=== PATIENT | male | born 1930 | race Caucasian/White ===

== ENCOUNTER 2016-09-27 13:46 | Emergency (ER) | payer MEDICARE ==
[~2016-09-27] VITALS: Ht 177.8 cm; Wt 87.1 kg
[2016-09-27] MEDS ORDERED: TAMS0.4C97 PO (14:31)
[2016-09-27] MEDS ORDERED: NAPR220C4 PO (14:31)
[2016-09-27] MEDS ORDERED: LEVO25TA55 PO (14:31)
[2016-09-27] MEDS ORDERED: CHOL100013 PO (14:31)
[2016-09-27 14:40] VITALS: BP 156/76
--- NOTE | 2016-09-27 15:42 | RAD ---
CT of the head without contrast, 09/27/2016: History: Fall, head and neck pain Comparison is made to a study from 04/28/2006. There is moderate cerebral atrophy. There are moderate patchy lucencies in the deep white matter bilaterally compatible with chronic ischemic change. These findings have worsened since the previous study. The ventricles are enlarged on a compensatory basis. There is no shift of the midline structures. There is no evidence of acute intracranial hemorrhage or mass effect. There is fluid and debris in both maxillary sinuses, likely on an inflammatory basis. Hemorrhage into the sinuses is less likely. IMPRESSION: 1. Cerebral atrophy and moderate chronic ischemic change in the deep white matter bilaterally. 2. No acute intracranial abnormality is detected. 3. Fluid in both maxillary sinuses, likely on an inflammatory basis. CT of the cervical spine without contrast, 09/27/2016: Multilevel noncontrast scans were obtained with multiplanar reconstructions produced. There is disc space narrowing and extensive marginal spurring throughout the cervical spine. There are extensive hypertrophic degenerative changes involving multiple facet joints bilaterally. The combination of findings is causing mild central spinal stenosis and moderate foraminal narrowing at multiple levels. There is a fracture at the base of the odontoid process of C2. It is nondisplaced. There are moderate underlying cystic and sclerotic changes in the odontoid process on a degenerative basis. This is probably a recent fracture, however, that cannot be stated with certainty. There is moderate thickening of the transverse ligament along the posterior aspect of the odontoid. There is associated narrowing of the thecal sac at the C1 level measuring 7-8 mm in AP dimension. There is slight spondylolisthesis at the C2-3 level due to facet joint arthropathy. No other fracture or subluxation is seen. There is moderate calcific plaquing at both carotid bifurcations. IMPRESSION: 1. Extensive multilevel hypertrophic degenerative change with mild central spinal stenosis at multiple levels. 2. Nondisplaced fracture at the base of the odontoid process. 3. Thickening of the transverse ligament along the posterior aspect of the odontoid process with mild to moderate associated central spinal stenosis at C1. PQRS Compliance Statement: One or more of the following individualized dose reduction techniques were utilized for this examination: 1. Automated exposure control 2. Adjustment of the mA and/or kV according to patient size 3. Use of iterative reconstruction technique
--- NOTE | 2016-09-27 16:02 | PHYS DOC ---
General Chief Complaint: Neck Pain Stated Complaint: NECK PAIN Time Seen by MD: 14:52 Source: patient Exam Limitations: clinical condition (vague unreliable historian patient has dementia) Problems: History of Present Illness Initial Comments Patient is an 86-year-old male with history of dementia sent to the ED from his PCPs office with injuries from a fall. Patient states that he's had nagging neck pains for the past month. Yesterday he was walking in the yard and he suffered a trip and fall falling to his back. He did hit his head there was no loss of consciousness and he's had no focal neuro deficits. After the fall his neck pain changed and worsened, this morning it became so severe that they went to their primary care doctor's office Dr. Araujo. X-rays wet read in the office were negative but the patient was sent to the ED for CT evaluation. On arrival patient has mild to moderate neck pain at rest much worse with movement. Pain is located at the skull base. Other than the neck pain he's had no new or progressive symptoms. Occurred: yesterday Severity: severe (C2 fracture and surgery for) Injuries/Pain Location: head, neck Context: tripped Loss of Consciousness: no loss of consciousness Modifying Factors: worse with jarring, worse with movement, improves with rest Associated Symptoms: headache (elevate summary met), muscle spasms, neck pain Allergies: Coded Allergies: No Known Drug Allergies (Unverified , 09/27/16) Past Medical History Medical History: other (dementia, hypothyroidism) Surgical History: other (hernia) Social History Smoker: non-smoker Alcohol: none Drugs: none Review of Systems Constitutional: denies chills, denies diaphoresis, denies fever, denies malaise Eyes: denies blindness, denies blurred vision, denies inflammation, denies pain , denies photophobia Ears, Nose, Mouth, Throat: denies ear pain, denies ear discharge, denies nose pain, denies nose discharge, denies epistaxis, denies mouth pain, denies throat pain Respiratory: denies cough, denies shortness of breath, denies wheezing Cardiovascular: denies chest pain, denies palpitations, denies syncope Gastrointestinal: denies abdominal pain, denies nausea, denies vomiting Musculoskeletal: see HPI Psychiatric/Neurological: see HPI, denies numbness, denies paresthesia, denies seizure, denies weakness Physical Exam General Appearance: WD/WN, no apparent distress Head: no evidence of injury (normocephalic atraumatic negative Alvarado sign negative raccoon eyes no face or scalp swelling or tenderness) Eyes: bilateral eye normal inspection, bilateral eye PERRL, bilateral eye EOMI Ears, Nose, Mouth, Throat: hearing grossly normal, no evidence of ENT injury ( no ear or nose discharge no fluid behind TMs bilaterally), no dental injury Neck: tender midline, other (tenderness to palpation at the upper C-spine, both soft tissue and bony tenderness noted no palpable deformity some mild swelling noted) Cardiovascular/Respiratory: normal peripheral pulses, no respiratory distress Back: no CVA tenderness, no vertebral tenderness Extremities: normal range of motion, non-tender 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 PHYSICIAN: DENICE ABURTO DO REASON: fall, head/neck pain PROCEDURE: CT HEAD AND CERVICAL SPINE WO CT of the head without contrast, 09/27/2016: History: Fall, head and neck pain Comparison is made to a study from 04/28/2006. There is moderate cerebral atrophy. There are moderate patchy lucencies in the deep white matter bilaterally compatible with chronic ischemic change. These findings have worsened since the previous study. The ventricles are enlarged on a compensatory basis. There is no shift of the midline structures. There is no evidence of acute intracranial hemorrhage or mass effect. There is fluid and debris in both maxillary sinuses, likely on an inflammatory basis. Hemorrhage into the sinuses is less likely. IMPRESSION: 1. Cerebral atrophy and moderate chronic ischemic change in the deep white matter bilaterally. 2. No acute intracranial abnormality is detected. 3. Fluid in both maxillary sinuses, likely on an inflammatory basis. CT of the cervical spine without contrast, 09/27/2016: Multilevel noncontrast scans were obtained with multiplanar reconstructions produced. There is disc space narrowing and extensive marginal spurring throughout the cervical spine. There are extensive hypertrophic degenerative changes involving multiple facet joints bilaterally. The combination of findings is causing mild central spinal stenosis and moderate foraminal narrowing at multiple levels. There is a fracture at the base of the odontoid process of C2. It is nondisplaced. There are moderate underlying cystic and sclerotic changes in the odontoid process on a degenerative basis. This is probably a recent fracture, however, that cannot be stated with certainty. There is moderate thickening of the transverse ligament along the posterior aspect of the odontoid. There is associated narrowing of the thecal sac at the C1 level measuring 7-8 mm in AP dimension. There is slight spondylolisthesis at the C2-3 level due to facet joint arthropathy. No other fracture or subluxation is seen. There is moderate calcific plaquing at both carotid bifurcations. IMPRESSION: 1. Extensive multilevel hypertrophic degenerative change with mild central spinal stenosis at multiple levels. 2. Nondisplaced fracture at the base of the odontoid process. 3. Thickening of the transverse ligament along the posterior aspect of the odontoid process with mild to moderate associated central spinal stenosis at C1. PQRS Compliance Statement: One or more of the following individualized dose reduction techniques were utilized for this examination: 1. Automated exposure control 2. Adjustment of the mA and/or kV according to patient size 3. Use of iterative reconstruction technique DICTATED AND SIGNED BY: DOROTHY HELLER MD DATE: 09/27/16 2815 CC: ELSIE MANCINI MD; DENICE ABURTO DO ~ 1608: I discussed the patient with on-call neurosurgery Dr. Carrasco. After thorough discussion he requests that the patient be transferred to [facility]. transfer team is being paged. 1622: I discussed pt with Transfer Team RN, she accepts pt on behalf of Dr Grullon via EMS transport for further eval/tx. 1640: transfer nurse called back, Dr. Grullon has no questions patient is accepted to the [facility] floor transfer team will call back with a bed assignment. She relays that we can go ahead and call EMS and get the patient on the road headed that direction. Patient remains neurologically intact he is agreeable. IMPRESSIONS: Nondisplaced odontoid base fracture Mechanical fall Departure Time of Disposition: 16:03 Disposition: 02 XFER SHT-TRM HOSP Diagnosis: C2 Fracture, mechanical fall Condition: GUARDED Additional Instructions: EMS transfer to [facility] Dr. Grullon trauma surgeon is the accepting physician. DENICE ABURTO DO Sep 27, 2016 16:02
== END 2016-09-27 18:00 | disposition short-term general hospital (02) ==
LOC: ER 13:46
DX: S12.101A Unspecified nondisplaced fracture of second cervical vertebra, initial encounter for closed fracture (principal); E03.9 Hypothyroidism, unspecified; W01.198A Fall on same level from slipping, tripping and stumbling with subsequent striking against other object, initial encounter; Y93.01 Activity, walking, marching and hiking; Y92.096 Garden or yard of other non-institutional residence as the place of occurrence of the external cause; Y99.8 Other external cause status
CPT/HCPCS: 70450; 72125; 99285-25

== ENCOUNTER 2017-05-16 12:20 | Inpatient (IN) | payer MEDICARE ==
[~2017-05-16] VITALS: Ht 181.6 cm; Wt 82.6 kg
[~2017-05-16 12:20] MED LIST: CHOL100013 PO; LEVO25TA55 PO; NAPR220C4 PO; TAMS0.4C97 PO
--- NOTE | 2017-05-16 13:16 | RAD ---
CT head without intravenous contrast History: Confusion. Comparison: CT head September 27, 2016. Technique: Axial images are obtained of the head from the skull base through the vertex without IV contrast. Exposure: One or more of the following individualized dose reduction techniques were utilized for this examination: 1. Automated exposure control 2. Adjustment of the mA and/or kV according to patient size 3. Use of iterative reconstruction technique Findings: The ventricles are appropriate in size, shape, and location for the patient's age. No obvious intracranial mass, mass-effect, midline shift, hemorrhage or obvious acute infarction is identified. Basilar cisterns are patent. Moderate, nonspecific white matter low-attenuation is seen, probably from chronic microvascular ischemic disease. Bone windows demonstrate no acute calvarial abnormality. The visualized paranasal sinuses appear clear. Impression: 1. No acute intracranial process. Please note that CT can be relatively insensitive to acute ischemic infarction for up to 24 hours after symptom onset. 2. Moderate nonspecific white matter changes, probably from chronic microvascular ischemic disease. Electronically signed by: Bogdan Fraire MD (05/16/2017 1:13 PM) [facility]
--- NOTE | 2017-05-16 13:24 | RAD ---
INDICATION: Confusion. TECHNIQUE: AP portable chest radiograph was obtained upright. No comparison is available. FINDINGS: The lungs are clear. The heart is not enlarged and there is no heart failure. There are degenerative changes in the spine and in the shoulders. Leads overlie the patient. IMPRESSION: No active pulmonary disease. Electronically signed by: Rafa Garnica MD (05/16/2017 1:21 PM) [id number]
[2017-05-16 13:46] LABS: BASO # 0.1 x10^3/uL (0.0-0.2); BASO % 1 % (0-3); EOS # 0.2 x10^3/uL (0.0-0.7); EOS % 2 % (0-3); HEMATOCRIT 40.6 % (39.0-53.0); HEMOGLOBIN 14.1 g/dL (13.0-17.5); LYMPH # 0.8 x10^3/uL (1.0-4.8); LYMPH % 11 % (24-48); MEAN CORPUSCULAR HEMOGLOBIN 34 pg (25-35); MEAN CORPUSCULAR HGB CONC 35 g/dL (31-37); MEAN CORPUSCULAR VOLUME 98 fL (79-100); MONO # 0.6 x10^3/uL (0.0-1.1); MONO % 8 % (0-9); NEUT # 5.9 x10^3uL (1.8-7.7); NEUT % 78 % (31-73); PLATELET COUNT 167 x10^3/uL (140-400); RED BLOOD COUNT 4.16 x10^6/uL (4.30-5.70); RED CELL DISTRIBUTION WIDTH 12.8 % (11.5-14.5); WHITE BLOOD COUNT 7.5 x10^3/uL (4.0-11.0)
--- NOTE | 2017-05-16 13:50 | PHYS DOC ---
Past History Past Medical History: Diabetes, High Cholesterol, Other Past Surgical History: No Surgical History Alcohol Use: None Drug Use: None Adult General Chief Complaint Chief Complaint: WEAKNESS/GENERALIZED HPI HPI 87-year-old male patient with history of dementia had increasing dementia and confusion for the last 3 weeks and had blood tests by primary care physician and was told to return to office yesterday because of abnormal lab. Patient had blood sugar of 604 yesterday without history of diabetes and had a shot of insulin and started on new medication for diabetes. Patient was more lethargic and confused this morning and was not able to take a shower by himself like his usual. Patient was coughing and choking while eating breakfast and had 1 episode of vomiting and they called 911. EMS reported that patient had O2 sat of 80s without sign of shortness of breath or hypoxia. Patient states he feels fine now and denies focal neuro deficit, fever and chills, nausea and vomiting, chest pain and shortness of breath, recent fever and cough and congestion. Review of Systems Review of Systems Constitutional: Reports confusion and numbness, denies fever or chills [] Eyes: Denies change in visual acuity, redness, or eye pain [] HENT: Denies nasal congestion or sore throat [] Respiratory: Denies cough or shortness of breath [] Cardiovascular: No additional information not addressed in HPI [] GI: Denies abdominal pain, nausea, vomiting, bloody stools or diarrhea [] : Denies dysuria or hematuria [] Musculoskeletal: Denies back pain or joint pain [] Integument: Denies rash or skin lesions [] Neurologic: Denies headache, focal weakness or sensory changes [] Endocrine: Denies polyuria or polydipsia [] All other systems were reviewed and found to be within normal limits, except as documented in this note. Allergies Allergies Allergies Coded Allergies Type Severity Reaction Last Updated Verified No Known Drug Allergies 05/16/17 No Physical Exam Physical Exam Constitutional: Well nourished, no acute distress, non-toxic appearance. [] HENT: Normocephalic, atraumatic, bilateral external ears normal, oropharynx moist, no oral exudates, nose normal. [] Eyes: PERRLA, EOMI, conjunctiva normal, no discharge. [] Neck: Normal range of motion, no tenderness, supple, no stridor. [] Cardiovascular:Heart rate regular rhythm, no murmur [] Lungs & Thorax: Bilateral breath sounds clear to auscultation [] Abdomen: Bowel sounds normal, soft, no tenderness, no masses, no pulsatile masses. [] Skin: Warm, dry, no erythema, no rash. [] Back: No tenderness, no CVA tenderness. [] Extremities: No tenderness, no cyanosis, no clubbing, ROM intact, no edema. [] Neurologic: Alert and oriented X 2, normal motor function, normal sensory function, no focal deficits noted. [] Psychologic: Affect normal Current Patient Data Vital Signs Vital Signs Date Time Temp Pulse Resp B/P (MAP) Pulse Ox O2 Delivery O2 Flow Rate FiO2 05/16/17 12:33 97.4 63 18 97 Room Air EKG EKG EKG interpreted by me. EKG at 1232 showed normal sinus rhythm at rate of 64, left rush axis, low QRS voltage, poor R-wave progress in anteroseptal the, no acute ST and T wave abnormality Radiology/Procedures Radiology/Procedures [] [address] [address] IMAGING REPORT Signed PATIENT: GUCCI FONTANEZ ACCOUNT: [id number] : 1930 LOCATION: ER AGE: 87 SEX: M EXAM STATUS: REG ER ORD. PHYSICIAN: MARGARETTE THAPA MD REASON: confusion PROCEDURE: CT HEAD WO CONTRAST CT head without intravenous contrast History: Confusion. Comparison: CT head September 27, 2016. Technique: Axial images are obtained of the head from the skull base through the vertex without IV contrast. Exposure: One or more of the following individualized dose reduction techniques were utilized for this examination: 1. Automated exposure control 2. Adjustment of the mA and/or kV according to patient size 3. Use of iterative reconstruction technique Findings: The ventricles are appropriate in size, shape, and location for the patient's age. No obvious intracranial mass, mass-effect, midline shift, hemorrhage or obvious acute infarction is identified. Basilar cisterns are patent. Moderate, nonspecific white matter low-attenuation is seen, probably from chronic microvascular ischemic disease. Bone windows demonstrate no acute calvarial abnormality. The visualized paranasal sinuses appear clear. Impression: 1. No acute intracranial process. Please note that CT can be relatively insensitive to acute ischemic infarction for up to 24 hours after symptom onset. 2. Moderate nonspecific white matter changes, probably from chronic microvascular ischemic disease. Electronically signed by: Bogdan Darby MD (05/16/2017 1:13 PM) [facility] DICTATED AND SIGNED BY: BOGDAN DARBY MD DATE: 05/16/17 1311 CC: ELSIE MANCINI MD; MARGARETTE THAPA MD ~ [place] [address] IMAGING REPORT Signed PATIENT: GUCCI FONTANEZ ACCOUNT: [id number] : 1930 LOCATION: ER AGE: 87 SEX: M EXAM STATUS: REG ER ORD. PHYSICIAN: MARGARETTE THAPA MD REASON: confusion PROCEDURE: PORTABLE CHEST 1V INDICATION: Confusion. TECHNIQUE: AP portable chest radiograph was obtained upright. No comparison is available. FINDINGS: The lungs are clear. The heart is not enlarged and there is no heart failure. There are degenerative changes in the spine and in the shoulders. Leads overlie the patient. IMPRESSION: No active pulmonary disease. Electronically signed by: Rafa Garnica MD (05/16/2017 1:21 PM) [id number] DICTATED AND SIGNED BY: RAFA GARNICA MD DATE: 05/16/177 CC: ELSIE MANCINI MD; MARGARETTE THAPA MD ~ Course & Med Decision Making Course & Med Decision Making Pertinent Labs and Imaging studies reviewed. (See chart for details) Evaluation of patient in ER showed 87-year-old female patient brought in by EMS because of confusion and vomiting after cough. Patient had O2 sats of more than 95% at arrival to ER and did not have any abnormal vital sign. Neuro exam was unremarkable. Patient had elevation of lactic acid at 2.3 with UTI. White count was normal. IV fluid and antibiotic was started. Dr. Mancini informed at 1430 and agreed with admitting patient. Dragon Disclaimer Dragon Disclaimer This electronic medical record was generated, in whole or in part, using a voice recognition dictation system. Departure Departure: Impression: Primary Impression: Altered level of consciousness Additional Impressions: Sepsis secondary to UTI Renal insufficiency Uncontrolled diabetes mellitus Disposition: ADMITTED INPATIENT (at 1430) Admitting Physician: Elsie Mancini Condition: IMPROVED Referrals: ELSIE MANCINI MD (PCP) Critical Care Time Critical care time was [70] minutes exclusive of procedures. Problem Qualifiers MARGARETTE THAPA MD May 16, 2017 13:50
[2017-05-16 13:51] LABS: MAGNESIUM 2.2 mg/dL (1.8-2.4)
[2017-05-16 13:52] LABS: INFLUENZA A PATIENT NEGATIVE (NEGATIVE); INFLUENZA B PATIENT NEGATIVE (NEGATIVE)
[2017-05-16 14:10] LABS: ALBUMIN 3.6 g/dL (3.4-5.0); ALBUMIN/GLOBULIN RATIO 1.1 (1.0-1.7); CALCIUM 8.9 mg/dL (8.5-10.1); CREATININE 1.5 mg/dL (0.7-1.3); GFR 44.3; POTASSIUM 4.2 mmol/L (3.5-5.1); TOTAL BILIRUBIN 0.6 mg/dL (0.2-1.0); TOTAL PROTEIN 6.8 g/dL (6.4-8.2)
[2017-05-16] MEDS ORDERED: IV NORMAL SALINE 1,000ML 1,000 ML IV ONE (14:15)
[2017-05-16 14:25] LABS: BILIRUBIN,URINE NEG (NEG); CLARITY,URINE CLOUDY; COLOR,URINE YELLOW; GLUCOSE,URINE >=1000 mg/dL (NEG)
[2017-05-16 14:26] LABS: BACTERIA,URINE FEW /HPF (0-FEW); NITRITE,URINE NEG (NEG); SQUAMOUS EPITHELIAL CELL,UR OCC /LPF; UROBILINOGEN,URINE 0.2 mg/dL (0.2 mg/dL); YEAST,URINE PRESENT /HPF
[2017-05-16] MEDS ORDERED: cefTRIAXone IV Push 1 GM VIAL. IVP ONE (14:30)
--- NOTE | 2017-05-16 14:47 | EKG ---
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
[2017-05-16] MEDS: IV NORMAL SALINE 1,000ML 1,000 ML IV SCH (16:12)
[2017-05-16] MEDS ORDERED: ASPI81TA50 PO (17:08)
[2017-05-16] MEDS ORDERED: CHOL400T36 PO (17:08)
[2017-05-16] MEDS ORDERED: INSU100I30 SQ (17:08)
[2017-05-16] MEDS ORDERED: LEVO125T5 PO (17:08)
[2017-05-16] MEDS ORDERED: DEXTROSE 50% 25 GM / 50ML DISP.SYRIN. IV PRN (18:30)
[2017-05-16 18:52] VITALS: BP 106/70
[2017-05-16] MEDS ORDERED: LORA2ORA8 PO (19:10)
[2017-05-16 19:55] VITALS: BP 119/70
[2017-05-16] MEDS: NYSTATIN TOPICAL POWDER 15GM BOTTLE. TP SCH (21:00)
[2017-05-16] MEDS: INSULIN DETEMIR 300 UNITS/3 ML INSULN.PEN. SQ SCH (21:04)
[2017-05-16] MEDS: HEPARIN PF for SUB-Q USE 5,000 UNIT/0.5 ML VIAL. SQ SCH (21:04)
[2017-05-16 22:55] VITALS: BP 124/71
[2017-05-16] MEDS: LORazepam INTENSOL 2 MG/ML BOTTLE PO PRN (23:26)
[2017-05-17] MEDS: IV NORMAL SALINE 1,000ML 1,000 ML IV SCH (05:12)
[2017-05-17 05:22] VITALS: BP 95/51
[2017-05-17] MEDS: HEPARIN PF for SUB-Q USE 5,000 UNIT/0.5 ML VIAL. SQ SCH ×3 (05:30→22:54)
[2017-05-17 06:06] LABS: BASO # 0.1 x10^3/uL (0.0-0.2); BASO % 1 % (0-3); EOS # 0.3 x10^3/uL (0.0-0.7); EOS % 5 % (0-3); HEMOGLOBIN 12.4 g/dL (13.0-17.5); LYMPH # 1.6 x10^3/uL (1.0-4.8); LYMPH % 27 % (24-48); MEAN CORPUSCULAR HEMOGLOBIN 34 pg (25-35); MEAN CORPUSCULAR HGB CONC 35 g/dL (31-37); MEAN CORPUSCULAR VOLUME 98 fL (79-100); MONO # 0.6 x10^3/uL (0.0-1.1); MONO % 9 % (0-9); NEUT # 3.4 x10^3uL (1.8-7.7); NEUT % 58 % (31-73); PLATELET COUNT 150 x10^3/uL (140-400); RED BLOOD COUNT 3.68 x10^6/uL (4.30-5.70); RED CELL DISTRIBUTION WIDTH 12.7 % (11.5-14.5); WHITE BLOOD COUNT 5.9 x10^3/uL (4.0-11.0)
[2017-05-17 06:08] LABS: CREATININE 1.2 mg/dL (0.7-1.3); GFR 57.3; POTASSIUM 3.7 mmol/L (3.5-5.1)
[2017-05-17] MEDS: LEVOTHYROXINE 125 MCG TABLET PO SCH ×2 (06:26→10:22)
[2017-05-17] MEDS: ASPIRIN ENTERIC COATED 81 MG TABLET.DR. PO SCH (10:21)
[2017-05-17] MEDS: CHOLECALCIFEROL (VITAMIN D3) 1,000 UNIT TABLET PO SCH (10:22)
[2017-05-17] MEDS: TAMSULOSIN 0.4 MG CAP.ER.24H. PO SCH ×2 (10:23→21:29)
[2017-05-17] MEDS: INSULIN ASPART 300 UNITS/3 ML INSULN.PEN SQ SCH ×3 (10:28→16:30)
[2017-05-17] MEDS: NYSTATIN TOPICAL POWDER 15GM BOTTLE. TP SCH ×2 (10:29→21:30)
[2017-05-17 10:47] VITALS: BP 124/76
--- NOTE | 2017-05-17 12:20 | HP ---
ADMIT DATE: 05/16/2017 HISTORY OF PRESENT ILLNESS: This is an 87-year-old gentleman with increased dementia, confusion for the last 3 weeks. The patient had a previous history of diabetes, was discovered to have diabetes; however, this morning he was a little lethargic, markedly confused, disoriented, could not shower. Denied other symptoms, but was very lethargic according to the family. The patient was admitted because of the elevated sugar and change in mental status. Urine was negative for ketones. Did have an elevated lactic acid. Likely he was dehydrated as well, showing quite a bit of sugar in his urine. In any case, the patient was admitted for change in mental status and severe hyperglycemia and dehydration. PAST MEDICAL HISTORY: Dementia, hypertension, BPH, arthritis, fractures of the neck, newly discovered diabetes, hypothyroidism, cancer, history of melanoma of the skin, influenza, pneumococcal vaccinations up-to-date, breast cancer up-to-date. ALLERGIES: No known allergies noted. FAMILY HISTORY: Unremarkable. SOCIAL HISTORY: The patient has no history of smoking, alcohol, or drug use. REVIEW OF SYSTEMS: The patient presently unable to give any type of history as he is pretty much sedated. HOME MEDICATIONS: He has been on Tarceva, aspirin, vitamin D, levothyroxine 125 mcg, lorazepam, and Flomax. ALLERGIES: No known allergies. PHYSICAL EXAMINATION: GENERAL: He is a pleasant white male, very sedated, not able to really give much of a history if at all. VITAL SIGNS: Blood pressure 120/60, respiratory rate 16, pulse 60, afebrile. HEENT: The patient's head was atraumatic, normocephalic. Eyes: PERRLA without jaundice. Mouth and throat were normal. Dry mucous membranes. NECK: Fairly supple. LUNGS: Diminished, but clear. CARDIOVASCULAR: Stable. ABDOMEN: Soft, nontender. EXTREMITIES: No clubbing, cyanosis, or edema. NEUROLOGIC: The patient is very sedate. He does not open his eyes for me anyway and hard to test the rest of his neuro exam. Labs when he came in as noted was approximately 284 lactic acid that was up. As noted earlier was his creatinine of 1.5. So in any case, the patient is resting fairly comfortably, making fairly good progress this morning. He has been receiving IV fluids and insulin on a regular basis. Dr. Mistry, psychiatrist, from [facility] will see the gentleman and make timely suggestions as always. IMPRESSION: Change of mental status, new onset of type 2 diabetes, dehydration, acute renal insufficiency secondary to dehydration. ELSIE MANCINI MD DR: IVAN/treasure JOB#: [id number] / [id number]
[2017-05-17 15:21] VITALS: BP 161/82
[2017-05-17 16:11] LABS: HEMOGLOBIN A1C 12.8 % (4.8-5.6)
--- NOTE | 2017-05-17 19:09 | PDOC ---
Exam Note: Pardeep Note: Please also refer to the separate dictated note~for this date of service dictated separately.~Patient seen individually. Discussed the patient with Nursing staff reviewed the chart.~Reviewed interim history and current functioning. Reviewed vital signs,~Labs/ Radiology~and current medications noted below. Continue current treatment with the changes noted in the dictated addendum note. This is a late entry for date of service May 16, 2017 Assessment: Vital Signs: VS - Last 72 Hours, by Label Date Time Temp Pulse Resp B/P (MAP) Pulse Ox O2 Delivery O2 Flow Rate FiO2 05/17/17 15:21 98.0 73 20 161/82 (108) 94 Room Air 05/17/17 10:47 98.4 62 20 124/76 (92) 95 Room Air 05/17/17 08:00 Room Air 05/17/17 05:22 69 18 95/51 (66) 94 Room Air 05/16/17 22:55 66 16 124/71 (88) 96 Room Air 05/16/17 19:55 97.7 72 16 119/70 (86) 98 Room Air 05/16/17 19:50 Room Air 05/16/17 19:19 Room Air 05/16/17 18:52 97.2 71 24 106/70 (82) 99 05/16/17 15:38 64 18 116/68 (84) 95 Room Air 05/16/17 15:04 61 18 119/45 (69) 97 Room Air 05/16/17 14:27 60 16 112/67 (82) 95 Room Air 05/16/17 13:57 95 18 125/87 (100) 100 Room Air 05/16/17 12:57 63 16 115/53 (73) 100 05/16/17 12:33 97.4 63 18 97 Room Air Vital Signs Date Time Temp Pulse Resp B/P (MAP) Pulse Ox O2 Delivery O2 Flow Rate FiO2 05/17/17 15:21 98.0 73 20 161/82 (108) 94 Room Air I&O Intake and Output 05/17/17 07:00 Intake Total 899.12 ml Balance 899.12 ml Intake Oral 240 ml IV Total 659.12 ml # Voids 5 Labs: Laboratory Tests Test 05/16/17 20:02 05/16/17 22:51 05/17/17 05:53 05/17/17 07:39 Glucose (Fingerstick) 319 mg/dL (70-99) H 258 mg/dL (70-99) H 179 mg/dL (70-99) H White Blood Count 5.9 x10^3/uL (4.0-11.0) Red Blood Count 3.68 x10^6/uL (4.30-5.70) L Hemoglobin 12.4 g/dL (13.0-17.5) L Hematocrit 36.0 % (39.0-53.0) L Mean Corpuscular Volume 98 fL (79-100) Mean Corpuscular Hemoglobin 34 pg (25-35) Mean Corpuscular Hemoglobin Concent 35 g/dL (31-37) Red Cell Distribution Width 12.7 % (11.5-14.5) Platelet Count 150 x10^3/uL (140-400) Neutrophils (%) (Auto) 58 % (31-73) Lymphocytes (%) (Auto) 27 % (24-48) Monocytes (%) (Auto) 9 % (0-9) Eosinophils (%) (Auto) 5 % (0-3) H Basophils (%) (Auto) 1 % (0-3) Neutrophils # (Auto) 3.4 x10^3uL (1.8-7.7) Lymphocytes # (Auto) 1.6 x10^3/uL (1.0-4.8) Monocytes # (Auto) 0.6 x10^3/uL (0.0-1.1) Eosinophils # (Auto) 0.3 x10^3/uL (0.0-0.7) Basophils # (Auto) 0.1 x10^3/uL (0.0-0.2) Sodium Level 136 mmol/L (136-145) Potassium Level 3.7 mmol/L (3.5-5.1) Chloride Level 102 mmol/L (98-107) Carbon Dioxide Level 25 mmol/L (21-32) Anion Gap 9 (6-14) Blood Urea Nitrogen 24 mg/dL (8-26) Creatinine 1.2 mg/dL (0.7-1.3) Estimated GFR (Cockcroft-Gault) 57.3 Glucose Level 192 mg/dL (70-99) H Calcium Level 8.0 mg/dL (8.5-10.1) #L Test 05/17/17 12:15 05/17/17 16:24 Glucose (Fingerstick) 245 mg/dL (70-99) H 106 mg/dL (70-99) H Current Medications: Meds: Current Medications Sodium Chloride 1,000 ml @ 1,000 mls/hr 1X ONCE IV Last administered on at 14:15; Start 05/16/17 at 14:15; Stop 05/16/17 at 15:14; Status DC Ceftriaxone Sodium 1 gm/ Sodium Chloride 50 ml @ 100 mls/hr 1X ONCE IV ; Start 05/16/17 at 14:15; Stop 05/16/17 at 14:15; Status DC Ceftriaxone Sodium (Rocephin) 1 gm 1X ONCE IVP Last administered on 05/16/17at 14:21; Start 05/16/17 at 14:30; Stop 05/16/17 at 14:32; Status DC Sodium Chloride 1,000 ml @ 75 mls/hr [id number] IV Last administered on at 05:12; Start 05/16/17 at 14:40; Stop 05/17/17 at 14:39; Status DC Aspirin (Aspirin Enteric Coated) 81 mg DAILY PO Last administered on 05/17/17at 10:21; Start 05/17/17 at 09:00 Levothyroxine Sodium (Synthroid) 125 mcg DAILYAC PO Last administered on at 10:22; Start 05/17/17 at 07:30 Vitamin D (Vitamin D3) 500 unit DAILY PO Last administered on 05/17/17at 10:22; Start 05/17/17 at 09:00 Insulin Detemir (Levemir) 40 units QHS SQ Last administered on 05/16/17at 21:04 ; Start 05/16/17 at 21:00 Heparin Sodium (Porcine) (Heparin Sq) 5,000 unit Q8HRS SQ Last administered on 05/17/17at 12:42; Start 05/16/17 at 22:00 Insulin Aspart (NovoLOG) 0-9 UNITS TIDAC SQ Last administered on 05/17/17at 12: 42; Start 05/17/17 at 07:30 Dextrose 12.5 gm PRN Q15MIN PRN IV SEE COMMENTS; Start 05/16/17 at 18:30 Lorazepam (Ativan Intensol) 0.5 mg PRN Q8HRS PRN PO ANXIETY / AGITATION Last administered on 05/16/17at 23:26; Start 05/16/17 at 19:15 Nystatin (Nystop) 1 padmini BID TP Last administered on 05/17/17at 10:29; Start at 21:00 Tamsulosin HCl (Flomax) 0.4 mg BID PO Last administered on 05/17/17at 10:23; Start 05/17/17 at 09:00 Active Scripts Active Reported Lorazepam Intensol (Lorazepam) 2 Mg/1 Ml Oral.conc 0.5 Mg PO PRN Q8HRS PRN Tresiba Flextouch U-100 (Insulin Degludec) 100 Unit/1 Ml Insuln.pen 40 Unit SQ HS Aspir-Low (Aspirin) 81 Mg Tablet.dr 1 Tab PO DAILY Vitamin D (Cholecalciferol (Vitamin D3)) 400 Unit Tablet 400 Unit PO DAILY Levothyroxine Sodium 125 Mcg Tablet 1 Tab PO DAILY Flomax (Tamsulosin Hcl) 0.4 Mg Cap.er.24h 1 Cap PO BID I have reviewed the current psychotropics carefully including drug interactions. Risk benefit ratio favors no change other than as noted in my dictated progress note. 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
--- NOTE | 2017-05-17 19:10 | PDOC ---
Exam Note: Pradeep Note: Please also refer to the separate dictated note~for this date of service dictated separately.~Patient seen individually. Discussed the patient with Nursing staff reviewed the chart.~Reviewed interim history and current functioning. Reviewed vital signs,~Labs/ Radiology~and current medications noted below. Continue current treatment with the changes noted in the dictated addendum note Assessment: Vital Signs: Vital Signs Date Time Temp Pulse Resp B/P (MAP) Pulse Ox O2 Delivery O2 Flow Rate FiO2 05/17/17 15:21 98.0 73 20 161/82 (108) 94 Room Air I&O Intake and Output 05/17/17 07:00 Intake Total 899.12 ml Balance 899.12 ml Intake Oral 240 ml IV Total 659.12 ml # Voids 5 Labs: Laboratory Tests Test 05/16/17 20:02 05/16/17 22:51 05/17/17 05:53 05/17/17 07:39 Glucose (Fingerstick) 319 mg/dL (70-99) H 258 mg/dL (70-99) H 179 mg/dL (70-99) H White Blood Count 5.9 x10^3/uL (4.0-11.0) Red Blood Count 3.68 x10^6/uL (4.30-5.70) L Hemoglobin 12.4 g/dL (13.0-17.5) L Hematocrit 36.0 % (39.0-53.0) L Mean Corpuscular Volume 98 fL (79-100) Mean Corpuscular Hemoglobin 34 pg (25-35) Mean Corpuscular Hemoglobin Concent 35 g/dL (31-37) Red Cell Distribution Width 12.7 % (11.5-14.5) Platelet Count 150 x10^3/uL (140-400) Neutrophils (%) (Auto) 58 % (31-73) Lymphocytes (%) (Auto) 27 % (24-48) Monocytes (%) (Auto) 9 % (0-9) Eosinophils (%) (Auto) 5 % (0-3) H Basophils (%) (Auto) 1 % (0-3) Neutrophils # (Auto) 3.4 x10^3uL (1.8-7.7) Lymphocytes # (Auto) 1.6 x10^3/uL (1.0-4.8) Monocytes # (Auto) 0.6 x10^3/uL (0.0-1.1) Eosinophils # (Auto) 0.3 x10^3/uL (0.0-0.7) Basophils # (Auto) 0.1 x10^3/uL (0.0-0.2) Sodium Level 136 mmol/L (136-145) Potassium Level 3.7 mmol/L (3.5-5.1) Chloride Level 102 mmol/L (98-107) Carbon Dioxide Level 25 mmol/L (21-32) Anion Gap 9 (6-14) Blood Urea Nitrogen 24 mg/dL (8-26) Creatinine 1.2 mg/dL (0.7-1.3) Estimated GFR (Cockcroft-Gault) 57.3 Glucose Level 192 mg/dL (70-99) H Calcium Level 8.0 mg/dL (8.5-10.1) #L Test 05/17/17 12:15 05/17/17 16:24 Glucose (Fingerstick) 245 mg/dL (70-99) H 106 mg/dL (70-99) H Current Medications: Meds: Current Medications Sodium Chloride 1,000 ml @ 1,000 mls/hr 1X ONCE IV Last administered on at 14:15; Start 05/16/17 at 14:15; Stop 05/16/17 at 15:14; Status DC Ceftriaxone Sodium 1 gm/ Sodium Chloride 50 ml @ 100 mls/hr 1X ONCE IV ; Start 05/16/17 at 14:15; Stop 05/16/17 at 14:15; Status DC Ceftriaxone Sodium (Rocephin) 1 gm 1X ONCE IVP Last administered on 05/16/17at 14:21; Start 05/16/17 at 14:30; Stop 05/16/17 at 14:32; Status DC Sodium Chloride 1,000 ml @ 75 mls/hr [id number] IV Last administered on at 05:12; Start 05/16/17 at 14:40; Stop 05/17/17 at 14:39; Status DC Aspirin (Aspirin Enteric Coated) 81 mg DAILY PO Last administered on 05/17/17at 10:21; Start 05/17/17 at 09:00 Levothyroxine Sodium (Synthroid) 125 mcg DAILYAC PO Last administered on 10:22; Start 05/17/17 at 07:30 Vitamin D (Vitamin D3) 500 unit DAILY PO Last administered on 05/17/17 10:22; Start 05/17/17 at 09:00 Insulin Detemir (Levemir) 40 units QHS SQ Last administered on 05/16/17 21:04 ; Start 05/16/17 at 21:00 Heparin Sodium (Porcine) (Heparin Sq) 5,000 unit Q8HRS SQ Last administered on 05/17/17 12:42; Start 05/16/17 at 22:00 Insulin Aspart (NovoLOG) 0-9 UNITS TIDAC SQ Last administered on 05/17/17 12: 42; Start 05/17/17 at 07:30 Dextrose 12.5 gm PRN Q15MIN PRN IV SEE COMMENTS; Start 05/16/17 at 18:30 Lorazepam (Ativan Intensol) 0.5 mg PRN Q8HRS PRN PO ANXIETY / AGITATION Last administered on 05/16/17at 23:26; Start 05/16/17 at 19:15 Nystatin (Nystop) 1 padmini BID TP Last administered on 05/17/17 10:29; Start at 21:00 Tamsulosin HCl (Flomax) 0.4 mg BID PO Last administered on 05/17/17 10:23; Start 05/17/17 at 09:00 Active Scripts Active Reported Lorazepam Intensol (Lorazepam) 2 Mg/1 Ml Oral.conc 0.5 Mg PO PRN Q8HRS PRN Tresiba Flextouch U-100 (Insulin Degludec) 100 Unit/1 Ml Insuln.pen 40 Unit SQ HS Aspir-Low (Aspirin) 81 Mg Tablet.dr 1 Tab PO DAILY Vitamin D (Cholecalciferol (Vitamin D3)) 400 Unit Tablet 400 Unit PO DAILY Levothyroxine Sodium 125 Mcg Tablet 1 Tab PO DAILY Flomax (Tamsulosin Hcl) 0.4 Mg Cap.er.24h 1 Cap PO BID I have reviewed the current psychotropics carefully including drug interactions. Risk benefit ratio favors no change other than as noted in my dictated progress note. 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
--- NOTE | 2017-05-17 20:06 | PN ---
DATE: 05/17/2017 PSYCHIATRIC PROGRESS NOTE This note covers elements, not covered in my initial note 05/17/2017. SUBJECTIVE: The patient seen individually, discussed with nursing staff. Overall, the patient remains somewhat confused, anxious, but compliant with treatment. No CV, , pulmonary, eye system symptoms on review. MENTAL STATUS EXAM: Oriented to himself. Insight, judgment, recent and remote memory, attention, concentration, fund of knowledge poor consistent with his diagnosis. IMPRESSION: Major neurocognitive disorder, vascular with delusion, behavioral disturbance. Rest diagnoses unchanged from my initial note. PLAN: No change from a psychiatric standpoint. We will await resolution of his UTI and medical stabilization before making further recommendations from a psychiatric standpoint. MAN Kwabena PADILLA MD DR: AMY/treasure JOB#: [id number] / [id number]
[2017-05-17 20:30] VITALS: BP 146/73
[2017-05-17] MEDS: INSULIN DETEMIR 300 UNITS/3 ML INSULN.PEN. SQ SCH (21:00)
--- NOTE | 2017-05-17 21:31 | CONS ---
DATE OF CONSULTATION: 05/16/2017 PSYCHIATRIC CONSULTATION HISTORY OF PRESENT ILLNESS: This is a late entry for 05/16/2017, covers elements not covered in my initial note of 05/16/2017. I met with the patient the evening of 05/16/2017. Discussed with nursing staff, reviewed the chart. I also met with the patient's and other family members who are visiting him in his room the evening of 05/16/2017. IDENTIFYING DATA: The patient is an 87-year-old male, referred by Dr. Mauro Bender on account of increased confusion, delusions, memory deficits and the confusion had been worsening for the past 3 weeks. I have been asked to consult from a psychiatric standpoint to assess his level of confusion and make recommendations for management. CHIEF COMPLAINT: "I threatened the [employer]. They are not going to do anything." Family confirmed that he had made threats to authorities after his driving privileges were curtailed, but since then, the charges have been dropped." HISTORY OF PRESENT ILLNESS: The patient has a history of dementia, vascular with delusions; depression; behavioral disturbance. He still resides at home with his . He has a long history of progressive dementia - diabetes, was more confused on the morning of admission and could not shower and he was very lethargic. No clear history of bipolar disorder, suicidal or homicidal ideation other than above. PAST PSYCHIATRIC HISTORY: Positive for progressive dementia, vascular with delusion, depression. PAST MEDICAL HISTORY: UTI with sepsis, hypertension, BPH, arthritis, fracture of the neck, diabetes mellitus, hypothyroidism, cancer, history of melanoma of the ____. ALLERGIES: Negative. CURRENT PSYCHOTROPICS: EMRAD was reviewed. FAMILY HISTORY: Noncontributory. SOCIAL HISTORY: No alcohol or drug abuse history. He lives at home with his . MENTAL STATUS EXAMINATION: The patient was seen individually the evening of 05/16/2017. He is oriented to himself, unaware of where he was, felt he was in [place]. Speech coherent, abstraction fair, computation impaired, language function intact, unaware of the date. No active suicidal or homicidal ideation. Intellect average. Attention span short. Language function intact. LABORATORY DATA: Reviewed. IMPRESSION: Major neurocognitive disorder, vascular with depression, delusions; anxiety disorder, unspecified; urinary tract infection, urosepsis. Rest as above. PLAN: From a psychiatric standpoint, I feel we should wait for the resolution of UTI before initiating any overt psychotropics given the risk/benefit ratio in the context of his vascular dementia. If delusions, agitation persist despite resolution and stabilization of his medical condition, we will leave open the option of SSRIs versus atypical antipsychotics and mood stabilizers. Dr. Bender, thank you for the opportunity to participate in your patient's care. We will follow with you. LISBET PADILLA MD DR: AMY/nts JOB#: [id number] / [id number]
[2017-05-17] MEDS: LORazepam INTENSOL 2 MG/ML BOTTLE PO PRN (23:07)
[2017-05-17 23:52] VITALS: BP 103/69
[2017-05-18] MEDS: HEPARIN PF for SUB-Q USE 5,000 UNIT/0.5 ML VIAL. SQ SCH ×3 (06:00→22:07)
[2017-05-18] MEDS: NYSTATIN TOPICAL POWDER 15GM BOTTLE. TP SCH ×2 (09:00→19:46)
[2017-05-18] MEDS: INSULIN ASPART 300 UNITS/3 ML INSULN.PEN SQ SCH ×3 (09:19→17:26)
[2017-05-18] MEDS: CHOLECALCIFEROL (VITAMIN D3) 1,000 UNIT TABLET PO SCH (09:58)
[2017-05-18] MEDS: LEVOTHYROXINE 125 MCG TABLET PO SCH (09:58)
[2017-05-18] MEDS: ASPIRIN ENTERIC COATED 81 MG TABLET.DR. PO SCH (09:58)
[2017-05-18] MEDS: TAMSULOSIN 0.4 MG CAP.ER.24H. PO SCH ×2 (09:58→19:45)
[2017-05-18 11:05] VITALS: BP 91/59
[2017-05-18] MEDS: POLYETHYLENE GLYCOL 3350 17 GM PACKET. PO PRN (14:19)
[2017-05-18 16:30] VITALS: BP 98/68
[2017-05-18] MEDS: ACETAMINOPHEN 500 MG TABLET PO PRN (18:55)
[2017-05-18 19:00] VITALS: BP 152/73
[2017-05-18] MEDS: OLANZapine 5 MG TABLET PO SCH (19:45)
[2017-05-18] MEDS: LORazepam INTENSOL 2 MG/ML BOTTLE PO PRN (19:46)
[2017-05-18] MEDS: INSULIN DETEMIR 300 UNITS/3 ML INSULN.PEN. SQ SCH (19:46)
--- NOTE | 2017-05-18 20:40 | PDOC ---
Exam Note: Pradeep Note: Please also refer to the separate dictated note~for this date of service dictated separately.~Patient seen individually. Discussed the patient with Nursing staff reviewed the chart.~Reviewed interim history and current functioning. Reviewed vital signs,~Labs/ Radiology~and current medications noted below. Continue current treatment with the changes noted in the dictated addendum note Assessment: Vital Signs: Vital Signs Date Time Temp Pulse Resp B/P (MAP) Pulse Ox O2 Delivery O2 Flow Rate FiO2 05/18/17 19:00 98.1 62 20 152/73 (99) 95 Room Air I&O Intake and Output 05/18/17 07:00 Intake Total 1468 ml Output Total 2 ml Balance 1466 ml Intake Oral 480 ml IV Total 988 ml Output Urine Total 2 ml # Voids 2 Labs: Laboratory Tests Test 05/17/17 23:37 05/18/17 07:27 05/18/17 11:47 05/18/17 17:08 Glucose (Fingerstick) 195 mg/dL (70-99) H 214 mg/dL (70-99) H 306 mg/dL (70-99) H 232 mg/dL (70-99) H Test 05/18/17 19:39 Glucose (Fingerstick) 269 mg/dL (70-99) H Current Medications: Meds: Current Medications Sodium Chloride 1,000 ml @ 1,000 mls/hr 1X ONCE IV Last administered on at 14:15; Start 05/16/17 at 14:15; Stop 05/16/17 at 15:14; Status DC Ceftriaxone Sodium 1 gm/ Sodium Chloride 50 ml @ 100 mls/hr 1X ONCE IV ; Start 05/16/17 at 14:15; Stop 05/16/17 at 14:15; Status DC Ceftriaxone Sodium (Rocephin) 1 gm 1X ONCE IVP Last administered on 05/16/17at 14:21; Start 05/16/17 at 14:30; Stop 05/16/17 at 14:32; Status DC Sodium Chloride 1,000 ml @ 75 mls/hr [id number] IV Last administered on at 05:12; Start 05/16/17 at 14:40; Stop 05/17/17 at 14:39; Status DC Aspirin (Aspirin Enteric Coated) 81 mg DAILY PO Last administered on 05/18/17 09:58; Start 05/17/17 at 09:00 Levothyroxine Sodium (Synthroid) 125 mcg DAILYAC PO Last administered on 09:58; Start 05/17/17 at 07:30 Vitamin D (Vitamin D3) 500 unit DAILY PO Last administered on 05/18/17 09:58; Start 05/17/17 at 09:00 Insulin Detemir (Levemir) 40 units QHS SQ Last administered on 05/18/17 19:46 ; Start 05/16/17 at 21:00 Heparin Sodium (Porcine) (Heparin Sq) 5,000 unit Q8HRS SQ Last administered on 05/18/17 14:20; Start 05/16/17 at 22:00 Insulin Aspart (NovoLOG) 0-9 UNITS TIDAC SQ Last administered on 05/18/17 17: 26; Start 05/17/17 at 07:30 Dextrose 12.5 gm PRN Q15MIN PRN IV SEE COMMENTS; Start 05/16/17 at 18:30 Lorazepam (Ativan Intensol) 0.5 mg PRN Q8HRS PRN PO ANXIETY / AGITATION Last administered on 05/18/17 19:46; Start 05/16/17 at 19:15 Nystatin (Nystop) 1 padmini BID TP Last administered on 05/18/17 19:46; Start at 21:00 Tamsulosin HCl (Flomax) 0.4 mg BID PO Last administered on 05/18/17 19:45; Start 05/17/17 at 09:00 Olanzapine (ZyPREXA) 5 mg QHS PO Last administered on 05/18/17 19:45; Start at 21:00 Polyethylene Glycol (miraLAX) 17 gm PRN DAILY PRN PO CONSTIPATION Last administered on 05/18/17 14:19; Start 05/18/17 at 14:00 Acetaminophen (Tylenol) 500 mg PRN Q6HRS PRN PO PAIN / TEMP Last administered on 05/18/17 18:55; Start 05/18/17 at 18:45 Active Scripts Active Reported Lorazepam Intensol (Lorazepam) 2 Mg/1 Ml Oral.conc 0.5 Mg PO PRN Q8HRS PRN Tresiba Flextouch U-100 (Insulin Degludec) 100 Unit/1 Ml Insuln.pen 40 Unit SQ HS Aspir-Low (Aspirin) 81 Mg Tablet.dr 1 Tab PO DAILY Vitamin D (Cholecalciferol (Vitamin D3)) 400 Unit Tablet 400 Unit PO DAILY Levothyroxine Sodium 125 Mcg Tablet 1 Tab PO DAILY Flomax (Tamsulosin Hcl) 0.4 Mg Cap.er.24h 1 Cap PO BID I have reviewed the current psychotropics carefully including drug interactions. Risk benefit ratio favors no change other than as noted in my dictated progress note. 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
[2017-05-19] MEDS: LEVOTHYROXINE 125 MCG TABLET PO SCH (05:26)
[2017-05-19] MEDS: HEPARIN PF for SUB-Q USE 5,000 UNIT/0.5 ML VIAL. SQ SCH ×3 (05:26→20:32)
[2017-05-19 06:00] VITALS: BP 122/75
[2017-05-19] MEDS: INSULIN ASPART 300 UNITS/3 ML INSULN.PEN SQ SCH ×3 (07:49→17:24)
--- NOTE | 2017-05-19 09:48 | PN ---
DATE: 05/18/2017 SUBJECTIVE: An 87-year-old gentleman came in with severe metabolic diabetic encephalopathy. 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 The patient otherwise seems to be more alert at the present time, seeking advice from ____, who started him on Zyprexa to help him with his sundown. PHYSICAL EXAMINATION: VITAL SIGNS: His blood pressure 152/73, respiratory rate 20, pulse 62, afebrile. GENERAL: The patient is alert, confused, but more alert than he has been. LUNGS: Diminished throughout, poor movement of air. CARDIOVASCULAR: Regular sinus rhythm. ABDOMEN: Soft, nontender. NEUROLOGIC: The patient alert, but confused as noted. In any case, metabolic encephalopathy, diabetic encephalopathy, type 2 diabetes, fairly new-onset sundowner's phenomenon, dementia with early Alzheimer's as well. ELSIE MANCINI MD DR: IVAN/nts JOB#: [id number] / [id number]
[2017-05-19] MEDS: CHOLECALCIFEROL (VITAMIN D3) 1,000 UNIT TABLET PO SCH (10:05)
[2017-05-19] MEDS: TAMSULOSIN 0.4 MG CAP.ER.24H. PO SCH ×2 (10:05→19:50)
[2017-05-19] MEDS: ASPIRIN ENTERIC COATED 81 MG TABLET.DR. PO SCH (10:05)
[2017-05-19] MEDS: NYSTATIN TOPICAL POWDER 15GM BOTTLE. TP SCH ×2 (10:06→19:52)
[2017-05-19 13:35] VITALS: BP 102/64
[2017-05-19] MEDS: OLANZapine 5 MG TABLET PO SCH (19:49)
[2017-05-19] MEDS: ACETAMINOPHEN 500 MG TABLET PO PRN (19:50)
[2017-05-19 19:57] VITALS: BP 126/67
[2017-05-19] MEDS: INSULIN DETEMIR 300 UNITS/3 ML INSULN.PEN. SQ SCH (20:33)
[2017-05-20] MEDS: HEPARIN PF for SUB-Q USE 5,000 UNIT/0.5 ML VIAL. SQ SCH ×2 (04:46→14:58)
[2017-05-20 05:06] VITALS: BP 105/78
[2017-05-20 06:41] LABS: BASO % 1 % (0-3); EOS # 0.3 x10^3/uL (0.0-0.7); EOS % 5 % (0-3); HEMATOCRIT 37.9 % (39.0-53.0); HEMOGLOBIN 13.1 g/dL (13.0-17.5); LYMPH # 1.1 x10^3/uL (1.0-4.8); LYMPH % 20 % (24-48); MEAN CORPUSCULAR HEMOGLOBIN 34 pg (25-35); MEAN CORPUSCULAR HGB CONC 34 g/dL (31-37); MEAN CORPUSCULAR VOLUME 98 fL (79-100); MONO # 0.8 x10^3/uL (0.0-1.1); MONO % 14 % (0-9); NEUT # 3.2 x10^3uL (1.8-7.7); NEUT % 60 % (31-73); PLATELET COUNT 166 x10^3/uL (140-400); RED BLOOD COUNT 3.86 x10^6/uL (4.30-5.70); RED CELL DISTRIBUTION WIDTH 13.2 % (11.5-14.5); WHITE BLOOD COUNT 5.4 x10^3/uL (4.0-11.0)
[2017-05-20 06:48] LABS: ALBUMIN 2.8 g/dL (3.4-5.0); ALBUMIN/GLOBULIN RATIO 0.8 (1.0-1.7); CALCIUM 8.8 mg/dL (8.5-10.1); CREATININE 1.2 mg/dL (0.7-1.3); GFR 57.3; POTASSIUM 4.3 mmol/L (3.5-5.1); TOTAL BILIRUBIN 0.3 mg/dL (0.2-1.0); TOTAL PROTEIN 6.4 g/dL (6.4-8.2)
[2017-05-20] MEDS ORDERED: INSULIN DETEMIR 300 UNITS/3 ML INSULN.PEN. SQ SCH (07:00)
[2017-05-20] MEDS: INSULIN ASPART 300 UNITS/3 ML INSULN.PEN SQ SCH ×2 (07:30→12:21)
[2017-05-20] MEDS: TAMSULOSIN 0.4 MG CAP.ER.24H. PO SCH (08:09)
[2017-05-20] MEDS: LEVOTHYROXINE 125 MCG TABLET PO SCH (08:09)
[2017-05-20] MEDS: ASPIRIN ENTERIC COATED 81 MG TABLET.DR. PO SCH (08:09)
[2017-05-20] MEDS: POLYETHYLENE GLYCOL 3350 17 GM PACKET. PO PRN (08:09)
[2017-05-20] MEDS: CHOLECALCIFEROL (VITAMIN D3) 1,000 UNIT TABLET PO SCH (08:09)
[2017-05-20] MEDS: NYSTATIN TOPICAL POWDER 15GM BOTTLE. TP SCH (08:14)
--- NOTE | 2017-05-20 08:29 | PN ---
DATE: 05/18/2017 This is a late entry for 05/18/2017 and covers elements not covered in my initial note of 05/18/2017. I met with the patient the evening of 05/18/2017. Discussed with nursing staff and met with the patient's at length as she was visiting him in his room. Overall, the patient has been calmer. He remains confused, forgetful. The described in detail how he had lost his driving license, got agitated about it, finally able to accept it. She states she lives at home with him and her grandson is there at night since he works during the day. Apparently, the patient has never attempted to walk out of the home or undo the latches at night and she states she is always aware of this. We discussed her having a safety switch off for the electric cooker they have at home to prevent from fire hazard. Overall, has been calmer during the day on 05/18/2017, confused, forgetful. No CV, , pulmonary, eye system symptoms on review. MENTAL STATUS EXAM: Oriented to himself and situation. Speech has some latency, coherent. Abstraction fair, computation impaired, language function intact. Mood and affect appears improved. LABORATORY DATA: Reviewed. IMPRESSION: Major neurocognitive disorder, early Alzheimer, vascular with history of delusions. PLAN: No change from a psychiatric standpoint. Once the patient is medically stable, if there are any residual psychotic or mood symptoms, we will address these at that time. LISBET PADILLA MD DR: AMY/treasure JOB#: [id number] / [id number]
[2017-05-20 10:34] VITALS: BP 102/66
--- NOTE | 2017-05-20 13:02 | PN ---
DATE: 05/19/2017 SUBJECTIVE: The patient is resting comfortably, making fairly good progress, still having severe sundowner syndrome. Discussed with family about placing him in some type of rehab or skilled unit. He will make that decision. OBJECTIVE: VITAL SIGNS: Blood pressure 102/64, 20 respiratory, 80 pulse, afebrile. GENERAL: The patient is alert, still confused but not as much as he has been. Sugars seem to be under a little bit more consistent control in the 100s-250s. The patient will continue to be monitored carefully and make further evaluation. IMPRESSION: Metabolic encephalopathy, diabetic encephalopathy, type 2 diabetes, poorly controlled, severe dementia with early Alzheimer type. ELSIE MANCINI MD DR: IVAN/treasure JOB#: [id number] / [id number]
[2017-05-20 15:17] VITALS: BP 91/68
--- NOTE | 2017-05-21 23:43 | DS ---
DATE OF DISCHARGE: 05/20/2017 HOSPITAL COURSE: An 87-year-old gentleman came in with increased confusion for the last 3 weeks, some agitation during the night. He was discovered to have markedly elevated blood sugars. The patient was in the 400s-500s, so he had new onset of diabetes along with his marked confusion, disoriented and agitation. The patient's blood sugars were brought under control and IV fluids, insulin and alike. Dr. Mistry reviewed the patient, made various early recommendations on him. The patient also was having delusions. The patient made a good progress during the rest of his hospitalization. He was stabilized; however, because of his agitation and his Alzheimer's, the patient was placed on the [facility] for further evaluation and treatment. IMPRESSION: Metabolic encephalopathy, diabetic encephalopathy, type 2 diabetes, new onset sundowners phenomenon dementia with early Alzheimer's, neurocognitive disorder, vascular, Alzheimer's with history of delusions, [id number] protein malnutrition. ELSIE MANCINI MD DR: IVAN/nts JOB#: [id number] / [id number]
== END 2017-05-20 16:20 | DRG 871 ==
LOC: ER 12:20 → 1 SOUTH 15:19
PROVIDERS: ADMIT Family Medicine; ATTEND Family Medicine
DX: A41.9 Sepsis, unspecified organism (principal); G93.41 Metabolic encephalopathy; E11.65 Type 2 diabetes mellitus with hyperglycemia; E86.0 Dehydration; G30.9 Alzheimer's disease, unspecified; F01.51 Vascular dementia, unspecified severity, with behavioral disturbance; F02.81 Dementia in other diseases classified elsewhere, unspecified severity, with behavioral disturbance; N39.0 Urinary tract infection, site not specified; F22 Delusional disorders; E78.00 Pure hypercholesterolemia, unspecified; E03.9 Hypothyroidism, unspecified; F32.9 Major depressive disorder, single episode, unspecified; F41.9 Anxiety disorder, unspecified; I10 Essential (primary) hypertension; N40.0 Benign prostatic hyperplasia without lower urinary tract symptoms; N28.9 Disorder of kidney and ureter, unspecified; Z79.82 Long term (current) use of aspirin; Z85.820 Personal history of malignant melanoma of skin; Z85.3 Personal history of malignant neoplasm of breast; Z79.899 Other long term (current) drug therapy
CPT/HCPCS: 36415; 70450; 71045; 80048; 80053; 81001; 82553; 82607; 82947; 83036; 83605; 83690; 83735; 83880; 84484; 85025; 85610; 85730; 87040; 87086; 87804; 93005; 96374; J0696; J1815; 97110; 97116; 99291-25; J7030

== ENCOUNTER 2017-05-20 16:23 | Inpatient (IN) | payer MEDICARE ==
[~2017-05-20] VITALS: Ht 175.3 cm; Wt 81.2 kg
[~2017-05-20 16:23] MED LIST changes: +ASPI81TA50 PO; +CHOL400T36 PO; +INSU100I30 SQ; +LEVO125T5 PO; +LORA2ORA8 PO
[2017-05-20] MEDS ORDERED: MAG HYDROX/AL HYDROX/SIMETH 30 ML ORAL.SUSP PO PRN (17:00)
[2017-05-20] MEDS ORDERED: METHYL SALICYLATE/MENTHOL TOPICAL OINTMENT 29GM TUBE. TP PRN (17:00)
[2017-05-20] MEDS ORDERED: MAGNESIUM HYDROXIDE 2,400 MG/30 ML ORAL.SUSP. PO PRN (17:00)
[2017-05-20 17:12] VITALS: BP 110/66
--- NOTE | 2017-05-20 19:04 | PDOC ---
Exam Note: Pradeep Note: Please also refer to the separate dictated note~for this date of service dictated separately.~Patient seen individually. Discussed the patient with Nursing staff reviewed the chart.~Reviewed interim history and current functioning. Reviewed vital signs,~Labs/ Radiology~and current medications noted below. Continue current treatment with the changes noted in the dictated addendum note Assessment: Vital Signs: Vital Signs Date Time Temp Pulse Resp B/P (MAP) Pulse Ox O2 Delivery O2 Flow Rate FiO2 05/20/17 17:12 97.5 72 16 110/66 (81) 98 Labs: Laboratory Tests Test 05/20/17 17:11 Glucose (Fingerstick) 154 mg/dL (70-99) H Current Medications: Meds: Current Medications Acetaminophen (Tylenol) 650 mg PRN Q6HRS PRN PO PAIN / TEMP; Start 05/20/17 at 17:00 Multi-Ingredient Ointment (Analgesic Earle) 1 padmini PRN QID PRN TP MUSCLE PAIN; Start 05/20/17 at 17:00 Al Hydroxide/Mg Hydroxide (Mylanta Plus Xs) 15 ml PRN AFTMEALHC PRN PO DYSPEPSIA; Start 05/20/17 at 17:00 Magnesium Hydroxide (Milk Of Magnesia) 2,400 mg PRN QHS PRN PO CONSTIPATION; Start 05/20/17 at 17:00 Aspirin (Aspirin Enteric Coated) 81 mg DAILY PO ; Start 05/21/17 at 09:00 Levothyroxine Sodium (Synthroid) 125 mcg DAILYAC PO ; Start 05/21/17 at 07:30 Lorazepam (Ativan Intensol) 0.5 mg PRN Q8HRS PRN PO ANXIETY / AGITATION; Start 05/20/17 at 17:30 Tamsulosin HCl (Flomax) 0.4 mg BID PO ; Start 05/20/17 at 21:00 Insulin Detemir (Levemir) 40 units QHS SQ ; Start 05/20/17 at 21:00 Insulin Detemir (Levemir) 10 units DAILY07 SQ ; Start 05/21/17 at 07:00 Nystatin (Nystop) 1 padmini BID TP ; Start 05/20/17 at 21:00 Olanzapine (ZyPREXA ZYDIS) 5 mg QHS PO ; Start 05/20/17 at 21:00 Insulin Aspart (NovoLOG) 0-9 UNITS TIDAC SQ ; Start 05/21/17 at 07:30 Active Scripts Active Reported Lorazepam Intensol (Lorazepam) 2 Mg/1 Ml Oral.conc 0.5 Mg PO PRN Q8HRS PRN Tresiba Flextouch U-100 (Insulin Degludec) 100 Unit/1 Ml Insuln.pen 40 Unit SQ HS Aspir-Low (Aspirin) 81 Mg Tablet.dr 1 Tab PO DAILY Vitamin D (Cholecalciferol (Vitamin D3)) 400 Unit Tablet 400 Unit PO DAILY Levothyroxine Sodium 125 Mcg Tablet 1 Tab PO DAILY Flomax (Tamsulosin Hcl) 0.4 Mg Cap.er.24h 1 Cap PO BID I have reviewed the current psychotropics carefully including drug interactions. Risk benefit ratio favors no change other than as noted in my dictated progress note. Diagnosis: Problems: (1) Anxiety disorder (2) Dementia in Alzheimer's disease with delusions (3) Dementia, vascular, with depression LISBET PADILLA MD May 20, 2017 19:04
[2017-05-20] MEDS: TAMSULOSIN 0.4 MG CAP.ER.24H. PO SCH (19:41)
[2017-05-20] MEDS: NYSTATIN TOPICAL POWDER 15GM BOTTLE. TP SCH (19:41)
[2017-05-20] MEDS: INSULIN DETEMIR 300 UNITS/3 ML INSULN.PEN. SQ SCH (19:43)
[2017-05-20 20:43] LABS: CLARITY,URINE CLEAR; COLOR,URINE YELLOW
[2017-05-20 20:44] LABS: BACTERIA,URINE 0 /HPF (0-FEW); BILIRUBIN,URINE NEG (NEG); GLUCOSE,URINE 250 mg/dL (NEG); GRANULAR CASTS,URINE OCC /HPF; HYALINE CASTS, URINE OCC /HPF; NITRITE,URINE NEG (NEG); RBC,URINE 0 /HPF (0-2); SQUAMOUS EPITHELIAL CELL,UR OCC /LPF; UROBILINOGEN,URINE 0.2 mg/dL (0.2 mg/dL)
[2017-05-21 06:02] VITALS: BP 159/77
[2017-05-21] MEDS ORDERED: INSULIN DETEMIR 300 UNITS/3 ML INSULN.PEN. SQ SCH (07:00)
[2017-05-21] MEDS: INSULIN ASPART 300 UNITS/3 ML INSULN.PEN SQ SCH ×3 (07:30→17:30)
[2017-05-21 08:05] LABS: BASO % 1 % (0-3); EOS # 0.3 x10^3/uL (0.0-0.7); EOS % 4 % (0-3); HEMATOCRIT 38.5 % (39.0-53.0); HEMOGLOBIN 13.1 g/dL (13.0-17.5); LYMPH # 0.9 x10^3/uL (1.0-4.8); LYMPH % 14 % (24-48); MEAN CORPUSCULAR HEMOGLOBIN 34 pg (25-35); MEAN CORPUSCULAR HGB CONC 34 g/dL (31-37); MEAN CORPUSCULAR VOLUME 98 fL (79-100); MONO # 0.6 x10^3/uL (0.0-1.1); MONO % 9 % (0-9); NEUT # 4.8 x10^3uL (1.8-7.7); NEUT % 73 % (31-73); PLATELET COUNT 189 x10^3/uL (140-400); RED BLOOD COUNT 3.92 x10^6/uL (4.30-5.70); RED CELL DISTRIBUTION WIDTH 13.1 % (11.5-14.5); WHITE BLOOD COUNT 6.6 x10^3/uL (4.0-11.0)
[2017-05-21 08:25] LABS: ALBUMIN 2.7 g/dL (3.4-5.0); ALBUMIN/GLOBULIN RATIO 0.8 (1.0-1.7); CALCIUM 8.7 mg/dL (8.5-10.1); CREATININE 1.4 mg/dL (0.7-1.3); GFR 47.9; POTASSIUM 4.5 mmol/L (3.5-5.1); TOTAL BILIRUBIN 0.3 mg/dL (0.2-1.0); TOTAL PROTEIN 6.3 g/dL (6.4-8.2)
[2017-05-21] MEDS: ASPIRIN ENTERIC COATED 81 MG TABLET.DR. PO SCH (09:19)
[2017-05-21] MEDS: NYSTATIN TOPICAL POWDER 15GM BOTTLE. TP SCH ×2 (09:20→19:34)
[2017-05-21] MEDS: TAMSULOSIN 0.4 MG CAP.ER.24H. PO SCH ×2 (09:20→19:33)
[2017-05-21] MEDS: LEVOTHYROXINE 125 MCG TABLET PO SCH (09:20)
[2017-05-21] MEDS: LORazepam INTENSOL 2 MG/ML BOTTLE PO PRN ×2 (12:31→19:36)
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
--- NOTE | 2017-05-21 15:23 | PDOC1 ---
History and Physicial ADMIT DATE: 05/16/2017 HISTORY OF PRESENT ILLNESS: This is an 87-year-old gentleman with increased dementia, confusion for the last 3 weeks. transferred up from [facility] where he was treated for altered mental status and lactic acidosis. also agressive behavior. PAST MEDICAL HISTORY: Dementia, hypertension, BPH, arthritis, fractures of the neck, newly discovered diabetes, hypothyroidism, cancer, history of melanoma of the skin, influenza, pneumococcal vaccinations up-to-date, . ALLERGIES: No known allergies noted. FAMILY HISTORY: Unremarkable. SOCIAL HISTORY: The patient has no history of smoking, alcohol, or drug use. REVIEW OF SYSTEMS: The patient presently unable to give any type of history as he is pretty much sedated. HOME MEDICATIONS: He has been on Tarceva, aspirin, vitamin D, levothyroxine 125 mcg, lorazepam, and Flomax. ALLERGIES: No known allergies. PHYSICAL EXAMINATION: 159/77 p:73 GENERAL: He is a pleasant white male, sitting in wheel chair in the dayroom conversing with the staff VITAL SIGNS: . HEENT: The patient's head was atraumatic, normocephalic. Eyes: PERRLA without jaundice. Mouth and throat were normal. Dry mucous membranes. NECK: Fairly supple. LUNGS: Diminished, but clear. CARDIOVASCULAR: Stable. ABDOMEN: Soft, nontender. EXTREMITIES: No clubbing, cyanosis, or edema. NEUROLOGIC: in wheelchair. No gross tremors noted cranial nerves int A: 1 dementia with behavior disturbance 2. htn 3. arthritis 4. impaired mobility 5. diabetes type 2 6. hypothyroidism Plan: admit to [facility], treat medical conditions. Problems: KANNAN MORA DO May 21, 2017 15:23
[2017-05-21 15:45] VITALS: BP 112/73
[2017-05-21 17:32] LABS: THYROID STIM HORMONE (TSH) 0.973 uIU/mL (0.358-3.740)
[2017-05-21] MEDS: INSULIN DETEMIR 300 UNITS/3 ML INSULN.PEN. SQ SCH (19:35)
--- NOTE | 2017-05-21 19:41 | PDOC ---
Exam Note: Pradeep Note: Please also refer to the separate dictated note~for this date of service dictated separately.~Patient seen individually. Discussed the patient with Nursing staff reviewed the chart.~Reviewed interim history and current functioning. Reviewed vital signs,~Labs/ Radiology~and current medications noted below. Continue current treatment with the changes noted in the dictated addendum note Assessment: Vital Signs: Vital Signs Date Time Temp Pulse Resp B/P (MAP) Pulse Ox O2 Delivery O2 Flow Rate FiO2 05/21/17 15:45 98.1 82 20 112/73 (86) 92 I&O Intake and Output 05/21/17 07:00 Intake Total 720 ml Balance 720 ml Intake Oral 720 ml # Voids 2 Labs: Laboratory Tests Test 05/21/17 07:00 05/21/17 08:06 05/21/17 12:23 05/21/17 16:59 White Blood Count 6.6 x10^3/uL (4.0-11.0) Red Blood Count 3.92 x10^6/uL (4.30-5.70) L Hemoglobin 13.1 g/dL (13.0-17.5) Hematocrit 38.5 % (39.0-53.0) L Mean Corpuscular Volume 98 fL (79-100) Mean Corpuscular Hemoglobin 34 pg (25-35) Mean Corpuscular Hemoglobin Concent 34 g/dL (31-37) Red Cell Distribution Width 13.1 % (11.5-14.5) Platelet Count 189 x10^3/uL (140-400) Neutrophils (%) (Auto) 73 % (31-73) Lymphocytes (%) (Auto) 14 % (24-48) L Monocytes (%) (Auto) 9 % (0-9) Eosinophils (%) (Auto) 4 % (0-3) H Basophils (%) (Auto) 1 % (0-3) Neutrophils # (Auto) 4.8 x10^3uL (1.8-7.7) Lymphocytes # (Auto) 0.9 x10^3/uL (1.0-4.8) L Monocytes # (Auto) 0.6 x10^3/uL (0.0-1.1) Eosinophils # (Auto) 0.3 x10^3/uL (0.0-0.7) Basophils # (Auto) 0.0 x10^3/uL (0.0-0.2) Sodium Level 135 mmol/L (136-145) L Potassium Level 4.5 mmol/L (3.5-5.1) Chloride Level 102 mmol/L (98-107) Carbon Dioxide Level 25 mmol/L (21-32) Anion Gap 8 (6-14) Blood Urea Nitrogen 18 mg/dL (8-26) Creatinine 1.4 mg/dL (0.7-1.3) H Estimated GFR (Cockcroft-Gault) 47.9 BUN/Creatinine Ratio 13 (6-20) Glucose Level 162 mg/dL (70-99) H Calcium Level 8.7 mg/dL (8.5-10.1) Magnesium Level 2.0 mg/dL (1.8-2.4) Iron Level 46 ug/dL (65-175) L Total Iron Binding Capacity 194 ug/dL (250-450) L Iron Saturation 24 % (15-34) Total Bilirubin 0.3 mg/dL (0.2-1.0) Aspartate Amino Transferase (AST) 51 U/L (15-37) H Alanine Aminotransferase (ALT) 47 U/L (16-63) Alkaline Phosphatase 63 U/L (46-116) Total Protein 6.3 g/dL (6.4-8.2) L Albumin 2.7 g/dL (3.4-5.0) L Albumin/Globulin Ratio 0.8 (1.0-1.7) L Triglycerides Level 131 mg/dL (0-150) Cholesterol Level 172 mg/dL (0-200) LDL Cholesterol, Calculated 106 mg/dL (0-100) H VLDL Cholesterol, Calculated 26 mg/dL (0-40) Non-HDL Cholesterol Calculated 132 mg/dL (0-129) H HDL Cholesterol 40 mg/dL (40-60) Cholesterol/HDL Ratio 4.0 Thyroid Stimulating Hormone (TSH) 0.973 uIU/mL (0.358-3.740) Glucose (Fingerstick) 158 mg/dL (70-99) H 131 mg/dL (70-99) H 258 mg/dL (70-99) H Test 05/21/17 19:18 Glucose (Fingerstick) 265 mg/dL (70-99) H Current Medications: Meds: Current Medications Acetaminophen (Tylenol) 650 mg PRN Q6HRS PRN PO PAIN / TEMP; Start 05/20/17 at 17:00 Multi-Ingredient Ointment (Analgesic [place]) 1 padmini PRN QID PRN TP MUSCLE PAIN; Start 05/20/17 at 17:00 Al Hydroxide/Mg Hydroxide (Mylanta Plus Xs) 15 ml PRN AFTMEALHC PRN PO DYSPEPSIA; Start 05/20/17 at 17:00 Magnesium Hydroxide (Milk Of Magnesia) 2,400 mg PRN QHS PRN PO CONSTIPATION; Start 05/20/17 at 17:00 Aspirin (Aspirin Enteric Coated) 81 mg DAILY PO Last administered on 05/21/17 09:19; Start 05/21/17 at 09:00 Levothyroxine Sodium (Synthroid) 125 mcg DAILYAC PO Last administered on 09:20; Start 05/21/17 at 07:30 Lorazepam (Ativan Intensol) 0.5 mg PRN Q8HRS PRN PO ANXIETY / AGITATION Last administered on 05/21/17at 12:31; Start 05/20/17 at 17:30 Tamsulosin HCl (Flomax) 0.4 mg BID PO Last administered on 05/21/17 19:33; Start 05/20/17 at 21:00 Insulin Detemir (Levemir) 40 units QHS SQ Last administered on 05/21/17 19:35 ; Start 05/20/17 at 21:00 Insulin Detemir (Levemir) 10 units DAILY07 SQ Last administered on 05/21/17 09 :23; Start 05/21/17 at 07:00; Stop 05/21/17 at 11:49; Status DC Nystatin (Nystop) 1 padmini BID TP Last administered on 05/21/17 19:34; Start at 21:00 Olanzapine (ZyPREXA ZYDIS) 5 mg QHS PO Last administered on 05/20/17 19:41; Start 05/20/17 at 21:00; Stop 05/21/17 at 18:38; Status DC Insulin Aspart (NovoLOG) 0-9 UNITS TIDAC SQ Last administered on 05/21/17at 17: 30; Start 05/21/17 at 07:30 Insulin Detemir (Levemir) 10 units DAILY SQ ; Start 05/22/17 at 09:00 Olanzapine (ZyPREXA ZYDIS) 2.5 mg QHS PO Last administered on 05/21/17at 19:34; Start 05/21/17 at 21:00 Sertraline HCl (Zoloft) 25 mg DAILY PO ; Start 05/22/17 at 09:00 Buspirone HCl (Buspar) 5 mg BID@0900,1500 PO ; Start 05/22/17 at 09:00 Active Scripts Active Reported Lorazepam Intensol (Lorazepam) 2 Mg/1 Ml Oral.conc 0.5 Mg PO PRN Q8HRS PRN Tresiba Flextouch U-100 (Insulin Degludec) 100 Unit/1 Ml Insuln.pen 40 Unit SQ HS Aspir-Low (Aspirin) 81 Mg Tablet.dr 1 Tab PO DAILY Vitamin D (Cholecalciferol (Vitamin D3)) 400 Unit Tablet 400 Unit PO DAILY Levothyroxine Sodium 125 Mcg Tablet 1 Tab PO DAILY Flomax (Tamsulosin Hcl) 0.4 Mg Cap.er.24h 1 Cap PO BID I have reviewed the current psychotropics carefully including drug interactions. Risk benefit ratio favors no change other than as noted in my dictated progress note. Diagnosis: Problems: (1) Impulse control disorder (2) Anxiety disorder (3) Dementia in Alzheimer's disease with delusions (4) Dementia, vascular, with depression LISBET PADILLA MD May 21, 2017 19:41
[2017-05-21 20:17] LABS: T3 TOTAL 71 ng/dL (71-180); THYROXINE 7.8 ug/dL (4.5-12.0)
--- NOTE | 2017-05-21 20:40 | RAD ---
PQRS Compliance Statement: One or more of the following individualized dose reduction techniques were utilized for this examination: 1. Automated exposure control 2. Adjustment of the mA and/or kV according to patient size 3. Use of iterative reconstruction technique CT head without contrast 05/21/2017 8:13 PM INDICATION: Altered mental status COMPARISON: CT head May 16, 2017 TECHNIQUE: Multiple axial CT images of the head were obtained from skull base through the vertex without intravenous contrast. FINDINGS: Head: Ventricles, sulci and basal cisterns are prominent compatible with generalized cerebral volume loss. Low-attenuation in the periventricular white matter is suggestive of chronic small vessel ischemic changes. There is no hydrocephalus. Diallo-white matter differentiation is normal. There is no acute intracranial hemorrhage. There is no mass, mass effect or midline shift. Posterior fossa is normal in appearance. Visualized portions of the orbits are normal. Paranasal sinuses are well aerated. Mastoid air cells are well aerated. Scalp and calvaria are normal. IMPRESSION: No acute intracranial hemorrhage. Moderate parenchymal volume loss. Ventriculomegaly may be seen in the setting of normal pressure hydrocephalus. Low-attenuation in the periventricular white matter is suggestive of chronic small vessel ischemic changes. Electronically signed by: Tammy Bennett MD (05/21/2017 8:37 PM) [facility]
[2017-05-22 00:06] LABS: HEMOGLOBIN A1C 12.8 % (4.8-5.6)
[2017-05-22 05:29] VITALS: BP 120/64
[2017-05-22] MEDS: INSULIN ASPART 300 UNITS/3 ML INSULN.PEN SQ SCH ×3 (07:30→17:26)
[2017-05-22] MEDS: INSULIN DETEMIR 300 UNITS/3 ML INSULN.PEN. SQ SCH ×2 (10:53→19:55)
[2017-05-22] MEDS: TAMSULOSIN 0.4 MG CAP.ER.24H. PO SCH ×2 (11:26→19:53)
[2017-05-22] MEDS: busPIRone 5 MG TABLET. PO SCH ×3 (11:26→15:16)
[2017-05-22] MEDS: ASPIRIN ENTERIC COATED 81 MG TABLET.DR. PO SCH (11:26)
[2017-05-22] MEDS: SERTRALINE 25 MG TABLET. PO SCH (11:26)
[2017-05-22] MEDS: LEVOTHYROXINE 125 MCG TABLET PO SCH (11:26)
[2017-05-22] MEDS: NYSTATIN TOPICAL POWDER 15GM BOTTLE. TP SCH ×2 (11:27→22:09)
[2017-05-22] MEDS: ACETAMINOPHEN 325 MG TABLET PO PRN (13:10)
[2017-05-22 15:34] VITALS: BP 98/57
--- NOTE | 2017-05-22 19:58 | PDOC ---
Exam Note: Pradeep Note: Please also refer to the separate dictated note~for this date of service dictated separately.~Patient seen individually. Discussed the patient with Nursing staff reviewed the chart.~Reviewed interim history and current functioning. Reviewed vital signs,~Labs/ Radiology~and current medications noted below. Continue current treatment with the changes noted in the dictated addendum note Assessment: Vital Signs: Vital Signs Date Time Temp Pulse Resp B/P (MAP) Pulse Ox O2 Delivery O2 Flow Rate FiO2 05/22/17 15:34 98.3 72 16 98/57 (71) 95 Room Air I&O Intake and Output 05/22/17 07:00 Intake Total 480 ml Balance 480 ml Intake Oral 480 ml Labs: Laboratory Tests Test 05/22/17 07:07 05/22/17 11:38 05/22/17 16:15 05/22/17 19:15 Glucose (Fingerstick) 65 mg/dL (70-99) L 60 mg/dL (70-99) L 313 mg/dL (70-99) H 245 mg/dL (70-99) H Current Medications: Meds: Current Medications Acetaminophen (Tylenol) 650 mg PRN Q6HRS PRN PO PAIN / TEMP Last administered on 05/22/17at 13:10; Start 05/20/17 at 17:00 Multi-Ingredient Ointment (Analgesic [place]) 1 padmini PRN QID PRN TP MUSCLE PAIN; Start 05/20/17 at 17:00 Al Hydroxide/Mg Hydroxide (Mylanta Plus Xs) 15 ml PRN AFTMEALHC PRN PO DYSPEPSIA; Start 05/20/17 at 17:00 Magnesium Hydroxide (Milk Of Magnesia) 2,400 mg PRN QHS PRN PO CONSTIPATION; Start 05/20/17 at 17:00 Aspirin (Aspirin Enteric Coated) 81 mg DAILY PO Last administered on 05/22/17at 11:26; Start 05/21/17 at 09:00 Levothyroxine Sodium (Synthroid) 125 mcg DAILYAC PO Last administered on 11:26; Start 05/21/17 at 07:30 Lorazepam (Ativan Intensol) 0.5 mg PRN Q8HRS PRN PO ANXIETY / AGITATION Last administered on 05/21/17at 19:36; Start 05/20/17 at 17:30 Tamsulosin HCl (Flomax) 0.4 mg BID PO Last administered on 05/22/17 11:26; Start 05/20/17 at 21:00 Insulin Detemir (Levemir) 40 units QHS SQ Last administered on 05/21/17at 19:35 ; Start 05/20/17 at 21:00 Insulin Detemir (Levemir) 10 units DAILY07 SQ Last administered on 05/21/17 09 :23; Start 05/21/17 at 07:00; Stop 05/21/17 at 11:49; Status DC Nystatin (Nystop) 1 padmini BID TP Last administered on 05/22/17 11:27; Start 05/20 at 21:00 Olanzapine (ZyPREXA ZYDIS) 5 mg QHS PO Last administered on 05/20/17 19:41; Start 05/20/17 at 21:00; Stop 05/21/17 at 18:38; Status DC Insulin Aspart (NovoLOG) 0-9 UNITS TIDAC SQ Last administered on 05/22/17 17:26 ; Start 05/21/17 at 07:30 Insulin Detemir (Levemir) 10 units DAILY SQ Last administered on 05/22/17at 10:53 ; Start 05/22/17 at 09:00 Olanzapine (ZyPREXA ZYDIS) 2.5 mg QHS PO Last administered on 05/21/17at 19:34; Start 05/21/17 at 21:00 Sertraline HCl (Zoloft) 25 mg DAILY PO Last administered on 05/22/17 11:26; Start 05/22/17 at 09:00 Buspirone HCl (Buspar) 5 mg BID@0900,1500 PO Last administered on 05/22/17 11: 26; Start 05/22/17 at 09:00 Active Scripts Active Reported Lorazepam Intensol (Lorazepam) 2 Mg/1 Ml Oral.conc 0.5 Mg PO PRN Q8HRS PRN Tresiba Flextouch U-100 (Insulin Degludec) 100 Unit/1 Ml Insuln.pen 40 Unit SQ HS Aspir-Low (Aspirin) 81 Mg Tablet.dr 1 Tab PO DAILY Vitamin D (Cholecalciferol (Vitamin D3)) 400 Unit Tablet 400 Unit PO DAILY Levothyroxine Sodium 125 Mcg Tablet 1 Tab PO DAILY Flomax (Tamsulosin Hcl) 0.4 Mg Cap.er.24h 1 Cap PO BID I have reviewed the current psychotropics carefully including drug interactions. Risk benefit ratio favors no change other than as noted in my dictated progress note. Diagnosis: Problems: (1) Impulse control disorder (2) Anxiety disorder (3) Dementia in Alzheimer's disease with delusions (4) Dementia, vascular, with depression LISBET PADILLA MD May 22, 2017 19:58
[2017-05-23 06:39] VITALS: BP 121/66
[2017-05-23] MEDS: INSULIN ASPART 300 UNITS/3 ML INSULN.PEN SQ SCH ×3 (07:30→17:41)
[2017-05-23] MEDS: busPIRone 5 MG TABLET. PO SCH ×2 (08:57→15:13)
[2017-05-23] MEDS: LEVOTHYROXINE 125 MCG TABLET PO SCH (08:57)
[2017-05-23] MEDS: SERTRALINE 25 MG TABLET. PO SCH (08:57)
[2017-05-23] MEDS: TAMSULOSIN 0.4 MG CAP.ER.24H. PO SCH ×2 (08:57→20:08)
[2017-05-23] MEDS: ASPIRIN ENTERIC COATED 81 MG TABLET.DR. PO SCH (08:57)
[2017-05-23] MEDS: SENNOSIDES 8.6 MG TABLET PO SCH ×2 (08:58→20:08)
[2017-05-23] MEDS: NYSTATIN TOPICAL POWDER 15GM BOTTLE. TP SCH ×2 (11:22→20:09)
[2017-05-23] MEDS: INSULIN DETEMIR 300 UNITS/3 ML INSULN.PEN. SQ SCH ×2 (11:22→20:09)
[2017-05-23 16:00] VITALS: BP 112/65
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
--- NOTE | 2017-05-23 22:17 | PDOC ---
Exam Note: Pradeep Note: Please also refer to the separate dictated note~for this date of service dictated separately.~Patient seen individually. Discussed the patient with Nursing staff reviewed the chart.~Reviewed interim history and current functioning. Reviewed vital signs,~Labs/ Radiology~and current medications noted below. Continue current treatment with the changes noted in the dictated addendum note Assessment: Vital Signs: Vital Signs Date Time Temp Pulse Resp B/P (MAP) Pulse Ox O2 Delivery O2 Flow Rate FiO2 05/23/17 16:00 98.4 66 16 112/65 (81) Room Air 96.0 05/23/17 06:39 94 I&O Intake and Output 05/23/17 07:00 Intake Total 720 ml Balance 720 ml Intake Oral 720 ml Labs: Laboratory Tests Test 05/23/17 07:28 05/23/17 11:18 05/23/17 16:29 05/23/17 19:15 Glucose (Fingerstick) 52 mg/dL (70-99) L 75 mg/dL (70-99) 207 mg/dL (70-99) H 316 mg/dL (70-99) H Current Medications: Meds: Current Medications Acetaminophen (Tylenol) 650 mg PRN Q6HRS PRN PO PAIN / TEMP Last administered on 05/22/17 13:10; Start 05/20/17 at 17:00 Multi-Ingredient Ointment (Analgesic [place]) 1 padmini PRN QID PRN TP MUSCLE PAIN; Start 05/20/17 at 17:00 Al Hydroxide/Mg Hydroxide (Mylanta Plus Xs) 15 ml PRN AFTMEALHC PRN PO DYSPEPSIA; Start 05/20/17 at 17:00 Magnesium Hydroxide (Milk Of Magnesia) 2,400 mg PRN QHS PRN PO CONSTIPATION Last administered on 05/22/17 19:53; Start 05/20/17 at 17:00 Aspirin (Aspirin Enteric Coated) 81 mg DAILY PO Last administered on 05/23/17 08:57; Start 05/21/17 at 09:00 Levothyroxine Sodium (Synthroid) 125 mcg DAILYAC PO Last administered on 08:57; Start 05/21/17 at 07:30 Lorazepam (Ativan Intensol) 0.5 mg PRN Q8HRS PRN PO ANXIETY / AGITATION Last administered on 05/21/17 19:36; Start 05/20/17 at 17:30 Tamsulosin HCl (Flomax) 0.4 mg BID PO Last administered on 05/23/17 20:08; Start 05/20/17 at 21:00 Insulin Detemir (Levemir) 40 units QHS SQ Last administered on 05/23/17 20:09; Start 05/20/17 at 21:00 Insulin Detemir (Levemir) 10 units DAILY07 SQ Last administered on 05/21/17 09 :23; Start 05/21/17 at 07:00; Stop 05/21/17 at 11:49; Status DC Nystatin (Nystop) 1 padmini BID TP Last administered on 05/23/17 20:09; Start 05/20 at 21:00 Olanzapine (ZyPREXA ZYDIS) 5 mg QHS PO Last administered on 05/20/17 19:41; Start 05/20/17 at 21:00; Stop 05/21/17 at 18:38; Status DC Insulin Aspart (NovoLOG) 0-9 UNITS TIDAC SQ Last administered on 05/23/17 17:41 ; Start 05/21/17 at 07:30 Insulin Detemir (Levemir) 10 units DAILY SQ Last administered on 05/23/17 11:22 ; Start 05/22/17 at 09:00 Olanzapine (ZyPREXA ZYDIS) 2.5 mg QHS PO Last administered on 05/23/17 20:08; Start 05/21/17 at 21:00 Sertraline HCl (Zoloft) 25 mg DAILY PO Last administered on 05/23/17 08:57; Start 05/22/17 at 09:00; Stop 05/23/17 at 18:55; Status DC Buspirone HCl (Buspar) 5 mg BID@0900,1500 PO Last administered on 05/23/17 15: 13; Start 05/22/17 at 09:00 Sennosides (Senna) 8.6 mg BID PO Last administered on 05/23/17 20:08; Start 05/23/17 at 09:00 Sertraline HCl (Zoloft) 50 mg DAILY PO ; Start 05/24/17 at 09:00 Active Scripts Active Reported Lorazepam Intensol (Lorazepam) 2 Mg/1 Ml Oral.conc 0.5 Mg PO PRN Q8HRS PRN Tresiba Flextouch U-100 (Insulin Degludec) 100 Unit/1 Ml Insuln.pen 40 Unit SQ HS Aspir-Low (Aspirin) 81 Mg Tablet.dr 1 Tab PO DAILY Vitamin D (Cholecalciferol (Vitamin D3)) 400 Unit Tablet 400 Unit PO DAILY Levothyroxine Sodium 125 Mcg Tablet 1 Tab PO DAILY Flomax (Tamsulosin Hcl) 0.4 Mg Cap.er.24h 1 Cap PO BID I have reviewed the current psychotropics carefully including drug interactions. Risk benefit ratio favors no change other than as noted in my dictated progress note. Diagnosis: Problems: (1) Impulse control disorder (2) Anxiety disorder (3) Dementia in Alzheimer's disease with delusions (4) Dementia, vascular, with depression LISBET PADILLA MD May 23, 2017 22:17
--- NOTE | 2017-05-23 23:03 | PN ---
DATE: 05/22/2017 PSYCHIATRIC PROGRESS NOTE This is a late entry for 05/22/2017, covers elements not covered in my initial note of 05/22/2017. SUBJECTIVE: I met with the patient the evening of 05/22/2017. The patient slept 7-3/4 hours previous evening. Staffed at a treatment team meeting the morning of 05/22/2017 and the patient's , Rosaura attended the conference. Lengthy discussion about his history, diagnosis, progress and prognosis. The patient was quite agitated the day before. CT head unremarkable. Responds to Ativan. Went to groups. Received Ativan in the evening. Seems to have sundowning around dinner. In the morning, he is more oriented, refused BuSpar. REVIEW OF SYSTEMS: Ambulation impaired. No CV, , pulmonary, eye system symptoms on review. Reliability poor. MENTAL STATUS EXAM: Oriented to himself. Insight, judgment, recent and remote memory, attention, concentration, fund of knowledge poor, consistent with his diagnosis mentioned in my initial note. IMPRESSION: Major neurocognitive disorder, vascular with depression, delusion, behavioral disturbance. Rest unchanged. PLAN: Continue psychotropics mentioned in my initial note. MAN Kwabena PADILLA MD DR: AMY/treasure JOB#: [id number] / [id number]
[2017-05-24 06:27] VITALS: BP 132/55
[2017-05-24] MEDS: INSULIN ASPART 300 UNITS/3 ML INSULN.PEN SQ SCH ×3 (07:42→17:18)
[2017-05-24] MEDS: busPIRone 5 MG TABLET. PO SCH ×2 (08:53→15:30)
[2017-05-24] MEDS: TAMSULOSIN 0.4 MG CAP.ER.24H. PO SCH ×2 (08:53→19:37)
[2017-05-24] MEDS: ASPIRIN ENTERIC COATED 81 MG TABLET.DR. PO SCH (08:53)
[2017-05-24] MEDS: LEVOTHYROXINE 125 MCG TABLET PO SCH (08:53)
[2017-05-24] MEDS: SENNOSIDES 8.6 MG TABLET PO SCH ×2 (08:53→19:37)
[2017-05-24] MEDS: SERTRALINE 50 MG TABLET. PO SCH (09:03)
[2017-05-24] MEDS: INSULIN DETEMIR 300 UNITS/3 ML INSULN.PEN. SQ SCH ×2 (09:07→19:39)
[2017-05-24] MEDS: NYSTATIN TOPICAL POWDER 15GM BOTTLE. TP SCH ×2 (09:08→19:38)
[2017-05-24] MEDS: ACETAMINOPHEN 325 MG TABLET PO PRN (16:18)
[2017-05-24 16:34] VITALS: BP 134/73
--- NOTE | 2017-05-24 21:02 | PDOC ---
Exam Note: Pradeep Note: Please also refer to the separate dictated note~for this date of service dictated separately.~Patient seen individually. Discussed the patient with Nursing staff reviewed the chart.~Reviewed interim history and current functioning. Reviewed vital signs,~Labs/ Radiology~and current medications noted below. Continue current treatment with the changes noted in the dictated addendum note Assessment: Vital Signs: Vital Signs Date Time Temp Pulse Resp B/P (MAP) Pulse Ox O2 Delivery O2 Flow Rate FiO2 05/24/17 16:34 97.2 70 18 134/73 (93) 95 Room Air 05/23/17 16:00 96.0 I&O Intake and Output 05/24/17 07:00 Intake Total 600 ml Balance 600 ml Intake Oral 600 ml # Bowel Movements 1 Labs: Laboratory Tests Test 05/24/17 07:25 05/24/17 09:06 05/24/17 11:57 05/24/17 17:09 Glucose (Fingerstick) 67 mg/dL (70-99) L 85 mg/dL (70-99) 142 mg/dL (70-99) H 273 mg/dL (70-99) H Test 05/24/17 19:23 Glucose (Fingerstick) 266 mg/dL (70-99) H Current Medications: Meds: Current Medications Acetaminophen (Tylenol) 650 mg PRN Q6HRS PRN PO PAIN / TEMP Last administered on 05/24/17 16:18; Start 05/20/17 at 17:00 Multi-Ingredient Ointment (Analgesic [place]) 1 padmini PRN QID PRN TP MUSCLE PAIN; Start 05/20/17 at 17:00 Al Hydroxide/Mg Hydroxide (Mylanta Plus Xs) 15 ml PRN AFTMEALHC PRN PO DYSPEPSIA; Start 05/20/17 at 17:00 Magnesium Hydroxide (Milk Of Magnesia) 2,400 mg PRN QHS PRN PO CONSTIPATION Last administered on 05/22/17 19:53; Start 05/20/17 at 17:00 Aspirin (Aspirin Enteric Coated) 81 mg DAILY PO Last administered on 05/24/17 08:53; Start 05/21/17 at 09:00 Levothyroxine Sodium (Synthroid) 125 mcg DAILYAC PO Last administered on at 08:53; Start 05/21/17 at 07:30 Lorazepam (Ativan Intensol) 0.5 mg PRN Q8HRS PRN PO ANXIETY / AGITATION Last administered on 05/21/17 19:36; Start 05/20/17 at 17:30 Tamsulosin HCl (Flomax) 0.4 mg BID PO Last administered on 05/24/17 19:37; Start 05/20/17 at 21:00 Insulin Detemir (Levemir) 40 units QHS SQ Last administered on 05/24/17 19:39; Start 05/20/17 at 21:00 Insulin Detemir (Levemir) 10 units DAILY07 SQ Last administered on 05/21/17 09 :23; Start 05/21/17 at 07:00; Stop 05/21/17 at 11:49; Status DC Nystatin (Nystop) 1 padmini BID TP Last administered on 05/24/17 19:38; Start 05/20 at 21:00 Olanzapine (ZyPREXA ZYDIS) 5 mg QHS PO Last administered on 05/20/17 19:41; Start 05/20/17 at 21:00; Stop 05/21/17 at 18:38; Status DC Insulin Aspart (NovoLOG) 0-9 UNITS TIDAC SQ Last administered on 05/24/17 17:18 ; Start 05/21/17 at 07:30 Insulin Detemir (Levemir) 10 units DAILY SQ Last administered on 05/24/17 09:07 ; Start 05/22/17 at 09:00 Olanzapine (ZyPREXA ZYDIS) 2.5 mg QHS PO Last administered on 05/24/17 19:37; Start 05/21/17 at 21:00 Sertraline HCl (Zoloft) 25 mg DAILY PO Last administered on 05/23/17 08:57; Start 05/22/17 at 09:00; Stop 05/23/17 at 18:55; Status DC Buspirone HCl (Buspar) 5 mg BID@0900,1500 PO Last administered on 05/24/17 15: 30; Start 05/22/17 at 09:00 Sennosides (Senna) 8.6 mg BID PO Last administered on 05/24/17 19:37; Start 05/23/17 at 09:00 Sertraline HCl (Zoloft) 50 mg DAILY PO Last administered on 05/24/17at 09:03; Start 05/24/17 at 09:00 Vitamin D (Vitamin D3) 50,000 unit [place]es PO ; Start 05/25/17 at 09:00 Active Scripts Active Reported Lorazepam Intensol (Lorazepam) 2 Mg/1 Ml Oral.conc 0.5 Mg PO PRN Q8HRS PRN Tresiba Flextouch U-100 (Insulin Degludec) 100 Unit/1 Ml Insuln.pen 40 Unit SQ HS Aspir-Low (Aspirin) 81 Mg Tablet.dr 1 Tab PO DAILY Vitamin D (Cholecalciferol (Vitamin D3)) 400 Unit Tablet 400 Unit PO DAILY Levothyroxine Sodium 125 Mcg Tablet 1 Tab PO DAILY Flomax (Tamsulosin Hcl) 0.4 Mg Cap.er.24h 1 Cap PO BID I have reviewed the current psychotropics carefully including drug interactions. Risk benefit ratio favors no change other than as noted in my dictated progress note. 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
[2017-05-25 06:20] VITALS: BP 104/54
[2017-05-25] MEDS: INSULIN ASPART 300 UNITS/3 ML INSULN.PEN SQ SCH ×3 (07:30→17:41)
[2017-05-25] MEDS: SERTRALINE 50 MG TABLET. PO SCH (08:40)
[2017-05-25] MEDS: CHOLECALCIFEROL (VITAMIN D3) 50,000 UNIT CAPSULE PO SCH (08:40)
[2017-05-25] MEDS: TAMSULOSIN 0.4 MG CAP.ER.24H. PO SCH ×2 (08:40→19:46)
[2017-05-25] MEDS: busPIRone 5 MG TABLET. PO SCH ×2 (08:40→15:26)
[2017-05-25] MEDS: SENNOSIDES 8.6 MG TABLET PO SCH ×2 (08:40→19:47)
[2017-05-25] MEDS: LEVOTHYROXINE 125 MCG TABLET PO SCH (08:40)
[2017-05-25] MEDS: ASPIRIN ENTERIC COATED 81 MG TABLET.DR. PO SCH (08:40)
[2017-05-25] MEDS: NYSTATIN TOPICAL POWDER 15GM BOTTLE. TP SCH ×2 (08:43→19:50)
[2017-05-25] MEDS: ACETAMINOPHEN 325 MG TABLET PO PRN (08:49)
[2017-05-25] MEDS: INSULIN DETEMIR 300 UNITS/3 ML INSULN.PEN. SQ SCH ×2 (09:00→19:50)
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
--- NOTE | 2017-05-25 14:03 | PN ---
DATE: 05/24/2017 This late entry, 05/24/2017, covers elements not covered in my initial note of 05/24/2017. SUBJECTIVE: I met with the patient the evening of 05/24/2017. The patient remains confused, a little bit calmer, redirects, more psychotic in the evening, gets labile read, compliant with medications. REVIEW OF SYSTEMS: No CV, , pulmonary, eye, ENT system symptoms on review. Reliability poor. MENTAL STATUS EXAM: Oriented to himself. Insight, judgment, recent and remote memory, attention, concentration, fund of knowledge poor, consistent with his diagnosis mentioned in my initial note. PLAN: Continue psychotropics mentioned in my initial note. MAN Kwabena PADILLA MD DR: AMY/treasure JOB#: [id number] / [id number]
[2017-05-25 16:08] VITALS: BP 114/72
--- NOTE | 2017-05-25 20:04 | PDOC ---
Exam Note: Pradeep Note: Please also refer to the separate dictated note~for this date of service dictated separately.~Patient seen individually. Discussed the patient with Nursing staff reviewed the chart.~Reviewed interim history and current functioning. Reviewed vital signs,~Labs/ Radiology~and current medications noted below. Continue current treatment with the changes noted in the dictated addendum note Assessment: Vital Signs: Vital Signs Date Time Temp Pulse Resp B/P (MAP) Pulse Ox O2 Delivery O2 Flow Rate FiO2 05/25/17 16:08 97.3 73 20 114/72 (86) 95 05/24/17 16:34 Room Air 05/23/17 16:00 96.0 I&O Intake and Output 05/25/17 07:00 Intake Total 960 ml Balance 960 ml Intake Oral 960 ml Labs: Laboratory Tests Test 05/25/17 08:04 05/25/17 10:26 05/25/17 11:41 05/25/17 16:58 Glucose (Fingerstick) 58 mg/dL (70-99) L 265 mg/dL (70-99) H 278 mg/dL (70-99) H 151 mg/dL (70-99) H Test 05/25/17 19:28 Glucose (Fingerstick) 253 mg/dL (70-99) H Current Medications: Meds: Current Medications Acetaminophen (Tylenol) 650 mg PRN Q6HRS PRN PO PAIN / TEMP Last administered on 05/25/17 08:49; Start 05/20/17 at 17:00 Multi-Ingredient Ointment (Analgesic [place]) 1 padmini PRN QID PRN TP MUSCLE PAIN; Start 05/20/17 at 17:00 Al Hydroxide/Mg Hydroxide (Mylanta Plus Xs) 15 ml PRN AFTMEALHC PRN PO DYSPEPSIA; Start 05/20/17 at 17:00 Magnesium Hydroxide (Milk Of Magnesia) 2,400 mg PRN QHS PRN PO CONSTIPATION Last administered on 05/22/17 19:53; Start 05/20/17 at 17:00 Aspirin (Aspirin Enteric Coated) 81 mg DAILY PO Last administered on 05/25/17 08:40; Start 05/21/17 at 09:00 Levothyroxine Sodium (Synthroid) 125 mcg DAILYAC PO Last administered on 08:40; Start 05/21/17 at 07:30 Lorazepam (Ativan Intensol) 0.5 mg PRN Q8HRS PRN PO ANXIETY / AGITATION Last administered on 05/21/17 19:36; Start 05/20/17 at 17:30 Tamsulosin HCl (Flomax) 0.4 mg BID PO Last administered on 05/25/17 19:46; Start 05/20/17 at 21:00 Insulin Detemir (Levemir) 40 units QHS SQ Last administered on 05/24/17 19:39; Start 05/20/17 at 21:00; Stop 05/25/17 at 18:15; Status DC Insulin Detemir (Levemir) 10 units DAILY07 SQ Last administered on 05/21/17 09 :23; Start 05/21/17 at 07:00; Stop 05/21/17 at 11:49; Status DC Nystatin (Nystop) 1 padmini BID TP Last administered on 05/25/17 19:50; Start 05/20 at 21:00 Olanzapine (ZyPREXA ZYDIS) 5 mg QHS PO Last administered on 05/20/17 19:41; Start 05/20/17 at 21:00; Stop 05/21/17 at 18:38; Status DC Insulin Aspart (NovoLOG) 0-9 UNITS TIDAC SQ Last administered on 05/25/17 17:41 ; Start 05/21/17 at 07:30 Insulin Detemir (Levemir) 10 units DAILY SQ Last administered on 05/24/17 09:07 ; Start 05/22/17 at 09:00 Olanzapine (ZyPREXA ZYDIS) 2.5 mg QHS PO Last administered on 05/25/17 19:47; Start 05/21/17 at 21:00 Sertraline HCl (Zoloft) 25 mg DAILY PO Last administered on 05/23/17 08:57; Start 05/22/17 at 09:00; Stop 05/23/17 at 18:55; Status DC Buspirone HCl (Buspar) 5 mg BID@0900,1500 PO Last administered on 05/25/17 15: 26; Start 05/22/17 at 09:00 Sennosides (Senna) 8.6 mg BID PO Last administered on 05/25/17 19:47; Start 05/23/17 at 09:00 Sertraline HCl (Zoloft) 50 mg DAILY PO Last administered on 05/25/17 08:40; Start 05/24/17 at 09:00 Vitamin D (Vitamin D3) 50,000 unit Valles PO Last administered on 05/25/17 08:40; Start 05/25/17 at 09:00 Insulin Detemir (Levemir) 25 units QHS SQ Last administered on 05/25/17at 19:50; Start 05/25/17 at 21:00 Olanzapine (ZyPREXA ZYDIS) 2.5 mg PRN Q2HR PRN PO PSYCHOSIS; Start 05/25/17 at 19:00 Active Scripts Active Reported Lorazepam Intensol (Lorazepam) 2 Mg/1 Ml Oral.conc 0.5 Mg PO PRN Q8HRS PRN Tresiba Flextouch U-100 (Insulin Degludec) 100 Unit/1 Ml Insuln.pen 40 Unit SQ HS Aspir-Low (Aspirin) 81 Mg Tablet.dr 1 Tab PO DAILY Vitamin D (Cholecalciferol (Vitamin D3)) 400 Unit Tablet 400 Unit PO DAILY Levothyroxine Sodium 125 Mcg Tablet 1 Tab PO DAILY Flomax (Tamsulosin Hcl) 0.4 Mg Cap.er.24h 1 Cap PO BID I have reviewed the current psychotropics carefully including drug interactions. Risk benefit ratio favors no change other than as noted in my dictated progress note. Diagnosis: Problems: (1) Impulse control disorder (2) Anxiety disorder (3) Dementia in Alzheimer's disease with delusions (4) Dementia, vascular, with depression LISBET PADILLA MD May 25, 2017 20:04
[2017-05-26 06:19] VITALS: BP 115/58
[2017-05-26] MEDS: INSULIN ASPART 300 UNITS/3 ML INSULN.PEN SQ SCH ×3 (08:30→17:00)
[2017-05-26] MEDS: LEVOTHYROXINE 125 MCG TABLET PO SCH (08:31)
[2017-05-26] MEDS: TAMSULOSIN 0.4 MG CAP.ER.24H. PO SCH ×2 (08:32→19:25)
[2017-05-26] MEDS: SERTRALINE 50 MG TABLET. PO SCH (08:32)
[2017-05-26] MEDS: ASPIRIN ENTERIC COATED 81 MG TABLET.DR. PO SCH (08:32)
[2017-05-26] MEDS: busPIRone 5 MG TABLET. PO SCH ×3 (08:32→19:34)
[2017-05-26] MEDS: SENNOSIDES 8.6 MG TABLET PO SCH ×2 (08:32→19:25)
[2017-05-26] MEDS: INSULIN DETEMIR 300 UNITS/3 ML INSULN.PEN. SQ SCH ×2 (08:33→19:38)
[2017-05-26] MEDS: NYSTATIN TOPICAL POWDER 15GM BOTTLE. TP SCH ×2 (08:34→19:34)
[2017-05-26 09:46] LABS: BASO # 0.1 x10^3/uL (0.0-0.2); BASO % 1 % (0-3); EOS # 0.4 x10^3/uL (0.0-0.7); EOS % 6 % (0-3); HEMATOCRIT 34.3 % (39.0-53.0); HEMOGLOBIN 11.6 g/dL (13.0-17.5); LYMPH % 18 % (24-48); MEAN CORPUSCULAR HEMOGLOBIN 34 pg (25-35); MEAN CORPUSCULAR HGB CONC 34 g/dL (31-37); MEAN CORPUSCULAR VOLUME 100 fL (79-100); MONO # 0.7 x10^3/uL (0.0-1.1); MONO % 11 % (0-9); NEUT # 3.6 x10^3uL (1.8-7.7); NEUT % 64 % (31-73); PLATELET COUNT 160 x10^3/uL (140-400); RED BLOOD COUNT 3.43 x10^6/uL (4.30-5.70); RED CELL DISTRIBUTION WIDTH 13.4 % (11.5-14.5); WHITE BLOOD COUNT 5.7 x10^3/uL (4.0-11.0)
[2017-05-26 10:05] LABS: ALBUMIN 2.7 g/dL (3.4-5.0); ALBUMIN/GLOBULIN RATIO 0.7 (1.0-1.7); CALCIUM 8.4 mg/dL (8.5-10.1); CREATININE 1.1 mg/dL (0.7-1.3); GFR 63.3; POTASSIUM 3.9 mmol/L (3.5-5.1); TOTAL BILIRUBIN 0.4 mg/dL (0.2-1.0); TOTAL PROTEIN 6.6 g/dL (6.4-8.2)
[2017-05-26 16:17] VITALS: BP 173/82
--- NOTE | 2017-05-26 19:52 | PDOC ---
Exam Note: Pradeep Note: Please also refer to the separate dictated note~for this date of service dictated separately.~Patient seen individually. Discussed the patient with Nursing staff reviewed the chart.~Reviewed interim history and current functioning. Reviewed vital signs,~Labs/ Radiology~and current medications noted below. Continue current treatment with the changes noted in the dictated addendum note Assessment: Vital Signs: Vital Signs Date Time Temp Pulse Resp B/P (MAP) Pulse Ox O2 Delivery O2 Flow Rate FiO2 05/26/17 16:17 97.6 78 19 173/82 (112) 95 05/24/17 16:34 Room Air 05/23/17 16:00 96.0 I&O Intake and Output 05/26/17 07:00 Intake Total 1200 ml Balance 1200 ml Intake Oral 1200 ml # Voids 1 Labs: Laboratory Tests Test 05/26/17 08:04 05/26/17 09:14 05/26/17 11:26 05/26/17 16:48 Glucose (Fingerstick) 93 mg/dL (70-99) 142 mg/dL (70-99) H 157 mg/dL (70-99) H White Blood Count 5.7 x10^3/uL (4.0-11.0) Red Blood Count 3.43 x10^6/uL (4.30-5.70) L Hemoglobin 11.6 g/dL (13.0-17.5) L Hematocrit 34.3 % (39.0-53.0) L Mean Corpuscular Volume 100 fL (79-100) Mean Corpuscular Hemoglobin 34 pg (25-35) Mean Corpuscular Hemoglobin Concent 34 g/dL (31-37) Red Cell Distribution Width 13.4 % (11.5-14.5) Platelet Count 160 x10^3/uL (140-400) Neutrophils (%) (Auto) 64 % (31-73) Lymphocytes (%) (Auto) 18 % (24-48) L Monocytes (%) (Auto) 11 % (0-9) H Eosinophils (%) (Auto) 6 % (0-3) H Basophils (%) (Auto) 1 % (0-3) Neutrophils # (Auto) 3.6 x10^3uL (1.8-7.7) Lymphocytes # (Auto) 1.0 x10^3/uL (1.0-4.8) Monocytes # (Auto) 0.7 x10^3/uL (0.0-1.1) Eosinophils # (Auto) 0.4 x10^3/uL (0.0-0.7) Basophils # (Auto) 0.1 x10^3/uL (0.0-0.2) Sodium Level 140 mmol/L (136-145) Potassium Level 3.9 mmol/L (3.5-5.1) Chloride Level 105 mmol/L (98-107) Carbon Dioxide Level 26 mmol/L (21-32) Anion Gap 9 (6-14) Blood Urea Nitrogen 25 mg/dL (8-26) Creatinine 1.1 mg/dL (0.7-1.3) Estimated GFR (Cockcroft-Gault) 63.3 BUN/Creatinine Ratio 23 (6-20) H Glucose Level 161 mg/dL (70-99) H Calcium Level 8.4 mg/dL (8.5-10.1) L Total Bilirubin 0.4 mg/dL (0.2-1.0) Aspartate Amino Transferase (AST) 73 U/L (15-37) H Alanine Aminotransferase (ALT) 41 U/L (16-63) Alkaline Phosphatase 77 U/L (46-116) Total Protein 6.6 g/dL (6.4-8.2) Albumin 2.7 g/dL (3.4-5.0) L Albumin/Globulin Ratio 0.7 (1.0-1.7) L Test 05/26/17 19:08 Glucose (Fingerstick) 198 mg/dL (70-99) H Current Medications: Meds: Current Medications Acetaminophen (Tylenol) 650 mg PRN Q6HRS PRN PO PAIN / TEMP Last administered on 05/25/17at 08:49; Start 05/20/17 at 17:00 Multi-Ingredient Ointment (Analgesic [place]) 1 padmini PRN QID PRN TP MUSCLE PAIN; Start 05/20/17 at 17:00 Al Hydroxide/Mg Hydroxide (Mylanta Plus Xs) 15 ml PRN AFTMEALHC PRN PO DYSPEPSIA; Start 05/20/17 at 17:00 Magnesium Hydroxide (Milk Of Magnesia) 2,400 mg PRN QHS PRN PO CONSTIPATION Last administered on 05/22/17 19:53; Start 05/20/17 at 17:00 Aspirin (Aspirin Enteric Coated) 81 mg DAILY PO Last administered on 05/26/17 08:32; Start 05/21/17 at 09:00 Levothyroxine Sodium (Synthroid) 125 mcg DAILYAC PO Last administered on 08:31; Start 05/21/17 at 07:30 Lorazepam (Ativan Intensol) 0.5 mg PRN Q8HRS PRN PO ANXIETY / AGITATION Last administered on 05/21/17 19:36; Start 05/20/17 at 17:30 Tamsulosin HCl (Flomax) 0.4 mg BID PO Last administered on 05/26/17 19:25; Start 05/20/17 at 21:00 Insulin Detemir (Levemir) 40 units QHS SQ Last administered on 05/24/17 19:39; Start 05/20/17 at 21:00; Stop 05/25/17 at 18:15; Status DC Insulin Detemir (Levemir) 10 units DAILY07 SQ Last administered on 05/21/17 09 :23; Start 05/21/17 at 07:00; Stop 05/21/17 at 11:49; Status DC Nystatin (Nystop) 1 padmini BID TP Last administered on 05/26/17 19:34; Start 05/20 at 21:00 Olanzapine (ZyPREXA ZYDIS) 5 mg QHS PO Last administered on 05/20/17 19:41; Start 05/20/17 at 21:00; Stop 05/21/17 at 18:38; Status DC Insulin Aspart (NovoLOG) 0-9 UNITS TIDAC SQ Last administered on 05/26/17 17:00 ; Start 05/21/17 at 07:30 Insulin Detemir (Levemir) 10 units DAILY SQ Last administered on 05/26/17 08:33 ; Start 05/22/17 at 09:00 Olanzapine (ZyPREXA ZYDIS) 2.5 mg QHS PO Last administered on 05/26/17 19:26; Start 05/21/17 at 21:00 Sertraline HCl (Zoloft) 25 mg DAILY PO Last administered on 05/23/17 08:57; Start 05/22/17 at 09:00; Stop 05/23/17 at 18:55; Status DC Buspirone HCl (Buspar) 5 mg BID@0900,1500 PO Last administered on 05/26/17at 14: 51; Start 05/22/17 at 09:00; Stop 05/26/17 at 18:34; Status DC Sennosides (Senna) 8.6 mg BID PO Last administered on 05/26/17 19:25; Start 05/23/17 at 09:00 Sertraline HCl (Zoloft) 50 mg DAILY PO Last administered on 05/26/17 08:32; Start 05/24/17 at 09:00 Vitamin D (Vitamin D3) 50,000 unit Valles PO Last administered on 05/25/17 08:40; Start 05/25/17 at 09:00 Insulin Detemir (Levemir) 25 units QHS SQ Last administered on 05/26/17 19:38; Start 05/25/17 at 21:00 Olanzapine (ZyPREXA ZYDIS) 2.5 mg PRN Q2HR PRN PO PSYCHOSIS; Start 05/25/17 at 19:00 Buspirone HCl (Buspar) 5 mg QID PO Last administered on 05/26/17 19:34; Start 05/26/17 at 21:00 Active Scripts Active Reported Lorazepam Intensol (Lorazepam) 2 Mg/1 Ml Oral.conc 0.5 Mg PO PRN Q8HRS PRN Tresiba Flextouch U-100 (Insulin Degludec) 100 Unit/1 Ml Insuln.pen 40 Unit SQ HS Aspir-Low (Aspirin) 81 Mg Tablet.dr 1 Tab PO DAILY Vitamin D (Cholecalciferol (Vitamin D3)) 400 Unit Tablet 400 Unit PO DAILY Levothyroxine Sodium 125 Mcg Tablet 1 Tab PO DAILY Flomax (Tamsulosin Hcl) 0.4 Mg Cap.er.24h 1 Cap PO BID I have reviewed the current psychotropics carefully including drug interactions. Risk benefit ratio favors no change other than as noted in my dictated progress note. Diagnosis: Problems: (1) Impulse control disorder (2) Anxiety disorder (3) Dementia in Alzheimer's disease with delusions (4) Dementia, vascular, with depression LISBET PADILLA MD May 26, 2017 19:52
--- NOTE | 2017-05-27 00:11 | PN ---
DATE: 05/25/2017 This is a late entry for 05/25/2017, covers elements not covered in my initial note of 05/25/2017. SUBJECTIVE: I met with the patient the evening of 05/25/2017. The patient had a good night, but quite delusional, confused, believes he was living in his parents' home, confused where the bathroom was, using the railing as a toilet at times, wandering into other patient's rooms. REVIEW OF SYSTEMS: No CV, , pulmonary, eye, ENT system symptoms on review. Reliability poor. MENTAL STATUS EXAMINATION: Oriented to himself. Insight, judgment, recent and remote memory, attention, concentration, fund of knowledge poor, consistent with his diagnosis mentioned in my initial note. IMPRESSION: Unchanged from initial note. PLAN: Continue psychotropics mentioned in my initial note. Start Zyprexa p.r.n. 2.5 mg every 2 hours, max 7.5 in 24 hours for psychosis, agitation. LISBET PADILLA MD DR: AMY/treasure JOB#: [id number] / [id number]
[2017-05-27 05:58] VITALS: BP 109/56
[2017-05-27] MEDS: INSULIN ASPART 300 UNITS/3 ML INSULN.PEN SQ SCH ×3 (07:30→16:25)
[2017-05-27] MEDS: SENNOSIDES 8.6 MG TABLET PO SCH ×2 (07:53→19:34)
[2017-05-27] MEDS: ASPIRIN ENTERIC COATED 81 MG TABLET.DR. PO SCH (07:53)
[2017-05-27] MEDS: LEVOTHYROXINE 125 MCG TABLET PO SCH (07:53)
[2017-05-27] MEDS: TAMSULOSIN 0.4 MG CAP.ER.24H. PO SCH ×2 (07:53→19:34)
[2017-05-27] MEDS: SERTRALINE 50 MG TABLET. PO SCH (07:53)
[2017-05-27] MEDS: busPIRone 5 MG TABLET. PO SCH ×4 (07:53→19:33)
[2017-05-27] MEDS: NYSTATIN TOPICAL POWDER 15GM BOTTLE. TP SCH ×2 (07:54→19:34)
[2017-05-27] MEDS: INSULIN DETEMIR 300 UNITS/3 ML INSULN.PEN. SQ SCH ×2 (08:07→19:32)
[2017-05-27 15:52] VITALS: BP 132/75
--- NOTE | 2017-05-27 18:46 | PN ---
DATE: 05/26/2017 This is a late entry, 05/26 covers elements not covered in my initial note 05/26. SUBJECTIVE: I met with the patient evening of 05/26. The patient slept 6-1/4 hours previous evening with previous night he was wandering, got up at 5:00 a.m., was extremely aggressive with staff members when they were attempting to change his brief Then angry and aggressive at breakfast time. REVIEW OF SYSTEMS: No CV, , pulmonary, eye, ENT system symptoms on review. Reliability poor. MENTAL STATUS EXAM: Oriented to himself. Insight, judgment, recent and remote memory, attention, concentration, fund of knowledge poor, consistent with his diagnosis mentioned in my initial note. IMPRESSION: Major neurocognitive disorder, Alzheimer, vascular with delusion, depression, behavioral disturbance. PLAN: Increase BuSpar from 5 mg twice a day to 5 mg 4 times a day. Continue rest unchanged from initial note. MAN Kwabena PADILLA MD DR: AMY/treasure JOB#: [id number] / [id number]
--- NOTE | 2017-05-27 19:50 | PDOC ---
Exam Note: Pradepe Note: Please also refer to the separate dictated note~for this date of service dictated separately.~Patient seen individually. Discussed the patient with Nursing staff reviewed the chart.~Reviewed interim history and current functioning. Reviewed vital signs,~Labs/ Radiology~and current medications noted below. Continue current treatment with the changes noted in the dictated addendum note Assessment: Vital Signs: Vital Signs Date Time Temp Pulse Resp B/P (MAP) Pulse Ox O2 Delivery O2 Flow Rate FiO2 05/27/17 15:52 98.6 74 16 132/75 (94) 94 05/24/17 16:34 Room Air 05/23/17 16:00 96.0 I&O Intake and Output 05/27/17 07:00 Intake Total 1320 ml Balance 1320 ml Intake Oral 1320 ml # Voids 2 # Bowel Movements 1 Labs: Laboratory Tests Test 05/27/17 08:04 05/27/17 11:30 05/27/17 16:14 05/27/17 19:01 Glucose (Fingerstick) 71 mg/dL (70-99) 124 mg/dL (70-99) H 124 mg/dL (70-99) H 206 mg/dL (70-99) H Current Medications: Meds: Current Medications Acetaminophen (Tylenol) 650 mg PRN Q6HRS PRN PO PAIN / TEMP Last administered on 05/25/17 08:49; Start 05/20/17 at 17:00 Multi-Ingredient Ointment (Analgesic [place]) 1 padmini PRN QID PRN TP MUSCLE PAIN; Start 05/20/17 at 17:00 Al Hydroxide/Mg Hydroxide (Mylanta Plus Xs) 15 ml PRN AFTMEALHC PRN PO DYSPEPSIA; Start 05/20/17 at 17:00 Magnesium Hydroxide (Milk Of Magnesia) 2,400 mg PRN QHS PRN PO CONSTIPATION Last administered on 05/22/17 19:53; Start 05/20/17 at 17:00 Aspirin (Aspirin Enteric Coated) 81 mg DAILY PO Last administered on 05/27/17 07:53; Start 05/21/17 at 09:00 Levothyroxine Sodium (Synthroid) 125 mcg DAILYAC PO Last administered on 07:53; Start 05/21/17 at 07:30 Lorazepam (Ativan Intensol) 0.5 mg PRN Q8HRS PRN PO ANXIETY / AGITATION Last administered on 05/21/17 19:36; Start 05/20/17 at 17:30 Tamsulosin HCl (Flomax) 0.4 mg BID PO Last administered on 05/27/17 19:34; Start 05/20/17 at 21:00 Insulin Detemir (Levemir) 40 units QHS SQ Last administered on 05/24/17 19:39; Start 05/20/17 at 21:00; Stop 05/25/17 at 18:15; Status DC Insulin Detemir (Levemir) 10 units DAILY07 SQ Last administered on 05/21/17 09 :23; Start 05/21/17 at 07:00; Stop 05/21/17 at 11:49; Status DC Nystatin (Nystop) 1 padmini BID TP Last administered on 05/27/17 19:34; Start 05/20 at 21:00 Olanzapine (ZyPREXA ZYDIS) 5 mg QHS PO Last administered on 05/20/17 19:41; Start 05/20/17 at 21:00; Stop 05/21/17 at 18:38; Status DC Insulin Aspart (NovoLOG) 0-9 UNITS TIDAC SQ Last administered on 05/26/17 17:00 ; Start 05/21/17 at 07:30 Insulin Detemir (Levemir) 10 units DAILY SQ Last administered on 05/27/17 08:07 ; Start 05/22/17 at 09:00 Olanzapine (ZyPREXA ZYDIS) 2.5 mg QHS PO Last administered on 05/27/17 19:33; Start 05/21/17 at 21:00 Sertraline HCl (Zoloft) 25 mg DAILY PO Last administered on 05/23/17 08:57; Start 05/22/17 at 09:00; Stop 05/23/17 at 18:55; Status DC Buspirone HCl (Buspar) 5 mg BID@0900,1500 PO Last administered on 05/26/17 14: 51; Start 05/22/17 at 09:00; Stop 05/26/17 at 18:34; Status DC Sennosides (Senna) 8.6 mg BID PO Last administered on 05/27/17 19:34; Start 05/23/17 at 09:00 Sertraline HCl (Zoloft) 50 mg DAILY PO Last administered on 05/27/17 07:53; Start 05/24/17 at 09:00 Vitamin D (Vitamin D3) 50,000 unit Valles PO Last administered on 05/25/17 08:40; Start 05/25/17 at 09:00 Insulin Detemir (Levemir) 25 units QHS SQ Last administered on 05/27/17 19:32; Start 05/25/17 at 21:00 Olanzapine (ZyPREXA ZYDIS) 2.5 mg PRN Q2HR PRN PO PSYCHOSIS; Start 05/25/17 at 19:00 Buspirone HCl (Buspar) 5 mg QID PO Last administered on 05/27/17 19:33; Start 05/26/17 at 21:00 Active Scripts Active Reported Lorazepam Intensol (Lorazepam) 2 Mg/1 Ml Oral.conc 0.5 Mg PO PRN Q8HRS PRN Tresiba Flextouch U-100 (Insulin Degludec) 100 Unit/1 Ml Insuln.pen 40 Unit SQ HS Aspir-Low (Aspirin) 81 Mg Tablet.dr 1 Tab PO DAILY Vitamin D (Cholecalciferol (Vitamin D3)) 400 Unit Tablet 400 Unit PO DAILY Levothyroxine Sodium 125 Mcg Tablet 1 Tab PO DAILY Flomax (Tamsulosin Hcl) 0.4 Mg Cap.er.24h 1 Cap PO BID I have reviewed the current psychotropics carefully including drug interactions. Risk benefit ratio favors no change other than as noted in my dictated progress note. Diagnosis: Problems: (1) Impulse control disorder (2) Anxiety disorder (3) Dementia in Alzheimer's disease with delusions (4) Dementia, vascular, with depression LISBET PADILLA MD May 27, 2017 19:50
[2017-05-28] MEDS: INSULIN ASPART 300 UNITS/3 ML INSULN.PEN SQ SCH ×3 (07:59→17:11)
[2017-05-28 08:03] VITALS: BP 109/54
[2017-05-28] MEDS: LEVOTHYROXINE 125 MCG TABLET PO SCH (08:06)
[2017-05-28] MEDS: SERTRALINE 50 MG TABLET. PO SCH (08:06)
[2017-05-28] MEDS: busPIRone 5 MG TABLET. PO SCH ×4 (08:06→20:03)
[2017-05-28] MEDS: TAMSULOSIN 0.4 MG CAP.ER.24H. PO SCH ×2 (08:06→20:02)
[2017-05-28] MEDS: SENNOSIDES 8.6 MG TABLET PO SCH ×2 (08:06→20:03)
[2017-05-28] MEDS: ASPIRIN ENTERIC COATED 81 MG TABLET.DR. PO SCH (08:06)
[2017-05-28] MEDS: NYSTATIN TOPICAL POWDER 15GM BOTTLE. TP SCH ×2 (08:09→20:03)
[2017-05-28] MEDS: INSULIN DETEMIR 300 UNITS/3 ML INSULN.PEN. SQ SCH ×2 (08:12→20:05)
[2017-05-28 16:15] VITALS: BP 137/77
--- NOTE | 2017-05-28 17:42 | PN ---
DATE: 05/27/2017 This late entry 05/27/2017 covers elements not covered in my initial note 05/27/2017. Met with the patient evening of 05/27/2017. Normally, the patient sleeps in the morning, but on 05/27/2017, woke up at 8:30 a.m. Compliant with Accu-Cheks none. Compliant with a walker. Did redirect. Slept 7-1/4 hours. REVIEW OF SYSTEMS: No CV, , pulmonary, eye, ENT system symptoms on review. Reliability poor. MENTAL STATUS EXAM: Oriented to himself. Insight, judgment, recent and remote memory, attention, concentration, fund of knowledge poor, consistent with his diagnosis mentioned in my initial note. IMPRESSION: Major neurocognitive disorder, Alzheimer, vascular with depression, delusion, behavioral disturbance. Rest unchanged. PLAN: Continue psychotropics mentioned in my initial note. MAN Kwabena PADILLA MD DR: AMY/treasure JOB#: [id number] / [id number]
--- NOTE | 2017-05-28 19:51 | PDOC ---
Exam Note: Pradeep Note: Please also refer to the separate dictated note~for this date of service dictated separately.~Patient seen individually. Discussed the patient with Nursing staff reviewed the chart.~Reviewed interim history and current functioning. Reviewed vital signs,~Labs/ Radiology~and current medications noted below. Continue current treatment with the changes noted in the dictated addendum note Assessment: Vital Signs: Vital Signs Date Time Temp Pulse Resp B/P (MAP) Pulse Ox O2 Delivery O2 Flow Rate FiO2 05/28/17 16:15 98.7 73 16 137/77 (97) 95 05/24/17 16:34 Room Air 05/23/17 16:00 96.0 I&O Intake and Output 05/28/17 07:00 Intake Total 1440 ml Balance 1440 ml Intake Oral 1440 ml # Voids 2 # Bowel Movements 3 Labs: Laboratory Tests Test 05/28/17 07:32 05/28/17 07:47 05/28/17 11:42 05/28/17 16:49 Glucose (Fingerstick) 56 mg/dL (70-99) L 68 mg/dL (70-99) L 136 mg/dL (70-99) H 202 mg/dL (70-99) H Test 05/28/17 19:21 Glucose (Fingerstick) 172 mg/dL (70-99) H Current Medications: Meds: Current Medications Acetaminophen (Tylenol) 650 mg PRN Q6HRS PRN PO PAIN / TEMP Last administered on 05/25/17 08:49; Start 05/20/17 at 17:00 Multi-Ingredient Ointment (Analgesic [place]) 1 padmini PRN QID PRN TP MUSCLE PAIN; Start 05/20/17 at 17:00 Al Hydroxide/Mg Hydroxide (Mylanta Plus Xs) 15 ml PRN AFTMEALHC PRN PO DYSPEPSIA; Start 05/20/17 at 17:00 Magnesium Hydroxide (Milk Of Magnesia) 2,400 mg PRN QHS PRN PO CONSTIPATION Last administered on 05/22/17 19:53; Start 05/20/17 at 17:00 Aspirin (Aspirin Enteric Coated) 81 mg DAILY PO Last administered on 05/28/17at 08:06; Start 05/21/17 at 09:00 Levothyroxine Sodium (Synthroid) 125 mcg DAILYAC PO Last administered on 08:06; Start 05/21/17 at 07:30 Lorazepam (Ativan Intensol) 0.5 mg PRN Q8HRS PRN PO ANXIETY / AGITATION Last administered on 05/21/17 19:36; Start 05/20/17 at 17:30 Tamsulosin HCl (Flomax) 0.4 mg BID PO Last administered on 05/28/17 08:06; Start 05/20/17 at 21:00 Insulin Detemir (Levemir) 40 units QHS SQ Last administered on 05/24/17 19:39; Start 05/20/17 at 21:00; Stop 05/25/17 at 18:15; Status DC Insulin Detemir (Levemir) 10 units DAILY07 SQ Last administered on 05/21/17 09 :23; Start 05/21/17 at 07:00; Stop 05/21/17 at 11:49; Status DC Nystatin (Nystop) 1 padmini BID TP Last administered on 05/28/17 08:09; Start 05/20 at 21:00 Olanzapine (ZyPREXA ZYDIS) 5 mg QHS PO Last administered on 05/20/17 19:41; Start 05/20/17 at 21:00; Stop 05/21/17 at 18:38; Status DC Insulin Aspart (NovoLOG) 0-9 UNITS TIDAC SQ Last administered on 05/28/17 17:11 ; Start 05/21/17 at 07:30 Insulin Detemir (Levemir) 10 units DAILY SQ Last administered on 05/28/17 08:12 ; Start 05/22/17 at 09:00; Stop 05/28/17 at 10:43; Status DC Olanzapine (ZyPREXA ZYDIS) 2.5 mg QHS PO Last administered on 05/27/17 19:33; Start 05/21/17 at 21:00 Sertraline HCl (Zoloft) 25 mg DAILY PO Last administered on 05/23/17 08:57; Start 05/22/17 at 09:00; Stop 05/23/17 at 18:55; Status DC Buspirone HCl (Buspar) 5 mg BID@0900,1500 PO Last administered on 05/26/17 14: 51; Start 05/22/17 at 09:00; Stop 05/26/17 at 18:34; Status DC Sennosides (Senna) 8.6 mg BID PO Last administered on 05/28/17at 08:06; Start 05/23/17 at 09:00 Sertraline HCl (Zoloft) 50 mg DAILY PO Last administered on 05/28/17at 08:06; Start 05/24/17 at 09:00 Vitamin D (Vitamin D3) 50,000 unit Valles PO Last administered on 05/25/17at 08:40; Start 05/25/17 at 09:00 Insulin Detemir (Levemir) 25 units QHS SQ Last administered on 05/27/17at 19:32; Start 05/25/17 at 21:00; Stop 05/28/17 at 10:43; Status DC Olanzapine (ZyPREXA ZYDIS) 2.5 mg PRN Q2HR PRN PO PSYCHOSIS; Start 05/25/17 at 19:00 Buspirone HCl (Buspar) 5 mg QID PO Last administered on 05/28/17at 16:45; Start 05/26/17 at 21:00 Insulin Detemir (Levemir) 5 units DAILY SQ ; Start 05/29/17 at 09:00 Insulin Detemir (Levemir) 20 units QHS SQ ; Start 05/28/17 at 21:00 Active Scripts Active Reported Lorazepam Intensol (Lorazepam) 2 Mg/1 Ml Oral.conc 0.5 Mg PO PRN Q8HRS PRN Tresiba Flextouch U-100 (Insulin Degludec) 100 Unit/1 Ml Insuln.pen 40 Unit SQ HS Aspir-Low (Aspirin) 81 Mg Tablet.dr 1 Tab PO DAILY Vitamin D (Cholecalciferol (Vitamin D3)) 400 Unit Tablet 400 Unit PO DAILY Levothyroxine Sodium 125 Mcg Tablet 1 Tab PO DAILY Flomax (Tamsulosin Hcl) 0.4 Mg Cap.er.24h 1 Cap PO BID I have reviewed the current psychotropics carefully including drug interactions. Risk benefit ratio favors no change other than as noted in my dictated progress note. 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
[2017-05-29 06:06] VITALS: BP 152/76
[2017-05-29] MEDS: INSULIN ASPART 300 UNITS/3 ML INSULN.PEN SQ SCH ×3 (07:30→17:37)
[2017-05-29] MEDS: ASPIRIN ENTERIC COATED 81 MG TABLET.DR. PO SCH (08:59)
[2017-05-29] MEDS: LEVOTHYROXINE 125 MCG TABLET PO SCH (08:59)
[2017-05-29] MEDS: busPIRone 5 MG TABLET. PO SCH ×4 (08:59→20:08)
[2017-05-29] MEDS: NYSTATIN TOPICAL POWDER 15GM BOTTLE. TP SCH ×2 (08:59→20:09)
[2017-05-29] MEDS: TAMSULOSIN 0.4 MG CAP.ER.24H. PO SCH ×2 (08:59→20:08)
[2017-05-29] MEDS: SENNOSIDES 8.6 MG TABLET PO SCH ×2 (08:59→20:08)
[2017-05-29] MEDS: SERTRALINE 50 MG TABLET. PO SCH (08:59)
[2017-05-29] MEDS: INSULIN DETEMIR 300 UNITS/3 ML INSULN.PEN. SQ SCH ×2 (09:02→20:12)
[2017-05-29 16:12] VITALS: BP 105/56
--- NOTE | 2017-05-29 19:47 | PDOC ---
Exam Note: Pradeep Note: Please also refer to the separate dictated note~for this date of service dictated separately.~Patient seen individually. Discussed the patient with Nursing staff reviewed the chart.~Reviewed interim history and current functioning. Reviewed vital signs,~Labs/ Radiology~and current medications noted below. Continue current treatment with the changes noted in the dictated addendum note Assessment: Vital Signs: Vital Signs Date Time Temp Pulse Resp B/P (MAP) Pulse Ox O2 Delivery O2 Flow Rate FiO2 05/29/17 16:12 97.4 81 19 105/56 (72) 95 05/24/17 16:34 Room Air 05/23/17 16:00 96.0 I&O Intake and Output 05/29/17 07:00 Intake Total 1320 ml Balance 1320 ml Intake Oral 1320 ml # Voids 1 # Bowel Movements 1 Labs: Laboratory Tests Test 05/29/17 07:24 05/29/17 11:42 05/29/17 16:27 05/29/17 19:10 Glucose (Fingerstick) 83 mg/dL (70-99) 150 mg/dL (70-99) H 208 mg/dL (70-99) H 128 mg/dL (70-99) H Current Medications: Meds: Current Medications Acetaminophen (Tylenol) 650 mg PRN Q6HRS PRN PO PAIN / TEMP Last administered on 05/25/17 08:49; Start 05/20/17 at 17:00 Multi-Ingredient Ointment (Analgesic [place]) 1 padmini PRN QID PRN TP MUSCLE PAIN; Start 05/20/17 at 17:00 Al Hydroxide/Mg Hydroxide (Mylanta Plus Xs) 15 ml PRN AFTMEALHC PRN PO DYSPEPSIA; Start 05/20/17 at 17:00 Magnesium Hydroxide (Milk Of Magnesia) 2,400 mg PRN QHS PRN PO CONSTIPATION Last administered on 05/22/17 19:53; Start 05/20/17 at 17:00 Aspirin (Aspirin Enteric Coated) 81 mg DAILY PO Last administered on 05/29/17 08:59; Start 05/21/17 at 09:00 Levothyroxine Sodium (Synthroid) 125 mcg DAILYAC PO Last administered on 08:59; Start 05/21/17 at 07:30 Lorazepam (Ativan Intensol) 0.5 mg PRN Q8HRS PRN PO ANXIETY / AGITATION Last administered on 05/21/17 19:36; Start 05/20/17 at 17:30 Tamsulosin HCl (Flomax) 0.4 mg BID PO Last administered on 05/29/17 08:59; Start 05/20/17 at 21:00 Insulin Detemir (Levemir) 40 units QHS SQ Last administered on 05/24/17 19:39; Start 05/20/17 at 21:00; Stop 05/25/17 at 18:15; Status DC Insulin Detemir (Levemir) 10 units DAILY07 SQ Last administered on 05/21/17at 09 :23; Start 05/21/17 at 07:00; Stop 05/21/17 at 11:49; Status DC Nystatin (Nystop) 1 padmini BID TP Last administered on 05/29/17 08:59; Start 05/20 at 21:00 Olanzapine (ZyPREXA ZYDIS) 5 mg QHS PO Last administered on 05/20/17at 19:41; Start 05/20/17 at 21:00; Stop 05/21/17 at 18:38; Status DC Insulin Aspart (NovoLOG) 0-9 UNITS TIDAC SQ Last administered on 05/29/17 17:37 ; Start 05/21/17 at 07:30 Insulin Detemir (Levemir) 10 units DAILY SQ Last administered on 05/28/17at 08:12 ; Start 05/22/17 at 09:00; Stop 05/28/17 at 10:43; Status DC Olanzapine (ZyPREXA ZYDIS) 2.5 mg QHS PO Last administered on 05/28/17at 20:03; Start 05/21/17 at 21:00 Sertraline HCl (Zoloft) 25 mg DAILY PO Last administered on 05/23/17 08:57; Start 05/22/17 at 09:00; Stop 05/23/17 at 18:55; Status DC Buspirone HCl (Buspar) 5 mg BID@0900,1500 PO Last administered on 05/26/17at 14: 51; Start 05/22/17 at 09:00; Stop 05/26/17 at 18:34; Status DC Sennosides (Senna) 8.6 mg BID PO Last administered on 05/29/17 08:59; Start 05/23/17 at 09:00 Sertraline HCl (Zoloft) 50 mg DAILY PO Last administered on 05/29/17 08:59; Start 05/24/17 at 09:00 Vitamin D (Vitamin D3) 50,000 unit Valles PO Last administered on 05/25/17 08:40; Start 05/25/17 at 09:00 Insulin Detemir (Levemir) 25 units QHS SQ Last administered on 05/27/17 19:32; Start 05/25/17 at 21:00; Stop 05/28/17 at 10:43; Status DC Olanzapine (ZyPREXA ZYDIS) 2.5 mg PRN Q2HR PRN PO PSYCHOSIS; Start 05/25/17 at 19:00 Buspirone HCl (Buspar) 5 mg QID PO Last administered on 05/29/17 17:35; Start 05/26/17 at 21:00 Insulin Detemir (Levemir) 5 units DAILY SQ Last administered on 05/29/17 09:02 ; Start 05/29/17 at 09:00 Insulin Detemir (Levemir) 20 units QHS SQ Last administered on 05/28/17 20:05; Start 05/28/17 at 21:00 Active Scripts Active Reported Lorazepam Intensol (Lorazepam) 2 Mg/1 Ml Oral.conc 0.5 Mg PO PRN Q8HRS PRN Tresiba Flextouch U-100 (Insulin Degludec) 100 Unit/1 Ml Insuln.pen 40 Unit SQ HS Aspir-Low (Aspirin) 81 Mg Tablet.dr 1 Tab PO DAILY Vitamin D (Cholecalciferol (Vitamin D3)) 400 Unit Tablet 400 Unit PO DAILY Levothyroxine Sodium 125 Mcg Tablet 1 Tab PO DAILY Flomax (Tamsulosin Hcl) 0.4 Mg Cap.er.24h 1 Cap PO BID I have reviewed the current psychotropics carefully including drug interactions. Risk benefit ratio favors no change other than as noted in my dictated progress note. 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
[2017-05-30 06:04] VITALS: BP 124/79
[2017-05-30] MEDS: INSULIN ASPART 300 UNITS/3 ML INSULN.PEN SQ SCH ×3 (07:37→17:22)
[2017-05-30] MEDS: SENNOSIDES 8.6 MG TABLET PO SCH ×2 (09:28→19:56)
[2017-05-30] MEDS: SERTRALINE 50 MG TABLET. PO SCH (09:28)
[2017-05-30] MEDS: TAMSULOSIN 0.4 MG CAP.ER.24H. PO SCH ×2 (09:28→19:56)
[2017-05-30] MEDS: ASPIRIN ENTERIC COATED 81 MG TABLET.DR. PO SCH (09:28)
[2017-05-30] MEDS: busPIRone 5 MG TABLET. PO SCH ×4 (09:28→19:56)
[2017-05-30] MEDS: LEVOTHYROXINE 125 MCG TABLET PO SCH (09:28)
[2017-05-30] MEDS: NYSTATIN TOPICAL POWDER 15GM BOTTLE. TP SCH ×2 (09:29→19:57)
[2017-05-30] MEDS: INSULIN DETEMIR 300 UNITS/3 ML INSULN.PEN. SQ SCH ×2 (09:30→19:59)
[2017-05-30 16:23] VITALS: BP 153/75
--- NOTE | 2017-05-30 19:13 | PN ---
DATE: 05/28/2017 PSYCHIATRIC PROGRESS NOTE This is a late entry 05/28/2017 covers elements not covered in my initial note 05/28/2017. SUBJECTIVE: I met with the patient evening of 05/28/2017. The patient slept 9 hours previous evening up at 8 o'clock which is quite an improvement, in the morning cheerful, confused, using the walker. REVIEW OF SYSTEMS: No CV, , pulmonary, eye system symptoms on review. MENTAL STATUS EXAM: Oriented to himself. Insight, judgment, recent and remote memory, attention, concentration, fund of knowledge poor, consistent with his diagnosis mentioned in my initial note. IMPRESSION: Major neurocognitive disorder, Alzheimer, vascular with delusion, depression. Rest unchanged. PLAN: Continue psychotropics mentioned in my initial note. MAN Kwabena PADILLA MD DR: AMY/treasure JOB#: [id number] / [id number]
--- NOTE | 2017-05-30 19:51 | PDOC ---
Exam Note: Pradeep Note: Please also refer to the separate dictated note~for this date of service dictated separately.~Patient seen individually. Discussed the patient with Nursing staff reviewed the chart.~Reviewed interim history and current functioning. Reviewed vital signs,~Labs/ Radiology~and current medications noted below. Continue current treatment with the changes noted in the dictated addendum note Assessment: Vital Signs: Vital Signs Date Time Temp Pulse Resp B/P (MAP) Pulse Ox O2 Delivery O2 Flow Rate FiO2 05/30/17 16:23 97.8 76 19 153/75 (101) 98 05/24/17 16:34 Room Air I&O Intake and Output 05/30/17 07:00 Intake Total 1200 ml Balance 1200 ml Intake Oral 1200 ml # Voids 1 # Bowel Movements 4 Labs: Laboratory Tests Test 05/30/17 07:21 05/30/17 12:14 05/30/17 17:12 05/30/17 19:12 Glucose (Fingerstick) 82 mg/dL (70-99) 75 mg/dL (70-99) 205 mg/dL (70-99) H 210 mg/dL (70-99) H Current Medications: Meds: Current Medications Acetaminophen (Tylenol) 650 mg PRN Q6HRS PRN PO PAIN / TEMP Last administered on 05/25/17 08:49; Start 05/20/17 at 17:00 Multi-Ingredient Ointment (Analgesic [place]) 1 padmini PRN QID PRN TP MUSCLE PAIN; Start 05/20/17 at 17:00 Al Hydroxide/Mg Hydroxide (Mylanta Plus Xs) 15 ml PRN AFTMEALHC PRN PO DYSPEPSIA; Start 05/20/17 at 17:00 Magnesium Hydroxide (Milk Of Magnesia) 2,400 mg PRN QHS PRN PO CONSTIPATION Last administered on 05/22/17 19:53; Start 05/20/17 at 17:00 Aspirin (Aspirin Enteric Coated) 81 mg DAILY PO Last administered on 05/30/17 09:28; Start 05/21/17 at 09:00 Levothyroxine Sodium (Synthroid) 125 mcg DAILYAC PO Last administered on 09:28; Start 05/21/17 at 07:30 Lorazepam (Ativan Intensol) 0.5 mg PRN Q8HRS PRN PO ANXIETY / AGITATION Last administered on 05/21/17 19:36; Start 05/20/17 at 17:30 Tamsulosin HCl (Flomax) 0.4 mg BID PO Last administered on 05/30/17 09:28; Start 05/20/17 at 21:00 Insulin Detemir (Levemir) 40 units QHS SQ Last administered on 05/24/17 19:39; Start 05/20/17 at 21:00; Stop 05/25/17 at 18:15; Status DC Insulin Detemir (Levemir) 10 units DAILY07 SQ Last administered on 05/21/17 09 :23; Start 05/21/17 at 07:00; Stop 05/21/17 at 11:49; Status DC Nystatin (Nystop) 1 padmini BID TP Last administered on 05/30/17 09:29; Start 05/20 at 21:00 Olanzapine (ZyPREXA ZYDIS) 5 mg QHS PO Last administered on 05/20/17 19:41; Start 05/20/17 at 21:00; Stop 05/21/17 at 18:38; Status DC Insulin Aspart (NovoLOG) 0-9 UNITS TIDAC SQ Last administered on 05/30/17 17:22 ; Start 05/21/17 at 07:30 Insulin Detemir (Levemir) 10 units DAILY SQ Last administered on 05/28/17at 08:12 ; Start 05/22/17 at 09:00; Stop 05/28/17 at 10:43; Status DC Olanzapine (ZyPREXA ZYDIS) 2.5 mg QHS PO Last administered on 05/29/17at 20:08; Start 05/21/17 at 21:00 Sertraline HCl (Zoloft) 25 mg DAILY PO Last administered on 05/23/17 08:57; Start 05/22/17 at 09:00; Stop 05/23/17 at 18:55; Status DC Buspirone HCl (Buspar) 5 mg BID@0900,1500 PO Last administered on 05/26/17at 14: 51; Start 05/22/17 at 09:00; Stop 05/26/17 at 18:34; Status DC Sennosides (Senna) 8.6 mg BID PO Last administered on 05/30/17 09:28; Start 05/23/17 at 09:00 Sertraline HCl (Zoloft) 50 mg DAILY PO Last administered on 05/30/17 09:28; Start 05/24/17 at 09:00 Vitamin D (Vitamin D3) 50,000 unit Valles PO Last administered on 05/25/17 08:40; Start 05/25/17 at 09:00 Insulin Detemir (Levemir) 25 units QHS SQ Last administered on 05/27/17 19:32; Start 05/25/17 at 21:00; Stop 05/28/17 at 10:43; Status DC Olanzapine (ZyPREXA ZYDIS) 2.5 mg PRN Q2HR PRN PO PSYCHOSIS; Start 05/25/17 at 19:00 Buspirone HCl (Buspar) 5 mg QID PO Last administered on 05/30/17 17:20; Start 05/26/17 at 21:00 Insulin Detemir (Levemir) 5 units DAILY SQ Last administered on 05/30/17 09:30 ; Start 05/29/17 at 09:00 Insulin Detemir (Levemir) 20 units QHS SQ Last administered on 05/29/17 20:12; Start 05/28/17 at 21:00 Active Scripts Active Reported Lorazepam Intensol (Lorazepam) 2 Mg/1 Ml Oral.conc 0.5 Mg PO PRN Q8HRS PRN Tresiba Flextouch U-100 (Insulin Degludec) 100 Unit/1 Ml Insuln.pen 40 Unit SQ HS Aspir-Low (Aspirin) 81 Mg Tablet.dr 1 Tab PO DAILY Vitamin D (Cholecalciferol (Vitamin D3)) 400 Unit Tablet 400 Unit PO DAILY Levothyroxine Sodium 125 Mcg Tablet 1 Tab PO DAILY Flomax (Tamsulosin Hcl) 0.4 Mg Cap.er.24h 1 Cap PO BID I have reviewed the current psychotropics carefully including drug interactions. Risk benefit ratio favors no change other than as noted in my dictated progress note. 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
--- NOTE | 2017-05-30 23:14 | PN ---
DATE: 05/29/2017 This late entry for 05/29/2017 covers the elements not covered in my initial note 05/29/2017. HISTORY OF PRESENT ILLNESS: I met with the patient in the evening of 05/29/2017 and staffed a treatment team meeting with the entire team morning of 05/29/2017. The patient's , Rosaura, attended the conference. Sleeping about 6-7 hours average. Appetite 80%, confused, cooperative, calm, pleasant, compliant with medications, wakes up at 8:00 a.m., which is an improvement, had a shower on 05/29/2017. Minimal participation in activity groups. He still gets delusional. Believes he is at work, ready to build a shed. REVIEW OF SYSTEMS: No CV, , pulmonary, eye, ENT system symptoms on review. Reliability poor. MENTAL STATUS EXAM: Oriented to himself. Insight, judgment, recent and remote memory, attention, concentration, fund of knowledge poor, consistent with his diagnosis mentioned in my initial note. IMPRESSION: Major neurocognitive disorder, Alzheimer, vascular with delusion, depression, behavioral disturbance. PLAN: Continue psychotropics mentioned in my initial note. MAN Kwabena PADILLA MD DR: AMY/treasure JOB#: [id number] / [id number]
[2017-05-31] MEDS: LEVOTHYROXINE 125 MCG TABLET PO SCH (06:16)
[2017-05-31 06:55] VITALS: BP 112/55
[2017-05-31 08:29] LABS: BASO # 0.1 x10^3/uL (0.0-0.2); BASO % 1 % (0-3); EOS # 0.5 x10^3/uL (0.0-0.7); EOS % 8 % (0-3); HEMATOCRIT 34.4 % (39.0-53.0); HEMOGLOBIN 11.6 g/dL (13.0-17.5); LYMPH # 1.6 x10^3/uL (1.0-4.8); LYMPH % 24 % (24-48); MEAN CORPUSCULAR HEMOGLOBIN 33 pg (25-35); MEAN CORPUSCULAR HGB CONC 34 g/dL (31-37); MEAN CORPUSCULAR VOLUME 99 fL (79-100); MONO # 0.9 x10^3/uL (0.0-1.1); MONO % 13 % (0-9); NEUT # 3.7 x10^3uL (1.8-7.7); NEUT % 55 % (31-73); PLATELET COUNT 213 x10^3/uL (140-400); RED BLOOD COUNT 3.49 x10^6/uL (4.30-5.70); RED CELL DISTRIBUTION WIDTH 12.9 % (11.5-14.5); WHITE BLOOD COUNT 6.7 x10^3/uL (4.0-11.0)
[2017-05-31 08:37] LABS: ALBUMIN 2.7 g/dL (3.4-5.0); ALBUMIN/GLOBULIN RATIO 0.7 (1.0-1.7); CALCIUM 8.4 mg/dL (8.5-10.1); CREATININE 1.2 mg/dL (0.7-1.3); GFR 57.3; POTASSIUM 4.2 mmol/L (3.5-5.1); TOTAL BILIRUBIN 0.4 mg/dL (0.2-1.0); TOTAL PROTEIN 6.8 g/dL (6.4-8.2)
[2017-05-31] MEDS: INSULIN ASPART 300 UNITS/3 ML INSULN.PEN SQ SCH ×3 (09:08→17:24)
[2017-05-31] MEDS: busPIRone 5 MG TABLET. PO SCH ×4 (09:10→19:47)
[2017-05-31] MEDS: ASPIRIN ENTERIC COATED 81 MG TABLET.DR. PO SCH (09:10)
[2017-05-31] MEDS: TAMSULOSIN 0.4 MG CAP.ER.24H. PO SCH ×2 (09:10→19:47)
[2017-05-31] MEDS: SENNOSIDES 8.6 MG TABLET PO SCH ×2 (09:10→19:47)
[2017-05-31] MEDS: SERTRALINE 50 MG TABLET. PO SCH (09:10)
[2017-05-31] MEDS: NYSTATIN TOPICAL POWDER 15GM BOTTLE. TP SCH ×2 (09:11→19:48)
[2017-05-31] MEDS: INSULIN DETEMIR 300 UNITS/3 ML INSULN.PEN. SQ SCH ×2 (09:17→19:55)
[2017-05-31 16:15] VITALS: BP 124/68
--- NOTE | 2017-05-31 21:05 | PDOC ---
Exam Note: Pradeep Note: Please also refer to the separate dictated note~for this date of service dictated separately.~Patient seen individually. Discussed the patient with Nursing staff reviewed the chart.~Reviewed interim history and current functioning. Reviewed vital signs,~Labs/ Radiology~and current medications noted below. Continue current treatment with the changes noted in the dictated addendum note Assessment: Vital Signs: Vital Signs Date Time Temp Pulse Resp B/P (MAP) Pulse Ox O2 Delivery O2 Flow Rate FiO2 05/31/17 16:15 97.3 63 16 124/68 (86) 96 Room Air I&O Intake and Output 05/31/17 07:00 Intake Total 600 ml Balance 600 ml Intake Oral 600 ml # Bowel Movements 1 Labs: Laboratory Tests Test 05/31/17 07:44 05/31/17 08:02 05/31/17 09:22 05/31/17 12:18 Glucose (Fingerstick) 60 mg/dL (70-99) L 191 mg/dL (70-99) H 100 mg/dL (70-99) H White Blood Count 6.7 x10^3/uL (4.0-11.0) Red Blood Count 3.49 x10^6/uL (4.30-5.70) L Hemoglobin 11.6 g/dL (13.0-17.5) L Hematocrit 34.4 % (39.0-53.0) L Mean Corpuscular Volume 99 fL (79-100) Mean Corpuscular Hemoglobin 33 pg (25-35) Mean Corpuscular Hemoglobin Concent 34 g/dL (31-37) Red Cell Distribution Width 12.9 % (11.5-14.5) Platelet Count 213 x10^3/uL (140-400) Neutrophils (%) (Auto) 55 % (31-73) Lymphocytes (%) (Auto) 24 % (24-48) Monocytes (%) (Auto) 13 % (0-9) H Eosinophils (%) (Auto) 8 % (0-3) H Basophils (%) (Auto) 1 % (0-3) Neutrophils # (Auto) 3.7 x10^3uL (1.8-7.7) Lymphocytes # (Auto) 1.6 x10^3/uL (1.0-4.8) Monocytes # (Auto) 0.9 x10^3/uL (0.0-1.1) Eosinophils # (Auto) 0.5 x10^3/uL (0.0-0.7) Basophils # (Auto) 0.1 x10^3/uL (0.0-0.2) Sodium Level 139 mmol/L (136-145) Potassium Level 4.2 mmol/L (3.5-5.1) Chloride Level 102 mmol/L (98-107) Carbon Dioxide Level 26 mmol/L (21-32) Anion Gap 11 (6-14) Blood Urea Nitrogen 17 mg/dL (8-26) Creatinine 1.2 mg/dL (0.7-1.3) Estimated GFR (Cockcroft-Gault) 57.3 BUN/Creatinine Ratio 14 (6-20) Glucose Level 95 mg/dL (70-99) Calcium Level 8.4 mg/dL (8.5-10.1) L Total Bilirubin 0.4 mg/dL (0.2-1.0) Aspartate Amino Transferase (AST) 28 U/L (15-37) Alanine Aminotransferase (ALT) 29 U/L (16-63) Alkaline Phosphatase 85 U/L (46-116) Total Protein 6.8 g/dL (6.4-8.2) Albumin 2.7 g/dL (3.4-5.0) L Albumin/Globulin Ratio 0.7 (1.0-1.7) L Test 05/31/17 17:09 05/31/17 19:19 Glucose (Fingerstick) 130 mg/dL (70-99) H 219 mg/dL (70-99) H Current Medications: Meds: Current Medications Acetaminophen (Tylenol) 650 mg PRN Q6HRS PRN PO PAIN / TEMP Last administered on 05/25/17at 08:49; Start 05/20/17 at 17:00 Multi-Ingredient Ointment (Analgesic [place]) 1 padmini PRN QID PRN TP MUSCLE PAIN; Start 05/20/17 at 17:00 Al Hydroxide/Mg Hydroxide (Mylanta Plus Xs) 15 ml PRN AFTMEALHC PRN PO DYSPEPSIA; Start 05/20/17 at 17:00 Magnesium Hydroxide (Milk Of Magnesia) 2,400 mg PRN QHS PRN PO CONSTIPATION Last administered on 05/22/17at 19:53; Start 05/20/17 at 17:00 Aspirin (Aspirin Enteric Coated) 81 mg DAILY PO Last administered on 05/31/17 09:10; Start 05/21/17 at 09:00 Levothyroxine Sodium (Synthroid) 125 mcg DAILYAC PO Last administered on 06:16; Start 05/21/17 at 07:30 Lorazepam (Ativan Intensol) 0.5 mg PRN Q8HRS PRN PO ANXIETY / AGITATION Last administered on 05/21/17 19:36; Start 05/20/17 at 17:30 Tamsulosin HCl (Flomax) 0.4 mg BID PO Last administered on 05/31/17 19:47; Start 05/20/17 at 21:00 Insulin Detemir (Levemir) 40 units QHS SQ Last administered on 05/24/17 19:39; Start 05/20/17 at 21:00; Stop 05/25/17 at 18:15; Status DC Insulin Detemir (Levemir) 10 units DAILY07 SQ Last administered on 05/21/17 09 :23; Start 05/21/17 at 07:00; Stop 05/21/17 at 11:49; Status DC Nystatin (Nystop) 1 padmini BID TP Last administered on 05/31/17 19:48; Start at 21:00 Olanzapine (ZyPREXA ZYDIS) 5 mg QHS PO Last administered on 05/20/17 19:41; Start 05/20/17 at 21:00; Stop 05/21/17 at 18:38; Status DC Insulin Aspart (NovoLOG) 0-9 UNITS TIDAC SQ Last administered on 05/30/17 17:22 ; Start 05/21/17 at 07:30 Insulin Detemir (Levemir) 10 units DAILY SQ Last administered on 05/28/17 08:12 ; Start 05/22/17 at 09:00; Stop 05/28/17 at 10:43; Status DC Olanzapine (ZyPREXA ZYDIS) 2.5 mg QHS PO Last administered on 05/31/17 19:47; Start 05/21/17 at 21:00 Sertraline HCl (Zoloft) 25 mg DAILY PO Last administered on 05/23/17 08:57; Start 05/22/17 at 09:00; Stop 05/23/17 at 18:55; Status DC Buspirone HCl (Buspar) 5 mg BID@0900,1500 PO Last administered on 05/26/17 14: 51; Start 05/22/17 at 09:00; Stop 05/26/17 at 18:34; Status DC Sennosides (Senna) 8.6 mg BID PO Last administered on 05/31/17 19:47; Start at 09:00 Sertraline HCl (Zoloft) 50 mg DAILY PO Last administered on 05/31/17 09:10; Start 05/24/17 at 09:00 Vitamin D (Vitamin D3) 50,000 unit Valles PO Last administered on 05/25/17 08:40; Start 05/25/17 at 09:00 Insulin Detemir (Levemir) 25 units QHS SQ Last administered on 05/27/17 19:32; Start 05/25/17 at 21:00; Stop 05/28/17 at 10:43; Status DC Olanzapine (ZyPREXA ZYDIS) 2.5 mg PRN Q2HR PRN PO PSYCHOSIS; Start 05/25/17 at 19:00 Buspirone HCl (Buspar) 5 mg QID PO Last administered on 05/31/17 19:47; Start 05/26/17 at 21:00 Insulin Detemir (Levemir) 5 units DAILY SQ Last administered on 05/31/17 09:17 ; Start 05/29/17 at 09:00 Insulin Detemir (Levemir) 20 units QHS SQ Last administered on 05/31/17 19:55 ; Start 05/28/17 at 21:00 Active Scripts Active Reported Lorazepam Intensol (Lorazepam) 2 Mg/1 Ml Oral.conc 0.5 Mg PO PRN Q8HRS PRN Tresiba Flextouch U-100 (Insulin Degludec) 100 Unit/1 Ml Insuln.pen 40 Unit SQ HS Aspir-Low (Aspirin) 81 Mg Tablet.dr 1 Tab PO DAILY Vitamin D (Cholecalciferol (Vitamin D3)) 400 Unit Tablet 400 Unit PO DAILY Levothyroxine Sodium 125 Mcg Tablet 1 Tab PO DAILY Flomax (Tamsulosin Hcl) 0.4 Mg Cap.er.24h 1 Cap PO BID I have reviewed the current psychotropics carefully including drug interactions. Risk benefit ratio favors no change other than as noted in my dictated progress note. 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
[2017-06-01 06:02] VITALS: BP 124/79
[2017-06-01] MEDS: INSULIN ASPART 300 UNITS/3 ML INSULN.PEN SQ SCH ×3 (07:30→17:07)
[2017-06-01] MEDS: busPIRone 5 MG TABLET. PO SCH ×4 (07:51→20:10)
[2017-06-01] MEDS: LEVOTHYROXINE 125 MCG TABLET PO SCH (07:51)
[2017-06-01] MEDS: ASPIRIN ENTERIC COATED 81 MG TABLET.DR. PO SCH (07:51)
[2017-06-01] MEDS: TAMSULOSIN 0.4 MG CAP.ER.24H. PO SCH ×2 (07:52→20:10)
[2017-06-01] MEDS: SERTRALINE 50 MG TABLET. PO SCH (07:52)
[2017-06-01] MEDS: CHOLECALCIFEROL (VITAMIN D3) 50,000 UNIT CAPSULE PO SCH (07:52)
[2017-06-01] MEDS: NYSTATIN TOPICAL POWDER 15GM BOTTLE. TP SCH ×2 (07:53→20:10)
[2017-06-01] MEDS: SENNOSIDES 8.6 MG TABLET PO SCH ×2 (09:00→20:10)
[2017-06-01] MEDS: INSULIN DETEMIR 300 UNITS/3 ML INSULN.PEN. SQ SCH ×2 (09:50→20:11)
--- NOTE | 2017-06-01 10:06 | PN ---
DATE: 05/30/2017 This late entry, 05/30/2017, covers elements not covered in my initial note of 05/30/2017. SUBJECTIVE: I met with the patient the evening of 05/30/2017. The patient refused breakfast, slept till noon, then did have his dinner. He is little more redirectable, certainly very confused. REVIEW OF SYSTEMS: No CV, , pulmonary, eye, ENT system symptoms on review. Reliability poor. MENTAL STATUS EXAM: Oriented to himself. Insight, judgment, recent and remote memory, attention, concentration, fund of knowledge poor, consistent with his diagnosis mentioned in my initial note. PLAN: Continue psychotropics mentioned in my initial note. MAN Kwabena PADILLA MD DR: AMY/treasure JOB#: [id number] / [id number]
[2017-06-01 16:10] VITALS: BP 116/55
--- NOTE | 2017-06-01 19:02 | PN ---
DATE: 05/31/2017 This late entry for date of service 05/31/2017 covers the elements not covered in my initial note 05/31/2017. HISTORY OF PRESENT ILLNESS: I met with the patient afternoon of 05/31/2017. The patient remains confused, but more cooperative. He was tricked by staff to take a shower, but then was quite cooperative with this. No CV, , pulmonary, eye system symptoms on review. Gait is somewhat unsteady with walker. MENTAL STATUS EXAM: Oriented to himself. Insight, judgment, recent and remote memory, attention, concentration, fund of knowledge poor, consistent with his diagnosis mentioned in my initial note. IMPRESSION: Major neurocognitive disorder, Alzheimer, vascular with depression, delusion, behavioral disturbance. Rest unchanged. PLAN: Continue psychotropics mentioned in my initial note, adjust as indicated. MAN Kwabena PADILLA MD DR: AMY/[facility]asure JOB#: [id number] / [id number]
--- NOTE | 2017-06-01 21:01 | PDOC ---
Exam Note: Pradeep Note: Please also refer to the separate dictated note~for this date of service dictated separately.~Patient seen individually. Discussed the patient with Nursing staff reviewed the chart.~Reviewed interim history and current functioning. Reviewed vital signs,~Labs/ Radiology~and current medications noted below. Continue current treatment with the changes noted in the dictated addendum note Assessment: Vital Signs: Vital Signs Date Time Temp Pulse Resp B/P (MAP) Pulse Ox O2 Delivery O2 Flow Rate FiO2 06/01/17 16:10 98.1 77 19 116/55 (75) 98 05/31/17 16:15 Room Air I&O Intake and Output 06/01/17 07:00 Intake Total 1200 ml Balance 1200 ml Intake Oral 1200 ml Labs: Laboratory Tests Test 06/01/17 07:28 06/01/17 11:44 06/01/17 16:45 06/01/17 19:30 Glucose (Fingerstick) 75 mg/dL (70-99) 141 mg/dL (70-99) H 167 mg/dL (70-99) H 218 mg/dL (70-99) H Current Medications: Meds: Current Medications Acetaminophen (Tylenol) 650 mg PRN Q6HRS PRN PO PAIN / TEMP Last administered on 05/25/17 08:49; Start 05/20/17 at 17:00 Multi-Ingredient Ointment (Analgesic [place]) 1 padmini PRN QID PRN TP MUSCLE PAIN; Start 05/20/17 at 17:00 Al Hydroxide/Mg Hydroxide (Mylanta Plus Xs) 15 ml PRN AFTMEALHC PRN PO DYSPEPSIA; Start 05/20/17 at 17:00 Magnesium Hydroxide (Milk Of Magnesia) 2,400 mg PRN QHS PRN PO CONSTIPATION Last administered on 05/22/17 19:53; Start 05/20/17 at 17:00 Aspirin (Aspirin Enteric Coated) 81 mg DAILY PO Last administered on 06/01/17 07:51; Start 05/21/17 at 09:00 Levothyroxine Sodium (Synthroid) 125 mcg DAILYAC PO Last administered on 07:51; Start 05/21/17 at 07:30 Lorazepam (Ativan Intensol) 0.5 mg PRN Q8HRS PRN PO ANXIETY / AGITATION Last administered on 05/21/17 19:36; Start 05/20/17 at 17:30 Tamsulosin HCl (Flomax) 0.4 mg BID PO Last administered on 06/01/17 20:10; Start 05/20/17 at 21:00 Insulin Detemir (Levemir) 40 units QHS SQ Last administered on 05/24/17 19:39; Start 05/20/17 at 21:00; Stop 05/25/17 at 18:15; Status DC Insulin Detemir (Levemir) 10 units DAILY07 SQ Last administered on 05/21/17at 09 :23; Start 05/21/17 at 07:00; Stop 05/21/17 at 11:49; Status DC Nystatin (Nystop) 1 padmini BID TP Last administered on 06/01/17 20:10; Start at 21:00 Olanzapine (ZyPREXA ZYDIS) 5 mg QHS PO Last administered on 05/20/17 19:41; Start 05/20/17 at 21:00; Stop 05/21/17 at 18:38; Status DC Insulin Aspart (NovoLOG) 0-9 UNITS TIDAC SQ Last administered on 06/01/17 17: 07; Start 05/21/17 at 07:30 Insulin Detemir (Levemir) 10 units DAILY SQ Last administered on 05/28/17at 08:12 ; Start 05/22/17 at 09:00; Stop 05/28/17 at 10:43; Status DC Olanzapine (ZyPREXA ZYDIS) 2.5 mg QHS PO Last administered on 06/01/17at 20:10; Start 05/21/17 at 21:00 Sertraline HCl (Zoloft) 25 mg DAILY PO Last administered on 05/23/17 08:57; Start 05/22/17 at 09:00; Stop 05/23/17 at 18:55; Status DC Buspirone HCl (Buspar) 5 mg BID@0900,1500 PO Last administered on 05/26/17at 14: 51; Start 05/22/17 at 09:00; Stop 05/26/17 at 18:34; Status DC Sennosides (Senna) 8.6 mg BID PO Last administered on 06/01/17at 20:10; Start at 09:00 Sertraline HCl (Zoloft) 50 mg DAILY PO Last administered on 06/01/17 07:52; Start 05/24/17 at 09:00 Vitamin D (Vitamin D3) 50,000 unit [place] PO Last administered on 06/01/17 07:52; Start 05/25/17 at 09:00 Insulin Detemir (Levemir) 25 units QHS SQ Last administered on 05/27/17 19:32; Start 05/25/17 at 21:00; Stop 05/28/17 at 10:43; Status DC Olanzapine (ZyPREXA ZYDIS) 2.5 mg PRN Q2HR PRN PO PSYCHOSIS; Start 05/25/17 at 19:00 Buspirone HCl (Buspar) 5 mg QID PO Last administered on 06/01/17 20:10; Start 05/26/17 at 21:00 Insulin Detemir (Levemir) 5 units DAILY SQ Last administered on 06/01/17at 09:50 ; Start 05/29/17 at 09:00 Insulin Detemir (Levemir) 20 units QHS SQ Last administered on 06/01/17 20:11 ; Start 05/28/17 at 21:00 Active Scripts Active Reported Lorazepam Intensol (Lorazepam) 2 Mg/1 Ml Oral.conc 0.5 Mg PO PRN Q8HRS PRN Tresiba Flextouch U-100 (Insulin Degludec) 100 Unit/1 Ml Insuln.pen 40 Unit SQ HS Aspir-Low (Aspirin) 81 Mg Tablet.dr 1 Tab PO DAILY Vitamin D (Cholecalciferol (Vitamin D3)) 400 Unit Tablet 400 Unit PO DAILY Levothyroxine Sodium 125 Mcg Tablet 1 Tab PO DAILY Flomax (Tamsulosin Hcl) 0.4 Mg Cap.er.24h 1 Cap PO BID I have reviewed the current psychotropics carefully including drug interactions. Risk benefit ratio favors no change other than as noted in my dictated progress note. 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
[2017-06-02 05:41] VITALS: BP 90/60
[2017-06-02] MEDS: LEVOTHYROXINE 125 MCG TABLET PO SCH (08:30)
[2017-06-02] MEDS: TAMSULOSIN 0.4 MG CAP.ER.24H. PO SCH ×2 (08:30→20:23)
[2017-06-02] MEDS: busPIRone 5 MG TABLET. PO SCH ×4 (08:30→20:23)
[2017-06-02] MEDS: INSULIN ASPART 300 UNITS/3 ML INSULN.PEN SQ SCH ×3 (08:30→17:11)
[2017-06-02] MEDS: SERTRALINE 50 MG TABLET. PO SCH (08:30)
[2017-06-02] MEDS: ASPIRIN ENTERIC COATED 81 MG TABLET.DR. PO SCH (08:30)
[2017-06-02] MEDS: NYSTATIN TOPICAL POWDER 15GM BOTTLE. TP SCH ×2 (08:32→20:26)
[2017-06-02] MEDS: INSULIN DETEMIR 300 UNITS/3 ML INSULN.PEN. SQ SCH ×2 (08:32→20:25)
[2017-06-02] MEDS: SENNOSIDES 8.6 MG TABLET PO SCH ×2 (09:00→20:23)
[2017-06-02 16:04] VITALS: BP 118/70
--- NOTE | 2017-06-02 20:25 | PDOC ---
Exam Note: Pradeep Note: Please also refer to the separate dictated note~for this date of service dictated separately.~Patient seen individually. Discussed the patient with Nursing staff reviewed the chart.~Reviewed interim history and current functioning. Reviewed vital signs,~Labs/ Radiology~and current medications noted below. Continue current treatment with the changes noted in the dictated addendum note Assessment: Vital Signs: Vital Signs Date Time Temp Pulse Resp B/P (MAP) Pulse Ox O2 Delivery O2 Flow Rate FiO2 06/02/17 16:04 98.0 69 20 118/70 (86) 92 05/31/17 16:15 Room Air I&O Intake and Output 06/02/17 07:00 Intake Total 1080 ml Balance 1080 ml Intake Oral 1080 ml # Bowel Movements 1 Labs: Laboratory Tests Test 06/02/17 07:43 06/02/17 08:54 06/02/17 11:37 06/02/17 16:53 Glucose (Fingerstick) 66 mg/dL (70-99) L 175 mg/dL (70-99) H 90 mg/dL (70-99) 139 mg/dL (70-99) H Test 06/02/17 19:09 Glucose (Fingerstick) 189 mg/dL (70-99) H Current Medications: Meds: Current Medications Acetaminophen (Tylenol) 650 mg PRN Q6HRS PRN PO PAIN / TEMP Last administered on 05/25/17at 08:49; Start 05/20/17 at 17:00 Multi-Ingredient Ointment (Analgesic [place]) 1 padmini PRN QID PRN TP MUSCLE PAIN; Start 05/20/17 at 17:00 Al Hydroxide/Mg Hydroxide (Mylanta Plus Xs) 15 ml PRN AFTMEALHC PRN PO DYSPEPSIA; Start 05/20/17 at 17:00 Magnesium Hydroxide (Milk Of Magnesia) 2,400 mg PRN QHS PRN PO CONSTIPATION Last administered on 05/22/17at 19:53; Start 05/20/17 at 17:00 Aspirin (Aspirin Enteric Coated) 81 mg DAILY PO Last administered on 06/02/17at 08:30; Start 05/21/17 at 09:00 Levothyroxine Sodium (Synthroid) 125 mcg DAILYAC PO Last administered on at 08:30; Start 05/21/17 at 07:30 Lorazepam (Ativan Intensol) 0.5 mg PRN Q8HRS PRN PO ANXIETY / AGITATION Last administered on 05/21/17 19:36; Start 05/20/17 at 17:30 Tamsulosin HCl (Flomax) 0.4 mg BID PO Last administered on 06/02/17 08:30; Start 05/20/17 at 21:00 Insulin Detemir (Levemir) 40 units QHS SQ Last administered on 05/24/17 19:39; Start 05/20/17 at 21:00; Stop 05/25/17 at 18:15; Status DC Insulin Detemir (Levemir) 10 units DAILY07 SQ Last administered on 05/21/17 09 :23; Start 05/21/17 at 07:00; Stop 05/21/17 at 11:49; Status DC Nystatin (Nystop) 1 padmini BID TP Last administered on 06/02/17 08:32; Start at 21:00 Olanzapine (ZyPREXA ZYDIS) 5 mg QHS PO Last administered on 05/20/17at 19:41; Start 05/20/17 at 21:00; Stop 05/21/17 at 18:38; Status DC Insulin Aspart (NovoLOG) 0-9 UNITS TIDAC SQ Last administered on 06/01/17 17: 07; Start 05/21/17 at 07:30 Insulin Detemir (Levemir) 10 units DAILY SQ Last administered on 05/28/17at 08:12 ; Start 05/22/17 at 09:00; Stop 05/28/17 at 10:43; Status DC Olanzapine (ZyPREXA ZYDIS) 2.5 mg QHS PO Last administered on 06/01/17at 20:10; Start 05/21/17 at 21:00 Sertraline HCl (Zoloft) 25 mg DAILY PO Last administered on 05/23/17 08:57; Start 05/22/17 at 09:00; Stop 05/23/17 at 18:55; Status DC Buspirone HCl (Buspar) 5 mg BID@0900,1500 PO Last administered on 05/26/17 14: 51; Start 05/22/17 at 09:00; Stop 05/26/17 at 18:34; Status DC Sennosides (Senna) 8.6 mg BID PO Last administered on 06/01/17at 20:10; Start at 09:00 Sertraline HCl (Zoloft) 50 mg DAILY PO Last administered on 06/02/17at 08:30; Start 05/24/17 at 09:00 Vitamin D (Vitamin D3) 50,000 unit [place] PO Last administered on 06/01/17 07:52; Start 05/25/17 at 09:00 Insulin Detemir (Levemir) 25 units QHS SQ Last administered on 05/27/17 19:32; Start 05/25/17 at 21:00; Stop 05/28/17 at 10:43; Status DC Olanzapine (ZyPREXA ZYDIS) 2.5 mg PRN Q2HR PRN PO PSYCHOSIS; Start 05/25/17 at 19:00 Buspirone HCl (Buspar) 5 mg QID PO Last administered on 06/02/17at 17:12; Start 05/26/17 at 21:00 Insulin Detemir (Levemir) 5 units DAILY SQ Last administered on 06/02/17at 08:32 ; Start 05/29/17 at 09:00 Insulin Detemir (Levemir) 20 units QHS SQ Last administered on 06/01/17 20:11 ; Start 05/28/17 at 21:00; Stop 06/02/17 at 14:24; Status DC Insulin Detemir (Levemir) 10 units QHS SQ ; Start 06/02/17 at 21:00 Active Scripts Active Reported Lorazepam Intensol (Lorazepam) 2 Mg/1 Ml Oral.conc 0.5 Mg PO PRN Q8HRS PRN Tresiba Flextouch U-100 (Insulin Degludec) 100 Unit/1 Ml Insuln.pen 40 Unit SQ HS Aspir-Low (Aspirin) 81 Mg Tablet.dr 1 Tab PO DAILY Vitamin D (Cholecalciferol (Vitamin D3)) 400 Unit Tablet 400 Unit PO DAILY Levothyroxine Sodium 125 Mcg Tablet 1 Tab PO DAILY Flomax (Tamsulosin Hcl) 0.4 Mg Cap.er.24h 1 Cap PO BID I have reviewed the current psychotropics carefully including drug interactions. Risk benefit ratio favors no change other than as noted in my dictated progress note. 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
--- NOTE | 2017-06-02 21:41 | PN ---
DATE: 06/01/2017 PSYCHIATRIC PROGRESS NOTE This is a late entry for 06/01/2017, covers elements not covered in my initial note of 06/01/2017. SUBJECTIVE: I met with the patient the evening of 06/01/2017. The patient remains confused, slept reasonably well. He has been coming out to the day room. REVIEW OF SYSTEMS: No CV, , pulmonary, eye, ENT system symptoms on review. Reliability poor. MENTAL STATUS EXAM: Oriented to himself. Insight, judgment, recent and remote memory, attention, concentration, fund of knowledge poor, consistent with his diagnosis mentioned in my initial note. IMPRESSION: Major neurocognitive disorder, Alzheimer, vascular with delusion, depression, behavioral disturbance. PLAN: Continue psychotropics mentioned in my initial note. MAN Kwabena PADILLA MD DR: AMY/treasure JOB#: [id number] / [id number]
[2017-06-03 05:55] VITALS: BP 126/67
[2017-06-03] MEDS: INSULIN ASPART 300 UNITS/3 ML INSULN.PEN SQ SCH ×3 (07:30→17:28)
[2017-06-03] MEDS: LEVOTHYROXINE 125 MCG TABLET PO SCH (07:41)
[2017-06-03] MEDS: busPIRone 5 MG TABLET. PO SCH ×4 (07:41→20:10)
[2017-06-03] MEDS: ASPIRIN ENTERIC COATED 81 MG TABLET.DR. PO SCH (07:41)
[2017-06-03] MEDS: TAMSULOSIN 0.4 MG CAP.ER.24H. PO SCH ×2 (07:42→20:10)
[2017-06-03] MEDS: SERTRALINE 50 MG TABLET. PO SCH (07:42)
[2017-06-03] MEDS: SENNOSIDES 8.6 MG TABLET PO SCH ×2 (07:42→20:10)
[2017-06-03] MEDS: NYSTATIN TOPICAL POWDER 15GM BOTTLE. TP SCH ×2 (07:43→20:12)
[2017-06-03] MEDS: INSULIN DETEMIR 300 UNITS/3 ML INSULN.PEN. SQ SCH ×2 (08:24→20:12)
[2017-06-03 15:56] VITALS: BP 102/58
--- NOTE | 2017-06-03 22:03 | PN ---
DATE: 06/02/2017 PSYCHIATRIC PROGRESS NOTE This is a late entry for 06/02/2017, covers elements not covered in my initial note of 06/02/2017. SUBJECTIVE: I met with the patient the evening of 06/02/2017. The patient remains confused, otherwise calm, cooperative, compliant with medications. REVIEW OF SYSTEMS: No CV, , pulmonary, eye, ENT system symptoms on review. Reliability poor. Otherwise, pleasant, verbal, as I met with him. MENTAL STATUS EXAM: Oriented to himself. Insight, judgment, recent and remote memory, attention, concentration, fund of knowledge poor, consistent with his diagnosis mentioned in my initial note. PLAN: Continue current psychotropics. Adjust further as clinically indicated. MAN Kwabena PADILLA MD DR: AMY/treasure JOB#: [id number] / [id number]
--- NOTE | 2017-06-03 22:18 | PDOC ---
Exam Note: Pradeep Note: Please also refer to the separate dictated note~for this date of service dictated separately.~Patient seen individually. Discussed the patient with Nursing staff reviewed the chart.~Reviewed interim history and current functioning. Reviewed vital signs,~Labs/ Radiology~and current medications noted below. Continue current treatment with the changes noted in the dictated addendum note Assessment: Vital Signs: Vital Signs Date Time Temp Pulse Resp B/P (MAP) Pulse Ox O2 Delivery O2 Flow Rate FiO2 06/03/17 15:56 98.1 74 20 102/58 (73) 97 05/31/17 16:15 Room Air I&O Intake and Output 06/03/17 07:00 Intake Total 1440 ml Balance 1440 ml Intake Oral 1440 ml # Voids 2 # Bowel Movements 1 Labs: Laboratory Tests Test 06/03/17 12:16 06/03/17 19:05 Glucose (Fingerstick) 132 mg/dL (70-99) H 161 mg/dL (70-99) H Current Medications: Meds: Current Medications Acetaminophen (Tylenol) 650 mg PRN Q6HRS PRN PO PAIN / TEMP Last administered on 05/25/17 08:49; Start 05/20/17 at 17:00 Multi-Ingredient Ointment (Analgesic [place]) 1 padmini PRN QID PRN TP MUSCLE PAIN; Start 05/20/17 at 17:00 Al Hydroxide/Mg Hydroxide (Mylanta Plus Xs) 15 ml PRN AFTMEALHC PRN PO DYSPEPSIA; Start 05/20/17 at 17:00 Magnesium Hydroxide (Milk Of Magnesia) 2,400 mg PRN QHS PRN PO CONSTIPATION Last administered on 05/22/17 19:53; Start 05/20/17 at 17:00 Aspirin (Aspirin Enteric Coated) 81 mg DAILY PO Last administered on 06/03/17 07:41; Start 05/21/17 at 09:00 Levothyroxine Sodium (Synthroid) 125 mcg DAILYAC PO Last administered on 07:41; Start 05/21/17 at 07:30 Lorazepam (Ativan Intensol) 0.5 mg PRN Q8HRS PRN PO ANXIETY / AGITATION Last administered on 05/21/17at 19:36; Start 05/20/17 at 17:30 Tamsulosin HCl (Flomax) 0.4 mg BID PO Last administered on 06/03/17 20:10; Start 05/20/17 at 21:00 Insulin Detemir (Levemir) 40 units QHS SQ Last administered on 05/24/17 19:39; Start 05/20/17 at 21:00; Stop 05/25/17 at 18:15; Status DC Insulin Detemir (Levemir) 10 units DAILY07 SQ Last administered on 05/21/17at 09 :23; Start 05/21/17 at 07:00; Stop 05/21/17 at 11:49; Status DC Nystatin (Nystop) 1 padmini BID TP Last administered on 06/03/17 20:12; Start at 21:00 Olanzapine (ZyPREXA ZYDIS) 5 mg QHS PO Last administered on 05/20/17 19:41; Start 05/20/17 at 21:00; Stop 05/21/17 at 18:38; Status DC Insulin Aspart (NovoLOG) 0-9 UNITS TIDAC SQ Last administered on 06/03/17 17: 28; Start 05/21/17 at 07:30 Insulin Detemir (Levemir) 10 units DAILY SQ Last administered on 05/28/17at 08:12 ; Start 05/22/17 at 09:00; Stop 05/28/17 at 10:43; Status DC Olanzapine (ZyPREXA ZYDIS) 2.5 mg QHS PO Last administered on 06/03/17 20:10; Start 05/21/17 at 21:00 Sertraline HCl (Zoloft) 25 mg DAILY PO Last administered on 05/23/17 08:57; Start 05/22/17 at 09:00; Stop 05/23/17 at 18:55; Status DC Buspirone HCl (Buspar) 5 mg BID@0900,1500 PO Last administered on 05/26/17 14: 51; Start 05/22/17 at 09:00; Stop 05/26/17 at 18:34; Status DC Sennosides (Senna) 8.6 mg BID PO Last administered on 06/03/17at 20:10; Start at 09:00 Sertraline HCl (Zoloft) 50 mg DAILY PO Last administered on 06/03/17 07:42; Start 05/24/17 at 09:00 Vitamin D (Vitamin D3) 50,000 unit Valles PO Last administered on 06/01/17 07:52; Start 05/25/17 at 09:00 Insulin Detemir (Levemir) 25 units QHS SQ Last administered on 05/27/17 19:32; Start 05/25/17 at 21:00; Stop 05/28/17 at 10:43; Status DC Olanzapine (ZyPREXA ZYDIS) 2.5 mg PRN Q2HR PRN PO PSYCHOSIS; Start 05/25/17 at 19:00 Buspirone HCl (Buspar) 5 mg QID PO Last administered on 06/03/17 20:10; Start 05/26/17 at 21:00 Insulin Detemir (Levemir) 5 units DAILY SQ Last administered on 06/03/17 08:24 ; Start 05/29/17 at 09:00 Insulin Detemir (Levemir) 20 units QHS SQ Last administered on 06/01/17at 20:11 ; Start 05/28/17 at 21:00; Stop 06/02/17 at 14:24; Status DC Insulin Detemir (Levemir) 10 units QHS SQ Last administered on 06/03/17 20:12 ; Start 06/02/17 at 21:00 Active Scripts Active Reported Lorazepam Intensol (Lorazepam) 2 Mg/1 Ml Oral.conc 0.5 Mg PO PRN Q8HRS PRN Tresiba Flextouch U-100 (Insulin Degludec) 100 Unit/1 Ml Insuln.pen 40 Unit SQ HS Aspir-Low (Aspirin) 81 Mg Tablet.dr 1 Tab PO DAILY Vitamin D (Cholecalciferol (Vitamin D3)) 400 Unit Tablet 400 Unit PO DAILY Levothyroxine Sodium 125 Mcg Tablet 1 Tab PO DAILY Flomax (Tamsulosin Hcl) 0.4 Mg Cap.er.24h 1 Cap PO BID I have reviewed the current psychotropics carefully including drug interactions. Risk benefit ratio favors no change other than as noted in my dictated progress note. 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
[2017-06-04 05:54] VITALS: BP 158/74
[2017-06-04] MEDS: INSULIN ASPART 300 UNITS/3 ML INSULN.PEN SQ SCH ×3 (07:30→17:15)
[2017-06-04] MEDS: SERTRALINE 50 MG TABLET. PO SCH (07:57)
[2017-06-04] MEDS: SENNOSIDES 8.6 MG TABLET PO SCH ×2 (07:57→19:53)
[2017-06-04] MEDS: LEVOTHYROXINE 125 MCG TABLET PO SCH (07:57)
[2017-06-04] MEDS: busPIRone 5 MG TABLET. PO SCH ×4 (07:57→19:52)
[2017-06-04] MEDS: TAMSULOSIN 0.4 MG CAP.ER.24H. PO SCH ×2 (07:57→19:52)
[2017-06-04] MEDS: ASPIRIN ENTERIC COATED 81 MG TABLET.DR. PO SCH (07:57)
[2017-06-04] MEDS: NYSTATIN TOPICAL POWDER 15GM BOTTLE. TP SCH ×2 (07:59→19:55)
[2017-06-04] MEDS: INSULIN DETEMIR 300 UNITS/3 ML INSULN.PEN. SQ SCH ×2 (08:00→19:55)
[2017-06-04 16:25] VITALS: BP 150/71
[2017-06-04] MEDS ORDERED: ACET325T9 PO (16:34)
[2017-06-04] MEDS ORDERED: ACET325T21 PO (16:34)
[2017-06-04] MEDS ORDERED: CHOL500021 PO (16:35)
[2017-06-04] MEDS ORDERED: INSU100I27 SQ ×2 (16:36→16:37)
[2017-06-04] MEDS ORDERED: INSU100I17 SQ (16:38)
[2017-06-04] MEDS ORDERED: MAG355OR22 PO (16:41)
[2017-06-04] MEDS ORDERED: MAGN400O7 PO (16:43)
[2017-06-04] MEDS ORDERED: METH29OI TP (16:44)
[2017-06-04] MEDS ORDERED: NYST60PO TP (16:45)
[2017-06-04] MEDS ORDERED: OLAN5TAB7 PO ×2 (16:47→16:48)
[2017-06-04] MEDS ORDERED: SENN-79 PO ×2 (16:49→16:50)
[2017-06-04] MEDS ORDERED: SERT50TA PO (16:50)
[2017-06-04] MEDS ORDERED: BUSP5TAB PO (16:51)
--- NOTE | 2017-06-04 20:42 | PDOC ---
Exam Note: Pradeep Note: Please also refer to the separate dictated note~for this date of service dictated separately.~Patient seen individually. Discussed the patient with Nursing staff reviewed the chart.~Reviewed interim history and current functioning. Reviewed vital signs,~Labs/ Radiology~and current medications noted below. Continue current treatment with the changes noted in the dictated addendum note Assessment: Vital Signs: Vital Signs Date Time Temp Pulse Resp B/P (MAP) Pulse Ox O2 Delivery O2 Flow Rate FiO2 06/04/17 16:25 98.0 82 18 150/71 (97) 93 05/31/17 16:15 Room Air I&O Intake and Output 06/04/17 07:00 Intake Total 1680 ml Balance 1680 ml Intake Oral 1680 ml # Voids 2 # Bowel Movements 2 Labs: Laboratory Tests Test 06/04/17 07:20 06/04/17 11:52 06/04/17 16:42 06/04/17 19:10 Glucose (Fingerstick) 130 mg/dL (70-99) H 112 mg/dL (70-99) H 165 mg/dL (70-99) H 207 mg/dL (70-99) H Current Medications: Meds: Current Medications Acetaminophen (Tylenol) 650 mg PRN Q6HRS PRN PO PAIN / TEMP Last administered on 05/25/17 08:49; Start 05/20/17 at 17:00 Multi-Ingredient Ointment (Analgesic [place]) 1 padmini PRN QID PRN TP MUSCLE PAIN; Start 05/20/17 at 17:00 Al Hydroxide/Mg Hydroxide (Mylanta Plus Xs) 15 ml PRN AFTMEALHC PRN PO DYSPEPSIA; Start 05/20/17 at 17:00 Magnesium Hydroxide (Milk Of Magnesia) 2,400 mg PRN QHS PRN PO CONSTIPATION Last administered on 05/22/17 19:53; Start 05/20/17 at 17:00 Aspirin (Aspirin Enteric Coated) 81 mg DAILY PO Last administered on 06/04/17 07:57; Start 05/21/17 at 09:00 Levothyroxine Sodium (Synthroid) 125 mcg DAILYAC PO Last administered on at 07:57; Start 05/21/17 at 07:30 Lorazepam (Ativan Intensol) 0.5 mg PRN Q8HRS PRN PO ANXIETY / AGITATION Last administered on 05/21/17at 19:36; Start 05/20/17 at 17:30 Tamsulosin HCl (Flomax) 0.4 mg BID PO Last administered on 06/04/17 19:52; Start 05/20/17 at 21:00 Insulin Detemir (Levemir) 40 units QHS SQ Last administered on 05/24/17 19:39; Start 05/20/17 at 21:00; Stop 05/25/17 at 18:15; Status DC Insulin Detemir (Levemir) 10 units DAILY07 SQ Last administered on 05/21/17at 09 :23; Start 05/21/17 at 07:00; Stop 05/21/17 at 11:49; Status DC Nystatin (Nystop) 1 padmini BID TP Last administered on 06/04/17 19:55; Start at 21:00 Olanzapine (ZyPREXA ZYDIS) 5 mg QHS PO Last administered on 05/20/17at 19:41; Start 05/20/17 at 21:00; Stop 05/21/17 at 18:38; Status DC Insulin Aspart (NovoLOG) 0-9 UNITS TIDAC SQ Last administered on 06/04/17 17: 15; Start 05/21/17 at 07:30 Insulin Detemir (Levemir) 10 units DAILY SQ Last administered on 05/28/17at 08:12 ; Start 05/22/17 at 09:00; Stop 05/28/17 at 10:43; Status DC Olanzapine (ZyPREXA ZYDIS) 2.5 mg QHS PO Last administered on 06/04/17at 19:53; Start 05/21/17 at 21:00 Sertraline HCl (Zoloft) 25 mg DAILY PO Last administered on 05/23/17at 08:57; Start 05/22/17 at 09:00; Stop 05/23/17 at 18:55; Status DC Buspirone HCl (Buspar) 5 mg BID@0900,1500 PO Last administered on 05/26/17at 14: 51; Start 05/22/17 at 09:00; Stop 05/26/17 at 18:34; Status DC Sennosides (Senna) 8.6 mg BID PO Last administered on 06/04/17 19:53; Start at 09:00 Sertraline HCl (Zoloft) 50 mg DAILY PO Last administered on 06/04/17 07:57; Start 05/24/17 at 09:00 Vitamin D (Vitamin D3) 50,000 unit Valles PO Last administered on 06/01/17 07:52; Start 05/25/17 at 09:00 Insulin Detemir (Levemir) 25 units QHS SQ Last administered on 05/27/17 19:32; Start 05/25/17 at 21:00; Stop 05/28/17 at 10:43; Status DC Olanzapine (ZyPREXA ZYDIS) 2.5 mg PRN Q2HR PRN PO PSYCHOSIS; Start 05/25/17 at 19:00 Buspirone HCl (Buspar) 5 mg QID PO Last administered on 06/04/17 19:52; Start 05/26/17 at 21:00 Insulin Detemir (Levemir) 5 units DAILY SQ Last administered on 06/04/17at 08:00 ; Start 05/29/17 at 09:00 Insulin Detemir (Levemir) 20 units QHS SQ Last administered on 06/01/17 20:11 ; Start 05/28/17 at 21:00; Stop 06/02/17 at 14:24; Status DC Insulin Detemir (Levemir) 10 units QHS SQ Last administered on 06/04/17 19:55 ; Start 06/02/17 at 21:00 Active Scripts Active Reported Buspirone Hcl 5 Mg Tablet 1 Tab PO BID Zoloft (Sertraline Hcl) 50 Mg Tablet 1 Tab PO DAILY Senna (Sennosides) 8.6 Mg Tablet 8.6 Mg PO Senna (Sennosides) 8.6 Mg Tablet 8.6 Mg PO Olanzapine Odt (Olanzapine) 5 Mg Tab.rapdis 5 Mg PO Olanzapine Odt (Olanzapine) 5 Mg Tab.rapdis 5 Mg PO Nystop (Nystatin) 60 Gm Powder 60 Gm TP Analgesic [place] (Methyl Salicylate/Menthol) 28 Gm Oint...g. 1 Gm TP Milk Of Magnesia (Magnesium Hydroxide) 400 Mg/5 Ml Oral.susp 400 Mg PO Antacid Liquid (Mag Hydrox/Al Hydrox/Simeth) 355 Ml Oral.susp 355 Ml PO Novolog Flexpen (Insulin Aspart) 100 Unit/1 Ml Insuln.pen 1 Unit SQ Levemir Flextouch (Insulin Detemir) 100 Unit/1 Ml Insuln.pen 1 Unit SQ Levemir Flextouch (Insulin Detemir) 100 Unit/1 Ml Insuln.pen 1 Unit SQ D3-50 (Cholecalciferol (Vitamin D3)) 50,000 Unit Capsule 50,000 Unit PO Acetaminophen 325 Mg Tablet 325 Mg PO Tylenol (Acetaminophen) 325 Mg Tablet 1-2 Tab PO QID Lorazepam Intensol (Lorazepam) 2 Mg/1 Ml Oral.conc 0.5 Mg PO PRN Q8HRS PRN Tresiba Flextouch U-100 (Insulin Degludec) 100 Unit/1 Ml Insuln.pen 40 Unit SQ HS Aspir-Low (Aspirin) 81 Mg Tablet.dr 1 Tab PO DAILY Vitamin D (Cholecalciferol (Vitamin D3)) 400 Unit Tablet 400 Unit PO DAILY Levothyroxine Sodium 125 Mcg Tablet 1 Tab PO DAILY Flomax (Tamsulosin Hcl) 0.4 Mg Cap.er.24h 1 Cap PO BID I have reviewed the current psychotropics carefully including drug interactions. Risk benefit ratio favors no change other than as noted in my dictated progress note. Diagnosis: Problems: (1) Impulse control disorder (2) Anxiety disorder (3) Dementia in Alzheimer's disease with delusions (4) Dementia, vascular, with depression LISBET PADILLA MD Jun 04, 2017 20:42
--- NOTE | 2017-06-05 00:41 | PN ---
DATE: 06/03/2017 This late entry 06/03/2017 covers elements not covered in my initial note 06/03/2017. Met with the patient in the evening of 06/03/2017. The patient slept 7-3/4 hours previous evening, remains confused. Son visited. Oriented to himself and hospital. Less anxious, restless. REVIEW OF SYSTEMS: No CV, , pulmonary, eye, ENT system symptoms on review. Reliability poor. MENTAL STATUS EXAM: Oriented to himself. Insight, judgment, recent and remote memory, attention, concentration, fund of knowledge poor, consistent with his diagnosis mentioned in my initial note. PLAN: Continue current psychotropics. Adjust as clinically indicated. MAN Kwabena PADILLA MD DR: AMY/treasure JOB#: [id number] / [id number]
[2017-06-05 06:09] VITALS: BP 135/70
[2017-06-05] MEDS: INSULIN ASPART 300 UNITS/3 ML INSULN.PEN SQ SCH ×2 (07:30→12:31)
[2017-06-05] MEDS: SERTRALINE 50 MG TABLET. PO SCH (08:02)
[2017-06-05] MEDS: LEVOTHYROXINE 125 MCG TABLET PO SCH (08:02)
[2017-06-05] MEDS: ASPIRIN ENTERIC COATED 81 MG TABLET.DR. PO SCH (08:02)
[2017-06-05] MEDS: TAMSULOSIN 0.4 MG CAP.ER.24H. PO SCH (08:02)
[2017-06-05] MEDS: busPIRone 5 MG TABLET. PO SCH ×2 (08:02→12:30)
[2017-06-05] MEDS: NYSTATIN TOPICAL POWDER 15GM BOTTLE. TP SCH (08:02)
[2017-06-05] MEDS: SENNOSIDES 8.6 MG TABLET PO SCH (08:02)
[2017-06-05] MEDS: INSULIN DETEMIR 300 UNITS/3 ML INSULN.PEN. SQ SCH (08:03)
--- NOTE | 2017-06-05 18:49 | PDOC ---
Exam Note: Pradeep Note: Please also refer to the separate dictated note~for this date of service dictated separately.~Patient seen individually. Discussed the patient with Nursing staff reviewed the chart.~Reviewed interim history and current functioning. Reviewed vital signs,~Labs/ Radiology~and current medications noted below. Continue current treatment with the changes noted in the dictated addendum note Assessment: Vital Signs: Vital Signs Date Time Temp Pulse Resp B/P (MAP) Pulse Ox O2 Delivery O2 Flow Rate FiO2 06/05/17 06:09 98.2 65 20 135/70 (91) 94 05/31/17 16:15 Room Air I&O Intake and Output 06/05/17 07:00 Intake Total 960 ml Balance 960 ml Intake Oral 960 ml # Voids 1 Labs: Laboratory Tests Test 06/04/17 19:10 06/05/17 07:30 06/05/17 11:43 Glucose (Fingerstick) 207 mg/dL (70-99) H 135 mg/dL (70-99) H 176 mg/dL (70-99) H Current Medications: Meds: Current Medications Acetaminophen (Tylenol) 650 mg PRN Q6HRS PRN PO PAIN / TEMP Last administered on 05/25/17at 08:49; Start 05/20/17 at 17:00; Stop 06/05/17 at 16:05; Status DC Multi-Ingredient Ointment (Analgesic [place]) 1 valery PRN QID PRN TP MUSCLE PAIN; Start 05/20/17 at 17:00; Stop 06/05/17 at 16:05; Status DC Al Hydroxide/Mg Hydroxide (Mylanta Plus Xs) 15 ml PRN AFTMEALHC PRN PO DYSPEPSIA; Start 05/20/17 at 17:00; Stop 06/05/17 at 16:05; Status DC Magnesium Hydroxide (Milk Of Magnesia) 2,400 mg PRN QHS PRN PO CONSTIPATION Last administered on 05/22/17at 19:53; Start 05/20/17 at 17:00; Stop 06/05/17 at 16:05; Status DC Aspirin (Aspirin Enteric Coated) 81 mg DAILY PO Last administered on 06/05/17at 08:02; Start 05/21/17 at 09:00; Stop 06/05/17 at 16:05; Status DC Levothyroxine Sodium (Synthroid) 125 mcg DAILYAC PO Last administered on 08:02; Start 05/21/17 at 07:30; Stop 06/05/17 at 16:05; Status DC Lorazepam (Ativan Intensol) 0.5 mg PRN Q8HRS PRN PO ANXIETY / AGITATION Last administered on 05/21/17 19:36; Start 05/20/17 at 17:30; Stop 06/05/17 at 16:05 ; Status DC Tamsulosin HCl (Flomax) 0.4 mg BID PO Last administered on 06/05/17 08:02; Start 05/20/17 at 21:00; Stop 06/05/17 at 16:05; Status DC Insulin Detemir (Levemir) 40 units QHS SQ Last administered on 05/24/17 19:39; Start 05/20/17 at 21:00; Stop 05/25/17 at 18:15; Status DC Insulin Detemir (Levemir) 10 units DAILY07 SQ Last administered on 05/21/17 09 :23; Start 05/21/17 at 07:00; Stop 05/21/17 at 11:49; Status DC Nystatin (Nystop) 1 valery BID TP Last administered on 06/05/17 08:02; Start at 21:00; Stop 06/05/17 at 16:05; Status DC Olanzapine (ZyPREXA ZYDIS) 5 mg QHS PO Last administered on 05/20/17at 19:41; Start 05/20/17 at 21:00; Stop 05/21/17 at 18:38; Status DC Insulin Aspart (NovoLOG) 0-9 UNITS TIDAC SQ Last administered on 06/05/17 12: 31; Start 05/21/17 at 07:30; Stop 06/05/17 at 16:05; Status DC Insulin Detemir (Levemir) 10 units DAILY SQ Last administered on 05/28/17 08:12 ; Start 05/22/17 at 09:00; Stop 05/28/17 at 10:43; Status DC Olanzapine (ZyPREXA ZYDIS) 2.5 mg QHS PO Last administered on 06/04/17at 19:53; Start 05/21/17 at 21:00; Stop 06/05/17 at 16:05; Status DC Sertraline HCl (Zoloft) 25 mg DAILY PO Last administered on 05/23/17at 08:57; Start 05/22/17 at 09:00; Stop 05/23/17 at 18:55; Status DC Buspirone HCl (Buspar) 5 mg BID@0900,1500 PO Last administered on 05/26/17at 14: 51; Start 05/22/17 at 09:00; Stop 05/26/17 at 18:34; Status DC Sennosides (Senna) 8.6 mg BID PO Last administered on 06/05/17at 08:02; Start at 09:00; Stop 06/05/17 at 16:05; Status DC Sertraline HCl (Zoloft) 50 mg DAILY PO Last administered on 06/05/17at 08:02; Start 05/24/17 at 09:00; Stop 06/05/17 at 16:05; Status DC Vitamin D (Vitamin D3) 50,000 unit Valles PO Last administered on 06/01/17at 07:52; Start 05/25/17 at 09:00; Stop 06/05/17 at 16:05; Status DC Insulin Detemir (Levemir) 25 units QHS SQ Last administered on 05/27/17at 19:32; Start 05/25/17 at 21:00; Stop 05/28/17 at 10:43; Status DC Olanzapine (ZyPREXA ZYDIS) 2.5 mg PRN Q2HR PRN PO PSYCHOSIS; Start 05/25/17 at 19:00; Stop 06/05/17 at 16:05; Status DC Buspirone HCl (Buspar) 5 mg QID PO Last administered on 06/05/17at 12:30; Start 05/26/17 at 21:00; Stop 06/05/17 at 16:05; Status DC Insulin Detemir (Levemir) 5 units DAILY SQ Last administered on 06/05/17at 08:03 ; Start 05/29/17 at 09:00; Stop 06/05/17 at 16:05; Status DC Insulin Detemir (Levemir) 20 units QHS SQ Last administered on 06/01/17at 20:11 ; Start 05/28/17 at 21:00; Stop 06/02/17 at 14:24; Status DC Insulin Detemir (Levemir) 10 units QHS SQ Last administered on 06/04/17at 19:55 ; Start 06/02/17 at 21:00; Stop 06/05/17 at 16:05; Status DC Active Scripts Active Reported Buspirone Hcl 5 Mg Tablet 5 Mg PO QID Zoloft (Sertraline Hcl) 50 Mg Tablet 50 Mg PO DAILY Senna (Sennosides) 8.6 Mg Tablet 8.6 Mg PO BID Olanzapine Odt (Olanzapine) 5 Mg Tab.rapdis 2.5 Mg PO PRN Q2HR MDD 7.5mg Olanzapine Odt (Olanzapine) 5 Mg Tab.rapdis 2.5 Mg PO QHS Nystop (Nystatin) 60 Gm Powder 1 Valery TP BID Apply to groin Analgesic [place] (Methyl Salicylate/Menthol) 28 Gm Oint...g. 1 Gm TP PRN QID PRN Milk Of Magnesia (Magnesium Hydroxide) 400 Mg/5 Ml Oral.susp 2,400 Mg PO PRN QHS PRN Antacid Liquid (Mag Hydrox/Al Hydrox/Simeth) 355 Ml Oral.susp 15 Ml PO PRN AFTMEAL PRN Novolog Flexpen (Insulin Aspart) 100 Unit/1 Ml Insuln.pen 0-9 Unit SQ TIDAC Levemir Flextouch (Insulin Detemir) 100 Unit/1 Ml Insuln.pen 10 Unit SQ QHS Levemir Flextouch (Insulin Detemir) 100 Unit/1 Ml Insuln.pen 5 Unit SQ DAILY D3-50 (Cholecalciferol (Vitamin D3)) 50,000 Unit Capsule 50,000 Unit PO QSU Tylenol (Acetaminophen) 325 Mg Tablet 650 Mg PO PRN Q6HRS PRN Lorazepam Intensol (Lorazepam) 2 Mg/1 Ml Oral.conc 0.5 Mg PO PRN Q8HRS PRN Aspir-Low (Aspirin) 81 Mg Tablet.dr 1 Tab PO DAILY Levothyroxine Sodium 125 Mcg Tablet 1 Tab PO DAILY Flomax (Tamsulosin Hcl) 0.4 Mg Cap.er.24h 1 Cap PO BID I have reviewed the current psychotropics carefully including drug interactions. Risk benefit ratio favors no change other than as noted in my dictated progress note. 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
--- NOTE | 2017-06-06 00:27 | PN ---
DATE: 06/04/2017 PSYCHIATRIC PROGRESS NOTE This is a late entry for 06/04/2017, covers elements not covered in my initial note of 06/04/2017. SUBJECTIVE: I met with the patient the evening of 06/04/2017. He remains confused, but redirectable. REVIEW OF SYSTEMS: No CV, , pulmonary, eye system symptoms on review. Reliability poor. MENTAL STATUS EXAM: Oriented to himself. Insight, judgment, recent and remote memory, attention, concentration, fund of knowledge poor, consistent with his diagnosis mentioned in my initial note. PLAN: Continue current psychotropics. Adjust as indicated. MAN Kwabena PADILLA MD DR: AMY/treasure JOB#: [id number] / [id number]
--- NOTE | 2017-06-07 19:22 | DS ---
DATE OF DISCHARGE: 06/05/2017 DISCHARGE SUMMARY/PSYCHIATRIC PROGRESS NOTE This is a late entry for 06/05/2017 and covers elements not covered in my initial note of 06/05/2017. REASON FOR ADMISSION: Please refer to the admission history for details. Briefly, the patient is an 87-year-old male referred to us from [facility] Medical/Surgical floor after he was medically stabilized for new onset diabetes. He is extremely confused, paranoid, suspicious, delusional, intermittently agitated. He lives at home with his . Behaviors were deemed unmanageable, potentially dangerous, resulting in this referral for psychiatric stabilization. SIGNIFICANT FINDINGS AND CLINICAL COURSE: Following admission, the patient was seen daily individually by myself, followed medically per Dr. Leong/Dr. Dyer. He was on Zyprexa, which was reduced down to 2.5 mg p.o. at bedtime and adjustments made in the rest of his psychotropics. He seemed to respond to a combination of Zoloft 50 mg a day, Ativan p.r.n., BuSpar 5 mg 4 times a day and p.r.n. Zyprexa. The plan is once he is stable back at home post-discharge for about 30 days, the Zyprexa scheduled 2.5 mg at bedtime could be discontinued. REVIEW OF SYSTEMS: Prior to discharge on 06/05/2017, no CV, , pulmonary, eye, ENT system symptoms on review. Reliability poor. MENTAL STATUS EXAM: Oriented to himself. Insight, judgment, recent and remote memory, attention, concentration, fund of knowledge poor, consistent with his diagnosis. FINAL DIAGNOSES: Major neurocognitive disorder, Alzheimer, vascular with depression, delusion, behavioral disturbance; anxiety disorder, unspecified; impulse control disorder, unspecified. Rest unchanged from admission. DISCHARGE MEDICATIONS: Please refer to the [facility]AD. DISCHARGE INSTRUCTIONS: Outpatient psychiatric and medical followup with his primary care physician, Dr. Bender. MAN Kwabena PADILLA MD DR: AMY/treasure JOB#: [id number] / [id number]
== END 2017-06-05 13:30 | disposition home health service (06) | DRG 884 ==
LOC: GEROPSY 16:23 → UNDOADMIN 16:44
PROVIDERS: ADMIT Psychiatry & Neurology Psychiatry; ATTEND Psychiatry & Neurology Psychiatry
DX: F01.51 Vascular dementia, unspecified severity, with behavioral disturbance (principal); E44.0 Moderate protein-calorie malnutrition; E11.9 Type 2 diabetes mellitus without complications; F02.81 Dementia in other diseases classified elsewhere, unspecified severity, with behavioral disturbance; F05 Delirium due to known physiological condition; G30.9 Alzheimer's disease, unspecified; E03.9 Hypothyroidism, unspecified; F32.9 Major depressive disorder, single episode, unspecified; F41.9 Anxiety disorder, unspecified; F63.9 Impulse disorder, unspecified; I10 Essential (primary) hypertension; N40.0 Benign prostatic hyperplasia without lower urinary tract symptoms; Z79.899 Other long term (current) drug therapy; Z85.820 Personal history of malignant melanoma of skin; Z87.81 Personal history of (healed) traumatic fracture; Z68.26 Body mass index [BMI] 26.0-26.9, adult; Z91.83 Wandering in diseases classified elsewhere
CPT/HCPCS: 36415; 70450; 80053; 80061; 81001; 82306; 82607; 82947; 83036; 83540; 83550; 83735; 84436; 84443; 84480; 85025; 86593; J1815; 97110; 97116; 97530; 97535

== ENCOUNTER 2017-06-07 05:50 | Inpatient (IN) | payer MEDICARE ==
[~2017-06-07] VITALS: Ht 182.9 cm; Wt 84.6 kg
[~2017-06-07 05:50] MED LIST changes: +ACET325T21 PO; +ACET325T9 PO; +BUSP5TAB PO; +CHOL500021 PO; +INSU100I17 SQ; +INSU100I27 SQ; +MAG355OR22 PO; +MAGN400O7 PO; +METH29OI TP; +NYST60PO TP; +OLAN5TAB7 PO; +SENN-79 PO; +SERT50TA PO
--- NOTE | 2017-06-07 06:09 | PHYS DOC ---
Past History Past Medical History: Diabetes, High Cholesterol, Other Past Surgical History: No Surgical History Alcohol Use: None Drug Use: None Adult General Chief Complaint Chief Complaint: MECHANICAL FALL HPI HPI Patient is a 87 year old male who presents with fall out of bed. According to he just got out of [facility] 2 days ago. He spent close to 30 days in [facility]. Upon discharge home health came out to assess him and his O2 sats was 88% but they did not do anything about this. She states normally runs 96% on room air. He does not have oxygen at home. They heard him fall this morning. He initially complained of a headache to family. Here he denies headache, neck pain chest pain or hip pain or back pain. According to the he has a history of a neck fracture from September when he was evaluated at and he's been noncompliant with his neck brace. While the patient was laying in bed here awake his O2 sat was noted to be 87%. He was started on 2 L oxygen. Review of Systems Review of Systems Constitutional: Denies fever or chills [] Eyes: Denies change in visual acuity, redness, or eye pain [] HENT: Denies nasal congestion or sore throat [] Respiratory: Denies cough or shortness of breath [] Cardiovascular: No additional information not addressed in HPI [] GI: Denies abdominal pain, nausea, vomiting, bloody stools or diarrhea [] : Denies dysuria or hematuria [] Musculoskeletal: Denies back pain or joint pain [] Integument: Denies rash or skin lesions [] Neurologic: Denies headache, focal weakness or sensory changes [] Endocrine: Denies polyuria or polydipsia [] All other systems were reviewed and found to be within normal limits, except as documented in this note. Allergies Allergies Allergies Coded Allergies Type Severity Reaction Last Updated Verified No Known Drug Allergies 05/16/17 No Physical Exam Physical Exam Constitutional: Well developed, well nourished, no acute distress, non-toxic appearance. [] HENT: Normocephalic, atraumatic, bilateral external ears normal, oropharynx moist, no oral exudates, nose normal. [] Eyes: PERRLA, EOMI, conjunctiva normal, no discharge. [] Neck: Normal range of motion, no tenderness, supple, no stridor. [] Cardiovascular:Heart rate regular rhythm, no murmur [] Lungs & Thorax: Bilateral breath sounds clear to auscultation [] Abdomen: Bowel sounds normal, soft, no tenderness, no masses, no pulsatile masses. [] Skin: Warm, dry, no erythema, no rash. [] Back: No tenderness, no CVA tenderness. [] Extremities: No tenderness, no cyanosis, no clubbing, ROM intact, no edema. [] Neurologic: Alert and oriented X 2, to person and place, normal motor function, normal sensory function, no focal deficits noted. [] Psychologic: Affect normal, mood normal. [] Current Patient Data Vital Signs Vital Signs Date Time Temp Pulse Resp B/P (MAP) Pulse Ox O2 Delivery O2 Flow Rate FiO2 06/07/17 05:50 98.0 74 18 93 Room Air EKG EKG EKG shows sinus rhythm with rate of [address] elevation, T-wave inversions noted in lead 3, left axis deviation, QTC 470 ms, as interpreted by me. Radiology/Procedures Radiology/[place] [address] IMAGING REPORT Signed PATIENT: GUCCI FONTANEZ ACCOUNT: [id number] : 1930 LOCATION: ER AGE: 87 SEX: M EXAM STATUS: REG ER ORD. PHYSICIAN: REINALDO WISEMAN MD REASON: hypoxia PROCEDURE: CHEST PA & LATERAL Indication: Hypoxia Technique: PA and lateral views of the chest Comparison: Previous study from 05/16/2017. Findings: Heart is normal in size. Bandlike opacity seen in the left lower lobe. Otherwise, lungs are clear. No pneumothorax or pleural effusion. Visualized bony thorax is within normal limits. Impression: Band like opacity in the left lower lobe may be secondary to pneumonia or subsegmental atelectasis. DICTATED AND SIGNED BY: DANG PHELAN DO DATE: 06/07/17 0833 CC: ELSIE MANCINI MD; REINALDO WISEMAN MD ~ [address] [address] IMAGING REPORT Signed PATIENT: GUCCI FONTANEZ ACCOUNT: [id number] : 1930 LOCATION: ER AGE: 87 SEX: M EXAM STATUS: REG ER ORD. PHYSICIAN: REINALDO WISEMAN MD REASON: r/o PE PROCEDURE: CT ANGIOGRAPHY CHEST Indication: Shortness of breath for one day. Technique: CT angiogram of the chest with 75 mL of Omnipaque 300 with multi planar MIP reformats. Comparison: None Findings: Diagnostic quality PE study. There are no central, segmental or subsegmental filling defects in the pulmonary arteries. Heart is normal in size. No pericardial or pleural effusion. Coronary artery calcifications noted. Clear neck base. No axillary, mediastinal or hilar adenopathy. Patchy opacities are seen in the right lower lobe with peribronchial wall thickening. Mild subpleural patchy opacities are seen in the left lower lobe as well. Visualized sections through the liver, spleen, gallbladder, adrenals, pancreas are within normal limits. Multiple punctate calcifications are seen in the pancreas which may suggest stigmata of chronic pericarditis. No suspicious bony lesions. Impression: 1. No PE. 2. Consolidative opacities in the right lower lobe with peribronchial wall thickening likely suggests pneumonia.. PQRS Compliance Statement: One or more of the following individualized dose reduction techniques were utilized for this examination: 1. Automated exposure control 2. Adjustment of the mA and/or kV according to patient size 3. Use of iterative reconstruction technique DICTATED AND SIGNED BY: DANG PHELAN DO DATE: 06/07/17 1049 CC: ELSIE MANCINI MD; REINALDO WISEMAN MD ~ Impressions: Hypoxemia Pneumonia C2 fracture Dementia Course & Med Decision Making Course & Med Decision Making Pertinent Labs and Imaging studies reviewed. (See chart for details) EKG doesn't show acute abnormality. He was hypoxic while resting in bed at 87%. He was started on 2 L. D-dimer is elevated and a CT angios pending at this time. Chest x-ray shows questionable pneumonia. We will start Levaquin at this time and admit to Dr. Araujo. I did speak with Dr. Carrasco or guarding the CT neck report he states this time there is no need for surgery, he recommends keeping the patient c-collar. I placed him in a hard collar and instructed family to use the hard collar at home. He is in stable condition at this time with CT Angio chest is pending. Written interim hospital orders. CT angiogram confirms pneumonia, no PE noted. Dragon Disclaimer Dragon Disclaimer This electronic medical record was generated, in whole or in part, using a voice recognition dictation system. Departure Departure: Impression: Primary Impression: Hypoxemia Disposition: ADMITTED INPATIENT Admitting Physician: Elsie Mancini Condition: STABLE Referrals: ELSIE MANCINI MD (PCP) REINALDO WISEMAN MD Jun 07, 2017 06:09
--- NOTE | 2017-06-07 07:12 | EKG ---
[address] [address] Test Date: 2017-06-07 Test Time: 07:08:40 Pat Name: GUCCI FONTANEZ Department: Room: Gender: M [employer] Worker: GWENDOLYN : 1930 Requested By: REINALDO WISEMAN Order Number: [id number] Reading MD: Measurements Intervals [place] Rate: 68 P: 27 KS: 192 QRS: -8 QRSD: 90 T: 7 QT: 388 QTc: 417 Interpretive Statements SINUS RHYTHM LEFTWARD AXIS NO SPECIFIC ECG ABNORMALITIES RI6.01 Compared to ECG 05/16/2017 12:32:40 Left-axis deviation now present
[2017-06-07 07:16] LABS: BASO # 0.1 x10^3/uL (0.0-0.2); BASO % 1 % (0-3); EOS # 0.8 x10^3/uL (0.0-0.7); EOS % 12 % (0-3); HEMOGLOBIN 12.3 g/dL (13.0-17.5); LYMPH # 1.2 x10^3/uL (1.0-4.8); LYMPH % 19 % (24-48); MEAN CORPUSCULAR HEMOGLOBIN 33 pg (25-35); MEAN CORPUSCULAR HGB CONC 34 g/dL (31-37); MEAN CORPUSCULAR VOLUME 97 fL (79-100); MONO # 0.8 x10^3/uL (0.0-1.1); MONO % 13 % (0-9); NEUT # 3.5 x10^3uL (1.8-7.7); NEUT % 55 % (31-73); PLATELET COUNT 302 x10^3/uL (140-400); RED CELL DISTRIBUTION WIDTH 12.7 % (11.5-14.5); WHITE BLOOD COUNT 6.4 x10^3/uL (4.0-11.0)
--- NOTE | 2017-06-07 07:36 | RAD ---
CT head and cervical spine without contrast History: Fall today, headache and dizziness, neck pain Technique: Noncontrast CT imaging was performed of the head and cervical spine. Multiplanar reconstruction images are submitted. Exposure: One or more of the following individualized dose reduction techniques were utilized for this examination: 1. Automated exposure control 2. Adjustment of the mA and/or kV according to patient size 3. Use of iterative reconstruction technique. Head CT Comparison: 05/21/2017 Findings: No acute intracranial hemorrhage is identified. There is again moderate supratentorial atrophy. Ventricular size is stable, proportionate to the sulcal spaces. There is again scattered ill-defined low-density of the supratentorial parenchyma bilaterally. There is no new intra-axial mass effect, midline shift, extra axial fluid collection. There is patchy ethmoid air cell mucosal thickening. Mastoid air cells are aerated. No acute calvarial abnormality is identified. Impression: 1. No acute intracranial abnormality is identified. 2. There is again generalized supratentorial atrophy and scattered ill-defined low-density of the supratentorial parenchyma bilaterally probably due to chronic microvascular ischemic disease. Cervical spine CT Comparison: September 27, 2016 Findings: There is again old fracture at the base of C2, alignment similar. There is again mild grade 1 anterior spondylolisthesis at C2-C3. There is again reversal of the lordotic curvature. There is again multilevel fairly advanced degenerative disc disease greatest C4-5 to C6-7 and to lesser degree at C3-3-4. There is multilevel cervical spondylosis. There is suspected central canal stenosis at C5-C6 on the order of 8 mm. There is also central canal stenosis to about 8 mm at C1 at which there is buckling of the transverse ligament or pannus. There is somewhat greater degree of anterior subluxation of the left lateral mass of C1 relative to C2 with a rotary component. There is left lateral subluxation of the left lateral mass of C1 relative to C2 by 3-4 mm, very slightly greater. Occipital condylar-C1 articulation is preserved. Atlantoaxial distance is unchanged, within normal limits. There is multilevel cervical facet and uncovertebral degenerative change resulting in multilevel cervical neural foramina compromise. There is some variable fusion of the facet articulations. There is more significant narrowing on the right at C2-C3 and C3-4, bilaterally at C4-C5, C5-C6, C6-7, and on the right at C7-T1. There is atherosclerotic calcification carotid arteries in the neck bilaterally. Impression: 1. There is again old fracture at the base of C2, alignment is similar. There is mild left lateral subluxation of the left lateral mass of C1 relative to C2 slightly greater. There is also somewhat greater degree of anterior subluxation of the left lateral mass of C1 relative to C2 with a rotary component likely due to component of atlantoaxial rotatory subluxation although the atlantoaxial distance is within normal limits. There is again density along the posterior aspect of C2 which may be due to component of pannus and/or buckling of the transverse ligament of C1. 2. There is again multilevel cervical degenerative disc disease and spondylosis with multilevel mild spinal stenosis. There is multilevel cervical neural foramina compromise due to uncovertebral and facet degenerative change. Findings discussed with REINALDO WISEMAN at 06/07/2017 7:33 AM. Electronically signed by: Cooper Fuller MD (06/07/2017 7:33 AM) [id number]
[2017-06-07 07:44] LABS: ALBUMIN 2.9 g/dL (3.4-5.0); CALCIUM 8.7 mg/dL (8.5-10.1); CREATININE 1.1 mg/dL (0.7-1.3); DIRECT BILIRUBIN 0.1 mg/dL (0.0-0.2); GFR 63.3; MAGNESIUM 2.1 mg/dL (1.8-2.4); POTASSIUM 4.3 mmol/L (3.5-5.1); TOTAL PROTEIN 7.2 g/dL (6.4-8.2)
[2017-06-07 07:47] LABS: TOTAL BILIRUBIN 0.4 mg/dL (0.2-1.0)
[2017-06-07 08:34] LABS: BACTERIA,URINE 0 /HPF (0-FEW); BILIRUBIN,URINE NEG (NEG); CLARITY,URINE CLEAR; COLOR,URINE YELLOW; GLUCOSE,URINE NEG (NEG); NITRITE,URINE NEG (NEG); RBC,URINE OCC /HPF (0-2); SQUAMOUS EPITHELIAL CELL,UR OCC /LPF; UROBILINOGEN,URINE 0.2 mg/dL (0.2 mg/dL); WBC,URINE OCC /HPF (0-4)
--- NOTE | 2017-06-07 08:37 | RAD ---
Indication: Hypoxia Technique: PA and lateral views of the chest Comparison: Previous study from 05/16/2017. Findings: Heart is normal in size. Bandlike opacity seen in the left lower lobe. Otherwise, lungs are clear. No pneumothorax or pleural effusion. Visualized bony thorax is within normal limits. Impression: Band like opacity in the left lower lobe may be secondary to pneumonia or subsegmental atelectasis.
[2017-06-07] MEDS ORDERED: IOHEXOL 300 MG/ML 75 ML VIAL. IV ONE (10:15)
--- NOTE | 2017-06-07 10:58 | RAD ---
Indication: Shortness of breath for one day. Technique: CT angiogram of the chest with 75 mL of Omnipaque 300 with multi planar MIP reformats. Comparison: None Findings: Diagnostic quality PE study. There are no central, segmental or subsegmental filling defects in the pulmonary arteries. Heart is normal in size. No pericardial or pleural effusion. Coronary artery calcifications noted. Clear neck base. No axillary, mediastinal or hilar adenopathy. Patchy opacities are seen in the right lower lobe with peribronchial wall thickening. Mild subpleural patchy opacities are seen in the left lower lobe as well. Visualized sections through the liver, spleen, gallbladder, adrenals, pancreas are within normal limits. Multiple punctate calcifications are seen in the pancreas which may suggest stigmata of chronic pericarditis. No suspicious bony lesions. Impression: 1. No PE. 2. Consolidative opacities in the right lower lobe with peribronchial wall thickening likely suggests pneumonia.. PQRS Compliance Statement: One or more of the following individualized dose reduction techniques were utilized for this examination: 1. Automated exposure control 2. Adjustment of the mA and/or kV according to patient size 3. Use of iterative reconstruction technique
[2017-06-07 11:29] VITALS: BP 145/70
[2017-06-07] MEDS ORDERED: AZITHROMYCIN 250 MG TABLET. PO ONE (12:15)
[2017-06-07] MEDS ORDERED: LORazepam INTENSOL 2 MG/ML BOTTLE PO PRN (12:15)
[2017-06-07] MEDS ORDERED: MAGNESIUM HYDROXIDE 2,400 MG/30 ML ORAL.SUSP. PO PRN (12:15)
[2017-06-07] MEDS ORDERED: METHYL SALICYLATE/MENTHOL TOPICAL OINTMENT 29GM TUBE. TP PRN (12:15)
[2017-06-07] MEDS ORDERED: MAG HYDROX/AL HYDROX/SIMETH 30 ML ORAL.SUSP PO PRN (12:30)
[2017-06-07] MEDS: busPIRone 5 MG TABLET. PO SCH ×3 (12:55→21:33)
[2017-06-07] MEDS: ASPIRIN ENTERIC COATED 81 MG TABLET.DR. PO SCH (12:55)
[2017-06-07] MEDS: SERTRALINE 50 MG TABLET. PO SCH (12:55)
[2017-06-07] MEDS ORDERED: VANCOMYCIN 2 GM in IV NORMAL SALINE 500ML 500 ML IV ONE (13:00)
[2017-06-07] MEDS: VANCOMYCIN PER PHARMACY MC PRN (13:59)
[2017-06-07] MEDS: IPRATRPIUM/ALBUTEROL 0.5/2.5MG 3 ML NEBU. NEB SCH ×2 (14:00→20:48)
[2017-06-07 15:33] VITALS: BP 137/77
[2017-06-07] MEDS: INSULIN ASPART 300 UNITS/3 ML INSULN.PEN SQ SCH (16:30)
[2017-06-07] MEDS: PIPERACILLIN/TAZOBACTAM 4.5 GM in IV NORMAL SALINE 50ML 50 ML IV SCH (18:10)
[2017-06-07 19:12] VITALS: BP 144/60
[2017-06-07] MEDS: NYSTATIN TOPICAL POWDER 15GM BOTTLE. TP SCH (21:33)
[2017-06-07] MEDS: ACETAMINOPHEN 325 MG TABLET PO PRN (21:33)
[2017-06-07] MEDS: TAMSULOSIN 0.4 MG CAP.ER.24H. PO SCH (21:33)
[2017-06-07] MEDS: SENNOSIDES 8.6 MG TABLET PO SCH (21:34)
[2017-06-07] MEDS: INSULIN DETEMIR 300 UNITS/3 ML INSULN.PEN. SQ SCH (21:36)
[2017-06-07 23:00] VITALS: BP 108/61
[2017-06-08] MEDS: PIPERACILLIN/TAZOBACTAM 4.5 GM in IV NORMAL SALINE 50ML 50 ML IV SCH ×2 (00:28→05:59)
[2017-06-08] MEDS: ALBUTEROL SULFATE 2.5 MG/3 ML NEBU. NEB PRN ×2 (02:03→23:38)
[2017-06-08] MEDS: IPRATRPIUM/ALBUTEROL 0.5/2.5MG 3 ML NEBU. NEB SCH ×3 (05:28→20:39)
[2017-06-08 05:31] VITALS: BP 130/56
[2017-06-08] MEDS: LEVOTHYROXINE 125 MCG TABLET PO SCH (06:31)
[2017-06-08 07:28] LABS: BASO # 0.1 x10^3/uL (0.0-0.2); BASO % 1 % (0-3); EOS # 0.6 x10^3/uL (0.0-0.7); EOS % 9 % (0-3); HEMATOCRIT 30.7 % (39.0-53.0); HEMOGLOBIN 10.4 g/dL (13.0-17.5); LYMPH # 1.5 x10^3/uL (1.0-4.8); LYMPH % 24 % (24-48); MEAN CORPUSCULAR HEMOGLOBIN 33 pg (25-35); MEAN CORPUSCULAR HGB CONC 34 g/dL (31-37); MEAN CORPUSCULAR VOLUME 98 fL (79-100); MONO # 0.8 x10^3/uL (0.0-1.1); MONO % 13 % (0-9); NEUT # 3.4 x10^3uL (1.8-7.7); NEUT % 53 % (31-73); PLATELET COUNT 248 x10^3/uL (140-400); RED BLOOD COUNT 3.12 x10^6/uL (4.30-5.70); WHITE BLOOD COUNT 6.4 x10^3/uL (4.0-11.0)
[2017-06-08 07:45] LABS: CALCIUM 8.3 mg/dL (8.5-10.1); CREATININE 1.4 mg/dL (0.7-1.3); GFR 47.9; POTASSIUM 3.6 mmol/L (3.5-5.1)
[2017-06-08] MEDS: busPIRone 5 MG TABLET. PO SCH ×4 (08:23→20:58)
[2017-06-08] MEDS: ASPIRIN ENTERIC COATED 81 MG TABLET.DR. PO SCH (08:24)
[2017-06-08] MEDS: SENNOSIDES 8.6 MG TABLET PO SCH ×2 (08:24→20:56)
[2017-06-08] MEDS: SERTRALINE 50 MG TABLET. PO SCH (08:24)
[2017-06-08] MEDS: LACTOBACILLUS RHAMNOSUS GG 1 CAPSULE. PO SCH ×2 (08:24→20:56)
[2017-06-08] MEDS: INSULIN ASPART 300 UNITS/3 ML INSULN.PEN SQ SCH ×3 (08:27→17:09)
[2017-06-08] MEDS: TAMSULOSIN 0.4 MG CAP.ER.24H. PO SCH ×2 (08:27→20:57)
[2017-06-08] MEDS: INSULIN DETEMIR 300 UNITS/3 ML INSULN.PEN. SQ SCH ×2 (08:28→20:57)
[2017-06-08] MEDS: NYSTATIN TOPICAL POWDER 15GM BOTTLE. TP SCH ×2 (08:34→20:58)
[2017-06-08 11:01] VITALS: BP 134/71
[2017-06-08] MEDS: PIPERACILLIN/TAZOBACTAM 3.375 GM in IV NORMAL SALINE 50ML 50 ML IV SCH ×3 (12:02→23:37)
[2017-06-08] MEDS: VANCOMYCIN 1.25 GM in IV NORMAL SALINE 250ML 250 ML IV SCH (13:26)
--- NOTE | 2017-06-08 14:25 | HP ---
ADMIT DATE: 06/07/2017 HISTORY OF PRESENT ILLNESS: An 87-year-old male came in through the Emergency Room. The patient apparently was at home, fell out of bed, came in through the Emergency Room. Oxygen saturation was around 88%. The patient initially complained of a headache, but then he denied it later on, although he does have neck and back pain. The patient has severe dementia, previous history of neck fracture but refuses to wear the neck brace, noncompliant. He was started on 2 liters of oxygen in the Emergency Room and admitted with pneumonia and acute respiratory failure. REVIEW OF SYSTEMS: The patient is a poor historian. Denies chest pain. He denies shortness of breath. Denies abdominal pain. Denies any melena, hematochezia, or hematemesis. Neurologically baseline with severe dementia. ALLERGIES: He has no known allergies. PAST MEDICAL HISTORY: Severe dementia with Alzheimer's, hypercholesterolemia, benign prostatic hypertrophy, hypothyroidism, had skin melanoma. Influenza and pneumococcal vaccines are up-to-date. FAMILY HISTORY: History of breast cancer in the mother. HOME MEDICATIONS: Tylenol, 81 mg aspirin, BuSpar 5 mg 4 times a day, vitamin D3, NovoLog insulin, history of diabetes having Levemir, levothyroxine, lorazepam 2 mg p.r.n., magnesium oxide, nystatin to groin, Zyprexa 2.5 mg at bedtime and 5 mg every 2 hours p.r.n., Senokot, Zoloft 50 mg daily, and Flomax 0.4 daily. PHYSICAL EXAMINATION: GENERAL: Pleasant white male, very confused, disoriented, weak. VITAL SIGNS: Blood pressure 130/56, respiratory rate 18, pulse 78, afebrile. HEENT: The patient's head was atraumatic, normocephalic. Eyes: PERRLA without jaundice. The mouth and throat were normal. NECK: Supple, no JVD or thyromegaly. LUNGS: Diminished throughout, but basically clear. There were poor breath sounds. CARDIOVASCULAR: Regular sinus rhythm, S1-S2, without murmur, rub, thrill, or extra heart sound. ABDOMEN: Soft, nontender. No rebound or guarding. Scaphoid. EXTREMITIES: No clubbing, cyanosis, or edema. NEUROLOGIC: The patient alert, but confused, disoriented. LABORATORY DATA: Showed white count of 6, slightly anemic. BUN and creatinine normal. Albumin low at 2.9. In any case, x-ray showed possible infiltrative process in the right lower lobe. IMPRESSION: Pneumonia, unknown etiology. PLAN: The patient will be admitted and placed on IV antibiotics. Use vancomycin and Levaquin, make further evaluation on him as indicated, breathing treatments, PT/OT. ELSIE MANCINI MD DR: IVAN/treasure JOB#: [id number] / [id number]
[2017-06-08 15:46] VITALS: BP 115/51
[2017-06-08] MEDS ORDERED: CHOLECALCIFEROL (VITAMIN D3) 50,000 UNIT CAPSULE PO SCH (16:00)
[2017-06-08 20:09] VITALS: BP 124/64
[2017-06-08 22:39] VITALS: BP 129/69
[2017-06-08] MEDS: guaiFENesin 300 MG/15 ML LIQUID PO PRN (23:48)
[2017-06-09] MEDS: guaiFENesin 300 MG/15 ML LIQUID PO PRN (03:57)
[2017-06-09] MEDS: PIPERACILLIN/TAZOBACTAM 3.375 GM in IV NORMAL SALINE 50ML 50 ML IV SCH ×3 (05:05→18:11)
[2017-06-09] MEDS: LEVOTHYROXINE 125 MCG TABLET PO SCH (05:07)
[2017-06-09 05:32] VITALS: BP 139/69
[2017-06-09] MEDS: IPRATRPIUM/ALBUTEROL 0.5/2.5MG 3 ML NEBU. NEB SCH ×3 (05:32→21:04)
[2017-06-09] MEDS: INSULIN ASPART 300 UNITS/3 ML INSULN.PEN SQ SCH ×3 (08:20→16:42)
[2017-06-09] MEDS: INSULIN DETEMIR 300 UNITS/3 ML INSULN.PEN. SQ SCH ×2 (08:22→21:47)
[2017-06-09] MEDS: LACTOBACILLUS RHAMNOSUS GG 1 CAPSULE. PO SCH ×2 (08:22→21:37)
[2017-06-09] MEDS: ASPIRIN ENTERIC COATED 81 MG TABLET.DR. PO SCH (08:22)
[2017-06-09] MEDS: SENNOSIDES 8.6 MG TABLET PO SCH ×2 (08:23→21:36)
[2017-06-09] MEDS: SERTRALINE 50 MG TABLET. PO SCH (08:23)
[2017-06-09] MEDS: busPIRone 5 MG TABLET. PO SCH ×4 (08:23→21:37)
[2017-06-09] MEDS: TAMSULOSIN 0.4 MG CAP.ER.24H. PO SCH ×2 (08:30→21:37)
[2017-06-09] MEDS: NYSTATIN TOPICAL POWDER 15GM BOTTLE. TP SCH ×2 (10:55→21:41)
[2017-06-09 11:01] VITALS: BP 145/73
--- NOTE | 2017-06-09 12:48 | RAD ---
Chest, 2 views, 06/09/2017: History: Pneumonia Comparison is made to a study from 06/07/2017. The heart size and pulmonary vascularity are within normal limits. There are persistent mild streaky lower lobe opacities best seen on the lateral view. This probably involve both the right and left lower lobes. The CT from 06/07/2017 demonstrated dominant involvement of the right lower lobe. The upper lung conteh are clear. There is no evidence of pleural fluid. Mild spurring is present in the spine. IMPRESSION: Persistent streaky bilateral lower lobe opacities compatible with pneumonia.
[2017-06-09 13:28] LABS: VANC TR 10.6 mcg/mL (10.0-20.0)
[2017-06-09] MEDS ORDERED: VANCOMYCIN 1.25 GM in IV NORMAL SALINE 250ML 250 ML IV SCH (13:45)
[2017-06-09] MEDS: VANCOMYCIN PER PHARMACY MC PRN (13:49)
[2017-06-09] MEDS: VANCOMYCIN 1.25 GM in IV NORMAL SALINE 250ML 250 ML IV SCH (15:00)
[2017-06-09 16:53] VITALS: BP 162/80
--- NOTE | 2017-06-09 19:10 | PN ---
DATE: 06/09/2017 SUBJECTIVE: An 87-year-old male in with pneumonia, exacerbation of COPD, still receiving IV antibiotic therapy. He has consolidative opacities in the right lower lobe. Consequently, IV antibiotic therapies are being utilized on his blood counts were basically unremarkable. Blood cultures basically unremarkable. The patient himself is feeling a little bit better this morning, looks a little stronger, more alert than he was yesterday. OBJECTIVE: VITAL SIGNS: Blood pressure 140/70, respiratory rate 20, pulse 80, afebrile, 94% on half a liter. GENERAL: In any case, the patient is alert, still slightly confused, but more alert than he has been. LUNGS: Diminished throughout, poor movement of air. CARDIOVASCULAR: Regular sinus rhythm. ABDOMEN: Soft. NEUROLOGIC: Baseline for this individual with marked dementia, Alzheimer's type. IMPRESSION: Pneumonia, unknown etiology, anemia of chronic disease, dementia, Alzheimer's type, type II diabetes. PLAN: As above. ELSIE MANCINI MD DR: IVAN/treasure JOB#: [id number] / [id number]
[2017-06-09 19:46] VITALS: BP 136/67
[2017-06-09] MEDS: ACETAMINOPHEN 325 MG TABLET PO PRN (21:37)
[2017-06-09 23:30] VITALS: BP 130/70
[2017-06-10] MEDS: PIPERACILLIN/TAZOBACTAM 3.375 GM in IV NORMAL SALINE 50ML 50 ML IV SCH ×5 (00:10→23:53)
[2017-06-10] MEDS: ALBUTEROL SULFATE 2.5 MG/3 ML NEBU. NEB PRN ×2 (00:25→11:29)
[2017-06-10] MEDS: VANCOMYCIN 1.25 GM in IV NORMAL SALINE 250ML 250 ML IV SCH ×2 (01:26→13:30)
[2017-06-10 05:36] VITALS: BP 131/75
[2017-06-10] MEDS: IPRATRPIUM/ALBUTEROL 0.5/2.5MG 3 ML NEBU. NEB SCH ×3 (06:05→22:32)
[2017-06-10] MEDS: LEVOTHYROXINE 125 MCG TABLET PO SCH (06:37)
[2017-06-10] MEDS: NYSTATIN TOPICAL POWDER 15GM BOTTLE. TP SCH ×2 (08:07→21:29)
[2017-06-10] MEDS: SERTRALINE 50 MG TABLET. PO SCH (08:07)
[2017-06-10] MEDS: busPIRone 5 MG TABLET. PO SCH ×4 (08:07→21:29)
[2017-06-10] MEDS: LACTOBACILLUS RHAMNOSUS GG 1 CAPSULE. PO SCH ×2 (08:07→21:29)
[2017-06-10] MEDS: SENNOSIDES 8.6 MG TABLET PO SCH ×2 (08:07→21:29)
[2017-06-10] MEDS: TAMSULOSIN 0.4 MG CAP.ER.24H. PO SCH ×2 (08:07→21:29)
[2017-06-10] MEDS: ASPIRIN ENTERIC COATED 81 MG TABLET.DR. PO SCH (08:07)
[2017-06-10] MEDS: INSULIN ASPART 300 UNITS/3 ML INSULN.PEN SQ SCH ×3 (08:18→17:24)
[2017-06-10] MEDS: INSULIN DETEMIR 300 UNITS/3 ML INSULN.PEN. SQ SCH ×2 (10:06→21:35)
[2017-06-10 10:40] VITALS: BP 108/64
[2017-06-10 13:22] LABS: VANC TR 22.5 mcg/mL (10.0-20.0)
[2017-06-10] MEDS: VANCOMYCIN PER PHARMACY MC PRN (14:11)
[2017-06-10 15:06] VITALS: BP 130/68
--- NOTE | 2017-06-10 15:15 | PN ---
DATE: 06/10/2017 SUBJECTIVE: The patient admitted with pneumonia. 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 His x-ray from yesterday still shows compatible with pneumonia. OBJECTIVE: VITAL SIGNS: Blood pressure 108/64, respiratory rate 20, pulse 82, afebrile. HEENT: The patient's head atraumatic, normocephalic. Eyes: PERRLA without jaundice. Mouth and throat: Normal. NECK: Supple. LUNGS: Diminished in the bases, crackles noted. CARDIOVASCULAR: CVR Regular sinus rhythm, S1, S2. ABDOMEN: Soft, nontender. IMPRESSION: Pneumonia, exacerbation of chronic obstructive pulmonary disease, and dementia. PLAN: Continue to monitor the patient and make further evaluation on him as indicated. ELSIE MANCINI MD DR: IVAN/treasure JOB#: [id number] / [id number]
[2017-06-10] MEDS ORDERED: VANCOMYCIN 1 GM in IV NORMAL SALINE 250ML 250 ML IV SCH (17:00)
[2017-06-10 19:46] VITALS: BP 146/71
[2017-06-11] MEDS: VANCOMYCIN 1.25 GM in IV NORMAL SALINE 250ML 250 ML IV SCH (00:34)
[2017-06-11] MEDS: PIPERACILLIN/TAZOBACTAM 3.375 GM in IV NORMAL SALINE 50ML 50 ML IV SCH ×4 (05:37→23:55)
[2017-06-11] MEDS: LEVOTHYROXINE 125 MCG TABLET PO SCH (05:37)
[2017-06-11] MEDS: IPRATRPIUM/ALBUTEROL 0.5/2.5MG 3 ML NEBU. NEB SCH ×3 (06:02→21:26)
[2017-06-11 06:26] VITALS: BP 154/87
[2017-06-11] MEDS: TAMSULOSIN 0.4 MG CAP.ER.24H. PO SCH ×2 (08:42→21:33)
[2017-06-11] MEDS: SERTRALINE 50 MG TABLET. PO SCH (08:42)
[2017-06-11] MEDS: LACTOBACILLUS RHAMNOSUS GG 1 CAPSULE. PO SCH ×2 (08:42→21:33)
[2017-06-11] MEDS: busPIRone 5 MG TABLET. PO SCH ×4 (08:42→21:33)
[2017-06-11] MEDS: SENNOSIDES 8.6 MG TABLET PO SCH ×2 (08:42→21:33)
[2017-06-11] MEDS: ASPIRIN ENTERIC COATED 81 MG TABLET.DR. PO SCH (08:42)
[2017-06-11] MEDS: NYSTATIN TOPICAL POWDER 15GM BOTTLE. TP SCH ×2 (08:43→21:37)
[2017-06-11] MEDS: INSULIN ASPART 300 UNITS/3 ML INSULN.PEN SQ SCH ×3 (08:51→17:17)
[2017-06-11] MEDS: INSULIN DETEMIR 300 UNITS/3 ML INSULN.PEN. SQ SCH ×2 (08:52→21:00)
[2017-06-11 11:16] VITALS: BP 100/74
--- NOTE | 2017-06-11 16:54 | PN ---
DATE: 06/11/2017 SUBJECTIVE: The patient seems to be making fairly good progress overall. I think he does need some skilled facility, however. OBJECTIVE: VITAL SIGNS: Blood pressure 100/74, respiratory rate 18, pulse 80, afebrile. HEENT: The patient's head was atraumatic, normocephalic. Eyes: PERRLA without jaundice. The mouth and throat were normal. NECK: Supple, without JVD or thyromegaly. LUNGS: Diminished throughout, poor movement of the air, some improvement, still some wheezing noted. IMPRESSION: Pneumonia of unknown etiology, community acquired, exacerbation of chronic obstructive pulmonary disease, dementia of Alzheimer's type. PLAN: Continue with aggressive pulmonary toilet, antibiotics as indicated. Probably repeat a chest x-ray and make further evaluation on him per those results. Otherwise, the patient is still baseline as well as dementia and we will continue to monitor the patient accordingly. ELSIE MANCINI MD DR: IVAN/treasure JOB#: [id number] / [id number]
[2017-06-11 19:00] VITALS: BP 119/75
[2017-06-11] MEDS: ACETAMINOPHEN 325 MG TABLET PO PRN (21:32)
[2017-06-12 00:49] LABS: CREATININE 1.5 mg/dL (0.7-1.3); GFR 44.3
[2017-06-12 00:56] LABS: VANC TR 16.2 mcg/mL (10.0-20.0)
[2017-06-12] MEDS: VANCOMYCIN 1.25 GM in IV NORMAL SALINE 250ML 250 ML IV SCH (01:31)
[2017-06-12] MEDS: PIPERACILLIN/TAZOBACTAM 3.375 GM in IV NORMAL SALINE 50ML 50 ML IV SCH ×3 (05:27→17:18)
[2017-06-12 05:45] VITALS: BP 151/79
[2017-06-12] MEDS: IPRATRPIUM/ALBUTEROL 0.5/2.5MG 3 ML NEBU. NEB SCH ×3 (05:54→21:23)
[2017-06-12] MEDS: LEVOTHYROXINE 125 MCG TABLET PO SCH (06:17)
[2017-06-12 07:00] LABS: BASO # 0.1 x10^3/uL (0.0-0.2); BASO % 1 % (0-3); EOS # 0.8 x10^3/uL (0.0-0.7); EOS % 11 % (0-3); HEMATOCRIT 35.3 % (39.0-53.0); HEMOGLOBIN 11.9 g/dL (13.0-17.5); LYMPH % 27 % (24-48); MEAN CORPUSCULAR HEMOGLOBIN 33 pg (25-35); MEAN CORPUSCULAR HGB CONC 34 g/dL (31-37); MEAN CORPUSCULAR VOLUME 98 fL (79-100); MONO # 0.7 x10^3/uL (0.0-1.1); MONO % 9 % (0-9); NEUT # 3.8 x10^3uL (1.8-7.7); NEUT % 51 % (31-73); PLATELET COUNT 262 x10^3/uL (140-400); RED BLOOD COUNT 3.61 x10^6/uL (4.30-5.70); RED CELL DISTRIBUTION WIDTH 13.4 % (11.5-14.5); WHITE BLOOD COUNT 7.4 x10^3/uL (4.0-11.0)
[2017-06-12 07:15] LABS: ALBUMIN 2.5 g/dL (3.4-5.0); ALBUMIN/GLOBULIN RATIO 0.6 (1.0-1.7); CALCIUM 8.8 mg/dL (8.5-10.1); CREATININE 1.4 mg/dL (0.7-1.3); GFR 47.9; POTASSIUM 3.9 mmol/L (3.5-5.1); TOTAL BILIRUBIN 0.4 mg/dL (0.2-1.0); TOTAL PROTEIN 6.6 g/dL (6.4-8.2)
[2017-06-12] MEDS: SENNOSIDES 8.6 MG TABLET PO SCH ×2 (08:00→21:34)
[2017-06-12] MEDS: LACTOBACILLUS RHAMNOSUS GG 1 CAPSULE. PO SCH ×2 (08:00→21:34)
[2017-06-12] MEDS: TAMSULOSIN 0.4 MG CAP.ER.24H. PO SCH ×2 (08:00→21:35)
[2017-06-12] MEDS: ASPIRIN ENTERIC COATED 81 MG TABLET.DR. PO SCH (08:00)
[2017-06-12] MEDS: busPIRone 5 MG TABLET. PO SCH ×4 (08:00→21:35)
[2017-06-12] MEDS: SERTRALINE 50 MG TABLET. PO SCH (08:01)
[2017-06-12] MEDS: NYSTATIN TOPICAL POWDER 15GM BOTTLE. TP SCH ×2 (08:01→21:00)
[2017-06-12] MEDS: INSULIN DETEMIR 300 UNITS/3 ML INSULN.PEN. SQ SCH ×2 (08:08→21:58)
[2017-06-12] MEDS: INSULIN ASPART 300 UNITS/3 ML INSULN.PEN SQ SCH ×3 (08:08→17:17)
[2017-06-12] MEDS: VANCOMYCIN PER PHARMACY MC PRN (08:47)
[2017-06-12 10:53] VITALS: BP 98/64
--- NOTE | 2017-06-12 11:36 | RAD ---
Chest, 2 views, 06/12/2017: History: Pneumonia Comparison is made to a study from 06/09/2001. The heart size and pulmonary vascularity are normal. There is tortuosity of the thoracic aorta. The lateral view demonstrates mild residual streaky atelectasis/infiltrate in one of the lower lobes, not clearly seen in the PA projection. This probably lies on the left. No new parenchymal abnormality is seen. There is no evidence of pleural fluid. Moderate spurring is present in the spine. IMPRESSION: 1. Mild residual streaky basilar atelectasis/infiltrate. 2. No new chest abnormality is detected.
[2017-06-12 14:15] VITALS: BP 113/66
[2017-06-12 18:47] VITALS: BP 136/67
[2017-06-12] MEDS: ACETAMINOPHEN 325 MG TABLET PO PRN (21:35)
[2017-06-13] MEDS: PIPERACILLIN/TAZOBACTAM 3.375 GM in IV NORMAL SALINE 50ML 50 ML IV SCH ×2 (00:08→05:23)
[2017-06-13] MEDS: VANCOMYCIN 1.25 GM in IV NORMAL SALINE 250ML 250 ML IV SCH (00:44)
[2017-06-13] MEDS: LEVOTHYROXINE 125 MCG TABLET PO SCH (05:25)
[2017-06-13 05:56] VITALS: BP 141/71
[2017-06-13] MEDS: IPRATRPIUM/ALBUTEROL 0.5/2.5MG 3 ML NEBU. NEB SCH (06:03)
[2017-06-13] MEDS: TAMSULOSIN 0.4 MG CAP.ER.24H. PO SCH (08:48)
[2017-06-13] MEDS: LACTOBACILLUS RHAMNOSUS GG 1 CAPSULE. PO SCH (08:48)
[2017-06-13] MEDS: busPIRone 5 MG TABLET. PO SCH (08:48)
[2017-06-13] MEDS: SERTRALINE 50 MG TABLET. PO SCH (08:48)
[2017-06-13] MEDS: ASPIRIN ENTERIC COATED 81 MG TABLET.DR. PO SCH (08:48)
[2017-06-13] MEDS: SENNOSIDES 8.6 MG TABLET PO SCH (08:48)
[2017-06-13] MEDS: NYSTATIN TOPICAL POWDER 15GM BOTTLE. TP SCH (08:49)
[2017-06-13] MEDS: INSULIN DETEMIR 300 UNITS/3 ML INSULN.PEN. SQ SCH (08:54)
[2017-06-13] MEDS: INSULIN ASPART 300 UNITS/3 ML INSULN.PEN SQ SCH (08:54)
[2017-06-13] MEDS ORDERED: IPRA3AMP NEB (10:09)
[2017-06-13] MEDS ORDERED: PIPE3.3734 IV (10:09)
[2017-06-13] MEDS ORDERED: VANC1PLA10 IV (10:09)
[2017-06-13] MEDS ORDERED: VANC1VIA3 MC (10:09)
--- NOTE | 2017-06-13 10:42 | PN ---
DATE: 06/13/2017 SUBJECTIVE: The patient in with pneumonia. He is resting fairly comfortably, and seems to be a little bit more alert today. His vital signs remain basically stable. OBJECTIVE: VITAL SIGNS: Blood pressure 140/70, respiration 18, pulse 74, afebrile. GENERAL: The patient is alert, more so than usual. LUNGS: Diminished primarily in the bases, but improved. CARDIOVASCULAR: Regular sinus rhythm. ABDOMEN: Soft. EXTREMITIES: No clubbing, cyanosis or edema. IMPRESSION AND PLAN: Pneumonia of unspecified etiology, community-acquired; exacerbation of chronic obstructive of pulmonary disease; dementia, Alzheimer type. The patient will be transferred to the skilled unit today. ELSIE MANCINI MD DR: IVAN/treasure JOB#: [id number] / [id number]
== END 2017-06-13 10:53 | disposition swing bed (61) | DRG 193 ==
LOC: ER 05:50 → 1 SOUTH 11:07
PROVIDERS: ADMIT Family Medicine; ATTEND Family Medicine
DX: J18.9 Pneumonia, unspecified organism (principal); J96.01 Acute respiratory failure with hypoxia; J44.0 Chronic obstructive pulmonary disease with (acute) lower respiratory infection; R65.10 Systemic inflammatory response syndrome (SIRS) of non-infectious origin without acute organ dysfunction; E11.9 Type 2 diabetes mellitus without complications; D63.8 Anemia in other chronic diseases classified elsewhere; J44.1 Chronic obstructive pulmonary disease with (acute) exacerbation; E03.9 Hypothyroidism, unspecified; W06.XXXA Fall from bed, initial encounter; E78.00 Pure hypercholesterolemia, unspecified; G30.9 Alzheimer's disease, unspecified; F02.80 Dementia in other diseases classified elsewhere, unspecified severity, without behavioral disturbance, psychotic disturbance, mood disturbance, and anxiety; N40.0 Benign prostatic hyperplasia without lower urinary tract symptoms; Y93.89 Activity, other specified; Y92.098 Other place in other non-institutional residence as the place of occurrence of the external cause; Y99.8 Other external cause status; Z85.820 Personal history of malignant melanoma of skin; Z91.19 Patient's noncompliance with other medical treatment and regimen; Z80.3 Family history of malignant neoplasm of breast; Z79.899 Other long term (current) drug therapy
CPT/HCPCS: 36415; 70450; 71046; 71275; 72125; 80048; 80053; 80076; 80202; 81001; 82553; 82565; 82947; 83605; 83735; 83880; 84443; 84484; 85025; 85379; 87040; 93005; 94640; 96365; J0456; J1815; J1956; J2543; J3370; J7040; J7050; J7613; J7620; Q9967; 97110; 97116; 97530; 97535; 99285-25

== ENCOUNTER 2017-06-13 10:00 | Inpatient (IN) | payer MEDICARE ==
[~2017-06-13] VITALS: Ht 182.9 cm; Wt 85.8 kg
[2017-06-13] MEDS ORDERED: VANC1PLA10 IV (10:09)
[2017-06-13] MEDS ORDERED: VANC1VIA3 MC (10:09)
[2017-06-13] MEDS ORDERED: PIPE3.3734 IV (10:09)
[2017-06-13] MEDS ORDERED: IPRA3AMP NEB (10:09)
[2017-06-13] MEDS ORDERED: IPRATRPIUM/ALBUTEROL 0.5/2.5MG 3 ML NEBU. ONE (11:18)
[2017-06-13] MEDS ORDERED: VANCOMYCIN 1 GM VIAL. IV PRN (11:45)
[2017-06-13] MEDS ORDERED: MAGNESIUM HYDROXIDE 2,400 MG/30 ML ORAL.SUSP. PO PRN (11:45)
[2017-06-13] MEDS ORDERED: LORazepam INTENSOL 2 MG/ML BOTTLE PO PRN (11:45)
[2017-06-13] MEDS: IPRATRPIUM/ALBUTEROL 0.5/2.5MG 3 ML NEBU. NEB SCH ×2 (11:49→20:53)
[2017-06-13] MEDS ORDERED: MAG HYDROX/AL HYDROX/SIMETH 30 ML ORAL.SUSP PO PRN (12:00)
[2017-06-13] MEDS ORDERED: PIPERACILLIN/TAZOBACTAM 3.375 GM VIAL IV SCH (12:00)
[2017-06-13] MEDS ORDERED: VANCOMYCIN PER PHARMACY MC PRN (12:15)
[2017-06-13] MEDS: busPIRone 5 MG TABLET. PO SCH ×3 (12:17→20:50)
[2017-06-13] MEDS: PIPERACILLIN/TAZOBACTAM 3.375 GM in IV NORMAL SALINE 50ML 50 ML IV SCH ×2 (12:17→17:29)
[2017-06-13] MEDS: INSULIN ASPART 300 UNITS/3 ML INSULN.PEN SQ SCH ×2 (12:24→16:30)
[2017-06-13] MEDS ORDERED: ALBUTEROL SULFATE 2.5 MG/3 ML NEBU. NEB PRN (12:30)
[2017-06-13 14:34] VITALS: BP 134/73
[2017-06-13] MEDS: TAMSULOSIN 0.4 MG CAP.ER.24H. PO SCH (20:47)
[2017-06-13] MEDS: LACTOBACILLUS RHAMNOSUS GG 1 CAPSULE. PO SCH (20:47)
[2017-06-13] MEDS: SENNOSIDES 8.6 MG TABLET PO SCH (20:47)
[2017-06-13] MEDS: NYSTATIN TOPICAL POWDER 15GM BOTTLE. TP SCH (20:48)
[2017-06-13] MEDS: INSULIN DETEMIR 300 UNITS/3 ML INSULN.PEN. SQ SCH (20:55)
[2017-06-14] MEDS: PIPERACILLIN/TAZOBACTAM 3.375 GM in IV NORMAL SALINE 50ML 50 ML IV SCH ×5 (00:17→23:51)
[2017-06-14] MEDS: VANCOMYCIN 1.25 GM in IV NORMAL SALINE 250ML 250 ML IV SCH (01:12)
[2017-06-14] MEDS: IPRATRPIUM/ALBUTEROL 0.5/2.5MG 3 ML NEBU. NEB SCH ×3 (05:36→21:46)
[2017-06-14 05:53] VITALS: BP 129/71
[2017-06-14] MEDS: LEVOTHYROXINE 125 MCG TABLET PO SCH (06:05)
[2017-06-14] MEDS: NYSTATIN TOPICAL POWDER 15GM BOTTLE. TP SCH ×2 (08:04→20:02)
[2017-06-14] MEDS: TAMSULOSIN 0.4 MG CAP.ER.24H. PO SCH ×2 (08:04→20:01)
[2017-06-14] MEDS: ASPIRIN ENTERIC COATED 81 MG TABLET.DR. PO SCH (08:05)
[2017-06-14] MEDS: SERTRALINE 50 MG TABLET. PO SCH (08:05)
[2017-06-14] MEDS: busPIRone 5 MG TABLET. PO SCH ×4 (08:05→20:01)
[2017-06-14] MEDS: SENNOSIDES 8.6 MG TABLET PO SCH ×2 (08:05→20:01)
[2017-06-14] MEDS: LACTOBACILLUS RHAMNOSUS GG 1 CAPSULE. PO SCH ×2 (08:05→20:01)
[2017-06-14] MEDS: INSULIN ASPART 300 UNITS/3 ML INSULN.PEN SQ SCH ×3 (08:07→17:18)
[2017-06-14] MEDS: INSULIN DETEMIR 300 UNITS/3 ML INSULN.PEN. SQ SCH ×2 (08:08→20:10)
[2017-06-14] MEDS ORDERED: VANCOMYCIN IV SCH (09:00)
[2017-06-14] MEDS ORDERED: [UNRECOGNIZED DRUG - OTHER] IV SCH (09:00)
[2017-06-14] MEDS ORDERED: SOD CHLORIDE IV SCH (09:00)
[2017-06-14 18:30] VITALS: BP 131/75
[2017-06-14 23:14] VITALS: BP 132/81
[2017-06-15] MEDS: VANCOMYCIN 1.25 GM in IV NORMAL SALINE 250ML 250 ML IV SCH (00:57)
[2017-06-15] MEDS: PIPERACILLIN/TAZOBACTAM 3.375 GM in IV NORMAL SALINE 50ML 50 ML IV SCH ×4 (05:30→23:34)
[2017-06-15] MEDS: IPRATRPIUM/ALBUTEROL 0.5/2.5MG 3 ML NEBU. NEB SCH ×3 (05:51→20:56)
[2017-06-15] MEDS: LEVOTHYROXINE 125 MCG TABLET PO SCH (06:12)
[2017-06-15] MEDS: TAMSULOSIN 0.4 MG CAP.ER.24H. PO SCH ×2 (07:54→20:27)
[2017-06-15] MEDS: ASPIRIN ENTERIC COATED 81 MG TABLET.DR. PO SCH (07:54)
[2017-06-15] MEDS: SERTRALINE 50 MG TABLET. PO SCH (07:54)
[2017-06-15] MEDS: LACTOBACILLUS RHAMNOSUS GG 1 CAPSULE. PO SCH ×2 (07:54→20:26)
[2017-06-15] MEDS: SENNOSIDES 8.6 MG TABLET PO SCH ×2 (07:55→20:26)
[2017-06-15] MEDS: NYSTATIN TOPICAL POWDER 15GM BOTTLE. TP SCH ×2 (07:57→21:00)
[2017-06-15] MEDS: INSULIN DETEMIR 300 UNITS/3 ML INSULN.PEN. SQ SCH ×2 (07:59→20:43)
[2017-06-15] MEDS: INSULIN ASPART 300 UNITS/3 ML INSULN.PEN SQ SCH ×3 (08:00→17:19)
[2017-06-15] MEDS: busPIRone 5 MG TABLET. PO SCH ×4 (08:01→20:26)
[2017-06-15] MEDS: CHOLECALCIFEROL (VITAMIN D3) 50,000 UNIT CAPSULE PO SCH (17:14)
[2017-06-16] MEDS: VANCOMYCIN 1.25 GM in IV NORMAL SALINE 250ML 250 ML IV SCH (00:40)
[2017-06-16] MEDS: PIPERACILLIN/TAZOBACTAM 3.375 GM in IV NORMAL SALINE 50ML 50 ML IV SCH ×4 (05:48→22:42)
[2017-06-16] MEDS: IPRATRPIUM/ALBUTEROL 0.5/2.5MG 3 ML NEBU. NEB SCH ×3 (06:03→21:32)
[2017-06-16 06:25] VITALS: BP 135/73
[2017-06-16] MEDS: LACTOBACILLUS RHAMNOSUS GG 1 CAPSULE. PO SCH ×2 (08:35→19:48)
[2017-06-16] MEDS: ASPIRIN ENTERIC COATED 81 MG TABLET.DR. PO SCH (08:35)
[2017-06-16] MEDS: TAMSULOSIN 0.4 MG CAP.ER.24H. PO SCH ×2 (08:35→19:48)
[2017-06-16] MEDS: LEVOTHYROXINE 125 MCG TABLET PO SCH (08:35)
[2017-06-16] MEDS: busPIRone 5 MG TABLET. PO SCH ×4 (08:35→19:48)
[2017-06-16] MEDS: SERTRALINE 50 MG TABLET. PO SCH (08:35)
[2017-06-16] MEDS: SENNOSIDES 8.6 MG TABLET PO SCH ×2 (08:35→19:48)
[2017-06-16] MEDS: NYSTATIN TOPICAL POWDER 15GM BOTTLE. TP SCH ×2 (08:36→19:49)
[2017-06-16] MEDS: INSULIN ASPART 300 UNITS/3 ML INSULN.PEN SQ SCH ×4 (08:36→20:18)
[2017-06-16] MEDS: INSULIN DETEMIR 300 UNITS/3 ML INSULN.PEN. SQ SCH ×2 (08:39→20:14)
[2017-06-16] MEDS ORDERED: DEXTROSE 50% 25 GM / 50ML DISP.SYRIN. IV PRN (14:15)
[2017-06-16 14:25] LABS: BASO # 0.1 x10^3/uL (0.0-0.2); BASO % 1 % (0-3); EOS # 0.8 x10^3/uL (0.0-0.7); EOS % 11 % (0-3); HEMATOCRIT 33.3 % (39.0-53.0); HEMOGLOBIN 11.3 g/dL (13.0-17.5); LYMPH # 1.1 x10^3/uL (1.0-4.8); LYMPH % 15 % (24-48); MEAN CORPUSCULAR HEMOGLOBIN 33 pg (25-35); MEAN CORPUSCULAR HGB CONC 34 g/dL (31-37); MEAN CORPUSCULAR VOLUME 98 fL (79-100); MONO # 0.7 x10^3/uL (0.0-1.1); MONO % 9 % (0-9); NEUT # 4.9 x10^3uL (1.8-7.7); NEUT % 64 % (31-73); PLATELET COUNT 212 x10^3/uL (140-400); RED BLOOD COUNT 3.39 x10^6/uL (4.30-5.70); RED CELL DISTRIBUTION WIDTH 13.7 % (11.5-14.5); WHITE BLOOD COUNT 7.5 x10^3/uL (4.0-11.0)
[2017-06-16 14:38] LABS: ALBUMIN 2.7 g/dL (3.4-5.0); ALBUMIN/GLOBULIN RATIO 0.7 (1.0-1.7); CALCIUM 8.7 mg/dL (8.5-10.1); CREATININE 1.5 mg/dL (0.7-1.3); GFR 44.3; POTASSIUM 3.6 mmol/L (3.5-5.1); TOTAL BILIRUBIN 0.4 mg/dL (0.2-1.0); TOTAL PROTEIN 6.7 g/dL (6.4-8.2)
[2017-06-16 18:16] VITALS: BP 144/68
[2017-06-17] MEDS: PIPERACILLIN/TAZOBACTAM 3.375 GM in IV NORMAL SALINE 50ML 50 ML IV SCH ×4 (05:01→23:32)
[2017-06-17] MEDS: IPRATRPIUM/ALBUTEROL 0.5/2.5MG 3 ML NEBU. NEB SCH ×3 (05:14→22:03)
[2017-06-17 06:12] LABS: CREATININE 1.3 mg/dL (0.7-1.3); GFR 52.2
[2017-06-17] MEDS: LEVOTHYROXINE 125 MCG TABLET PO SCH (06:13)
[2017-06-17 06:18] VITALS: BP 142/87
[2017-06-17] MEDS: INSULIN ASPART 300 UNITS/3 ML INSULN.PEN SQ SCH ×4 (07:30→19:10)
[2017-06-17] MEDS: ASPIRIN ENTERIC COATED 81 MG TABLET.DR. PO SCH (07:52)
[2017-06-17] MEDS: LACTOBACILLUS RHAMNOSUS GG 1 CAPSULE. PO SCH ×2 (07:52→20:14)
[2017-06-17] MEDS: SERTRALINE 50 MG TABLET. PO SCH (07:52)
[2017-06-17] MEDS: TAMSULOSIN 0.4 MG CAP.ER.24H. PO SCH ×2 (07:52→20:15)
[2017-06-17] MEDS: busPIRone 5 MG TABLET. PO SCH ×4 (07:52→20:15)
[2017-06-17] MEDS: SENNOSIDES 8.6 MG TABLET PO SCH ×2 (07:52→20:14)
[2017-06-17] MEDS ORDERED: VANCOMYCIN 1.25 GM in IV NORMAL SALINE 250ML 250 ML IV SCH (09:00)
[2017-06-17] MEDS: INSULIN DETEMIR 300 UNITS/3 ML INSULN.PEN. SQ SCH ×2 (11:14→20:21)
[2017-06-17] MEDS: NYSTATIN TOPICAL POWDER 15GM BOTTLE. TP SCH ×2 (11:14→20:14)
[2017-06-17 18:28] VITALS: BP 125/71
[2017-06-18 05:34] VITALS: BP 155/72
[2017-06-18] MEDS: IPRATRPIUM/ALBUTEROL 0.5/2.5MG 3 ML NEBU. NEB SCH ×3 (05:54→22:33)
[2017-06-18] MEDS: LEVOTHYROXINE 125 MCG TABLET PO SCH (06:09)
[2017-06-18] MEDS: PIPERACILLIN/TAZOBACTAM 3.375 GM in IV NORMAL SALINE 50ML 50 ML IV SCH (06:09)
[2017-06-18] MEDS: INSULIN ASPART 300 UNITS/3 ML INSULN.PEN SQ SCH ×4 (07:30→19:45)
[2017-06-18] MEDS: TAMSULOSIN 0.4 MG CAP.ER.24H. PO SCH ×2 (08:48→20:01)
[2017-06-18] MEDS: ASPIRIN ENTERIC COATED 81 MG TABLET.DR. PO SCH (08:48)
[2017-06-18] MEDS: LACTOBACILLUS RHAMNOSUS GG 1 CAPSULE. PO SCH ×2 (08:48→20:01)
[2017-06-18] MEDS: busPIRone 5 MG TABLET. PO SCH ×4 (08:48→20:02)
[2017-06-18] MEDS: SENNOSIDES 8.6 MG TABLET PO SCH ×2 (08:49→20:01)
[2017-06-18] MEDS: SERTRALINE 50 MG TABLET. PO SCH (08:49)
[2017-06-18] MEDS: INSULIN DETEMIR 300 UNITS/3 ML INSULN.PEN. SQ SCH ×2 (08:55→20:03)
[2017-06-18] MEDS: NYSTATIN TOPICAL POWDER 15GM BOTTLE. TP SCH ×2 (08:55→20:03)
[2017-06-18 18:38] VITALS: BP 151/86
[2017-06-19 05:22] VITALS: BP 129/63
[2017-06-19] MEDS: LEVOTHYROXINE 125 MCG TABLET PO SCH (05:44)
[2017-06-19] MEDS: IPRATRPIUM/ALBUTEROL 0.5/2.5MG 3 ML NEBU. NEB SCH ×3 (05:49→21:17)
[2017-06-19] MEDS: INSULIN ASPART 300 UNITS/3 ML INSULN.PEN SQ SCH ×4 (07:30→19:46)
[2017-06-19] MEDS: ASPIRIN ENTERIC COATED 81 MG TABLET.DR. PO SCH (08:07)
[2017-06-19] MEDS: busPIRone 5 MG TABLET. PO SCH ×4 (08:07→20:05)
[2017-06-19] MEDS: TAMSULOSIN 0.4 MG CAP.ER.24H. PO SCH ×2 (08:07→20:03)
[2017-06-19] MEDS: LACTOBACILLUS RHAMNOSUS GG 1 CAPSULE. PO SCH ×2 (08:07→20:03)
[2017-06-19] MEDS: SERTRALINE 50 MG TABLET. PO SCH (08:08)
[2017-06-19] MEDS: SENNOSIDES 8.6 MG TABLET PO SCH ×2 (08:08→20:03)
[2017-06-19] MEDS: INSULIN DETEMIR 300 UNITS/3 ML INSULN.PEN. SQ SCH ×2 (08:10→19:46)
[2017-06-19] MEDS: NYSTATIN TOPICAL POWDER 15GM BOTTLE. TP SCH ×2 (08:11→20:03)
[2017-06-19 09:26] VITALS: BP 93/68
[2017-06-19 09:54] VITALS: BP 128/68
[2017-06-19 11:30] VITALS: BP 129/70
--- NOTE | 2017-06-19 11:58 | RAD ---
Chest, 2 views, 06/19/2017: History: Hypoxia, crackles in the lung bases Comparison is made to a study from 06/12/2017. There is slight chronic elevation of the right hemidiaphragm. The heart size and pulmonary vascularity are normal. Mild streaky basilar opacities are again noted on the lateral view, not clearly seen in the frontal view. These are unchanged. There could be a component of scarring. The upper lung conteh are clear. There is no evidence of pleural fluid. Mild spurring is present in the spine. IMPRESSION: Mild ongoing streaky basilar atelectasis and/or pneumonitis.
[2017-06-19 18:16] VITALS: BP 147/67
[2017-06-19] MEDS: guaiFENesin 300 MG/15 ML LIQUID PO PRN (21:02)
[2017-06-20] MEDS: guaiFENesin 300 MG/15 ML LIQUID PO PRN (04:28)
[2017-06-20] MEDS: LEVOTHYROXINE 125 MCG TABLET PO SCH (05:20)
[2017-06-20] MEDS: IPRATRPIUM/ALBUTEROL 0.5/2.5MG 3 ML NEBU. NEB SCH ×3 (05:52→20:08)
[2017-06-20 06:04] VITALS: BP 132/75
[2017-06-20] MEDS: INSULIN ASPART 300 UNITS/3 ML INSULN.PEN SQ SCH ×4 (07:30→19:45)
[2017-06-20] MEDS: LACTOBACILLUS RHAMNOSUS GG 1 CAPSULE. PO SCH ×2 (08:41→19:45)
[2017-06-20] MEDS: SENNOSIDES 8.6 MG TABLET PO SCH ×2 (08:41→19:44)
[2017-06-20] MEDS: ASPIRIN ENTERIC COATED 81 MG TABLET.DR. PO SCH (08:42)
[2017-06-20] MEDS: busPIRone 5 MG TABLET. PO SCH ×4 (08:42→19:44)
[2017-06-20] MEDS: SERTRALINE 50 MG TABLET. PO SCH (08:42)
[2017-06-20] MEDS: TAMSULOSIN 0.4 MG CAP.ER.24H. PO SCH ×2 (08:42→19:44)
[2017-06-20] MEDS: NYSTATIN TOPICAL POWDER 15GM BOTTLE. TP SCH ×2 (08:42→20:01)
[2017-06-20] MEDS: INSULIN DETEMIR 300 UNITS/3 ML INSULN.PEN. SQ SCH ×2 (08:53→19:46)
[2017-06-20 18:12] VITALS: BP 111/70
[2017-06-20 18:16] VITALS: BP 112/71
[2017-06-21] MEDS: LEVOTHYROXINE 125 MCG TABLET PO SCH (05:40)
[2017-06-21] MEDS: IPRATRPIUM/ALBUTEROL 0.5/2.5MG 3 ML NEBU. NEB SCH ×3 (05:50→20:38)
[2017-06-21 05:59] VITALS: BP 158/81
[2017-06-21] MEDS: INSULIN ASPART 300 UNITS/3 ML INSULN.PEN SQ SCH ×4 (07:30→20:16)
[2017-06-21] MEDS: LACTOBACILLUS RHAMNOSUS GG 1 CAPSULE. PO SCH ×2 (10:01→20:13)
[2017-06-21] MEDS: TAMSULOSIN 0.4 MG CAP.ER.24H. PO SCH ×2 (10:01→20:15)
[2017-06-21] MEDS: ASPIRIN ENTERIC COATED 81 MG TABLET.DR. PO SCH (10:01)
[2017-06-21] MEDS: SERTRALINE 50 MG TABLET. PO SCH (10:01)
[2017-06-21] MEDS: busPIRone 5 MG TABLET. PO SCH ×4 (10:01→20:14)
[2017-06-21] MEDS: SENNOSIDES 8.6 MG TABLET PO SCH ×2 (10:01→20:14)
[2017-06-21] MEDS: NYSTATIN TOPICAL POWDER 15GM BOTTLE. TP SCH ×2 (10:39→20:15)
[2017-06-21] MEDS: INSULIN DETEMIR 300 UNITS/3 ML INSULN.PEN. SQ SCH ×2 (10:42→20:21)
[2017-06-21] MEDS: AMOXICILLIN 250 MG CAPSULE PO SCH ×2 (14:58→20:14)
[2017-06-21 18:31] VITALS: BP 135/62
[2017-06-21] MEDS: ACETAMINOPHEN 325 MG TABLET PO PRN (20:14)
[2017-06-22] MEDS: IPRATRPIUM/ALBUTEROL 0.5/2.5MG 3 ML NEBU. NEB SCH ×3 (05:24→20:29)
[2017-06-22 06:08] VITALS: BP 143/83
[2017-06-22] MEDS: LEVOTHYROXINE 125 MCG TABLET PO SCH (06:12)
[2017-06-22] MEDS: INSULIN ASPART 300 UNITS/3 ML INSULN.PEN SQ SCH ×4 (07:30→20:46)
[2017-06-22] MEDS: NYSTATIN TOPICAL POWDER 15GM BOTTLE. TP SCH ×2 (10:30→20:39)
[2017-06-22] MEDS: AMOXICILLIN 250 MG CAPSULE PO SCH ×3 (10:33→20:39)
[2017-06-22] MEDS: busPIRone 5 MG TABLET. PO SCH ×4 (10:34→20:38)
[2017-06-22] MEDS: TAMSULOSIN 0.4 MG CAP.ER.24H. PO SCH ×2 (10:34→20:39)
[2017-06-22] MEDS: SERTRALINE 50 MG TABLET. PO SCH (10:34)
[2017-06-22] MEDS: LACTOBACILLUS RHAMNOSUS GG 1 CAPSULE. PO SCH ×2 (10:34→20:38)
[2017-06-22] MEDS: ASPIRIN ENTERIC COATED 81 MG TABLET.DR. PO SCH (10:34)
[2017-06-22] MEDS: SENNOSIDES 8.6 MG TABLET PO SCH ×2 (10:34→20:38)
[2017-06-22] MEDS: INSULIN DETEMIR 300 UNITS/3 ML INSULN.PEN. SQ SCH ×2 (10:38→20:45)
[2017-06-22] MEDS: CHOLECALCIFEROL (VITAMIN D3) 50,000 UNIT CAPSULE PO SCH (17:08)
[2017-06-22] MEDS: METHYL SALICYLATE/MENTHOL TOPICAL OINTMENT 29GM TUBE. TP PRN (17:08)
[2017-06-22 19:37] VITALS: BP 125/65
[2017-06-23] MEDS: IPRATRPIUM/ALBUTEROL 0.5/2.5MG 3 ML NEBU. NEB SCH ×3 (05:31→20:25)
[2017-06-23 05:32] VITALS: BP 149/76
[2017-06-23] MEDS: LEVOTHYROXINE 125 MCG TABLET PO SCH (06:19)
[2017-06-23] MEDS: INSULIN ASPART 300 UNITS/3 ML INSULN.PEN SQ SCH ×4 (08:16→20:46)
[2017-06-23] MEDS: INSULIN DETEMIR 300 UNITS/3 ML INSULN.PEN. SQ SCH ×2 (08:17→20:46)
[2017-06-23] MEDS: AMOXICILLIN 250 MG CAPSULE PO SCH ×3 (08:18→20:39)
[2017-06-23] MEDS: TAMSULOSIN 0.4 MG CAP.ER.24H. PO SCH ×2 (08:18→20:40)
[2017-06-23] MEDS: SERTRALINE 50 MG TABLET. PO SCH (08:18)
[2017-06-23] MEDS: ASPIRIN ENTERIC COATED 81 MG TABLET.DR. PO SCH (08:18)
[2017-06-23] MEDS: busPIRone 5 MG TABLET. PO SCH ×4 (08:18→20:40)
[2017-06-23] MEDS: LACTOBACILLUS RHAMNOSUS GG 1 CAPSULE. PO SCH ×2 (08:18→20:39)
[2017-06-23] MEDS: NYSTATIN TOPICAL POWDER 15GM BOTTLE. TP SCH ×2 (08:19→20:46)
[2017-06-23] MEDS: SENNOSIDES 8.6 MG TABLET PO SCH ×2 (09:00→20:40)
[2017-06-23] MEDS: ACETAMINOPHEN 325 MG TABLET PO PRN ×2 (10:03→20:39)
[2017-06-23 18:32] VITALS: BP 118/63
[2017-06-24 05:55] VITALS: BP 119/73
[2017-06-24] MEDS: LEVOTHYROXINE 125 MCG TABLET PO SCH (06:05)
[2017-06-24] MEDS: INSULIN ASPART 300 UNITS/3 ML INSULN.PEN SQ SCH ×4 (07:30→21:00)
[2017-06-24] MEDS: ASPIRIN ENTERIC COATED 81 MG TABLET.DR. PO SCH (08:41)
[2017-06-24] MEDS: LACTOBACILLUS RHAMNOSUS GG 1 CAPSULE. PO SCH ×2 (08:41→20:52)
[2017-06-24] MEDS: TAMSULOSIN 0.4 MG CAP.ER.24H. PO SCH ×2 (08:41→20:52)
[2017-06-24] MEDS: AMOXICILLIN 250 MG CAPSULE PO SCH ×3 (08:41→20:52)
[2017-06-24] MEDS: busPIRone 5 MG TABLET. PO SCH ×4 (08:41→20:52)
[2017-06-24] MEDS: SERTRALINE 50 MG TABLET. PO SCH (08:41)
[2017-06-24] MEDS: SENNOSIDES 8.6 MG TABLET PO SCH ×2 (08:42→20:52)
[2017-06-24] MEDS: INSULIN DETEMIR 300 UNITS/3 ML INSULN.PEN. SQ SCH ×2 (08:53→21:02)
[2017-06-24] MEDS: IPRATRPIUM/ALBUTEROL 0.5/2.5MG 3 ML NEBU. NEB SCH ×3 (10:22→21:00)
[2017-06-24] MEDS: NYSTATIN TOPICAL POWDER 15GM BOTTLE. TP SCH ×2 (11:08→21:09)
[2017-06-24 18:17] VITALS: BP 144/72
[2017-06-25] MEDS: IPRATRPIUM/ALBUTEROL 0.5/2.5MG 3 ML NEBU. NEB SCH ×3 (05:14→20:53)
[2017-06-25 06:16] VITALS: BP 126/69
[2017-06-25] MEDS: LEVOTHYROXINE 125 MCG TABLET PO SCH (07:43)
[2017-06-25] MEDS: AMOXICILLIN 250 MG CAPSULE PO SCH ×3 (08:52→20:38)
[2017-06-25] MEDS: ASPIRIN ENTERIC COATED 81 MG TABLET.DR. PO SCH (08:52)
[2017-06-25] MEDS: NYSTATIN TOPICAL POWDER 15GM BOTTLE. TP SCH ×2 (08:52→20:40)
[2017-06-25] MEDS: SENNOSIDES 8.6 MG TABLET PO SCH ×2 (08:52→20:38)
[2017-06-25] MEDS: TAMSULOSIN 0.4 MG CAP.ER.24H. PO SCH ×2 (08:52→20:38)
[2017-06-25] MEDS: LACTOBACILLUS RHAMNOSUS GG 1 CAPSULE. PO SCH ×2 (08:52→20:38)
[2017-06-25] MEDS: SERTRALINE 50 MG TABLET. PO SCH (08:53)
[2017-06-25] MEDS: busPIRone 5 MG TABLET. PO SCH ×4 (08:53→20:38)
[2017-06-25] MEDS: INSULIN ASPART 300 UNITS/3 ML INSULN.PEN SQ SCH ×4 (09:00→20:39)
[2017-06-25] MEDS: INSULIN DETEMIR 300 UNITS/3 ML INSULN.PEN. SQ SCH ×2 (09:01→21:04)
[2017-06-25 18:18] VITALS: BP 130/67
[2017-06-26] MEDS: IPRATRPIUM/ALBUTEROL 0.5/2.5MG 3 ML NEBU. NEB SCH ×3 (05:28→21:02)
[2017-06-26] MEDS: LEVOTHYROXINE 125 MCG TABLET PO SCH (06:21)
[2017-06-26 06:28] VITALS: BP 126/59
[2017-06-26] MEDS: INSULIN ASPART 300 UNITS/3 ML INSULN.PEN SQ SCH ×4 (08:17→20:54)
[2017-06-26] MEDS: LACTOBACILLUS RHAMNOSUS GG 1 CAPSULE. PO SCH ×2 (08:18→20:47)
[2017-06-26] MEDS: ASPIRIN ENTERIC COATED 81 MG TABLET.DR. PO SCH (08:18)
[2017-06-26] MEDS: AMOXICILLIN 250 MG CAPSULE PO SCH (08:18)
[2017-06-26] MEDS: SENNOSIDES 8.6 MG TABLET PO SCH ×2 (08:18→20:47)
[2017-06-26] MEDS: busPIRone 5 MG TABLET. PO SCH ×4 (08:18→20:47)
[2017-06-26] MEDS: TAMSULOSIN 0.4 MG CAP.ER.24H. PO SCH ×2 (08:19→20:47)
[2017-06-26] MEDS: SERTRALINE 50 MG TABLET. PO SCH (08:19)
[2017-06-26] MEDS: INSULIN DETEMIR 300 UNITS/3 ML INSULN.PEN. SQ SCH ×2 (08:22→20:53)
[2017-06-26] MEDS: NYSTATIN TOPICAL POWDER 15GM BOTTLE. TP SCH ×2 (08:23→20:48)
[2017-06-26 18:11] VITALS: BP 110/67
[2017-06-26] MEDS: ACETAMINOPHEN 325 MG TABLET PO PRN (20:47)
[2017-06-27 05:51] VITALS: BP 139/80
[2017-06-27] MEDS: LEVOTHYROXINE 125 MCG TABLET PO SCH (05:58)
[2017-06-27] MEDS: IPRATRPIUM/ALBUTEROL 0.5/2.5MG 3 ML NEBU. NEB SCH ×3 (06:02→21:16)
[2017-06-27] MEDS: INSULIN ASPART 300 UNITS/3 ML INSULN.PEN SQ SCH ×4 (08:18→19:53)
[2017-06-27] MEDS: SERTRALINE 50 MG TABLET. PO SCH (08:18)
[2017-06-27] MEDS: LACTOBACILLUS RHAMNOSUS GG 1 CAPSULE. PO SCH ×2 (08:18→19:40)
[2017-06-27] MEDS: TAMSULOSIN 0.4 MG CAP.ER.24H. PO SCH ×2 (08:18→19:40)
[2017-06-27] MEDS: busPIRone 5 MG TABLET. PO SCH ×4 (08:18→19:40)
[2017-06-27] MEDS: SENNOSIDES 8.6 MG TABLET PO SCH ×2 (08:18→19:40)
[2017-06-27] MEDS: INSULIN DETEMIR 300 UNITS/3 ML INSULN.PEN. SQ SCH ×2 (08:19→19:52)
[2017-06-27] MEDS: ASPIRIN ENTERIC COATED 81 MG TABLET.DR. PO SCH (08:19)
[2017-06-27] MEDS: NYSTATIN TOPICAL POWDER 15GM BOTTLE. TP SCH ×2 (11:32→19:54)
[2017-06-28] MEDS: LEVOTHYROXINE 125 MCG TABLET PO SCH (05:36)
[2017-06-28] MEDS: IPRATRPIUM/ALBUTEROL 0.5/2.5MG 3 ML NEBU. NEB SCH ×3 (05:42→21:02)
[2017-06-28 06:08] VITALS: BP 165/89
[2017-06-28] MEDS: INSULIN ASPART 300 UNITS/3 ML INSULN.PEN SQ SCH ×4 (07:30→21:00)
[2017-06-28] MEDS: busPIRone 5 MG TABLET. PO SCH ×5 (08:26→22:03)
[2017-06-28] MEDS: LACTOBACILLUS RHAMNOSUS GG 1 CAPSULE. PO SCH ×3 (08:26→22:03)
[2017-06-28] MEDS: ASPIRIN ENTERIC COATED 81 MG TABLET.DR. PO SCH (08:26)
[2017-06-28] MEDS: SENNOSIDES 8.6 MG TABLET PO SCH ×3 (08:27→22:03)
[2017-06-28] MEDS: SERTRALINE 50 MG TABLET. PO SCH (08:27)
[2017-06-28] MEDS: TAMSULOSIN 0.4 MG CAP.ER.24H. PO SCH ×3 (08:27→22:03)
[2017-06-28] MEDS: NYSTATIN TOPICAL POWDER 15GM BOTTLE. TP SCH (08:29)
[2017-06-28] MEDS: INSULIN DETEMIR 300 UNITS/3 ML INSULN.PEN. SQ SCH ×2 (08:39→22:08)
[2017-06-28 18:34] VITALS: BP 136/71
[2017-06-29] MEDS: NYSTATIN TOPICAL POWDER 15GM BOTTLE. TP SCH ×3 (03:23→21:00)
[2017-06-29] MEDS: guaiFENesin 300 MG/15 ML LIQUID PO PRN (03:50)
[2017-06-29] MEDS: IPRATRPIUM/ALBUTEROL 0.5/2.5MG 3 ML NEBU. NEB SCH ×3 (05:33→20:37)
[2017-06-29 06:08] VITALS: BP 148/77
[2017-06-29] MEDS: LEVOTHYROXINE 125 MCG TABLET PO SCH (06:43)
[2017-06-29] MEDS: INSULIN ASPART 300 UNITS/3 ML INSULN.PEN SQ SCH ×4 (07:30→20:29)
[2017-06-29] MEDS: ASPIRIN ENTERIC COATED 81 MG TABLET.DR. PO SCH (08:42)
[2017-06-29] MEDS: SERTRALINE 50 MG TABLET. PO SCH (08:50)
[2017-06-29] MEDS: INSULIN DETEMIR 300 UNITS/3 ML INSULN.PEN. SQ SCH ×2 (08:51→20:41)
[2017-06-29] MEDS: busPIRone 5 MG TABLET. PO SCH ×3 (13:10→20:31)
[2017-06-29] MEDS: CHOLECALCIFEROL (VITAMIN D3) 50,000 UNIT CAPSULE PO SCH (15:40)
[2017-06-29 18:19] VITALS: BP 144/75
[2017-06-29] MEDS: LACTOBACILLUS RHAMNOSUS GG 1 CAPSULE. PO SCH (20:30)
[2017-06-29] MEDS: SENNOSIDES 8.6 MG TABLET PO SCH (20:30)
[2017-06-29] MEDS: TAMSULOSIN 0.4 MG CAP.ER.24H. PO SCH (20:31)
[2017-06-30] MEDS: IPRATRPIUM/ALBUTEROL 0.5/2.5MG 3 ML NEBU. NEB SCH ×3 (05:27→21:00)
[2017-06-30] MEDS: LEVOTHYROXINE 125 MCG TABLET PO SCH (05:32)
[2017-06-30 06:12] VITALS: BP 139/73
[2017-06-30] MEDS: ASPIRIN ENTERIC COATED 81 MG TABLET.DR. PO SCH (08:22)
[2017-06-30] MEDS: LACTOBACILLUS RHAMNOSUS GG 1 CAPSULE. PO SCH ×2 (08:23→21:56)
[2017-06-30] MEDS: busPIRone 5 MG TABLET. PO SCH ×4 (08:23→21:57)
[2017-06-30] MEDS: SENNOSIDES 8.6 MG TABLET PO SCH ×2 (08:24→21:56)
[2017-06-30] MEDS: TAMSULOSIN 0.4 MG CAP.ER.24H. PO SCH ×2 (08:24→21:56)
[2017-06-30] MEDS: SERTRALINE 50 MG TABLET. PO SCH (08:24)
[2017-06-30] MEDS: INSULIN ASPART 300 UNITS/3 ML INSULN.PEN SQ SCH ×4 (08:41→22:07)
[2017-06-30] MEDS: INSULIN DETEMIR 300 UNITS/3 ML INSULN.PEN. SQ SCH ×2 (08:43→22:05)
[2017-06-30] MEDS: NYSTATIN TOPICAL POWDER 15GM BOTTLE. TP SCH ×2 (08:44→21:00)
[2017-06-30 19:06] VITALS: BP 131/80
[2017-07-01] MEDS: IPRATRPIUM/ALBUTEROL 0.5/2.5MG 3 ML NEBU. NEB SCH ×3 (05:44→21:20)
[2017-07-01] MEDS: LEVOTHYROXINE 125 MCG TABLET PO SCH (05:58)
[2017-07-01 06:11] VITALS: BP 137/75
[2017-07-01] MEDS: INSULIN ASPART 300 UNITS/3 ML INSULN.PEN SQ SCH ×4 (07:30→21:26)
[2017-07-01] MEDS: INSULIN DETEMIR 300 UNITS/3 ML INSULN.PEN. SQ SCH ×3 (08:22→21:25)
[2017-07-01] MEDS: SENNOSIDES 8.6 MG TABLET PO SCH ×2 (08:37→21:15)
[2017-07-01] MEDS: SERTRALINE 50 MG TABLET. PO SCH (08:37)
[2017-07-01] MEDS: ASPIRIN ENTERIC COATED 81 MG TABLET.DR. PO SCH (08:37)
[2017-07-01] MEDS: LACTOBACILLUS RHAMNOSUS GG 1 CAPSULE. PO SCH ×2 (08:37→21:12)
[2017-07-01] MEDS: TAMSULOSIN 0.4 MG CAP.ER.24H. PO SCH ×2 (08:37→21:12)
[2017-07-01] MEDS: busPIRone 5 MG TABLET. PO SCH ×4 (10:22→21:21)
[2017-07-01] MEDS: METHYL SALICYLATE/MENTHOL TOPICAL OINTMENT 29GM TUBE. TP PRN (11:08)
[2017-07-01] MEDS: ACETAMINOPHEN 325 MG TABLET PO PRN (11:08)
[2017-07-01] MEDS: NYSTATIN TOPICAL POWDER 15GM BOTTLE. TP SCH ×2 (14:05→21:15)
[2017-07-01 18:27] VITALS: BP 114/71
[2017-07-02] MEDS: guaiFENesin 300 MG/15 ML LIQUID PO PRN (00:39)
[2017-07-02 05:26] VITALS: BP 134/69
[2017-07-02] MEDS: IPRATRPIUM/ALBUTEROL 0.5/2.5MG 3 ML NEBU. NEB SCH ×2 (05:47→11:18)
[2017-07-02] MEDS: LEVOTHYROXINE 125 MCG TABLET PO SCH (06:02)
[2017-07-02] MEDS: LACTOBACILLUS RHAMNOSUS GG 1 CAPSULE. PO SCH (08:36)
[2017-07-02] MEDS: ASPIRIN ENTERIC COATED 81 MG TABLET.DR. PO SCH (08:36)
[2017-07-02] MEDS: SERTRALINE 50 MG TABLET. PO SCH (08:36)
[2017-07-02] MEDS: TAMSULOSIN 0.4 MG CAP.ER.24H. PO SCH (08:36)
[2017-07-02] MEDS: busPIRone 5 MG TABLET. PO SCH (08:36)
[2017-07-02] MEDS: SENNOSIDES 8.6 MG TABLET PO SCH (08:36)
[2017-07-02] MEDS: NYSTATIN TOPICAL POWDER 15GM BOTTLE. TP SCH (08:36)
[2017-07-02] MEDS: INSULIN ASPART 300 UNITS/3 ML INSULN.PEN SQ SCH ×2 (08:42→11:30)
[2017-07-02] MEDS: INSULIN DETEMIR 300 UNITS/3 ML INSULN.PEN. SQ SCH (08:43)
[2017-07-02] MEDS ORDERED: GUAI600T47 PO (10:15)
== END 2017-07-02 12:00 | disposition home health service (06) | DRG 193 ==
LOC: LND 10:55 → 1 SOUTH 06-14 07:37 → LND 06-15 17:31
PROVIDERS: ADMIT Family Medicine; ATTEND Family Medicine
DX: J18.9 Pneumonia, unspecified organism (principal); J96.00 Acute respiratory failure, unspecified whether with hypoxia or hypercapnia; G30.9 Alzheimer's disease, unspecified; F02.80 Dementia in other diseases classified elsewhere, unspecified severity, without behavioral disturbance, psychotic disturbance, mood disturbance, and anxiety; E78.00 Pure hypercholesterolemia, unspecified; N40.0 Benign prostatic hyperplasia without lower urinary tract symptoms; E03.9 Hypothyroidism, unspecified; Z85.820 Personal history of malignant melanoma of skin; Z80.3 Family history of malignant neoplasm of breast; Z79.82 Long term (current) use of aspirin; Z79.899 Other long term (current) drug therapy; Z79.4 Long term (current) use of insulin; Z91.19 Patient's noncompliance with other medical treatment and regimen
CPT/HCPCS: 36415; 71046; 80053; 82565; 82947; 85025; 87070; 87205; 94640; J1815; J2543; J3370; J7050; J7620; 97110; 97112; 97116; 97530; 97535

== ENCOUNTER 2017-07-14 09:04 | Emergency (ER) | payer MEDICARE ==
[~2017-07-14 09:04] MED LIST changes: +GUAI600T47 PO; +IPRA3AMP NEB; +PIPE3.3734 IV; +VANC1PLA10 IV; +VANC1VIA3 MC
--- NOTE | 2017-07-14 09:26 | EKG ---
[address] [address] Test Date: 2017-07-14 Test Time: 09:19:25 Pat Name: GUCCI FONTANEZ Department: Room: Gender: M [employer]: : 1930 Requested By: MARGARETTE THAPA Order Number: [id number] Reading MD: Measurements Intervals Jessie Rate: 60 P: 0 RI: 192 QRS: 10 QRSD: 126 T: 5 QT: 420 QTc: 424 Interpretive Statements SINUS RHYTHM RIGHT BUNDLE BRANCH BLOCK QRS(T) CONTOUR ABNORMALITY CONSIDER ANTEROSEPTAL MYOCARDIAL DAMAGE ABNORMAL ECG RI6.01 No previous ECG available for comparison
[2017-07-14 09:43] LABS: BASO # 0.1 x10^3/uL (0.0-0.2); BASO % 1 % (0-3); EOS # 0.7 x10^3/uL (0.0-0.7); EOS % 10 % (0-3); HEMATOCRIT 40.3 % (39.0-53.0); HEMOGLOBIN 13.7 g/dL (13.0-17.5); LYMPH # 1.6 x10^3/uL (1.0-4.8); LYMPH % 25 % (24-48); MEAN CORPUSCULAR HEMOGLOBIN 33 pg (25-35); MEAN CORPUSCULAR HGB CONC 34 g/dL (31-37); MEAN CORPUSCULAR VOLUME 96 fL (79-100); MONO # 0.7 x10^3/uL (0.0-1.1); MONO % 10 % (0-9); NEUT # 3.4 x10^3uL (1.8-7.7); NEUT % 53 % (31-73); PLATELET COUNT 191 x10^3/uL (140-400); RED BLOOD COUNT 4.22 x10^6/uL (4.30-5.70); RED CELL DISTRIBUTION WIDTH 13.6 % (11.5-14.5); WHITE BLOOD COUNT 6.4 x10^3/uL (4.0-11.0)
--- NOTE | 2017-07-14 10:01 | PHYS DOC ---
Past History Past Medical History: Anxiety, Depression, Diabetes, High Cholesterol, Other Past Surgical History: No Surgical History Alcohol Use: Occasionally Drug Use: None Adult General Chief Complaint Chief Complaint: MECHANICAL FALL HPI HPI 87-year-old male patient with history of C2 fracture in September 2016 complaining of neck pain today and his called 911 because of confusion and combative behavior but patient denies neck pain at arrival of EMS and EMS reported that patient was alert and oriented and was not combative. Patient denies any pain or confusion. Review of Systems Review of Systems Constitutional: Denies fever or chills [] Eyes: Denies change in visual acuity, redness, or eye pain [] HENT: Denies nasal congestion or sore throat [] Respiratory: Denies cough or shortness of breath [] Cardiovascular: No additional information not addressed in HPI [] GI: Denies abdominal pain, nausea, vomiting, bloody stools or diarrhea [] : Denies dysuria or hematuria [] Musculoskeletal: Denies back pain or joint pain [] Integument: Denies rash or skin lesions [] Neurologic: Denies headache, focal weakness or sensory changes [] Endocrine: Denies polyuria or polydipsia [] All other systems were reviewed and found to be within normal limits, except as documented in this note. Allergies Allergies Allergies Coded Allergies Type Severity Reaction Last Updated Verified No Known Drug Allergies 05/16/17 No Physical Exam Physical Exam Constitutional: Well nourished, no acute distress, non-toxic appearance. [] HENT: Normocephalic, atraumatic, bilateral external ears normal, oropharynx moist, no oral exudates, nose normal. [] Eyes: PERRLA, EOMI, conjunctiva normal, no discharge. [] Neck: Normal range of motion, no tenderness, supple, no stridor, no neck tenderness or rigidity [] Cardiovascular:Heart rate regular rhythm, no murmur [] Lungs & Thorax: Bilateral breath sounds clear to auscultation [] Abdomen: Bowel sounds normal, soft, no tenderness, no masses, no pulsatile masses. [] Skin: Warm, dry, no erythema, no rash. [] Back: No tenderness, no CVA tenderness. [] Extremities: No tenderness, no cyanosis, no clubbing, ROM intact, no edema. [] Neurologic: Alert and oriented X 2, patient takes some time to answer the questions regarding orientation, normal motor function, normal sensory function , no focal deficits noted. [] Psychologic: Affect normal, mood normal. [] Current Patient Data Vital Signs Vital Signs Date Time Temp Pulse Resp B/P (MAP) Pulse Ox O2 Delivery O2 Flow Rate FiO2 07/14/17 09:20 97.8 72 22 96 Room Air Lab Results Laboratory Tests Test 07/14/17 09:31 White Blood Count 6.4 x10^3/uL (4.0-11.0) Red Blood Count 4.22 x10^6/uL (4.30-5.70) L Hemoglobin 13.7 g/dL (13.0-17.5) Hematocrit 40.3 % (39.0-53.0) Mean Corpuscular Volume 96 fL (79-100) Mean Corpuscular Hemoglobin 33 pg (25-35) Mean Corpuscular Hemoglobin Concent 34 g/dL (31-37) Red Cell Distribution Width 13.6 % (11.5-14.5) Platelet Count 191 x10^3/uL (140-400) Neutrophils (%) (Auto) 53 % (31-73) Lymphocytes (%) (Auto) 25 % (24-48) Monocytes (%) (Auto) 10 % (0-9) H Eosinophils (%) (Auto) 10 % (0-3) H Basophils (%) (Auto) 1 % (0-3) Neutrophils # (Auto) 3.4 x10^3uL (1.8-7.7) Lymphocytes # (Auto) 1.6 x10^3/uL (1.0-4.8) Monocytes # (Auto) 0.7 x10^3/uL (0.0-1.1) Eosinophils # (Auto) 0.7 x10^3/uL (0.0-0.7) Basophils # (Auto) 0.1 x10^3/uL (0.0-0.2) Prothrombin Time 10.9 SEC (9.4-11.4) Prothrombin Time INR 1.1 (0.9-1.1) EKG EKG EKG interpreted by me. EKG at 0 919 showed normal sinus rhythm at rate of 60, right bundle branch block, multiple artifacts, no acute ST and T-wave abnormalities[] Radiology/Procedures Radiology/Procedures [] [address] [address] IMAGING REPORT Signed PATIENT: GUCCI FONTANEZ ACCOUNT: [id number] : 1930 LOCATION: ER AGE: 87 SEX: M EXAM STATUS: REG ER ORD. PHYSICIAN: MARGARETTE THAPA MD REASON: ALOC, neck pain PROCEDURE: CT HEAD AND CERVICAL SPINE WO CT HEAD AND CERVICAL SPINE WO dated 07/14/2017 9:17 AM Indication: Head pain, neck painweakness. Pt fell feeling similar symptoms in May. Prior imaging sent with report. Comparison: 06/07/2017 Technique: Axial imaging the head was performed from skull base to vertex. In addition, axial imaging of the cervical spine acquired with thin cut coronal and sagittal reconstruction. One or more of the following individualized dose reduction techniques were utilized for this examination: 1. Automated exposure control 2. Adjustment of the mA and/or kV according to patient size 3. Use of iterative reconstruction technique Findings: Ventricles and sulci are mildly prominent for age with asymmetric dilation of the lateral ventricles, unchanged. No midline shift or mass effect. Mild to moderate patchy low density in the deep/subcortical periventricular white matter, stable. No hemorrhage or extra-axial collection. Posterior fossa and brainstem unremarkable. Mild mucosal thickening bilateral ethmoid air cells. The visualized paranasal sinuses and mastoid air cells are otherwise clear. No apparent calvarial abnormality. Images of the cervical spine acquired from skull base to T2. Again noted is a complete fracture at the base of the odontoid, similar to prior study. There is resorptive change and pseudoarthrosis at the fracture side with prominent posterior soft tissue thickening that results and crowding of the cervicomedullary junction and narrowing of the cervical canal that measures about 7 mm AP dimension. There is no significant change in alignment. Mild degenerative change at the atlantoaxial joint. The anterior and posterior ring of C1 are intact. Grade 1 anterolisthesis of C2 on C3. Straightening of the normal cervical lordosis. Vertebral body heights are maintained. No prevertebral soft tissue swelling. Posterior elements are intact. No acute appearing fracture. Moderate hypertrophic change of the superior and inferior endplates throughout with prominent anterior osteophytes. There is fusion of the posterior elements of C3-C4 on the right and C5-C6 on the left. Multilevel disc space narrowing and uncovertebral spurring. Multilevel facet arthropathy. There is resultant moderate to severe bilateral foraminal stenosis at C4-C5, right greater than left. Mild to moderate foraminal narrowing at the remaining levels. Severe right foraminal stenosis at C7-T1. Visualized soft tissue structures unremarkable. Limited images of lung apices are clear. IMPRESSION HEAD: 1. No evidence of acute intracranial hemorrhage or mass. 2. Mild to moderate chronic small vessel ischemic changes and atrophy, similar to prior study. IMPRESSION CERVICAL SPINE: 1. Chronic ununited type II odontoid fracture, similar to prior study. No significant change in alignment. Soft tissue thickening posterior to the fracture site results in moderate central stenosis, unchanged. 2. Moderate multilevel spondylosis with varying degrees of mild to severe foraminal narrowing throughout. 3. No new or acute findings. Electronically signed by: Bogdan Walden MD (07/14/2017 10:17 AM) [id number] DICTATED AND SIGNED BY: BOGDAN WALDEN MD DATE: 07/14/17 1006 CC: ELSIE MANCINI MD; MARGRAETTE THAPA MD ~ [place] [address] IMAGING REPORT Signed PATIENT: GUCCI FONTANEZ ACCOUNT: [id number] : 1930 LOCATION: ER AGE: 87 SEX: M EXAM STATUS: REG ER ORD. PHYSICIAN: MARGARETTE THAPA MD REASON: ALOC PROCEDURE: PORTABLE CHEST 1V PORTABLE CHEST 1V dated 07/14/2017 9:36 AM. Comparison: 06/19/2017 Clinical Indication: weakness. Findings: Single upright portable exam performed. Heart and mediastinal contours are stable. Elevation of right hemidiaphragm, unchanged. Lungs are clear without focal consolidation. Vascular interstitium within normal limits. No pleural effusion or pneumothorax. Impression: No acute radiographic abnormality. Stable findings compared to 06/19/2017. Electronically signed by: Bogdan Walden MD (07/14/2017 10:01 AM) [email or web address] DICTATED AND SIGNED BY: BOGDAN WALDEN MD DATE: 07/14/17 1001 CC: ELSIE MANCINI MD; MARGARETTE THAPA MD ~ Course & Med Decision Making Course & Med Decision Making Pertinent Labs and Imaging studies reviewed. (See chart for details) Dilution of patient in ER showed the patient because of complaining of neck pain and confusion. Patient stated he felt wick after taking a shower complaining of neck pain without injury and was not able to walk. Patient denies any pain in ER and had NIHSS of 1(disoriented because of dementia) CT head and C-spine was unremarkable except for unhealed odontoid fracture as a chronic change. Labs was unremarkable except for mild chronic renal insufficiency. Patient ambulated without problem. Patient's feeling comfortable to take him home. Dragon Disclaimer Dragon Disclaimer This electronic medical record was generated, in whole or in part, using a voice recognition dictation system. Departure Departure: Impression: Primary Impression: Dementia in Alzheimer's disease with delusions Additional Impressions: Neck pain Renal insufficiency Disposition: 01 HOME, SELF-CARE (At 1047) Condition: STABLE Referrals: ELSIE MANCINI MD (PCP) Patient Instructions: Chronic Pain Management Additional Instructions: Follow-up with your primary care physician in 3-5 days Return to ER if not getting better Problem Qualifiers MARGARETTE THAPA MD Jul 14, 2017 10:01
--- NOTE | 2017-07-14 10:05 | RAD ---
PORTABLE CHEST 1V dated 07/14/2017 9:36 AM. Comparison: 06/19/2017 Clinical Indication: weakness. Findings: Single upright portable exam performed. Heart and mediastinal contours are stable. Elevation of right hemidiaphragm, unchanged. Lungs are clear without focal consolidation. Vascular interstitium within normal limits. No pleural effusion or pneumothorax. Impression: No acute radiographic abnormality. Stable findings compared to 06/19/2017. Electronically signed by: Bogdan Walden MD (07/14/2017 10:01 AM) [id number]
[2017-07-14 10:06] LABS: ALBUMIN 3.1 g/dL (3.4-5.0); ALBUMIN/GLOBULIN RATIO 0.8 (1.0-1.7); CALCIUM 8.9 mg/dL (8.5-10.1); CREATININE 1.4 mg/dL (0.7-1.3); GFR 47.9; POTASSIUM 4.7 mmol/L (3.5-5.1); TOTAL BILIRUBIN 0.4 mg/dL (0.2-1.0); TOTAL PROTEIN 7.2 g/dL (6.4-8.2)
--- NOTE | 2017-07-14 10:20 | RAD ---
CT HEAD AND CERVICAL SPINE WO dated 07/14/2017 9:17 AM Indication: Head pain, neck painweakness. Pt fell feeling similar symptoms in May. Prior imaging sent with report. Comparison: 06/07/2017 Technique: Axial imaging the head was performed from skull base to vertex. In addition, axial imaging of the cervical spine acquired with thin cut coronal and sagittal reconstruction. One or more of the following individualized dose reduction techniques were utilized for this examination: 1. Automated exposure control 2. Adjustment of the mA and/or kV according to patient size 3. Use of iterative reconstruction technique Findings: Ventricles and sulci are mildly prominent for age with asymmetric dilation of the lateral ventricles, unchanged. No midline shift or mass effect. Mild to moderate patchy low density in the deep/subcortical periventricular white matter, stable. No hemorrhage or extra-axial collection. Posterior fossa and brainstem unremarkable. Mild mucosal thickening bilateral ethmoid air cells. The visualized paranasal sinuses and mastoid air cells are otherwise clear. No apparent calvarial abnormality. Images of the cervical spine acquired from skull base to T2. Again noted is a complete fracture at the base of the odontoid, similar to prior study. There is resorptive change and pseudoarthrosis at the fracture side with prominent posterior soft tissue thickening that results and crowding of the cervicomedullary junction and narrowing of the cervical canal that measures about 7 mm AP dimension. There is no significant change in alignment. Mild degenerative change at the atlantoaxial joint. The anterior and posterior ring of C1 are intact. Grade 1 anterolisthesis of C2 on C3. Straightening of the normal cervical lordosis. Vertebral body heights are maintained. No prevertebral soft tissue swelling. Posterior elements are intact. No acute appearing fracture. Moderate hypertrophic change of the superior and inferior endplates throughout with prominent anterior osteophytes. There is fusion of the posterior elements of C3-C4 on the right and C5-C6 on the left. Multilevel disc space narrowing and uncovertebral spurring. Multilevel facet arthropathy. There is resultant moderate to severe bilateral foraminal stenosis at C4-C5, right greater than left. Mild to moderate foraminal narrowing at the remaining levels. Severe right foraminal stenosis at C7-T1. Visualized soft tissue structures unremarkable. Limited images of lung apices are clear. IMPRESSION HEAD: 1. No evidence of acute intracranial hemorrhage or mass. 2. Mild to moderate chronic small vessel ischemic changes and atrophy, similar to prior study. IMPRESSION CERVICAL SPINE: 1. Chronic ununited type II odontoid fracture, similar to prior study. No significant change in alignment. Soft tissue thickening posterior to the fracture site results in moderate central stenosis, unchanged. 2. Moderate multilevel spondylosis with varying degrees of mild to severe foraminal narrowing throughout. 3. No new or acute findings. Electronically signed by: Bogdan Walden MD (07/14/2017 10:17 AM) [facility]
[2017-07-14 10:37] LABS: BACTERIA,URINE FEW /HPF (0-FEW); BILIRUBIN,URINE NEG (NEG); CLARITY,URINE HAZY; COLOR,URINE YELLOW; GLUCOSE,URINE NEG (NEG); HYALINE CASTS, URINE FEW /HPF; NITRITE,URINE NEG (NEG); RBC,URINE OCC /HPF (0-2); SQUAMOUS EPITHELIAL CELL,UR FEW /LPF; UROBILINOGEN,URINE 0.2 mg/dL (0.2 mg/dL)
[2017-07-14 11:00] VITALS: BP 138/74
== END 2017-07-14 11:12 | disposition home or self-care (01) ==
LOC: ER 09:04
DX: G30.9 Alzheimer's disease, unspecified (principal); F02.80 Dementia in other diseases classified elsewhere, unspecified severity, without behavioral disturbance, psychotic disturbance, mood disturbance, and anxiety; F22 Delusional disorders; M54.2 Cervicalgia; N28.9 Disorder of kidney and ureter, unspecified; F41.9 Anxiety disorder, unspecified; F32.9 Major depressive disorder, single episode, unspecified; E11.9 Type 2 diabetes mellitus without complications; E78.00 Pure hypercholesterolemia, unspecified
CPT/HCPCS: 36415; 70450; 71045; 72125; 80053; 81001; 82553; 83605; 83735; 83880; 84484; 85025; 85610; 93005; 99285; P9612

== ENCOUNTER 2017-08-11 23:38 | Inpatient (IN) | payer MEDICARE ==
[~2017-08-11] VITALS: Ht 182.9 cm; Wt 87.7 kg
[2017-08-12 00:16] LABS: BASO # 0.1 x10^3/uL (0.0-0.2); BASO % 1 % (0-3); EOS # 0.6 x10^3/uL (0.0-0.7); EOS % 9 % (0-3); HEMATOCRIT 38.2 % (39.0-53.0); HEMOGLOBIN 13.2 g/dL (13.0-17.5); LYMPH # 2.3 x10^3/uL (1.0-4.8); LYMPH % 34 % (24-48); MEAN CORPUSCULAR HEMOGLOBIN 33 pg (25-35); MEAN CORPUSCULAR HGB CONC 34 g/dL (31-37); MEAN CORPUSCULAR VOLUME 94 fL (79-100); MONO # 0.8 x10^3/uL (0.0-1.1); MONO % 11 % (0-9); NEUT # 3.1 x10^3uL (1.8-7.7); NEUT % 45 % (31-73); PLATELET COUNT 169 x10^3/uL (140-400); RED BLOOD COUNT 4.05 x10^6/uL (4.30-5.70); RED CELL DISTRIBUTION WIDTH 14.2 % (11.5-14.5); WHITE BLOOD COUNT 6.9 x10^3/uL (4.0-11.0)
[2017-08-12 00:22] LABS: BACTERIA,URINE 0 /HPF (0-FEW); BILIRUBIN,URINE NEG (NEG); CLARITY,URINE CLEAR; COLOR,URINE YELLOW; GLUCOSE,URINE NEG (NEG); NITRITE,URINE NEG (NEG); RBC,URINE 0 /HPF (0-2); SQUAMOUS EPITHELIAL CELL,UR OCC /LPF; UROBILINOGEN,URINE 0.2 mg/dL (0.2 mg/dL); WBC,URINE RARE /HPF (0-4)
[2017-08-12 00:24] LABS: ALBUMIN 3.4 g/dL (3.4-5.0); ALBUMIN/GLOBULIN RATIO 0.9 (1.0-1.7); CALCIUM 8.4 mg/dL (8.5-10.1); CREATININE 1.3 mg/dL (0.7-1.3); GFR 52.2; POTASSIUM 4.4 mmol/L (3.5-5.1); TOTAL BILIRUBIN 0.2 mg/dL (0.2-1.0); TOTAL PROTEIN 7.3 g/dL (6.4-8.2)
--- NOTE | 2017-08-12 00:46 | EKG ---
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
--- NOTE | 2017-08-12 01:01 | PHYS DOC ---
Past History Past Medical History: Anxiety, Depression, Diabetes, High Cholesterol, Other Past Surgical History: No Surgical History Alcohol Use: Occasionally Drug Use: None Adult General Chief Complaint Chief Complaint: PSYCH EVALUATION HPI HPI Patient is a 87 year old male who presents to the emergency department for evaluation of agitation. The patient has history of dementia and is a poor historian. The patient denies knowing the reason why he is in the emergency department. The patient denies any significant complaints. The patient states that he "got into an argument with my ." Patient does not know the reason for the argument. Patient's arrives to the emergency department and states that the patient became very agitated tonight and stated that he "had to go to work." The patient does not go to work and is taken care of at home by his . When she tried to redirect the patient, he became very agitated and grabbed his 's arm in a forceful manner. She states that he said "I'm going to break your arm!" The police department was called and came to the home with the patient was able to be talked down. The patient had also received his evening Zyprexa and had been given lorazepam by his initially when his agitation had worsened. The authorities tried to convince the patient to go to bed, however when they tried to get the patient into the bedroom, he became very agitated and stated again that he had to "go to work." The patient thus was brought to the emergency department by EMS for concern of acute mental status changes. The patient has been admitted to the senior behavioral health unit here at [facility] in April 2017 and has followed with Dr. Mistry of psychiatry. Review of Systems Review of Systems Caveat: Patient is demented and actively confused Constitutional: Denies fever or chills [] Eyes: Denies change in visual acuity, redness, or eye pain [] HENT: Denies nasal congestion or sore throat [] Respiratory: Denies cough or shortness of breath [] Cardiovascular: Denies chest pain or edema[] GI: Denies abdominal pain, nausea, vomiting, bloody stools or diarrhea [] : Denies dysuria or hematuria [] Musculoskeletal: Denies back pain or joint pain [] Integument: Denies rash or skin lesions [] Neurologic: Denies headache, focal weakness or sensory changes [] All other systems were reviewed and found to be within normal limits, except as documented in this note. Allergies Allergies Allergies Coded Allergies Type Severity Reaction Last Updated Verified No Known Drug Allergies 05/16/17 No Physical Exam Physical Exam Constitutional: Alert, afebrile, no acute distress, cooperative. [] HENT: Normocephalic, atraumatic, bilateral external ears normal, oropharynx moist, no oral exudates, nose normal. [] Eyes: PERRLA, EOMI, conjunctiva normal, no discharge. [] Neck: Normal range of motion, no tenderness, supple, no stridor. [] Cardiovascular:Heart rate regular rhythm, no murmur [] Lungs & Thorax: Bilateral breath sounds clear to auscultation [] Abdomen: Bowel sounds normal, soft, no tenderness, no masses, no pulsatile masses. [] Skin: Warm, dry, no erythema, no rash. [] Back: No tenderness, no CVA tenderness. [] Extremities: No tenderness, no cyanosis, no clubbing, ROM intact, no edema. [] Neurologic: Alert, oriented to person only, normal motor function, normal sensory function, no focal deficits noted. [] Psychologic: Affect normal, judgement normal, mood normal. [] Current Patient Data Vital Signs Vital Signs Date Time Temp Pulse Resp B/P (MAP) Pulse Ox O2 Delivery O2 Flow Rate FiO2 08/11/17 23:38 97.9 67 18 97 Lab Results Laboratory Tests Test 08/11/17 23:50 08/11/17 23:58 Urine Collection Type Unknown Urine Color Yellow Urine Clarity Clear Urine pH 5.0 Urine Specific Buras 1.015 Urine Protein Neg (NEG-TRACE) Urine Glucose (UA) Neg mg/dL (NEG) Urine Ketones (Stick) Neg mg/dL (NEG) Urine Blood Neg (NEG) Urine Nitrite Neg (NEG) Urine Bilirubin Neg (NEG) Urine Urobilinogen Dipstick 0.2 mg/dL (0.2 mg/dL) Urine Leukocyte Esterase Neg (NEG) Urine RBC 0 /HPF (0-2) Urine WBC Rare /HPF (0-4) Urine Squamous Epithelial Cells Occ /LPF Urine Bacteria 0 /HPF (0-FEW) White Blood Count 6.9 x10^3/uL (4.0-11.0) Red Blood Count 4.05 x10^6/uL (4.30-5.70) L Hemoglobin 13.2 g/dL (13.0-17.5) Hematocrit 38.2 % (39.0-53.0) L Mean Corpuscular Volume 94 fL (79-100) Mean Corpuscular Hemoglobin 33 pg (25-35) Mean Corpuscular Hemoglobin Concent 34 g/dL (31-37) Red Cell Distribution Width 14.2 % (11.5-14.5) Platelet Count 169 x10^3/uL (140-400) Neutrophils (%) (Auto) 45 % (31-73) Lymphocytes (%) (Auto) 34 % (24-48) Monocytes (%) (Auto) 11 % (0-9) H Eosinophils (%) (Auto) 9 % (0-3) H Basophils (%) (Auto) 1 % (0-3) Neutrophils # (Auto) 3.1 x10^3uL (1.8-7.7) Lymphocytes # (Auto) 2.3 x10^3/uL (1.0-4.8) Monocytes # (Auto) 0.8 x10^3/uL (0.0-1.1) Eosinophils # (Auto) 0.6 x10^3/uL (0.0-0.7) Basophils # (Auto) 0.1 x10^3/uL (0.0-0.2) Sodium Level 139 mmol/L (136-145) Potassium Level 4.4 mmol/L (3.5-5.1) Chloride Level 103 mmol/L (98-107) Carbon Dioxide Level 29 mmol/L (21-32) Anion Gap 7 (6-14) Blood Urea Nitrogen 28 mg/dL (8-26) H Creatinine 1.3 mg/dL (0.7-1.3) Estimated GFR (Cockcroft-Gault) 52.2 BUN/Creatinine Ratio 22 (6-20) H Glucose Level 125 mg/dL (70-99) H Calcium Level 8.4 mg/dL (8.5-10.1) L Magnesium Level 2.0 mg/dL (1.8-2.4) Total Bilirubin 0.2 mg/dL (0.2-1.0) Aspartate Amino Transferase (AST) 22 U/L (15-37) Alanine Aminotransferase (ALT) 20 U/L (16-63) Alkaline Phosphatase 69 U/L (46-116) Total Protein 7.3 g/dL (6.4-8.2) Albumin 3.4 g/dL (3.4-5.0) Albumin/Globulin Ratio 0.9 (1.0-1.7) L EKG EKG Interpreted by me: Heart rate 64, sinus rhythm, prolonged LA interval, leftward axis, right bundle branch block, no acute ST elevations or depressions, no changes from previous EKG on July 14, 2017[] Radiology/Procedures Radiology/Procedures Not performed[] Course & Med Decision Making Course & Med Decision Making Pertinent Labs and Imaging studies reviewed. (See chart for details) Patient has remained cooperative in the emergency department. Medical testing is stable. I spoke with the patient's primary physician, Dr. Bender and he agreed with having the patient screened for admission to the [facility] here at [facility]. The patient was medically cleared for psychiatric assessment. The patient underwent psychiatric screening through the [facility] and was deemed appropriate for inpatient psychiatric admission. Patient was accepted to the [facility] for further care. Dragon Disclaimer Dragon Disclaimer This electronic medical record was generated, in whole or in part, using a voice recognition dictation system. Departure Departure: Impression: Primary Impression: Dementia in Alzheimer's disease with delusions Additional Impression: Agitation Disposition: ADMITTED INPATIENT Admitting Physician: Other Condition: STABLE Referrals: ELSIE BENDER MD (PCP) Problem Qualifiers JAMIE LOPEZ MD August 12, 2017 01:01
[2017-08-12] MEDS ORDERED: MAG HYDROX/AL HYDROX/SIMETH 30 ML ORAL.SUSP PO PRN ×2 (05:00→05:15)
[2017-08-12] MEDS ORDERED: METHYL SALICYLATE/MENTHOL TOPICAL OINTMENT 29GM TUBE. TP PRN ×2 (05:00→05:15)
[2017-08-12] MEDS ORDERED: ACETAMINOPHEN 325 MG TABLET PO PRN ×2 (05:00→05:15)
[2017-08-12] MEDS ORDERED: MAGNESIUM HYDROXIDE 2,400 MG/30 ML ORAL.SUSP. PO PRN ×2 (05:00→05:15)
[2017-08-12] MEDS ORDERED: ASPI-630 PO ×3 (05:02→05:14)
[2017-08-12] MEDS ORDERED: SENN8.6T67 PO (05:05)
[2017-08-12] MEDS ORDERED: MAG30ORA2 PO (05:10)
[2017-08-12] MEDS ORDERED: SENN-79 PO (05:10)
[2017-08-12] MEDS ORDERED: ASPI-612 PO (05:11)
[2017-08-12] MEDS ORDERED: SENN-87 PO (05:12)
[2017-08-12 05:55] VITALS: BP 106/63
--- NOTE | 2017-08-12 05:56 | NUR ---
Admission Note with Justification for Admission to [facility] Patient admitted to [facility] for protective oversight for emergency stabilization of acute psychiatric crisis. Pt admitted from: Hospital ER Mode of arrival: EMS Accompanied By: [facility] Staff Precipitating behaviors that initiated intake and admission: increase agitation and confusion, increased delusion, more physically aggressive behavior with . Grabbed 's arm and threaded to break it because she would not let him leave for "work". Description of failure of out patient attempts at stabilization in previous setting list behavior and medication trials: PRN's not effective. Behaviors and assessment findings upon admission: Patient arrived on unit via EMS. Patient is calm and cooperative with assessment and is resting in bed. Patient is A&O to name, place and year but confused to situation he believes he is here because of his legs. Patient is oriented to unit and schedule. Patient is offered food and drink. Patients vital signs are 106/63 p 85 RR 18, Sp02 95% on room air and T 97.9. Patient is resting in bed at this time. Will continue to monitor. Plan: Admit for protective oversight for adjustment and stabilization of medications, behaviors and mood. Intense treatment regimen including groups, medication adjustments, therapy, consistent regimen for ADL's, self care, and sleep hygiene. Daily monitoring by Inpatient staff, Psychiatry, and Medical Physician.
[2017-08-12] MEDS ORDERED: LEVOTHYROXINE 125 MCG TABLET PO SCH (07:00)
[2017-08-12] MEDS: ASPIRIN 81 MG TAB.CHEW PO SCH (08:49)
[2017-08-12] MEDS: TAMSULOSIN 0.4 MG CAP.ER.24H. PO SCH ×2 (08:49→19:33)
[2017-08-12] MEDS: SENNOSIDES 8.6 MG TABLET PO SCH ×2 (08:49→19:33)
[2017-08-12] MEDS: SERTRALINE 50 MG TABLET. PO SCH (08:49)
[2017-08-12] MEDS: INSULIN LISPRO 300 UNITS/3 ML INSULN.PEN. SQ SCH ×3 (08:54→17:18)
[2017-08-12] MEDS: INSULIN GLARGINE 300 UNITS/3 ML INSULN.PEN. SQ SCH ×2 (08:56→19:50)
[2017-08-12] MEDS: IPRATRPIUM/ALBUTEROL 0.5/2.5MG 3 ML NEBU. NEB SCH ×3 (09:00→22:06)
--- NOTE | 2017-08-12 09:00 | NUR ---
Behavior Intervention Response and Plan: BIRP Note: Behavior: Assumed Care of patient, patient located in Day Room at shift change. Patient exhibited the following behavior Interactive, Disorganized, Compulsive. Brief assessment on rounds of vital signs, medication needs, lab studies, and pain. Treatment plan problems 1 & 2. Intervention: Patient assessed and the following interventions initiated safety checks 15 Minute Checks Personal Alarm in place , Cognitive Assessment , Medications. Response: After interactions and interventions patient responded in the following manner, Calm , Appropriate ,Compliant. Continue to assess behaviors and condition will continue to monitor throughout the shift as needed. Patient educated on ADL's, and hand hygiene. Plan: Continue to monitor Master Treatment Plan for patient's progress toward short term goals of Decreased Agitation, No harm To self/ others, dramatic critic goals to return to previous living setting vs placement. Continue to assess patient for changes in above assessment. Monitor for medication needs, pain, and safety concerns. Hourly rounding performed to ensure safe environment.
--- NOTE | 2017-08-12 11:05 | NUR ---
SW reviewed pt insurance information, per pt face sheet, intake, and [employer] Medicare is primary.
--- NOTE | 2017-08-12 11:07 | NUR ---
Psychosocial assessment from previous admission: Psychosocial completed with Pt.'s as Pt. has been asleep. Pt. grew up in [place], [place] with a brother and sister. Pt. finished high school and received some education at a technical school. 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 Pt. had two sons, one who was estranged from Pt. and 2-3 years ago from cancer. Pt. is close with the living son and they enjoy dinner together once a week. Pt. has no history of substance use or past in-patient psychiatric stays. said Pt.'s younger brother has been diagnosed with Alzheimer disease. Pt. recently fell in the yard of his home last September and broke his neck and only a month or so ago, he was diagnosed with diabetes. said this diagnosis is what led to him being admitted to the hospital. Pt. was brought up to the unit after being combative with staff on the hospital floor. Pt. lives with his , who is a retired RN, in [place], [place]. 's goal is for Pt. to be able to walk again with a walker and return home. said he has been able to feed himself, change himself, and until the day before the hospital, shower himself. Pt. enjoys building things, talking about the , science, and airplanes.
[2017-08-12] MEDS: NYSTATIN TOPICAL POWDER 15GM BOTTLE. TP SCH ×2 (12:01→19:36)
[2017-08-12 16:37] VITALS: BP 107/66
--- NOTE | 2017-08-12 16:39 | NUR ---
SW spoke with pt , she states she is hoping pt can come home with her. Pt states she has looked into some options, however they would not be able to afford LTC without Medicaid. SW provided information on Medicaid and how to fill it out. Pt states she will be talking with pt son as well regarding this issue. Pt states pt seems to get more agitated at night and is hoping medications will help with this. SW explained that at times it can be the disease process as well. SW asked about help in the home, pt states they cannot afford this either. SW and pt will touch base at a later time after she has a chance to talk with family.
--- NOTE | 2017-08-12 22:22 | NUR ---
Behavior Intervention Response and Plan: BIRP Note: Behavior: Assumed Care of patient, patient located in Day Room at shift change. Patient exhibited the following behavior Calm, Compliant, Cooperative. Brief assessment on rounds of vital signs, medication needs, lab studies, and pain. Treatment plan problems . Intervention: Patient assessed and the following interventions initiated safety checks 15 Minute Checks Personal Alarm in place , Cognitive Assessment , Medications. Response: After interactions and interventions patient responded in the following manner, Calm , Compliant ,Cooperative. Continue to assess behaviors and condition will continue to monitor throughout the shift as needed. Patient educated on ADL's, and hand hygiene. 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 Continue to assess patient for changes in above assessment. Monitor for medication needs, pain, and safety concerns. Hourly rounding performed to ensure safe environment.
[2017-08-13] MEDS: IPRATRPIUM/ALBUTEROL 0.5/2.5MG 3 ML NEBU. NEB SCH ×3 (05:50→23:29)
[2017-08-13] MEDS: LEVOTHYROXINE 125 MCG TABLET PO SCH (06:31)
[2017-08-13 06:53] VITALS: BP 121/67
--- NOTE | 2017-08-13 06:58 | HP ---
ADMIT DATE: 08/12/2017 This late entry 08/12/2017 covers elements not covered in my initial note 08/12/2017. I met with the patient evening of 08/12/2017 for this evaluation and had previously discussed with nursing staff just past midnight the morning of 08/12/2017 as the patient was brought to the [facility] Emergency Room by his on account of dangerous, out of control, unmanageable behaviors, referred by his primary care physician, Dr. Bender, for consideration of inpatient psychiatric stabilization. IDENTIFYING DATA: The patient is an 87-year-old male referred back to the ER at [facility] by Dr. Bender after he grabbed his 's arm and threatened to break it. He has been delusional, confused. He believes he has to go to work. He has been nonredirectable, unmanageable at home where the has preferred to keep him rather than in a nursing facility as we discussed during his last hospitalization. CHIEF COMPLAINT: "I don't know." The patient responded after I questioned him on the circumstances prompting admission. He is quite confused. HISTORY OF PRESENT ILLNESS: The patient has a history of dementia, Alzheimer's, vascular type. He has been here before in the past, but most recently has been living at home with his . Initially, he had home health service that has since been discontinued. More recently, he has been increasingly confused, oriented to himself and place little else. He has been quite delusional, agitated with sleep and appetite changes and marked aggression, dangerous behaviors noted above. was significantly and understandably afraid of the patient, prompting this referral to the ER and then to us. PAST PSYCHIATRIC HISTORY: As above. MEDICAL HISTORY: Hypertension, hypothyroidism, type 2 diabetes mellitus. Accu-Chek, a.c. and bedtime. Full code. DRUG ALLERGIES: Negative. DIET: Regular, ADA. CURRENT PSYCHOTROPICS: Zyprexa 2.5 mg q. 2 hours p.r.n. psychosis, agitation, and 2.5 mg at bedtime. Zoloft 50 mg a day. FAMILY HISTORY: Noncontributory. SOCIAL HISTORY: The patient lives at home with his . No physical, sexual or elder abuse history is noted. Not known to be a perpetrator. Reaction to hospitalization, the patient oblivious of this. Assets: Supportive family. MENTAL STATUS EXAMINATION: The patient was seen individually evening of 08/12/2017. He is oriented to himself. Insight, judgment, recent and remote memory, attention, concentration, fund of knowledge poor, consistent with his diagnosis. He is quite paranoid, suspicious. Insight, judgment, recent and remote memory is poor. He is somewhat labile, at times anxious. LABORATORY DATA: Reviewed. IMPRESSION: Major neurocognitive disorder, Alzheimer, vascular with depression, delusion, behavioral disturbance; anxiety disorder, unspecified; impulse control disorder, unspecified. Rest unchanged from initial note. PLAN: Continue the patient on his current psychotropics. Start Depakote Sprinkles 125 mg 9 a.m., 1:00 p.m. Check CBC, CMP, valproic acid level in 3 days. On further questioning, the patient states he is here to get his "legs" taken care of. ESTIMATED LENGTH OF STAY: 10-12 days. DISCHARGE PLANS: Hopefully to nursing facility if the agrees. LISBET PADILLA MD DR: AM[facility] JOB#: [id number] / [id number]
[2017-08-13] MEDS: SENNOSIDES 8.6 MG TABLET PO SCH ×2 (08:12→20:15)
[2017-08-13] MEDS: TAMSULOSIN 0.4 MG CAP.ER.24H. PO SCH ×2 (08:12→20:15)
[2017-08-13] MEDS: ASPIRIN 81 MG TAB.CHEW PO SCH (08:12)
[2017-08-13] MEDS: SERTRALINE 50 MG TABLET. PO SCH (08:12)
[2017-08-13] MEDS: INSULIN GLARGINE 300 UNITS/3 ML INSULN.PEN. SQ SCH ×2 (08:15→20:17)
[2017-08-13] MEDS: INSULIN LISPRO 300 UNITS/3 ML INSULN.PEN. SQ SCH ×3 (08:15→17:20)
[2017-08-13] MEDS: DIVALPROEX 125 MG CAP.SPRINK PO SCH ×2 (08:16→13:23)
--- NOTE | 2017-08-13 08:40 | NUR ---
Behavior Intervention Response and Plan: BIRP Note: Behavior: Assumed Care of patient, patient located in Day Room at shift change. Patient exhibited the following behavior Restless, Disorganized, Compulsive. Brief assessment on rounds of vital signs, medication needs, lab studies, and pain. Treatment plan problems 1 & 2. Intervention: Patient assessed and the following interventions initiated safety checks 15 Minute Checks Cognitive Assessment , Head to toe Assessment , Medications. Response: After interactions and interventions patient responded in the following manner, Calm , Appropriate ,Compliant. Continue to assess behaviors and condition will continue to monitor throughout the shift as needed. Patient educated on ADL's, and hand hygiene. 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 Continue to assess patient for changes in above assessment. Monitor for medication needs, pain, and safety concerns. Hourly rounding performed to ensure safe environment.
[2017-08-13] MEDS: NYSTATIN TOPICAL POWDER 15GM BOTTLE. TP SCH ×2 (10:18→20:16)
[2017-08-13 13:12] LABS: THYROID STIM HORMONE (TSH) 1.202 uIU/mL (0.358-3.740)
--- NOTE | 2017-08-13 15:00 | NUR ---
WEEKLY THERAPEUTIC RECREATION NOTE Date of Admission: 08/12/2017 Date of AT Assessment: TBD Goal aimed: TBD Initial goal: TBD Weekly progress towards goal: NA Group participation level: zero to minimal Behaviors observed: wanders in wheelchair, wrecks into others, mostly pleasant, talkative, rude remarks at times that needs redirection Plan: meet/assess Pt.
[2017-08-13 16:22] VITALS: BP 98/63
[2017-08-13 19:40] LABS: T3 TOTAL 92 ng/dL (71-180); THYROXINE 8.1 ug/dL (4.5-12.0)
--- NOTE | 2017-08-13 19:48 | PDOC ---
Exam Note: Pradeep Note: Late entry for date of service August 12, 2017. Please also refer to the separate dictated note~for this date of service dictated separately.~Patient seen individually. Discussed the patient with Nursing staff reviewed the chart.~ Reviewed interim history and current functioning. Reviewed vital signs,~Labs/ Radiology~and current medications noted below. Continue current treatment with the changes noted in the dictated addendum note Assessment: Vital Signs: VS - Last 72 Hours, by Label Date Time Temp Pulse Resp B/P (MAP) Pulse Ox O2 Delivery O2 Flow Rate FiO2 08/13/17 16:22 98.9 94 16 98/63 (75) 96 08/13/17 11:03 95 Room Air 08/13/17 06:53 69 20 121/67 (85) 96 08/13/17 06:51 67 20 100 08/12/17 22:11 96 Room Air 08/12/17 16:37 98.7 79 18 107/66 (80) 97 Room Air 08/12/17 10:39 95 Room Air 08/12/17 05:55 97.9 85 20 106/63 (77) 95 Room Air 08/12/17 04:40 75 18 123/62 (82) 96 Room Air 08/12/17 03:40 70 18 138/85 (102) 96 Room Air 08/12/17 02:40 72 16 131/91 (104) 98 Room Air 08/12/17 01:40 69 16 155/84 (107) 96 Room Air 08/12/17 01:09 59 16 149/82 (104) 96 Room Air 08/12/17 00:40 63 16 122/80 (94) 98 Room Air 08/12/17 00:10 60 18 133/66 (88) 97 Room Air 08/11/17 23:38 97.9 67 18 97 Vital Signs Date Time Temp Pulse Resp B/P (MAP) Pulse Ox O2 Delivery O2 Flow Rate FiO2 08/13/17 16:22 98.9 94 16 98/63 (75) 96 08/13/17 11:03 Room Air I&O Intake and Output 08/13/17 07:00 Intake Total 960 ml Balance 960 ml Intake Oral 960 ml Labs: Laboratory Tests Test 08/13/17 07:30 08/13/17 07:43 08/13/17 11:27 08/13/17 16:09 Glucose (Fingerstick) 113 mg/dL (70-99) H 123 mg/dL (70-99) H 154 mg/dL (70-99) H Iron Level 82 ug/dL (65-175) Total Iron Binding Capacity 268 ug/dL (250-450) Iron Saturation 31 % (15-34) Triglycerides Level 176 mg/dL (0-150) H Cholesterol Level 214 mg/dL (0-200) H LDL Cholesterol, Calculated 148 mg/dL (0-100) H VLDL Cholesterol, Calculated 35 mg/dL (0-40) Non-HDL Cholesterol Calculated 183 mg/dL (0-129) H HDL Cholesterol 31 mg/dL (40-60) L Cholesterol/HDL Ratio 6.0 Vitamin B12 Level 496 pg/mL (247-911) 25-Hydroxy Vitamin D Total 57.2 ng/mL (30-100) Thyroid Stimulating Hormone (TSH) 1.202 uIU/mL (0.358-3.740) Thyroxine (T4) 8.1 ug/dL (4.5-12.0) Total Triiodothyronine (TT3) 92 ng/dL (71-180) Rapid Plasma Reagin Pending Test 08/13/17 19:16 Glucose (Fingerstick) 138 mg/dL (70-99) H Current Medications: Meds: Current Medications Acetaminophen (Tylenol) 650 mg PRN Q6HRS PRN PO PAIN / TEMP; Start 08/12/17 at 05:00; Status UNV Multi-Ingredient Ointment (Analgesic [place]) 1 valery PRN QID PRN TP MUSCLE PAIN; Start 08/12/17 at 05:00; Stop 08/12/17 at 05:19; Status DC Al Hydroxide/Mg Hydroxide (Mylanta Plus Xs) 15 ml PRN AFTMEALHC PRN PO DYSPEPSIA; Start 08/12/17 at 05:00; Stop 08/12/17 at 05:19; Status DC Magnesium Hydroxide (Milk Of Magnesia) 2,400 mg PRN QHS PRN PO CONSTIPATION; Start 08/12/17 at 05:00; Stop 08/12/17 at 05:19; Status DC Vitamin D (Vitamin D3) 50,000 unit QSU PO ; Start 08/17/17 at 16:00 Guaifenesin (Mucinex Er) 600 mg BID PO Last administered on 08/13/17 08:12; Start 08/12/17 at 09:00 Albuterol/ Ipratropium (Duoneb) 3 ml TID NEB Last administered on 08/13/17 11: 03; Start 08/12/17 at 09:00 Nystatin (Nystop) 1 valery BID TP Last administered on 08/13/17 10:18; Start at 09:00 Tamsulosin HCl (Flomax) 0.4 mg BID PO Last administered on 08/13/17 08:12; Start 08/12/17 at 09:00 Olanzapine (ZyPREXA ZYDIS) 2.5 mg PRN Q2HR PRN PO ANXIETY / AGITATION; Start at 05:15 Olanzapine (ZyPREXA ZYDIS) 2.5 mg QHS PO Last administered on 08/12/17 19:35; Start 08/12/17 at 21:00 Sertraline HCl (Zoloft) 50 mg DAILY PO Last administered on 08/13/17 08:12; Start 08/12/17 at 09:00 Levothyroxine Sodium (Synthroid) 125 mcg DAILY07 PO Last administered on at 08:49; Start 08/12/17 at 07:00; Stop 08/12/17 at 16:58; Status DC Acetaminophen (Tylenol) 650 mg PRN Q6HRS PRN PO PAIN; Start 08/12/17 at 05:15 Magnesium Hydroxide (Milk Of Magnesia) 2,400 mg PRN QHS PRN PO CONSTIPATION; Start 08/12/17 at 05:15 Multi-Ingredient Ointment (Analgesic [place]) 1 valery PRN QID PRN TP MUSCLE PAIN; Start 08/12/17 at 05:15 Insulin Human Lispro (HumaLOG) 5 units TIDAC SQ Last administered on 08/13/17 17:20; Start 08/12/17 at 07:30 Insulin Glargine (Lantus) 5 units DAILY SQ Last administered on 08/13/17 08:15 ; Start 08/12/17 at 09:00 Insulin Glargine (Lantus) 10 units QHS SQ Last administered on 08/12/17at 19:50 ; Start 08/12/17 at 21:00 Al Hydroxide/Mg Hydroxide (Mylanta Plus Xs) 30 ml PRN AFTMEALHC PRN PO DYSPEPSIA; Start 08/12/17 at 05:15 Aspirin (Children'S Aspirin) 81 mg DAILY PO Last administered on 08/13/17at 08: 12; Start 08/12/17 at 09:00 Sennosides (Senna) 8.6 mg BID PO Last administered on 08/13/17at 08:12; Start at 09:00 Levothyroxine Sodium (Synthroid) 125 mcg DAILY06 PO Last administered on at 06:31; Start 08/13/17 at 06:00 Divalproex Sodium (Depakote Sprinkles) 125 mg 0900,1300 PO Last administered on 08/13/17at 13:23; Start 08/13/17 at 09:00 Active Scripts Active Mucinex (Guaifenesin) 600 Mg Tablet.er 600 Mg PO BID 30 Days Duoneb 0.5-3(2.5) Mg/3 Ml (Albuterol/Ipratropium) 3 Ml Ampul.neb 3 Ml NEB TID Reported Aspirin 81 Mg Tab.chew 81 Mg PO DAILY Senna Lax (Sennosides) 8.6 Mg Tablet 8.6 Mg PO BID Mag-Al Plus Xs Suspension (Mag Hydrox/Al Hydrox/Simeth) 30 Ml Oral.susp 30 Ml PO PRN AFTMEALHC PRN Zoloft (Sertraline Hcl) 50 Mg Tablet 50 Mg PO DAILY Olanzapine Odt (Olanzapine) 5 Mg Tab.rapdis 2.5 Mg PO PRN Q2HR MDD 7.5mg Olanzapine Odt (Olanzapine) 5 Mg Tab.rapdis 2.5 Mg PO QHS Nystop (Nystatin) 60 Gm Powder 1 Valery TP BID Apply to groin Analgesic [employer] (Methyl Salicylate/Menthol) 28 Gm Oint...g. 1 Gm TP PRN QID PRN Milk Of Magnesia (Magnesium Hydroxide) 400 Mg/5 Ml Oral.susp 2,400 Mg PO PRN QHS PRN Novolog Flexpen (Insulin Aspart) 100 Unit/1 Ml Insuln.pen 5 Unit SQ TIDAC Levemir Flextouch (Insulin Detemir) 100 Unit/1 Ml Insuln.pen 10 Unit SQ QHS Levemir Flextouch (Insulin Detemir) 100 Unit/1 Ml Insuln.pen 5 Unit SQ DAILY D3-50 (Cholecalciferol (Vitamin D3)) 50,000 Unit Capsule 50,000 Unit PO QSU Tylenol (Acetaminophen) 325 Mg Tablet 650 Mg PO PRN Q6HRS PRN Levothyroxine Sodium 125 Mcg Tablet 1 Tab PO DAILY Flomax (Tamsulosin Hcl) 0.4 Mg Cap.er.24h 1 Cap PO BID I have reviewed the current psychotropics carefully including drug interactions. Risk benefit ratio favors no change other than as noted in my dictated progress note. 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
--- NOTE | 2017-08-13 20:15 | NUR ---
Behavior Intervention Response and Plan: BIRP Note: Behavior: Assumed Care of patient, patient located in Day Room at shift change. Patient exhibited the following behavior Restless, Disorganized, Compliant. Brief assessment on rounds of vital signs, medication needs, lab studies, and pain. Treatment plan problems . Intervention: Patient assessed and the following interventions initiated safety checks 15 Minute Checks Cognitive Assessment , Head to toe Assessment , Medications. Response: After interactions and interventions patient responded in the following manner, Exit Seeking , Restless ,Compliant. Continue to assess behaviors and condition will continue to monitor throughout the shift as needed. Patient educated on ADL's, and hand hygiene. Plan: Continue to monitor Master Treatment Plan for patient's progress toward short term goals of Decreased Anxiety, Decreased Agitation, long goods drier goals to return to previous living setting vs placement. Continue to assess patient for changes in above assessment. Monitor for medication needs, pain, and safety concerns. Hourly rounding performed to ensure safe environment.
--- NOTE | 2017-08-13 20:25 | PDOC ---
Exam Note: Pradeep Note: Please also refer to the separate dictated note~for this date of service dictated separately.~Patient seen individually. Discussed the patient with Nursing staff reviewed the chart.~Reviewed interim history and current functioning. Reviewed vital signs,~Labs/ Radiology~and current medications noted below. Continue current treatment with the changes noted in the dictated addendum note Assessment: Vital Signs: Vital Signs Date Time Temp Pulse Resp B/P (MAP) Pulse Ox O2 Delivery O2 Flow Rate FiO2 08/13/17 16:22 98.9 94 16 98/63 (75) 96 08/13/17 11:03 Room Air I&O Intake and Output 08/13/17 07:00 Intake Total 960 ml Balance 960 ml Intake Oral 960 ml Labs: Laboratory Tests Test 08/13/17 07:30 08/13/17 07:43 08/13/17 11:27 08/13/17 16:09 Glucose (Fingerstick) 113 mg/dL (70-99) H 123 mg/dL (70-99) H 154 mg/dL (70-99) H Iron Level 82 ug/dL (65-175) Total Iron Binding Capacity 268 ug/dL (250-450) Iron Saturation 31 % (15-34) Triglycerides Level 176 mg/dL (0-150) H Cholesterol Level 214 mg/dL (0-200) H LDL Cholesterol, Calculated 148 mg/dL (0-100) H VLDL Cholesterol, Calculated 35 mg/dL (0-40) Non-HDL Cholesterol Calculated 183 mg/dL (0-129) H HDL Cholesterol 31 mg/dL (40-60) L Cholesterol/HDL Ratio 6.0 Vitamin B12 Level 496 pg/mL (247-911) 25-Hydroxy Vitamin D Total 57.2 ng/mL (30-100) Thyroid Stimulating Hormone (TSH) 1.202 uIU/mL (0.358-3.740) Thyroxine (T4) 8.1 ug/dL (4.5-12.0) Total Triiodothyronine (TT3) 92 ng/dL (71-180) Rapid Plasma Reagin Pending Test 08/13/17 19:16 Glucose (Fingerstick) 138 mg/dL (70-99) H Current Medications: Meds: Current Medications Acetaminophen (Tylenol) 650 mg PRN Q6HRS PRN PO PAIN / TEMP; Start 08/12/17 at 05:00; Status UNV Multi-Ingredient Ointment (Analgesic [place]) 1 valery PRN QID PRN TP MUSCLE PAIN; Start 08/12/17 at 05:00; Stop 08/12/17 at 05:19; Status DC Al Hydroxide/Mg Hydroxide (Mylanta Plus Xs) 15 ml PRN AFTMEALHC PRN PO DYSPEPSIA; Start 08/12/17 at 05:00; Stop 08/12/17 at 05:19; Status DC Magnesium Hydroxide (Milk Of Magnesia) 2,400 mg PRN QHS PRN PO CONSTIPATION; Start 08/12/17 at 05:00; Stop 08/12/17 at 05:19; Status DC Vitamin D (Vitamin D3) 50,000 unit QSU PO ; Start 08/17/17 at 16:00 Guaifenesin (Mucinex Er) 600 mg BID PO Last administered on 08/13/17at 20:15; Start 08/12/17 at 09:00 Albuterol/ Ipratropium (Duoneb) 3 ml TID NEB Last administered on 08/13/17at 11: 03; Start 08/12/17 at 09:00 Nystatin (Nystop) 1 valery BID TP Last administered on 08/13/17at 20:16; Start at 09:00 Tamsulosin HCl (Flomax) 0.4 mg BID PO Last administered on 08/13/17at 20:15; Start 08/12/17 at 09:00 Olanzapine (ZyPREXA ZYDIS) 2.5 mg PRN Q2HR PRN PO ANXIETY / AGITATION; Start at 05:15 Olanzapine (ZyPREXA ZYDIS) 2.5 mg QHS PO Last administered on 08/13/17at 20:13; Start 08/12/17 at 21:00 Sertraline HCl (Zoloft) 50 mg DAILY PO Last administered on 08/13/17at 08:12; Start 08/12/17 at 09:00 Levothyroxine Sodium (Synthroid) 125 mcg DAILY07 PO Last administered on at 08:49; Start 08/12/17 at 07:00; Stop 08/12/17 at 16:58; Status DC Acetaminophen (Tylenol) 650 mg PRN Q6HRS PRN PO PAIN; Start 08/12/17 at 05:15 Magnesium Hydroxide (Milk Of Magnesia) 2,400 mg PRN QHS PRN PO CONSTIPATION; Start 08/12/17 at 05:15 Multi-Ingredient Ointment (Analgesic [place]) 1 valery PRN QID PRN TP MUSCLE PAIN; Start 08/12/17 at 05:15 Insulin Human Lispro (HumaLOG) 5 units TIDAC SQ Last administered on 08/13/17at 17:20; Start 08/12/17 at 07:30 Insulin Glargine (Lantus) 5 units DAILY SQ Last administered on 08/13/17at 08:15 ; Start 08/12/17 at 09:00 Insulin Glargine (Lantus) 10 units QHS SQ Last administered on 08/13/17at 20:17 ; Start 08/12/17 at 21:00 Al Hydroxide/Mg Hydroxide (Mylanta Plus Xs) 30 ml PRN AFTMEALHC PRN PO DYSPEPSIA; Start 08/12/17 at 05:15 Aspirin (Children'S Aspirin) 81 mg DAILY PO Last administered on 08/13/17at 08: 12; Start 08/12/17 at 09:00 Sennosides (Senna) 8.6 mg BID PO Last administered on 08/13/17at 20:15; Start at 09:00 Levothyroxine Sodium (Synthroid) 125 mcg DAILY06 PO Last administered on at 06:31; Start 08/13/17 at 06:00 Divalproex Sodium (Depakote Sprinkles) 125 mg 0900,1300 PO Last administered on 08/13/17at 13:23; Start 08/13/17 at 09:00 Active Scripts Active Mucinex (Guaifenesin) 600 Mg Tablet.er 600 Mg PO BID 30 Days Duoneb 0.5-3(2.5) Mg/3 Ml (Albuterol/Ipratropium) 3 Ml Ampul.neb 3 Ml NEB TID Reported Aspirin 81 Mg Tab.chew 81 Mg PO DAILY Senna Lax (Sennosides) 8.6 Mg Tablet 8.6 Mg PO BID Mag-Al Plus Xs Suspension (Mag Hydrox/Al Hydrox/Simeth) 30 Ml Oral.susp 30 Ml PO PRN AFTMEALHC PRN Zoloft (Sertraline Hcl) 50 Mg Tablet 50 Mg PO DAILY Olanzapine Odt (Olanzapine) 5 Mg Tab.rapdis 2.5 Mg PO PRN Q2HR MDD 7.5mg Olanzapine Odt (Olanzapine) 5 Mg Tab.rapdis 2.5 Mg PO QHS Nystop (Nystatin) 60 Gm Powder 1 Valery TP BID Apply to groin Analgesic [place] (Methyl Salicylate/Menthol) 28 Gm Oint...g. 1 Gm TP PRN QID PRN Milk Of Magnesia (Magnesium Hydroxide) 400 Mg/5 Ml Oral.susp 2,400 Mg PO PRN QHS PRN Novolog Flexpen (Insulin Aspart) 100 Unit/1 Ml Insuln.pen 5 Unit SQ TIDAC Levemir Flextouch (Insulin Detemir) 100 Unit/1 Ml Insuln.pen 10 Unit SQ QHS Levemir Flextouch (Insulin Detemir) 100 Unit/1 Ml Insuln.pen 5 Unit SQ DAILY D3-50 (Cholecalciferol (Vitamin D3)) 50,000 Unit Capsule 50,000 Unit PO QSU Tylenol (Acetaminophen) 325 Mg Tablet 650 Mg PO PRN Q6HRS PRN Levothyroxine Sodium 125 Mcg Tablet 1 Tab PO DAILY Flomax (Tamsulosin Hcl) 0.4 Mg Cap.er.24h 1 Cap PO BID I have reviewed the current psychotropics carefully including drug interactions. Risk benefit ratio favors no change other than as noted in my dictated progress note. 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
[2017-08-14 03:12] LABS: HEMOGLOBIN A1C 6.9 % (4.8-5.6)
[2017-08-14] MEDS: LEVOTHYROXINE 125 MCG TABLET PO SCH (05:41)
[2017-08-14 05:51] VITALS: BP 98/56
[2017-08-14] MEDS: IPRATRPIUM/ALBUTEROL 0.5/2.5MG 3 ML NEBU. NEB SCH ×3 (05:56→22:13)
--- NOTE | 2017-08-14 08:00 | NUR ---
Behavior Intervention Response and Plan: BIRP Note: Behavior: Assumed Care of patient, patient located in Patient Room at shift change. Patient exhibited the following behavior Restless, Disorganized, Resistive. Brief assessment on rounds of vital signs, medication needs, lab studies, and pain. Treatment plan problems 1 & 2. Intervention: Patient assessed and the following interventions initiated safety checks 15 Minute Checks Cognitive Assessment , Head to toe Assessment , Medications. Response: After interactions and interventions patient responded in the following manner, Calm , Appropriate ,Compliant. Continue to assess behaviors and condition will continue to monitor throughout the shift as needed. Patient educated on ADL's, and hand hygiene. Plan: Continue to monitor Master Treatment Plan for patient's progress toward short term goals of Decreased Agitation, No harm To self/ others, senior living goals to return to previous living setting vs placement. Continue to assess patient for changes in above assessment. Monitor for medication needs, pain, and safety concerns. Hourly rounding performed to ensure safe environment.
[2017-08-14] MEDS: SENNOSIDES 8.6 MG TABLET PO SCH ×2 (08:48→19:46)
[2017-08-14] MEDS: SERTRALINE 50 MG TABLET. PO SCH (08:48)
[2017-08-14] MEDS: DIVALPROEX 125 MG CAP.SPRINK PO SCH ×2 (08:48→13:53)
[2017-08-14] MEDS: TAMSULOSIN 0.4 MG CAP.ER.24H. PO SCH ×2 (08:48→19:46)
[2017-08-14] MEDS: INSULIN LISPRO 300 UNITS/3 ML INSULN.PEN. SQ SCH ×3 (08:50→17:20)
[2017-08-14] MEDS: ASPIRIN 81 MG TAB.CHEW PO SCH (08:51)
[2017-08-14] MEDS: INSULIN GLARGINE 300 UNITS/3 ML INSULN.PEN. SQ SCH ×2 (08:51→19:48)
[2017-08-14] MEDS: NYSTATIN TOPICAL POWDER 15GM BOTTLE. TP SCH ×2 (09:13→19:47)
--- NOTE | 2017-08-14 10:15 | NUR ---
Attempted to meet and complete Activity Therapy Assessment; however, Pt. was with Physical Therapy.
[2017-08-14 16:00] VITALS: BP 136/65
--- NOTE | 2017-08-14 19:45 | NUR ---
Behavior Intervention Response and Plan: BIRP Note: Behavior: Assumed Care of patient, patient located in Hallway at shift change. Patient exhibited the following behavior Wandering, Restless, Compliant. Brief assessment on rounds of vital signs, medication needs, lab studies, and pain. Treatment plan problems . Intervention: Patient assessed and the following interventions initiated safety checks 15 Minute Checks , Head to toe Assessment , Medications. Response: After interactions and interventions patient responded in the following manner, Wandering , Restless ,Compliant. Continue to assess behaviors and condition will continue to monitor throughout the shift as needed. Patient educated on ADL's, and hand hygiene. Plan: Continue to monitor Master Treatment Plan for patient's progress toward short term goals of Decreased Agitation, Decreased Aggression, senior care goals to return to previous living setting vs placement. Continue to assess patient for changes in above assessment. Monitor for medication needs, pain, and safety concerns. Hourly rounding performed to ensure safe environment.
--- NOTE | 2017-08-14 20:43 | PDOC ---
Exam Note: Pradeep Note: Please also refer to the separate dictated note~for this date of service dictated separately.~Patient seen individually. Discussed the patient with Nursing staff reviewed the chart.~Reviewed interim history and current functioning. Reviewed vital signs,~Labs/ Radiology~and current medications noted below. Continue current treatment with the changes noted in the dictated addendum note Assessment: Vital Signs: Vital Signs Date Time Temp Pulse Resp B/P (MAP) Pulse Ox O2 Delivery O2 Flow Rate FiO2 08/14/17 16:00 97.6 74 17 136/65 (88) 93 08/14/17 10:35 Room Air I&O Intake and Output 08/14/17 07:00 Intake Total 860 ml Balance 860 ml Intake Oral 860 ml Labs: Laboratory Tests Test 08/14/17 07:31 08/14/17 11:47 08/14/17 16:58 08/14/17 19:08 Glucose (Fingerstick) 97 mg/dL (70-99) 105 mg/dL (70-99) H 132 mg/dL (70-99) H 126 mg/dL (70-99) H Current Medications: Meds: Current Medications Acetaminophen (Tylenol) 650 mg PRN Q6HRS PRN PO PAIN / TEMP; Start 08/12/17 at 05:00; Status UNV Multi-Ingredient Ointment (Analgesic [place]) 1 valery PRN QID PRN TP MUSCLE PAIN; Start 08/12/17 at 05:00; Stop 08/12/17 at 05:19; Status DC Al Hydroxide/Mg Hydroxide (Mylanta Plus Xs) 15 ml PRN AFTMEALHC PRN PO DYSPEPSIA; Start 08/12/17 at 05:00; Stop 08/12/17 at 05:19; Status DC Magnesium Hydroxide (Milk Of Magnesia) 2,400 mg PRN QHS PRN PO CONSTIPATION; Start 08/12/17 at 05:00; Stop 08/12/17 at 05:19; Status DC Vitamin D (Vitamin D3) 50,000 unit QSU PO ; Start 08/17/17 at 16:00 Guaifenesin (Mucinex Er) 600 mg BID PO Last administered on 08/14/17at 19:46; Start 08/12/17 at 09:00 Albuterol/ Ipratropium (Duoneb) 3 ml TID NEB Last administered on 08/14/17 10: 33; Start 08/12/17 at 09:00 Nystatin (Nystop) 1 valery BID TP Last administered on 08/14/17 19:47; Start at 09:00 Tamsulosin HCl (Flomax) 0.4 mg BID PO Last administered on 08/14/17 19:46; Start 08/12/17 at 09:00 Olanzapine (ZyPREXA ZYDIS) 2.5 mg PRN Q2HR PRN PO ANXIETY / AGITATION; Start at 05:15 Olanzapine (ZyPREXA ZYDIS) 2.5 mg QHS PO Last administered on 08/14/17 19:47; Start 08/12/17 at 21:00 Sertraline HCl (Zoloft) 50 mg DAILY PO Last administered on 08/14/17 08:48; Start 08/12/17 at 09:00 Levothyroxine Sodium (Synthroid) 125 mcg DAILY07 PO Last administered on 08:49; Start 08/12/17 at 07:00; Stop 08/12/17 at 16:58; Status DC Acetaminophen (Tylenol) 650 mg PRN Q6HRS PRN PO PAIN; Start 08/12/17 at 05:15 Magnesium Hydroxide (Milk Of Magnesia) 2,400 mg PRN QHS PRN PO CONSTIPATION; Start 08/12/17 at 05:15 Multi-Ingredient Ointment (Analgesic [place]) 1 valery PRN QID PRN TP MUSCLE PAIN; Start 08/12/17 at 05:15 Insulin Human Lispro (HumaLOG) 5 units TIDAC SQ Last administered on 08/14/17 17:20; Start 08/12/17 at 07:30 Insulin Glargine (Lantus) 5 units DAILY SQ Last administered on 08/14/17 08:51 ; Start 08/12/17 at 09:00 Insulin Glargine (Lantus) 10 units QHS SQ Last administered on 08/14/17 19:48 ; Start 08/12/17 at 21:00 Al Hydroxide/Mg Hydroxide (Mylanta Plus Xs) 30 ml PRN AFTMEALHC PRN PO DYSPEPSIA; Start 08/12/17 at 05:15 Aspirin (Children'S Aspirin) 81 mg DAILY PO Last administered on 08/14/17at 08: 51; Start 08/12/17 at 09:00 Sennosides (Senna) 8.6 mg BID PO Last administered on 08/14/17at 19:46; Start at 09:00 Levothyroxine Sodium (Synthroid) 125 mcg DAILY06 PO Last administered on at 05:41; Start 08/13/17 at 06:00 Divalproex Sodium (Depakote Sprinkles) 125 mg 0900,1300 PO Last administered on 08/14/17at 13:53; Start 08/13/17 at 09:00 Active Scripts Active Mucinex (Guaifenesin) 600 Mg Tablet.er 600 Mg PO BID 30 Days Duoneb 0.5-3(2.5) Mg/3 Ml (Albuterol/Ipratropium) 3 Ml Ampul.neb 3 Ml NEB TID Reported Aspirin 81 Mg Tab.chew 81 Mg PO DAILY Senna Lax (Sennosides) 8.6 Mg Tablet 8.6 Mg PO BID Mag-Al Plus Xs Suspension (Mag Hydrox/Al Hydrox/Simeth) 30 Ml Oral.susp 30 Ml PO PRN AFTMEALHC PRN Zoloft (Sertraline Hcl) 50 Mg Tablet 50 Mg PO DAILY Olanzapine Odt (Olanzapine) 5 Mg Tab.rapdis 2.5 Mg PO PRN Q2HR MDD 7.5mg Olanzapine Odt (Olanzapine) 5 Mg Tab.rapdis 2.5 Mg PO QHS Nystop (Nystatin) 60 Gm Powder 1 Valery TP BID Apply to groin Analgesic [place] (Methyl Salicylate/Menthol) 28 Gm Oint...g. 1 Gm TP PRN QID PRN Milk Of Magnesia (Magnesium Hydroxide) 400 Mg/5 Ml Oral.susp 2,400 Mg PO PRN QHS PRN Novolog Flexpen (Insulin Aspart) 100 Unit/1 Ml Insuln.pen 5 Unit SQ TIDAC Levemir Flextouch (Insulin Detemir) 100 Unit/1 Ml Insuln.pen 10 Unit SQ QHS Levemir Flextouch (Insulin Detemir) 100 Unit/1 Ml Insuln.pen 5 Unit SQ DAILY D3-50 (Cholecalciferol (Vitamin D3)) 50,000 Unit Capsule 50,000 Unit PO QSU Tylenol (Acetaminophen) 325 Mg Tablet 650 Mg PO PRN Q6HRS PRN Levothyroxine Sodium 125 Mcg Tablet 1 Tab PO DAILY Flomax (Tamsulosin Hcl) 0.4 Mg Cap.er.24h 1 Cap PO BID I have reviewed the current psychotropics carefully including drug interactions. Risk benefit ratio favors no change other than as noted in my dictated progress note. 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
[2017-08-15] MEDS: IPRATRPIUM/ALBUTEROL 0.5/2.5MG 3 ML NEBU. NEB SCH ×3 (04:09→20:17)
[2017-08-15 05:46] VITALS: BP 110/67
[2017-08-15] MEDS: LEVOTHYROXINE 125 MCG TABLET PO SCH (06:15)
[2017-08-15] MEDS: DIVALPROEX 125 MG CAP.SPRINK PO SCH ×2 (08:08→13:10)
[2017-08-15] MEDS: SENNOSIDES 8.6 MG TABLET PO SCH ×2 (08:08→19:44)
[2017-08-15] MEDS: ASPIRIN 81 MG TAB.CHEW PO SCH (08:08)
[2017-08-15] MEDS: TAMSULOSIN 0.4 MG CAP.ER.24H. PO SCH ×2 (08:08→19:44)
[2017-08-15] MEDS: SERTRALINE 50 MG TABLET. PO SCH (08:09)
[2017-08-15] MEDS: INSULIN LISPRO 300 UNITS/3 ML INSULN.PEN. SQ SCH ×3 (08:10→17:22)
[2017-08-15] MEDS: NYSTATIN TOPICAL POWDER 15GM BOTTLE. TP SCH ×2 (08:12→19:47)
[2017-08-15] MEDS: INSULIN GLARGINE 300 UNITS/3 ML INSULN.PEN. SQ SCH ×2 (08:12→19:46)
--- NOTE | 2017-08-15 12:00 | NUR ---
Patient's FSBS is 67, 11:30 humalog held. Will continue to monitor
--- NOTE | 2017-08-15 15:05 | NUR ---
ACTIVITY THERAPY ASSESSMENT Completed based on observation and interview. Pt. was looking outside and agreeable to speak with [employer]. He stated he was here for the scenery. Pt. looked outside the entire interview. He stated he likes baseball and football. He said she wished he would have gone on to play baseball longer. He doesn't have much interest in TV. Pt. wanders in wheelchair often and can be reckless with others around him. He needs occasional prompting to stay on task and be appropriate. He is slightly hard of hearing and needs to hear directions loudly. He is able to express his needs and interests and is willing to participate in groups. Initial goal aimed to increase engagement/ stimulation: Pt. will participate in at least two groups a day.
[2017-08-15 16:12] VITALS: BP 130/59
--- NOTE | 2017-08-15 19:47 | PDOC ---
Exam Note: Pradeep Note: Please also refer to the separate dictated note~for this date of service dictated separately.~Patient seen individually. Discussed the patient with Nursing staff reviewed the chart.~Reviewed interim history and current functioning. Reviewed vital signs,~Labs/ Radiology~and current medications noted below. Continue current treatment with the changes noted in the dictated addendum note Assessment: Vital Signs: Vital Signs Date Time Temp Pulse Resp B/P (MAP) Pulse Ox O2 Delivery O2 Flow Rate FiO2 08/15/17 16:12 98.0 63 20 130/59 (82) 97 Room Air I&O Intake and Output 08/15/17 07:00 Intake Total 1440 ml Balance 1440 ml Intake Oral 1440 ml # Bowel Movements 1 Labs: Laboratory Tests Test 08/15/17 07:16 08/15/17 11:24 08/15/17 17:01 08/15/17 19:28 Glucose (Fingerstick) 95 mg/dL (70-99) 67 mg/dL (70-99) L 132 mg/dL (70-99) H 138 mg/dL (70-99) H Current Medications: Meds: Current Medications Acetaminophen (Tylenol) 650 mg PRN Q6HRS PRN PO PAIN / TEMP; Start 08/12/17 at 05:00; Status UNV Multi-Ingredient Ointment (Analgesic [place]) 1 valery PRN QID PRN TP MUSCLE PAIN; Start 08/12/17 at 05:00; Stop 08/12/17 at 05:19; Status DC Al Hydroxide/Mg Hydroxide (Mylanta Plus Xs) 15 ml PRN AFTMEALHC PRN PO DYSPEPSIA; Start 08/12/17 at 05:00; Stop 08/12/17 at 05:19; Status DC Magnesium Hydroxide (Milk Of Magnesia) 2,400 mg PRN QHS PRN PO CONSTIPATION; Start 08/12/17 at 05:00; Stop 08/12/17 at 05:19; Status DC Vitamin D (Vitamin D3) 50,000 unit QSU PO ; Start 08/17/17 at 16:00 Guaifenesin (Mucinex Er) 600 mg BID PO Last administered on 08/15/17at 08:08; Start 08/12/17 at 09:00 Albuterol/ Ipratropium (Duoneb) 3 ml TID NEB Last administered on 08/15/17 10: 56; Start 08/12/17 at 09:00 Nystatin (Nystop) 1 valery BID TP Last administered on 08/15/17 08:12; Start at 09:00 Tamsulosin HCl (Flomax) 0.4 mg BID PO Last administered on 08/15/17 08:08; Start 08/12/17 at 09:00 Olanzapine (ZyPREXA ZYDIS) 2.5 mg PRN Q2HR PRN PO ANXIETY / AGITATION; Start at 05:15 Olanzapine (ZyPREXA ZYDIS) 2.5 mg QHS PO Last administered on 08/14/17 19:47; Start 08/12/17 at 21:00 Sertraline HCl (Zoloft) 50 mg DAILY PO Last administered on 08/15/17 08:09; Start 08/12/17 at 09:00 Levothyroxine Sodium (Synthroid) 125 mcg DAILY07 PO Last administered on at 08:49; Start 08/12/17 at 07:00; Stop 08/12/17 at 16:58; Status DC Acetaminophen (Tylenol) 650 mg PRN Q6HRS PRN PO PAIN; Start 08/12/17 at 05:15 Magnesium Hydroxide (Milk Of Magnesia) 2,400 mg PRN QHS PRN PO CONSTIPATION; Start 08/12/17 at 05:15 Multi-Ingredient Ointment (Analgesic [place]) 1 valery PRN QID PRN TP MUSCLE PAIN; Start 08/12/17 at 05:15 Insulin Human Lispro (HumaLOG) 5 units TIDAC SQ Last administered on 08/15/17 17:22; Start 08/12/17 at 07:30 Insulin Glargine (Lantus) 5 units DAILY SQ Last administered on 08/15/17 08:12 ; Start 08/12/17 at 09:00 Insulin Glargine (Lantus) 10 units QHS SQ Last administered on 08/14/17 19:48 ; Start 08/12/17 at 21:00 Al Hydroxide/Mg Hydroxide (Mylanta Plus Xs) 30 ml PRN AFTMEALHC PRN PO DYSPEPSIA; Start 08/12/17 at 05:15 Aspirin (Children'S Aspirin) 81 mg DAILY PO Last administered on 08/15/17 08: 08; Start 08/12/17 at 09:00 Sennosides (Senna) 8.6 mg BID PO Last administered on 08/15/17 08:08; Start at 09:00 Levothyroxine Sodium (Synthroid) 125 mcg DAILY06 PO Last administered on 06:15; Start 08/13/17 at 06:00 Divalproex Sodium (Depakote Sprinkles) 125 mg 0900,1300 PO Last administered on 08/15/17at 13:10; Start 08/13/17 at 09:00 Active Scripts Active Mucinex (Guaifenesin) 600 Mg Tablet.er 600 Mg PO BID 30 Days Duoneb 0.5-3(2.5) Mg/3 Ml (Albuterol/Ipratropium) 3 Ml Ampul.neb 3 Ml NEB TID Reported Aspirin 81 Mg Tab.chew 81 Mg PO DAILY Senna Lax (Sennosides) 8.6 Mg Tablet 8.6 Mg PO BID Mag-Al Plus Xs Suspension (Mag Hydrox/Al Hydrox/Simeth) 30 Ml Oral.susp 30 Ml PO PRN AFTMEALHC PRN Zoloft (Sertraline Hcl) 50 Mg Tablet 50 Mg PO DAILY Olanzapine Odt (Olanzapine) 5 Mg Tab.rapdis 2.5 Mg PO PRN Q2HR MDD 7.5mg Olanzapine Odt (Olanzapine) 5 Mg Tab.rapdis 2.5 Mg PO QHS Nystop (Nystatin) 60 Gm Powder 1 Valery TP BID Apply to groin Analgesic [place] (Methyl Salicylate/Menthol) 28 Gm Oint...g. 1 Gm TP PRN QID PRN Milk Of Magnesia (Magnesium Hydroxide) 400 Mg/5 Ml Oral.susp 2,400 Mg PO PRN QHS PRN Novolog Flexpen (Insulin Aspart) 100 Unit/1 Ml Insuln.pen 5 Unit SQ TIDAC Levemir Flextouch (Insulin Detemir) 100 Unit/1 Ml Insuln.pen 10 Unit SQ QHS Levemir Flextouch (Insulin Detemir) 100 Unit/1 Ml Insuln.pen 5 Unit SQ DAILY D3-50 (Cholecalciferol (Vitamin D3)) 50,000 Unit Capsule 50,000 Unit PO QSU Tylenol (Acetaminophen) 325 Mg Tablet 650 Mg PO PRN Q6HRS PRN Levothyroxine Sodium 125 Mcg Tablet 1 Tab PO DAILY Flomax (Tamsulosin Hcl) 0.4 Mg Cap.er.24h 1 Cap PO BID I have reviewed the current psychotropics carefully including drug interactions. Risk benefit ratio favors no change other than as noted in my dictated progress note. 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
--- NOTE | 2017-08-15 20:59 | PN ---
DATE: 08/13/2017 PSYCHIATRIC PROGRESS NOTE This is a late entry 08/13/2017 covers elements not covered in my initial note 08/13/2017. SUBJECTIVE: I met with the patient in the evening. The patient slept 5-3/4 hours, somewhat anxious, restless at times, but redirectable. REVIEW OF SYSTEMS: Hard of hearing. No CV, , pulmonary, eye system symptoms on review. Gait unsteady in wheelchair. MENTAL STATUS EXAM: Oriented to himself. Insight, judgment, recent and remote memory, attention, concentration, fund of knowledge poor, consistent with his diagnosis mentioned in my initial note. PLAN: Continue psychotropics mentioned in my initial note, may need to adjust Depakote post-labs level on 08/16/2017. MAN Kwabena PADILLA MD DR: AMY/treasure JOB#: [id number] / [id number]
--- NOTE | 2017-08-15 21:00 | PN ---
DATE: 08/14/2017 This is a late entry of 08/14/2017 covers elements not covered in my initial note of 08/14/2017. SUBJECTIVE: I met with the patient in the evening and staffed at a treatment team meeting with the entire team in the morning with the patient's , Ms. Rosaura Melton, attending. Appetite 100%, slept 6 hours, remains confused, less aggressive, less impulsive. REVIEW OF SYSTEMS: No CV, , pulmonary, eye system symptoms on review. He is hard of hearing. Ambulation impaired, in wheelchair. MENTAL STATUS EXAM: Oriented to himself. Insight, judgment, recent and remote memory, attention, concentration, fund of knowledge poor, consistent with his diagnosis mentioned in my initial note. PLAN: Continue psychotropics mentioned in my initial note. Check labs level on the Depakote on 08/16/2017 and adjust thereafter. MAN Kwabena PADILLA MD DR: AMY/treasure JOB#: [id number] / [id number]
--- NOTE | 2017-08-16 01:26 | NUR ---
Behavior Intervention Response and Plan: BIRP Note: Behavior: Assumed Care of patient, patient located in Day Room at shift change. Patient exhibited the following behavior Calm, Compliant, Cooperative. Brief assessment on rounds of vital signs, medication needs, lab studies, and pain. Treatment plan problems Altered Thought Process and Fall Risk. Intervention: Patient assessed and the following interventions initiated safety checks 15 Minute Checks Cognitive Assessment , Head to toe Assessment , Medications. Response: After interactions and interventions patient responded in the following manner, Calm , Compliant ,Cooperative. Continue to assess behaviors and condition will continue to monitor throughout the shift as needed. Patient educated on ADL's, and hand hygiene. 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 Continue to assess patient for changes in above assessment. Monitor for medication needs, pain, and safety concerns. Hourly rounding performed to ensure safe environment.
[2017-08-16] MEDS: IPRATRPIUM/ALBUTEROL 0.5/2.5MG 3 ML NEBU. NEB SCH ×3 (05:34→22:06)
[2017-08-16] MEDS: LEVOTHYROXINE 125 MCG TABLET PO SCH (05:38)
[2017-08-16 06:21] VITALS: BP 130/84
[2017-08-16 06:53] LABS: BASO # 0.1 x10^3/uL (0.0-0.2); BASO % 1 % (0-3); EOS # 0.6 x10^3/uL (0.0-0.7); EOS % 9 % (0-3); HEMOGLOBIN 12.8 g/dL (13.0-17.5); LYMPH # 2.5 x10^3/uL (1.0-4.8); LYMPH % 36 % (24-48); MEAN CORPUSCULAR HEMOGLOBIN 32 pg (25-35); MEAN CORPUSCULAR HGB CONC 34 g/dL (31-37); MEAN CORPUSCULAR VOLUME 94 fL (79-100); MONO # 0.6 x10^3/uL (0.0-1.1); MONO % 9 % (0-9); NEUT # 3.2 x10^3uL (1.8-7.7); NEUT % 45 % (31-73); PLATELET COUNT 175 x10^3/uL (140-400); RED BLOOD COUNT 4.03 x10^6/uL (4.30-5.70); RED CELL DISTRIBUTION WIDTH 14.4 % (11.5-14.5)
[2017-08-16 06:59] LABS: ALBUMIN 3.3 g/dL (3.4-5.0); ALBUMIN/GLOBULIN RATIO 0.8 (1.0-1.7); ALK PHOS 69 U/L (46-116); ALT (SGPT) 19 U/L (16-63); ANION GAP 7 (6-14); AST (SGOT) 21 U/L (15-37); BLOOD UREA NITROGEN 22 mg/dL (8-26); BUN/CREATININE RATIO 18 (6-20); CALCIUM 8.7 mg/dL (8.5-10.1); CARBON DIOXIDE 30 mmol/L (21-32); CHLORIDE 103 mmol/L (98-107); CREATININE 1.2 mg/dL (0.7-1.3); GFR 57.3; GLUCOSE 123 mg/dL (70-99); SODIUM 140 mmol/L (136-145); TOTAL BILIRUBIN 0.5 mg/dL (0.2-1.0); TOTAL PROTEIN 7.3 g/dL (6.4-8.2)
[2017-08-16 07:01] LABS: VAL ACID 15 mcg/mL (50-100)
[2017-08-16] MEDS: INSULIN LISPRO 300 UNITS/3 ML INSULN.PEN. SQ SCH ×3 (08:17→17:29)
[2017-08-16] MEDS: SERTRALINE 50 MG TABLET. PO SCH (08:18)
[2017-08-16] MEDS: SENNOSIDES 8.6 MG TABLET PO SCH ×2 (08:18→19:48)
[2017-08-16] MEDS: ASPIRIN 81 MG TAB.CHEW PO SCH (08:18)
[2017-08-16] MEDS: TAMSULOSIN 0.4 MG CAP.ER.24H. PO SCH ×2 (08:18→19:48)
[2017-08-16] MEDS: DIVALPROEX 125 MG CAP.SPRINK PO SCH ×2 (08:18→13:20)
[2017-08-16] MEDS: NYSTATIN TOPICAL POWDER 15GM BOTTLE. TP SCH ×2 (08:20→19:50)
[2017-08-16] MEDS: INSULIN GLARGINE 300 UNITS/3 ML INSULN.PEN. SQ SCH ×2 (08:20→19:49)
--- NOTE | 2017-08-16 10:47 | NUR ---
Behavior Intervention Response and Plan: BIRP Note: Behavior: Assumed Care of patient, patient located in patient room at shift change. Patient exhibited the following behavior Calm, Compliant, Cooperative, confused. Brief assessment on rounds of vital signs, medication needs, lab studies, and pain. Treatment plan problems Altered Thought Process and Fall Risk. Intervention: Patient assessed and the following interventions initiated safety checks 15 Minute Checks Cognitive Assessment, Head to toe Assessment , Medications. Response: After interactions and interventions patient responded in the following manner, Calm, Compliant, Cooperative. Continue to assess behaviors and condition will continue to monitor throughout the shift as needed. Patient educated on ADL's, and hand hygiene. 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 Continue to assess patient for changes in above assessment. Monitor for medication needs, pain, and safety concerns. Hourly rounding performed to ensure safe environment.
[2017-08-16 16:03] VITALS: BP 110/67
--- NOTE | 2017-08-16 18:13 | NUR ---
Pt is exit seeking, door checking, looking for family. When staff attempted to redirect pt. Pt stated "I'll break a window to get out of this place." PRN masoud zuluaga given.
--- NOTE | 2017-08-16 21:15 | NUR ---
Nursing Note: Pt in day room, very anxious and restless, attempting to stand multiple times, Nurse out to attempt to redirect, Pt very agitated stating "I'm getting the hell out of here right now" Nurse assisted pt to stand and attempted to assist him to ambulate to decrease restlessness. Pt returned to w/c, continued to escalate and became exit seeking. PRN Zydis administered per PRN order at this time
--- NOTE | 2017-08-16 23:19 | PDOC ---
Exam Note: Pradeep Note: Please also refer to the separate dictated note~for this date of service dictated separately.~Patient seen individually. Discussed the patient with Nursing staff reviewed the chart.~Reviewed interim history and current functioning. Reviewed vital signs,~Labs/ Radiology~and current medications noted below. Continue current treatment with the changes noted in the dictated addendum note Assessment: Vital Signs: Vital Signs Date Time Temp Pulse Resp B/P (MAP) Pulse Ox O2 Delivery O2 Flow Rate FiO2 08/16/17 22:08 95 Room Air 08/16/17 16:03 98.3 73 20 110/67 (81) I&O Intake and Output 08/16/17 07:00 Intake Total 960 ml Balance 960 ml Intake Oral 960 ml # Bowel Movements 1 Labs: Laboratory Tests Test 08/16/17 06:23 08/16/17 07:29 08/16/17 11:39 08/16/17 16:46 White Blood Count 7.0 x10^3/uL (4.0-11.0) Red Blood Count 4.03 x10^6/uL (4.30-5.70) L Hemoglobin 12.8 g/dL (13.0-17.5) L Hematocrit 38.0 % (39.0-53.0) L Mean Corpuscular Volume 94 fL (79-100) Mean Corpuscular Hemoglobin 32 pg (25-35) Mean Corpuscular Hemoglobin Concent 34 g/dL (31-37) Red Cell Distribution Width 14.4 % (11.5-14.5) Platelet Count 175 x10^3/uL (140-400) Neutrophils (%) (Auto) 45 % (31-73) Lymphocytes (%) (Auto) 36 % (24-48) Monocytes (%) (Auto) 9 % (0-9) Eosinophils (%) (Auto) 9 % (0-3) H Basophils (%) (Auto) 1 % (0-3) Neutrophils # (Auto) 3.2 x10^3uL (1.8-7.7) Lymphocytes # (Auto) 2.5 x10^3/uL (1.0-4.8) Monocytes # (Auto) 0.6 x10^3/uL (0.0-1.1) Eosinophils # (Auto) 0.6 x10^3/uL (0.0-0.7) Basophils # (Auto) 0.1 x10^3/uL (0.0-0.2) Sodium Level 140 mmol/L (136-145) Potassium Level 4.0 mmol/L (3.5-5.1) Chloride Level 103 mmol/L (98-107) Carbon Dioxide Level 30 mmol/L (21-32) Anion Gap 7 (6-14) Blood Urea Nitrogen 22 mg/dL (8-26) Creatinine 1.2 mg/dL (0.7-1.3) Estimated GFR (Cockcroft-Gault) 57.3 BUN/Creatinine Ratio 18 (6-20) Glucose Level 123 mg/dL (70-99) H Calcium Level 8.7 mg/dL (8.5-10.1) Total Bilirubin 0.5 mg/dL (0.2-1.0) Aspartate Amino Transferase (AST) 21 U/L (15-37) Alanine Aminotransferase (ALT) 19 U/L (16-63) Alkaline Phosphatase 69 U/L (46-116) Total Protein 7.3 g/dL (6.4-8.2) Albumin 3.3 g/dL (3.4-5.0) L Albumin/Globulin Ratio 0.8 (1.0-1.7) L Valproic Acid Level 15 mcg/mL (50-100) L Valproic Acid Last Dose Date 08/15/17 Valproic Acid Last Dose Time 1300 Glucose (Fingerstick) 125 mg/dL (70-99) H 120 mg/dL (70-99) H 95 mg/dL (70-99) Test 08/16/17 19:04 Glucose (Fingerstick) 75 mg/dL (70-99) Current Medications: Meds: Current Medications Acetaminophen (Tylenol) 650 mg PRN Q6HRS PRN PO PAIN / TEMP; Start 08/12/17 at 05:00; Status UNV Multi-Ingredient Ointment (Analgesic [place]) 1 valery PRN QID PRN TP MUSCLE PAIN; Start 08/12/17 at 05:00; Stop 08/12/17 at 05:19; Status DC Al Hydroxide/Mg Hydroxide (Mylanta Plus Xs) 15 ml PRN AFTMEALHC PRN PO DYSPEPSIA; Start 08/12/17 at 05:00; Stop 08/12/17 at 05:19; Status DC Magnesium Hydroxide (Milk Of Magnesia) 2,400 mg PRN QHS PRN PO CONSTIPATION; Start 08/12/17 at 05:00; Stop 08/12/17 at 05:19; Status DC Vitamin D (Vitamin D3) 50,000 unit QSU PO ; Start 08/17/17 at 16:00 Guaifenesin (Mucinex Er) 600 mg BID PO Last administered on 08/16/17at 19:48; Start 08/12/17 at 09:00 Albuterol/ Ipratropium (Duoneb) 3 ml TID NEB Last administered on 08/16/17 22: 06; Start 08/12/17 at 09:00 Nystatin (Nystop) 1 valery BID TP Last administered on 08/16/17at 19:50; Start at 09:00 Tamsulosin HCl (Flomax) 0.4 mg BID PO Last administered on 08/16/17at 19:48; Start 08/12/17 at 09:00 Olanzapine (ZyPREXA ZYDIS) 2.5 mg PRN Q2HR PRN PO ANXIETY / AGITATION Last administered on 08/16/17 21:18; Start 08/12/17 at 05:15 Olanzapine (ZyPREXA ZYDIS) 2.5 mg QHS PO Last administered on 08/16/17at 19:48; Start 08/12/17 at 21:00 Sertraline HCl (Zoloft) 50 mg DAILY PO Last administered on 08/16/17at 08:18; Start 08/12/17 at 09:00 Levothyroxine Sodium (Synthroid) 125 mcg DAILY07 PO Last administered on at 08:49; Start 08/12/17 at 07:00; Stop 08/12/17 at 16:58; Status DC Acetaminophen (Tylenol) 650 mg PRN Q6HRS PRN PO PAIN; Start 08/12/17 at 05:15 Magnesium Hydroxide (Milk Of Magnesia) 2,400 mg PRN QHS PRN PO CONSTIPATION; Start 08/12/17 at 05:15 Multi-Ingredient Ointment (Analgesic [place]) 1 valery PRN QID PRN TP MUSCLE PAIN; Start 08/12/17 at 05:15 Insulin Human Lispro (HumaLOG) 5 units TIDAC SQ Last administered on 08/16/17 17:29; Start 08/12/17 at 07:30 Insulin Glargine (Lantus) 5 units DAILY SQ Last administered on 08/16/17at 08:20 ; Start 08/12/17 at 09:00 Insulin Glargine (Lantus) 10 units QHS SQ Last administered on 08/16/17at 19:49 ; Start 08/12/17 at 21:00 Al Hydroxide/Mg Hydroxide (Mylanta Plus Xs) 30 ml PRN AFTMEALHC PRN PO DYSPEPSIA; Start 08/12/17 at 05:15 Aspirin (Children'S Aspirin) 81 mg DAILY PO Last administered on 08/16/17 08: 18; Start 08/12/17 at 09:00 Sennosides (Senna) 8.6 mg BID PO Last administered on 08/16/17 19:48; Start at 09:00 Levothyroxine Sodium (Synthroid) 125 mcg DAILY06 PO Last administered on at 05:38; Start 08/13/17 at 06:00 Divalproex Sodium (Depakote Sprinkles) 125 mg 0900,1300 PO Last administered on 08/16/17 13:20; Start 08/13/17 at 09:00 Active Scripts Active Mucinex (Guaifenesin) 600 Mg Tablet.er 600 Mg PO BID 30 Days Duoneb 0.5-3(2.5) Mg/3 Ml (Albuterol/Ipratropium) 3 Ml Ampul.neb 3 Ml NEB TID Reported Aspirin 81 Mg Tab.chew 81 Mg PO DAILY Senna Lax (Sennosides) 8.6 Mg Tablet 8.6 Mg PO BID Mag-Al Plus Xs Suspension (Mag Hydrox/Al Hydrox/Simeth) 30 Ml Oral.susp 30 Ml PO PRN AFTMEALHC PRN Zoloft (Sertraline Hcl) 50 Mg Tablet 50 Mg PO DAILY Olanzapine Odt (Olanzapine) 5 Mg Tab.rapdis 2.5 Mg PO PRN Q2HR MDD 7.5mg Olanzapine Odt (Olanzapine) 5 Mg Tab.rapdis 2.5 Mg PO QHS Nystop (Nystatin) 60 Gm Powder 1 Valery TP BID Apply to groin Analgesic [place] (Methyl Salicylate/Menthol) 28 Gm Oint...g. 1 Gm TP PRN QID PRN Milk Of Magnesia (Magnesium Hydroxide) 400 Mg/5 Ml Oral.susp 2,400 Mg PO PRN QHS PRN Novolog Flexpen (Insulin Aspart) 100 Unit/1 Ml Insuln.pen 5 Unit SQ TIDAC Levemir Flextouch (Insulin Detemir) 100 Unit/1 Ml Insuln.pen 10 Unit SQ QHS Levemir Flextouch (Insulin Detemir) 100 Unit/1 Ml Insuln.pen 5 Unit SQ DAILY D3-50 (Cholecalciferol (Vitamin D3)) 50,000 Unit Capsule 50,000 Unit PO QSU Tylenol (Acetaminophen) 325 Mg Tablet 650 Mg PO PRN Q6HRS PRN Levothyroxine Sodium 125 Mcg Tablet 1 Tab PO DAILY Flomax (Tamsulosin Hcl) 0.4 Mg Cap.er.24h 1 Cap PO BID I have reviewed the current psychotropics carefully including drug interactions. Risk benefit ratio favors no change other than as noted in my dictated progress note. 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
--- NOTE | 2017-08-17 00:34 | NUR ---
Behavior Intervention Response and Plan: BIRP Note: Behavior: Assumed Care of patient, patient located in Day Room at shift change. Patient exhibited the following behavior Calm, Compliant, Cooperative. Brief assessment on rounds of vital signs, medication needs, lab studies, and pain. Treatment plan problems Altered Thought Process and Fall Risk. Intervention: Patient assessed and the following interventions initiated safety checks 15 Minute Checks Cognitive Assessment , Head to toe Assessment , Medications. Response: After interactions and interventions patient responded in the following manner, Calm , Compliant ,Cooperative. Continue to assess behaviors and condition will continue to monitor throughout the shift as needed. Patient educated on ADL's, and hand hygiene. 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 Continue to assess patient for changes in above assessment. Monitor for medication needs, pain, and safety concerns. Hourly rounding performed to ensure safe environment.
[2017-08-17] MEDS: IPRATRPIUM/ALBUTEROL 0.5/2.5MG 3 ML NEBU. NEB SCH ×3 (05:28→20:33)
[2017-08-17 06:17] VITALS: BP 104/53
[2017-08-17] MEDS: LEVOTHYROXINE 125 MCG TABLET PO SCH (06:21)
[2017-08-17] MEDS: INSULIN LISPRO 300 UNITS/3 ML INSULN.PEN. SQ SCH ×3 (08:11→17:19)
[2017-08-17] MEDS: INSULIN GLARGINE 300 UNITS/3 ML INSULN.PEN. SQ SCH ×2 (08:12→21:46)
[2017-08-17] MEDS: SERTRALINE 50 MG TABLET. PO SCH (08:14)
[2017-08-17] MEDS: ASPIRIN 81 MG TAB.CHEW PO SCH (08:14)
[2017-08-17] MEDS: TAMSULOSIN 0.4 MG CAP.ER.24H. PO SCH ×2 (08:14→20:58)
[2017-08-17] MEDS: SENNOSIDES 8.6 MG TABLET PO SCH ×2 (08:14→20:58)
[2017-08-17] MEDS: DIVALPROEX 125 MG CAP.SPRINK PO SCH ×2 (08:14→12:33)
--- NOTE | 2017-08-17 10:18 | NUR ---
Behavior Intervention Response and Plan: BIRP Note: Behavior: Assumed Care of patient, patient located in patient room at shift change. Patient exhibited the following behavior Calm, Cooperative, confused. Brief assessment on rounds of vital signs, medication needs, lab studies, and pain. Treatment plan problems Altered Thought Process and Fall Risk. Intervention: Patient assessed and the following interventions initiated safety checks 15 Minute Checks Cognitive Assessment, Head to toe Assessment , Medications. Response: After interactions and interventions patient responded in the following manner, Calm, Compliant, confused, Cooperative. Continue to assess behaviors and condition will continue to monitor throughout the shift as needed. Patient educated on ADL's, and hand hygiene. Plan: Continue to monitor Master Treatment Plan for patient's progress toward short term goals of Decreased Aggression, No harm To self/ others, long-term goals to return to previous living setting vs placement. Continue to assess patient for changes in above assessment. Monitor for medication needs, pain, and safety concerns. Hourly rounding performed to ensure safe environment.
[2017-08-17] MEDS: NYSTATIN TOPICAL POWDER 15GM BOTTLE. TP SCH ×2 (10:43→21:44)
--- NOTE | 2017-08-17 13:37 | NUR ---
Pt is delusional-believes he works here and is a pt. Pt is trying to ambulate unassisted. Pt has been to the restroom, finished lunch, staff has attempted to distract pt with 1:1 redirection, TV, magazines however, pt is adamant that he has to leave and "will do what it takes." DOUG zuluaga given.
[2017-08-17 16:43] VITALS: BP 145/64
[2017-08-17] MEDS: CHOLECALCIFEROL (VITAMIN D3) 50,000 UNIT CAPSULE PO SCH (17:19)
--- NOTE | 2017-08-17 17:35 | NUR ---
Before dinner pt was exit seeking and door checking. 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
--- NOTE | 2017-08-17 20:51 | PDOC ---
Exam Note: Pradeep Note: Please also refer to the separate dictated note~for this date of service dictated separately.~Patient seen individually. Discussed the patient with Nursing staff reviewed the chart.~Reviewed interim history and current functioning. Reviewed vital signs,~Labs/ Radiology~and current medications noted below. Continue current treatment with the changes noted in the dictated addendum note Assessment: Vital Signs: Vital Signs Date Time Temp Pulse Resp B/P (MAP) Pulse Ox O2 Delivery O2 Flow Rate FiO2 08/17/17 20:35 94 Room Air 08/17/17 16:43 97.7 75 18 145/64 (91) I&O Intake and Output 08/17/17 07:00 Intake Total 1200 ml Balance 1200 ml Intake Oral 1200 ml # Bowel Movements 2 Labs: Laboratory Tests Test 08/17/17 07:45 08/17/17 11:24 08/17/17 16:12 08/17/17 19:41 Glucose (Fingerstick) 121 mg/dL (70-99) H 124 mg/dL (70-99) H 75 mg/dL (70-99) 172 mg/dL (70-99) H Current Medications: Meds: Current Medications Acetaminophen (Tylenol) 650 mg PRN Q6HRS PRN PO PAIN / TEMP; Start 08/12/17 at 05:00; Status UNV Multi-Ingredient Ointment (Analgesic [place]) 1 valery PRN QID PRN TP MUSCLE PAIN; Start 08/12/17 at 05:00; Stop 08/12/17 at 05:19; Status DC Al Hydroxide/Mg Hydroxide (Mylanta Plus Xs) 15 ml PRN AFTMEALHC PRN PO DYSPEPSIA; Start 08/12/17 at 05:00; Stop 08/12/17 at 05:19; Status DC Magnesium Hydroxide (Milk Of Magnesia) 2,400 mg PRN QHS PRN PO CONSTIPATION; Start 08/12/17 at 05:00; Stop 08/12/17 at 05:19; Status DC Vitamin D (Vitamin D3) 50,000 unit QSU PO Last administered on 08/17/17at 17:19 ; Start 08/17/17 at 16:00 Guaifenesin (Mucinex Er) 600 mg BID PO Last administered on 08/17/17at 08:14; Start 08/12/17 at 09:00 Albuterol/ Ipratropium (Duoneb) 3 ml TID NEB Last administered on 08/17/17 20: 33; Start 08/12/17 at 09:00 Nystatin (Nystop) 1 valery BID TP Last administered on 08/17/17 10:43; Start at 09:00 Tamsulosin HCl (Flomax) 0.4 mg BID PO Last administered on 08/17/17 08:14; Start 08/12/17 at 09:00 Olanzapine (ZyPREXA ZYDIS) 2.5 mg PRN Q2HR PRN PO ANXIETY / AGITATION Last administered on 08/17/17 17:19; Start 08/12/17 at 05:15 Olanzapine (ZyPREXA ZYDIS) 2.5 mg QHS PO Last administered on 08/16/17 19:48; Start 08/12/17 at 21:00 Sertraline HCl (Zoloft) 50 mg DAILY PO Last administered on 08/17/17 08:14; Start 08/12/17 at 09:00 Levothyroxine Sodium (Synthroid) 125 mcg DAILY07 PO Last administered on 08:49; Start 08/12/17 at 07:00; Stop 08/12/17 at 16:58; Status DC Acetaminophen (Tylenol) 650 mg PRN Q6HRS PRN PO PAIN; Start 08/12/17 at 05:15 Magnesium Hydroxide (Milk Of Magnesia) 2,400 mg PRN QHS PRN PO CONSTIPATION; Start 08/12/17 at 05:15 Multi-Ingredient Ointment (Analgesic [place]) 1 valery PRN QID PRN TP MUSCLE PAIN; Start 08/12/17 at 05:15 Insulin Human Lispro (HumaLOG) 5 units TIDAC SQ Last administered on 08/17/17 17:19; Start 08/12/17 at 07:30 Insulin Glargine (Lantus) 5 units DAILY SQ Last administered on 08/17/17 08:12 ; Start 08/12/17 at 09:00 Insulin Glargine (Lantus) 10 units QHS SQ Last administered on 08/16/17 19:49 ; Start 08/12/17 at 21:00 Al Hydroxide/Mg Hydroxide (Mylanta Plus Xs) 30 ml PRN AFTMEALHC PRN PO DYSPEPSIA; Start 08/12/17 at 05:15 Aspirin (Children'S Aspirin) 81 mg DAILY PO Last administered on 08/17/17at 08: 14; Start 08/12/17 at 09:00 Sennosides (Senna) 8.6 mg BID PO Last administered on 08/17/17at 08:14; Start at 09:00 Levothyroxine Sodium (Synthroid) 125 mcg DAILY06 PO Last administered on at 06:21; Start 08/13/17 at 06:00 Divalproex Sodium (Depakote Sprinkles) 125 mg 0900,1300 PO Last administered on 08/17/17at 12:33; Start 08/13/17 at 09:00 Active Scripts Active Mucinex (Guaifenesin) 600 Mg Tablet.er 600 Mg PO BID 30 Days Duoneb 0.5-3(2.5) Mg/3 Ml (Albuterol/Ipratropium) 3 Ml Ampul.neb 3 Ml NEB TID Reported Aspirin 81 Mg Tab.chew 81 Mg PO DAILY Senna Lax (Sennosides) 8.6 Mg Tablet 8.6 Mg PO BID Mag-Al Plus Xs Suspension (Mag Hydrox/Al Hydrox/Simeth) 30 Ml Oral.susp 30 Ml PO PRN AFTMEALHC PRN Zoloft (Sertraline Hcl) 50 Mg Tablet 50 Mg PO DAILY Olanzapine Odt (Olanzapine) 5 Mg Tab.rapdis 2.5 Mg PO PRN Q2HR MDD 7.5mg Olanzapine Odt (Olanzapine) 5 Mg Tab.rapdis 2.5 Mg PO QHS Nystop (Nystatin) 60 Gm Powder 1 Valery TP BID Apply to groin Analgesic [place] (Methyl Salicylate/Menthol) 28 Gm Oint...g. 1 Gm TP PRN QID PRN Milk Of Magnesia (Magnesium Hydroxide) 400 Mg/5 Ml Oral.susp 2,400 Mg PO PRN QHS PRN Novolog Flexpen (Insulin Aspart) 100 Unit/1 Ml Insuln.pen 5 Unit SQ TIDAC Levemir Flextouch (Insulin Detemir) 100 Unit/1 Ml Insuln.pen 10 Unit SQ QHS Levemir Flextouch (Insulin Detemir) 100 Unit/1 Ml Insuln.pen 5 Unit SQ DAILY D3-50 (Cholecalciferol (Vitamin D3)) 50,000 Unit Capsule 50,000 Unit PO QSU Tylenol (Acetaminophen) 325 Mg Tablet 650 Mg PO PRN Q6HRS PRN Levothyroxine Sodium 125 Mcg Tablet 1 Tab PO DAILY Flomax (Tamsulosin Hcl) 0.4 Mg Cap.er.24h 1 Cap PO BID I have reviewed the current psychotropics carefully including drug interactions. Risk benefit ratio favors no change other than as noted in my dictated progress note. 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
--- NOTE | 2017-08-17 22:59 | NUR ---
Behavior Intervention Response and Plan: BIRP Note: Behavior: Assumed Care of patient, patient located in Day Room at shift change. Patient exhibited the following behavior Calm, Disorganized, Compliant. Brief assessment on rounds of vital signs, medication needs, lab studies, and pain. Treatment plan problems . Intervention: Patient assessed and the following interventions initiated safety checks 15 Minute Checks Cognitive Assessment , Head to toe Assessment , Medications. Response: After interactions and interventions patient responded in the following manner, Calm , Disorganized ,Compliant. Continue to assess behaviors and condition will continue to monitor throughout the shift as needed. Patient educated on ADL's, and hand hygiene. Plan: Continue to monitor Master Treatment Plan for patient's progress toward short term goals of Improved Mood, No harm To self/ others, usp goals to return to previous living setting vs placement. Continue to assess patient for changes in above assessment. Monitor for medication needs, pain, and safety concerns. Hourly rounding performed to ensure safe environment.
[2017-08-18] MEDS: IPRATRPIUM/ALBUTEROL 0.5/2.5MG 3 ML NEBU. NEB SCH ×3 (05:21→20:32)
[2017-08-18] MEDS: LEVOTHYROXINE 125 MCG TABLET PO SCH (05:26)
[2017-08-18 06:26] VITALS: BP 136/71
[2017-08-18] MEDS: DIVALPROEX 125 MG CAP.SPRINK PO SCH ×2 (08:46→12:21)
[2017-08-18] MEDS: SERTRALINE 50 MG TABLET. PO SCH (08:46)
[2017-08-18] MEDS: SENNOSIDES 8.6 MG TABLET PO SCH ×2 (08:46→20:45)
[2017-08-18] MEDS: ASPIRIN 81 MG TAB.CHEW PO SCH (08:46)
[2017-08-18] MEDS: TAMSULOSIN 0.4 MG CAP.ER.24H. PO SCH ×2 (08:46→20:45)
[2017-08-18] MEDS: NYSTATIN TOPICAL POWDER 15GM BOTTLE. TP SCH ×2 (08:47→20:45)
[2017-08-18] MEDS: INSULIN LISPRO 300 UNITS/3 ML INSULN.PEN. SQ SCH ×3 (08:49→17:22)
[2017-08-18] MEDS: INSULIN GLARGINE 300 UNITS/3 ML INSULN.PEN. SQ SCH ×2 (08:51→20:45)
--- NOTE | 2017-08-18 13:26 | NUR ---
Nursing Note: Pt agitated, trying to health services information specialist the day room. PRN given. Will continue to monitor.
[2017-08-18 15:39] VITALS: BP 121/80
--- NOTE | 2017-08-18 16:05 | NUR ---
Behavior Intervention Response and Plan: BIRP Note: Behavior: Assumed Care of patient, patient located in Dining Room at shift change. Patient exhibited the following behavior Calm, Cooperative, Compliant. Brief assessment on rounds of vital signs, medication needs, lab studies, and pain. Treatment plan problems dementia w/ bd and fall risk. Intervention: Patient assessed and the following interventions initiated safety checks 15 Minute Checks Head to toe Assessment , Cognitive Assessment , Medications. Response: After interactions and interventions patient responded in the following manner, Restless , Disorganized ,Compliant. Continue to assess behaviors and condition will continue to monitor throughout the shift as needed. Patient educated on ADL's, and hand hygiene. 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 Continue to assess patient for changes in above assessment. Monitor for medication needs, pain, and safety concerns. Hourly rounding performed to ensure safe environment.
--- NOTE | 2017-08-18 20:26 | PN ---
DATE: 08/16/2017 PSYCHIATRIC PROGRESS NOTE This is a late entry for 08/16/2017, covers the elements not covered in my initial note of 08/16/2017. SUBJECTIVE: I met with the patient evening of 08/16/2017. The patient slept 6 hours previous evening, had a good day during the day until late in the evening when he was agitated, making threats that he would break the window after his visited and left. was concerned about him not using his knee brace and nursing staff will address this. REVIEW OF SYSTEMS: Ambulation impaired, in wheelchair. No CV, , pulmonary, eye, ENT system symptoms on review. Reliability poor. MENTAL STATUS EXAM: Oriented to himself. Insight, judgment, recent and remote memory, attention, concentration, fund of knowledge poor, consistent with his diagnosis mentioned in my initial note. PLAN: Continue current psychotropics, may need to increase Zoloft gradually. If agitation persists, we may adjust the Depakote further as well. MAN Kwabena PADILLA MD DR: AMY/treasure JOB#: [id number] / [id number]
--- NOTE | 2017-08-18 20:30 | NUR ---
Behavior Intervention Response and Plan: BIRP Note: Behavior: Assumed Care of patient, patient located in Day Room at shift change. Patient exhibited the following behavior Interactive, Calm, Compliant. Brief assessment on rounds of vital signs, medication needs, lab studies, and pain. Treatment plan problems . Intervention: Patient assessed and the following interventions initiated safety checks 15 Minute Checks Cognitive Assessment , Head to toe Assessment , Medications. Response: After interactions and interventions patient responded in the following manner, Interactive , Calm ,Compliant. Continue to assess behaviors and condition will continue to monitor throughout the shift as needed. Patient educated on ADL's, and hand hygiene. 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 Continue to assess patient for changes in above assessment. Monitor for medication needs, pain, and safety concerns. Hourly rounding performed to ensure safe environment.
--- NOTE | 2017-08-18 20:31 | PDOC ---
Exam Note: Pradeep Note: Please also refer to the separate dictated note~for this date of service dictated separately.~Patient seen individually. Discussed the patient with Nursing staff reviewed the chart.~Reviewed interim history and current functioning. Reviewed vital signs,~Labs/ Radiology~and current medications noted below. Continue current treatment with the changes noted in the dictated addendum note Assessment: Vital Signs: Vital Signs Date Time Temp Pulse Resp B/P (MAP) Pulse Ox O2 Delivery O2 Flow Rate FiO2 08/18/17 15:39 97.6 60 20 121/80 (94) 91 08/18/17 11:21 Room Air I&O Intake and Output 08/18/17 07:00 Intake Total 1400 ml Balance 1400 ml Intake Oral 1400 ml # Voids 1 # Bowel Movements 1 Labs: Laboratory Tests Test 08/18/17 07:24 08/18/17 11:33 08/18/17 17:07 08/18/17 19:15 Glucose (Fingerstick) 157 mg/dL (70-99) H 80 mg/dL (70-99) 150 mg/dL (70-99) H 192 mg/dL (70-99) H Current Medications: Meds: Current Medications Acetaminophen (Tylenol) 650 mg PRN Q6HRS PRN PO PAIN / TEMP; Start 08/12/17 at 05:00; Status UNV Multi-Ingredient Ointment (Analgesic [place]) 1 valery PRN QID PRN TP MUSCLE PAIN; Start 08/12/17 at 05:00; Stop 08/12/17 at 05:19; Status DC Al Hydroxide/Mg Hydroxide (Mylanta Plus Xs) 15 ml PRN AFTMEALHC PRN PO DYSPEPSIA; Start 08/12/17 at 05:00; Stop 08/12/17 at 05:19; Status DC Magnesium Hydroxide (Milk Of Magnesia) 2,400 mg PRN QHS PRN PO CONSTIPATION; Start 08/12/17 at 05:00; Stop 08/12/17 at 05:19; Status DC Vitamin D (Vitamin D3) 50,000 unit QSU PO Last administered on 08/17/17at 17:19 ; Start 08/17/17 at 16:00 Guaifenesin (Mucinex Er) 600 mg BID PO Last administered on 08/18/17at 08:46; Start 08/12/17 at 09:00 Albuterol/ Ipratropium (Duoneb) 3 ml TID NEB Last administered on 08/18/17 11: 21; Start 08/12/17 at 09:00 Nystatin (Nystop) 1 valery BID TP Last administered on 08/18/17 08:47; Start at 09:00 Tamsulosin HCl (Flomax) 0.4 mg BID PO Last administered on 08/18/17 08:46; Start 08/12/17 at 09:00 Olanzapine (ZyPREXA ZYDIS) 2.5 mg PRN Q2HR PRN PO ANXIETY / AGITATION Last administered on 08/18/17 13:22; Start 08/12/17 at 05:15 Olanzapine (ZyPREXA ZYDIS) 2.5 mg QHS PO Last administered on 08/17/17 20:59; Start 08/12/17 at 21:00 Sertraline HCl (Zoloft) 50 mg DAILY PO Last administered on 08/18/17 08:46; Start 08/12/17 at 09:00 Levothyroxine Sodium (Synthroid) 125 mcg DAILY07 PO Last administered on 08:49; Start 08/12/17 at 07:00; Stop 08/12/17 at 16:58; Status DC Acetaminophen (Tylenol) 650 mg PRN Q6HRS PRN PO PAIN; Start 08/12/17 at 05:15 Magnesium Hydroxide (Milk Of Magnesia) 2,400 mg PRN QHS PRN PO CONSTIPATION; Start 08/12/17 at 05:15 Multi-Ingredient Ointment (Analgesic [place]) 1 valery PRN QID PRN TP MUSCLE PAIN; Start 08/12/17 at 05:15 Insulin Human Lispro (HumaLOG) 5 units TIDAC SQ Last administered on 08/18/17 17:22; Start 08/12/17 at 07:30 Insulin Glargine (Lantus) 5 units DAILY SQ Last administered on 08/18/17 08:51 ; Start 08/12/17 at 09:00 Insulin Glargine (Lantus) 10 units QHS SQ Last administered on 08/17/17at 21:46 ; Start 08/12/17 at 21:00 Al Hydroxide/Mg Hydroxide (Mylanta Plus Xs) 30 ml PRN AFTMEALHC PRN PO DYSPEPSIA; Start 08/12/17 at 05:15 Aspirin (Children'S Aspirin) 81 mg DAILY PO Last administered on 08/18/17at 08: 46; Start 08/12/17 at 09:00 Sennosides (Senna) 8.6 mg BID PO Last administered on 08/18/17at 08:46; Start at 09:00 Levothyroxine Sodium (Synthroid) 125 mcg DAILY06 PO Last administered on at 05:26; Start 08/13/17 at 06:00 Divalproex Sodium (Depakote Sprinkles) 125 mg 0900,1300 PO Last administered on 08/18/17at 12:21; Start 08/13/17 at 09:00 Active Scripts Active Mucinex (Guaifenesin) 600 Mg Tablet.er 600 Mg PO BID 30 Days Duoneb 0.5-3(2.5) Mg/3 Ml (Albuterol/Ipratropium) 3 Ml Ampul.neb 3 Ml NEB TID Reported Aspirin 81 Mg Tab.chew 81 Mg PO DAILY Senna Lax (Sennosides) 8.6 Mg Tablet 8.6 Mg PO BID Mag-Al Plus Xs Suspension (Mag Hydrox/Al Hydrox/Simeth) 30 Ml Oral.susp 30 Ml PO PRN AFTMEALHC PRN Zoloft (Sertraline Hcl) 50 Mg Tablet 50 Mg PO DAILY Olanzapine Odt (Olanzapine) 5 Mg Tab.rapdis 2.5 Mg PO PRN Q2HR MDD 7.5mg Olanzapine Odt (Olanzapine) 5 Mg Tab.rapdis 2.5 Mg PO QHS Nystop (Nystatin) 60 Gm Powder 1 Valery TP BID Apply to groin Analgesic [place] (Methyl Salicylate/Menthol) 28 Gm Oint...g. 1 Gm TP PRN QID PRN Milk Of Magnesia (Magnesium Hydroxide) 400 Mg/5 Ml Oral.susp 2,400 Mg PO PRN QHS PRN Novolog Flexpen (Insulin Aspart) 100 Unit/1 Ml Insuln.pen 5 Unit SQ TIDAC Levemir Flextouch (Insulin Detemir) 100 Unit/1 Ml Insuln.pen 10 Unit SQ QHS Levemir Flextouch (Insulin Detemir) 100 Unit/1 Ml Insuln.pen 5 Unit SQ DAILY D3-50 (Cholecalciferol (Vitamin D3)) 50,000 Unit Capsule 50,000 Unit PO QSU Tylenol (Acetaminophen) 325 Mg Tablet 650 Mg PO PRN Q6HRS PRN Levothyroxine Sodium 125 Mcg Tablet 1 Tab PO DAILY Flomax (Tamsulosin Hcl) 0.4 Mg Cap.er.24h 1 Cap PO BID I have reviewed the current psychotropics carefully including drug interactions. Risk benefit ratio favors no change other than as noted in my dictated progress note. 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
--- NOTE | 2017-08-18 23:34 | PN ---
DATE: 08/15/2017 PSYCHIATRIC PROGRESS NOTE This is a late entry for 08/15/2017, covers the elements not covered in my initial note 08/15/2017. SUBJECTIVE: I met with the patient evening of 08/15/2017. The patient slept 4-1/2 hours previous evening, remains confused, wandering in his wheelchair, looking for his , states he has to pay the bill and needs a meal, take it before he will go to the dining room. REVIEW OF SYSTEMS: Ambulation impaired, in wheelchair. No CV, , pulmonary, eye, ENT system symptoms on review. Reliability poor. MENTAL STATUS EXAM: Oriented to himself. Insight, judgment, recent and remote memory, attention, concentration, fund of knowledge poor, consistent with his diagnosis mentioned in my initial note. PLAN: Continue current psychotropics. Adjust further as clinically indicated. MAN Kwabena PADILLA MD DR: AMY/treasure JOB#: [id number] / [id number]
[2017-08-19] MEDS: IPRATRPIUM/ALBUTEROL 0.5/2.5MG 3 ML NEBU. NEB SCH ×3 (04:21→21:46)
[2017-08-19] MEDS: LEVOTHYROXINE 125 MCG TABLET PO SCH (05:51)
[2017-08-19 06:21] VITALS: BP 105/68
[2017-08-19] MEDS: INSULIN LISPRO 300 UNITS/3 ML INSULN.PEN. SQ SCH ×3 (07:30→17:26)
--- NOTE | 2017-08-19 08:00 | NUR ---
Patient is refusing to get up for breakfast. Will non-admin his morning insulin and hold the remainder of his morning medications.
[2017-08-19] MEDS: SENNOSIDES 8.6 MG TABLET PO SCH ×2 (10:52→19:44)
[2017-08-19] MEDS: DIVALPROEX 125 MG CAP.SPRINK PO SCH ×3 (10:52→19:46)
[2017-08-19] MEDS: ASPIRIN 81 MG TAB.CHEW PO SCH (10:53)
[2017-08-19] MEDS: TAMSULOSIN 0.4 MG CAP.ER.24H. PO SCH ×2 (10:53→19:43)
[2017-08-19] MEDS: NYSTATIN TOPICAL POWDER 15GM BOTTLE. TP SCH ×2 (10:53→19:46)
[2017-08-19] MEDS: SERTRALINE 50 MG TABLET. PO SCH (10:53)
[2017-08-19] MEDS: INSULIN GLARGINE 300 UNITS/3 ML INSULN.PEN. SQ SCH ×2 (10:55→19:48)
--- NOTE | 2017-08-19 11:05 | NUR ---
Behavior Intervention Response and Plan: BIRP Note: Behavior: Assumed Care of patient, patient located in Patient Room at shift change. Patient exhibited the following behavior Disorganized, Withdrawn, Resistive. Brief assessment on rounds of vital signs, medication needs, lab studies, and pain. Treatment plan problems 1 & 2. Intervention: Patient assessed and the following interventions initiated safety checks 15 Minute Checks Cognitive Assessment , Head to toe Assessment , Medications. Response: After interactions and interventions patient responded in the following manner, Calm , Appropriate ,Compliant. Continue to assess behaviors and condition will continue to monitor throughout the shift as needed. Patient educated on ADL's, and hand hygiene. 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 Continue to assess patient for changes in above assessment. Monitor for medication needs, pain, and safety concerns. Hourly rounding performed to ensure safe environment.
[2017-08-19 16:06] VITALS: BP 103/67
--- NOTE | 2017-08-19 20:36 | PDOC ---
Exam Note: Pradeep Note: Please also refer to the separate dictated note~for this date of service dictated separately.~Patient seen individually. Discussed the patient with Nursing staff reviewed the chart.~Reviewed interim history and current functioning. Reviewed vital signs,~Labs/ Radiology~and current medications noted below. Continue current treatment with the changes noted in the dictated addendum note Assessment: Vital Signs: Vital Signs Date Time Temp Pulse Resp B/P (MAP) Pulse Ox O2 Delivery O2 Flow Rate FiO2 08/19/17 16:06 97.4 71 16 103/67 (79) 95 08/19/17 10:22 Room Air I&O Intake and Output 08/19/17 07:00 Intake Total 720 ml Balance 720 ml Intake Oral 720 ml Labs: Laboratory Tests Test 08/19/17 07:50 08/19/17 11:42 08/19/17 16:49 08/19/17 19:11 Glucose (Fingerstick) 104 mg/dL (70-99) H 115 mg/dL (70-99) H 129 mg/dL (70-99) H 119 mg/dL (70-99) H Current Medications: Meds: Current Medications Acetaminophen (Tylenol) 650 mg PRN Q6HRS PRN PO PAIN / TEMP; Start 08/12/17 at 05:00; Status UNV Multi-Ingredient Ointment (Analgesic [place]) 1 valery PRN QID PRN TP MUSCLE PAIN; Start 08/12/17 at 05:00; Stop 08/12/17 at 05:19; Status DC Al Hydroxide/Mg Hydroxide (Mylanta Plus Xs) 15 ml PRN AFTMEALHC PRN PO DYSPEPSIA; Start 08/12/17 at 05:00; Stop 08/12/17 at 05:19; Status DC Magnesium Hydroxide (Milk Of Magnesia) 2,400 mg PRN QHS PRN PO CONSTIPATION; Start 08/12/17 at 05:00; Stop 08/12/17 at 05:19; Status DC Vitamin D (Vitamin D3) 50,000 unit QSU PO Last administered on 08/17/17at 17:19 ; Start 08/17/17 at 16:00 Guaifenesin (Mucinex Er) 600 mg BID PO Last administered on 08/19/17at 19:42; Start 08/12/17 at 09:00 Albuterol/ Ipratropium (Duoneb) 3 ml TID NEB Last administered on 08/19/17 10: 21; Start 08/12/17 at 09:00 Nystatin (Nystop) 1 valery BID TP Last administered on 08/19/17 19:46; Start at 09:00 Tamsulosin HCl (Flomax) 0.4 mg BID PO Last administered on 08/19/17 19:43; Start 08/12/17 at 09:00 Olanzapine (ZyPREXA ZYDIS) 2.5 mg PRN Q2HR PRN PO ANXIETY / AGITATION Last administered on 08/18/17 13:22; Start 08/12/17 at 05:15 Olanzapine (ZyPREXA ZYDIS) 2.5 mg QHS PO Last administered on 08/19/17 19:44; Start 08/12/17 at 21:00 Sertraline HCl (Zoloft) 50 mg DAILY PO Last administered on 08/19/17 10:53; Start 08/12/17 at 09:00 Levothyroxine Sodium (Synthroid) 125 mcg DAILY07 PO Last administered on 08:49; Start 08/12/17 at 07:00; Stop 08/12/17 at 16:58; Status DC Acetaminophen (Tylenol) 650 mg PRN Q6HRS PRN PO PAIN; Start 08/12/17 at 05:15 Magnesium Hydroxide (Milk Of Magnesia) 2,400 mg PRN QHS PRN PO CONSTIPATION; Start 08/12/17 at 05:15 Multi-Ingredient Ointment (Analgesic [place]) 1 valery PRN QID PRN TP MUSCLE PAIN; Start 08/12/17 at 05:15 Insulin Human Lispro (HumaLOG) 5 units TIDAC SQ Last administered on 08/19/17 17:26; Start 08/12/17 at 07:30 Insulin Glargine (Lantus) 5 units DAILY SQ Last administered on 08/19/17 10:55 ; Start 08/12/17 at 09:00 Insulin Glargine (Lantus) 10 units QHS SQ Last administered on 08/19/17 19:48 ; Start 08/12/17 at 21:00 Al Hydroxide/Mg Hydroxide (Mylanta Plus Xs) 30 ml PRN AFTMEALHC PRN PO DYSPEPSIA; Start 08/12/17 at 05:15 Aspirin (Children'S Aspirin) 81 mg DAILY PO Last administered on 08/19/17at 10: 53; Start 08/12/17 at 09:00 Sennosides (Senna) 8.6 mg BID PO Last administered on 08/19/17at 19:44; Start at 09:00 Levothyroxine Sodium (Synthroid) 125 mcg DAILY06 PO Last administered on at 05:51; Start 08/13/17 at 06:00 Divalproex Sodium (Depakote Sprinkles) 125 mg 0900,1300 PO Last administered on 08/19/17at 13:02; Start 08/13/17 at 09:00; Stop 08/19/17 at 19:10; Status DC Divalproex Sodium (Depakote Sprinkles) 125 mg TID PO Last administered on at 19:46; Start 08/19/17 at 21:00 Active Scripts Active Mucinex (Guaifenesin) 600 Mg Tablet.er 600 Mg PO BID 30 Days Duoneb 0.5-3(2.5) Mg/3 Ml (Albuterol/Ipratropium) 3 Ml Ampul.neb 3 Ml NEB TID Reported Aspirin 81 Mg Tab.chew 81 Mg PO DAILY Senna Lax (Sennosides) 8.6 Mg Tablet 8.6 Mg PO BID Mag-Al Plus Xs Suspension (Mag Hydrox/Al Hydrox/Simeth) 30 Ml Oral.susp 30 Ml PO PRN AFTMEALHC PRN Zoloft (Sertraline Hcl) 50 Mg Tablet 50 Mg PO DAILY Olanzapine Odt (Olanzapine) 5 Mg Tab.rapdis 2.5 Mg PO PRN Q2HR MDD 7.5mg Olanzapine Odt (Olanzapine) 5 Mg Tab.rapdis 2.5 Mg PO QHS Nystop (Nystatin) 60 Gm Powder 1 Valery TP BID Apply to groin Analgesic [place] (Methyl Salicylate/Menthol) 28 Gm Oint...g. 1 Gm TP PRN QID PRN Milk Of Magnesia (Magnesium Hydroxide) 400 Mg/5 Ml Oral.susp 2,400 Mg PO PRN QHS PRN Novolog Flexpen (Insulin Aspart) 100 Unit/1 Ml Insuln.pen 5 Unit SQ TIDAC Levemir Flextouch (Insulin Detemir) 100 Unit/1 Ml Insuln.pen 10 Unit SQ QHS Levemir Flextouch (Insulin Detemir) 100 Unit/1 Ml Insuln.pen 5 Unit SQ DAILY D3-50 (Cholecalciferol (Vitamin D3)) 50,000 Unit Capsule 50,000 Unit PO QSU Tylenol (Acetaminophen) 325 Mg Tablet 650 Mg PO PRN Q6HRS PRN Levothyroxine Sodium 125 Mcg Tablet 1 Tab PO DAILY Flomax (Tamsulosin Hcl) 0.4 Mg Cap.er.24h 1 Cap PO BID I have reviewed the current psychotropics carefully including drug interactions. Risk benefit ratio favors no change other than as noted in my dictated progress note. 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
--- NOTE | 2017-08-19 23:53 | NUR ---
Behavior Intervention Response and Plan: BIRP Note: Behavior: Assumed Care of patient, patient located in Hallway at shift change. Patient exhibited the following behavior Wandering, Disorganized, Non Compliant. Brief assessment on rounds of vital signs, medication needs, lab studies, and pain. Treatment plan problems 1 and 2. Intervention: Patient assessed and the following interventions initiated safety checks 15 Minute Checks Cognitive Assessment , Head to toe Assessment , Medications. Response: After interactions and interventions patient responded in the following manner, Calm , Compliant ,Resistive. Continue to assess behaviors and condition will continue to monitor throughout the shift as needed. Patient educated on ADL's, and hand hygiene. 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 Continue to assess patient for changes in above assessment. Monitor for medication needs, pain, and safety concerns. Hourly rounding performed to ensure safe environment.
--- NOTE | 2017-08-20 01:57 | PN ---
DATE: 08/17/2017 This is a late entry, 08/17/2017, covers the elements not covered in my initial note, 08/17/2017. SUBJECTIVE: I met with the patient in the evening. The patient remains confused, but not aggressive. REVIEW OF SYSTEMS: Ambulation impaired, in wheelchair, somewhat hard of hearing. No CV, , pulmonary, eye system symptoms on review. MENTAL STATUS EXAM: Oriented to himself. Insight, judgment, recent and remote memory, attention, concentration, fund of knowledge poor, consistent with his diagnosis as mentioned in my initial note. PLAN: Continue psychotropics as mentioned in my initial note, Zoloft, Depakote along with Zyprexa as needed. MAN Kwabena PADILLA MD DR: AMY/treasure JOB#: [id number] / [id number]
--- NOTE | 2017-08-20 01:59 | PN ---
DATE: 08/18/2017 This is a late entry, 08/18/2017, covers the elements not covered in my initial note, 08/18/2017. SUBJECTIVE: I met with the patient in the evening. The patient remains confused, cooperative, restless, more so around 1325 hours, received Zyprexa p.r.n., then did much better. REVIEW OF SYSTEMS: Ambulation impaired, in wheelchair. No CV, , pulmonary, eye, ENT system symptoms on review, somewhat hard of hearing. Reliability poor. MENTAL STATUS EXAM: Oriented to himself. Insight, judgment, recent and remote memory, attention, concentration, fund of knowledge poor, consistent with his diagnosis as mentioned in my initial note. PLAN: Continue current psychotropics. Adjust further as clinically indicated. MAN Kwabena PADILLA MD DR: AMY/treasure JOB#: [id number] / [id number]
[2017-08-20] MEDS: LEVOTHYROXINE 125 MCG TABLET PO SCH (05:40)
[2017-08-20 05:54] VITALS: BP 147/79
[2017-08-20] MEDS: IPRATRPIUM/ALBUTEROL 0.5/2.5MG 3 ML NEBU. NEB SCH ×3 (06:15→21:33)
[2017-08-20] MEDS: ASPIRIN 81 MG TAB.CHEW PO SCH (07:48)
[2017-08-20] MEDS: SENNOSIDES 8.6 MG TABLET PO SCH ×2 (07:48→19:47)
[2017-08-20] MEDS: DIVALPROEX 125 MG CAP.SPRINK PO SCH ×3 (07:48→19:47)
[2017-08-20] MEDS: NYSTATIN TOPICAL POWDER 15GM BOTTLE. TP SCH ×2 (07:48→19:47)
[2017-08-20] MEDS: SERTRALINE 50 MG TABLET. PO SCH (07:49)
[2017-08-20] MEDS: TAMSULOSIN 0.4 MG CAP.ER.24H. PO SCH ×2 (07:49→19:47)
[2017-08-20] MEDS: INSULIN LISPRO 300 UNITS/3 ML INSULN.PEN. SQ SCH ×3 (07:50→17:01)
[2017-08-20] MEDS: INSULIN GLARGINE 300 UNITS/3 ML INSULN.PEN. SQ SCH ×2 (07:52→19:49)
--- NOTE | 2017-08-20 08:30 | NUR ---
Behavior Intervention Response and Plan: BIRP Note: Behavior: Assumed Care of patient, patient located in Dining Room at shift change. Patient exhibited the following behavior Disorganized, Delusions, Restless. Brief assessment on rounds of vital signs, medication needs, lab studies, and pain. Treatment plan problems 1 & 2. Intervention: Patient assessed and the following interventions initiated safety checks 15 Minute Checks Cognitive Assessment , Head to toe Assessment , Medications. Response: After interactions and interventions patient responded in the following manner, Calm , Appropriate ,Compliant. Continue to assess behaviors and condition will continue to monitor throughout the shift as needed. Patient educated on ADL's, and hand hygiene. 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 Continue to assess patient for changes in above assessment. Monitor for medication needs, pain, and safety concerns. Hourly rounding performed to ensure safe environment.
--- NOTE | 2017-08-20 12:35 | NUR ---
KIZZY faxed Medicaid application to state for pt .
--- NOTE | 2017-08-20 15:00 | NUR ---
WEEKLY THERAPEUTIC RECREATION NOTE Date of Admission: 08/12/2017 Date of AT Assessment: 08/15/2017 Goal aimed: to increase engagement/ stimulation Initial goal: Pt. will participate in at least two groups a day. Weekly progress towards goal: did not meet Group participation level: minimal, decreased throughout the week Behaviors observed: quiet, restless in chair on Friday, colored Friday afternoon for an hour Plan: no changes to goal
[2017-08-20 16:06] VITALS: BP 112/73
[2017-08-20] MEDS: traZODone 50 MG TABLET. PO PRN (20:07)
--- NOTE | 2017-08-20 20:52 | PDOC ---
Exam Note: Pradeep Note: Please also refer to the separate dictated note~for this date of service dictated separately.~Patient seen individually. Discussed the patient with Nursing staff reviewed the chart.~Reviewed interim history and current functioning. Reviewed vital signs,~Labs/ Radiology~and current medications noted below. Continue current treatment with the changes noted in the dictated addendum note Assessment: Vital Signs: Vital Signs Date Time Temp Pulse Resp B/P (MAP) Pulse Ox O2 Delivery O2 Flow Rate FiO2 08/20/17 16:06 97.8 73 18 112/73 (86) 96 Room Air I&O Intake and Output 08/20/17 07:00 Intake Total 880 ml Balance 880 ml Intake Oral 880 ml # Bowel Movements 1 Labs: Laboratory Tests Test 08/20/17 07:22 08/20/17 11:17 08/20/17 16:11 08/20/17 19:05 Glucose (Fingerstick) 98 mg/dL (70-99) 86 mg/dL (70-99) 187 mg/dL (70-99) H 152 mg/dL (70-99) H Current Medications: Meds: Current Medications Acetaminophen (Tylenol) 650 mg PRN Q6HRS PRN PO PAIN / TEMP; Start 08/12/17 at 05:00; Status UNV Multi-Ingredient Ointment (Analgesic [place]) 1 valery PRN QID PRN TP MUSCLE PAIN; Start 08/12/17 at 05:00; Stop 08/12/17 at 05:19; Status DC Al Hydroxide/Mg Hydroxide (Mylanta Plus Xs) 15 ml PRN AFTMEALHC PRN PO DYSPEPSIA; Start 08/12/17 at 05:00; Stop 08/12/17 at 05:19; Status DC Magnesium Hydroxide (Milk Of Magnesia) 2,400 mg PRN QHS PRN PO CONSTIPATION; Start 08/12/17 at 05:00; Stop 08/12/17 at 05:19; Status DC Vitamin D (Vitamin D3) 50,000 unit QSU PO Last administered on 08/17/17at 17:19 ; Start 08/17/17 at 16:00 Guaifenesin (Mucinex Er) 600 mg BID PO Last administered on 08/20/17at 19:45; Start 08/12/17 at 09:00 Albuterol/ Ipratropium (Duoneb) 3 ml TID NEB Last administered on 08/20/17 10: 00; Start 08/12/17 at 09:00 Nystatin (Nystop) 1 valery BID TP Last administered on 08/20/17 19:47; Start at 09:00 Tamsulosin HCl (Flomax) 0.4 mg BID PO Last administered on 08/20/17 19:47; Start 08/12/17 at 09:00 Olanzapine (ZyPREXA ZYDIS) 2.5 mg PRN Q2HR PRN PO ANXIETY / AGITATION Last administered on 08/20/17 19:46; Start 08/12/17 at 05:15 Olanzapine (ZyPREXA ZYDIS) 2.5 mg QHS PO Last administered on 08/20/17 17:02; Start 08/12/17 at 21:00 Sertraline HCl (Zoloft) 50 mg DAILY PO Last administered on 08/20/17 07:49; Start 08/12/17 at 09:00 Levothyroxine Sodium (Synthroid) 125 mcg DAILY07 PO Last administered on 08:49; Start 08/12/17 at 07:00; Stop 08/12/17 at 16:58; Status DC Acetaminophen (Tylenol) 650 mg PRN Q6HRS PRN PO PAIN; Start 08/12/17 at 05:15 Magnesium Hydroxide (Milk Of Magnesia) 2,400 mg PRN QHS PRN PO CONSTIPATION; Start 08/12/17 at 05:15 Multi-Ingredient Ointment (Analgesic [place]) 1 valery PRN QID PRN TP MUSCLE PAIN; Start 08/12/17 at 05:15 Insulin Human Lispro (HumaLOG) 5 units TIDAC SQ Last administered on 08/20/17 17:01; Start 08/12/17 at 07:30 Insulin Glargine (Lantus) 5 units DAILY SQ Last administered on 08/20/17 07:52 ; Start 08/12/17 at 09:00 Insulin Glargine (Lantus) 10 units QHS SQ Last administered on 08/20/17 19:49 ; Start 08/12/17 at 21:00 Al Hydroxide/Mg Hydroxide (Mylanta Plus Xs) 30 ml PRN AFTMEALHC PRN PO DYSPEPSIA; Start 08/12/17 at 05:15 Aspirin (Children'S Aspirin) 81 mg DAILY PO Last administered on 08/20/17at 07: 48; Start 08/12/17 at 09:00 Sennosides (Senna) 8.6 mg BID PO Last administered on 08/20/17at 19:47; Start at 09:00 Levothyroxine Sodium (Synthroid) 125 mcg DAILY06 PO Last administered on at 05:40; Start 08/13/17 at 06:00 Divalproex Sodium (Depakote Sprinkles) 125 mg 0900,1300 PO Last administered on 08/19/17 13:02; Start 08/13/17 at 09:00; Stop 08/19/17 at 19:10; Status DC Divalproex Sodium (Depakote Sprinkles) 125 mg TID PO Last administered on at 19:47; Start 08/19/17 at 21:00 Trazodone HCl (Desyrel) 50 mg PRN QHS PRN PO INSOMNIA, MAY REPEAT X1 Last administered on 08/20/17at 20:07; Start 08/20/17 at 18:30 Active Scripts Active Mucinex (Guaifenesin) 600 Mg Tablet.er 600 Mg PO BID 30 Days Duoneb 0.5-3(2.5) Mg/3 Ml (Albuterol/Ipratropium) 3 Ml Ampul.neb 3 Ml NEB TID Reported Aspirin 81 Mg Tab.chew 81 Mg PO DAILY Senna Lax (Sennosides) 8.6 Mg Tablet 8.6 Mg PO BID Mag-Al Plus Xs Suspension (Mag Hydrox/Al Hydrox/Simeth) 30 Ml Oral.susp 30 Ml PO PRN AFTMEALHC PRN Zoloft (Sertraline Hcl) 50 Mg Tablet 50 Mg PO DAILY Olanzapine Odt (Olanzapine) 5 Mg Tab.rapdis 2.5 Mg PO PRN Q2HR MDD 7.5mg Olanzapine Odt (Olanzapine) 5 Mg Tab.rapdis 2.5 Mg PO QHS Nystop (Nystatin) 60 Gm Powder 1 Valery TP BID Apply to groin Analgesic [place] (Methyl Salicylate/Menthol) 28 Gm Oint...g. 1 Gm TP PRN QID PRN Milk Of Magnesia (Magnesium Hydroxide) 400 Mg/5 Ml Oral.susp 2,400 Mg PO PRN QHS PRN Novolog Flexpen (Insulin Aspart) 100 Unit/1 Ml Insuln.pen 5 Unit SQ TIDAC Levemir Flextouch (Insulin Detemir) 100 Unit/1 Ml Insuln.pen 10 Unit SQ QHS Levemir Flextouch (Insulin Detemir) 100 Unit/1 Ml Insuln.pen 5 Unit SQ DAILY D3-50 (Cholecalciferol (Vitamin D3)) 50,000 Unit Capsule 50,000 Unit PO QSU Tylenol (Acetaminophen) 325 Mg Tablet 650 Mg PO PRN Q6HRS PRN Levothyroxine Sodium 125 Mcg Tablet 1 Tab PO DAILY Flomax (Tamsulosin Hcl) 0.4 Mg Cap.er.24h 1 Cap PO BID I have reviewed the current psychotropics carefully including drug interactions. Risk benefit ratio favors no change other than as noted in my dictated progress note. 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
--- NOTE | 2017-08-21 01:48 | NUR ---
Behavior Intervention Response and Plan: BIRP Note: Behavior: Assumed Care of patient, patient located in Day Room at shift change. Patient exhibited the following behavior Calm, Disorganized, Restless. Brief assessment on rounds of vital signs, medication needs, lab studies, and pain. Treatment plan problems 1 and 2. Intervention: Patient assessed and the following interventions initiated safety checks 15 Minute Checks Cognitive Assessment , Head to toe Assessment , Medications. Response: After interactions and interventions patient responded in the following manner, Calm , Compliant ,Cooperative. Continue to assess behaviors and condition will continue to monitor throughout the shift as needed. Patient educated on ADL's, and hand hygiene. 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 Continue to assess patient for changes in above assessment. Monitor for medication needs, pain, and safety concerns. Hourly rounding performed to ensure safe environment.
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
[2017-08-21] MEDS: IPRATRPIUM/ALBUTEROL 0.5/2.5MG 3 ML NEBU. NEB SCH ×3 (05:18→21:00)
[2017-08-21] MEDS: LEVOTHYROXINE 125 MCG TABLET PO SCH (05:48)
[2017-08-21 06:04] VITALS: BP 15/76
--- NOTE | 2017-08-21 08:50 | NUR ---
Behavior Intervention Response and Plan: BIRP Note: Behavior: Assumed Care of patient, patient located in Day Room at shift change. Patient exhibited the following behavior Wandering, Disorganized, Compulsive. Brief assessment on rounds of vital signs, medication needs, lab studies, and pain. Treatment plan problems 1 & 2. Intervention: Patient assessed and the following interventions initiated safety checks 15 Minute Checks Cognitive Assessment , Head to toe Assessment , Medications. Response: After interactions and interventions patient responded in the following manner, Calm , Appropriate ,Compliant. Continue to assess behaviors and condition will continue to monitor throughout the shift as needed. Patient educated on ADL's, and hand hygiene. 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 Continue to assess patient for changes in above assessment. Monitor for medication needs, pain, and safety concerns. Hourly rounding performed to ensure safe environment.
[2017-08-21] MEDS: ASPIRIN 81 MG TAB.CHEW PO SCH (09:11)
[2017-08-21] MEDS: DIVALPROEX 125 MG CAP.SPRINK PO SCH ×3 (09:11→19:35)
[2017-08-21] MEDS: NYSTATIN TOPICAL POWDER 15GM BOTTLE. TP SCH ×2 (09:12→19:36)
[2017-08-21] MEDS: SERTRALINE 50 MG TABLET. PO SCH (09:12)
[2017-08-21] MEDS: SENNOSIDES 8.6 MG TABLET PO SCH ×2 (09:12→19:35)
[2017-08-21] MEDS: TAMSULOSIN 0.4 MG CAP.ER.24H. PO SCH ×2 (09:12→19:34)
[2017-08-21] MEDS: INSULIN LISPRO 300 UNITS/3 ML INSULN.PEN. SQ SCH ×3 (09:17→16:30)
[2017-08-21] MEDS: INSULIN GLARGINE 300 UNITS/3 ML INSULN.PEN. SQ SCH ×2 (09:18→20:40)
--- NOTE | 2017-08-21 12:35 | NUR ---
[facility] sent request to [facility] per 's request
[2017-08-21 16:02] VITALS: BP 131/68
--- NOTE | 2017-08-21 16:50 | NUR ---
Patient's FSBS=78, 1630 humalog held. Will continue to monitor.
--- NOTE | 2017-08-21 20:34 | PDOC ---
Exam Note: Pradeep Note: Please also refer to the separate dictated note~for this date of service dictated separately.~Patient seen individually. Discussed the patient with Nursing staff reviewed the chart.~Reviewed interim history and current functioning. Reviewed vital signs,~Labs/ Radiology~and current medications noted below. Continue current treatment with the changes noted in the dictated addendum note Assessment: Vital Signs: Vital Signs Date Time Temp Pulse Resp B/P (MAP) Pulse Ox O2 Delivery O2 Flow Rate FiO2 08/21/17 16:02 97.2 58 20 131/68 (89) 100 Room Air I&O Intake and Output 08/21/17 07:00 Intake Total 840 ml Balance 840 ml Intake Oral 840 ml # Bowel Movements 2 Labs: Laboratory Tests Test 08/21/17 07:15 08/21/17 11:27 08/21/17 16:24 08/21/17 19:11 Glucose (Fingerstick) 119 mg/dL (70-99) H 132 mg/dL (70-99) H 78 mg/dL (70-99) 145 mg/dL (70-99) H Current Medications: Meds: Current Medications Acetaminophen (Tylenol) 650 mg PRN Q6HRS PRN PO PAIN / TEMP; Start 08/12/17 at 05:00; Status UNV Multi-Ingredient Ointment (Analgesic [place]) 1 valery PRN QID PRN TP MUSCLE PAIN; Start 08/12/17 at 05:00; Stop 08/12/17 at 05:19; Status DC Al Hydroxide/Mg Hydroxide (Mylanta Plus Xs) 15 ml PRN AFTMEALHC PRN PO DYSPEPSIA; Start 08/12/17 at 05:00; Stop 08/12/17 at 05:19; Status DC Magnesium Hydroxide (Milk Of Magnesia) 2,400 mg PRN QHS PRN PO CONSTIPATION; Start 08/12/17 at 05:00; Stop 08/12/17 at 05:19; Status DC Vitamin D (Vitamin D3) 50,000 unit QSU PO Last administered on 08/17/17at 17:19 ; Start 08/17/17 at 16:00 Guaifenesin (Mucinex Er) 600 mg BID PO Last administered on 08/21/17at 19:34; Start 08/12/17 at 09:00 Albuterol/ Ipratropium (Duoneb) 3 ml TID NEB Last administered on 08/21/17 11: 13; Start 08/12/17 at 09:00 Nystatin (Nystop) 1 valery BID TP Last administered on 08/21/17 19:36; Start at 09:00 Tamsulosin HCl (Flomax) 0.4 mg BID PO Last administered on 08/21/17 19:34; Start 08/12/17 at 09:00 Olanzapine (ZyPREXA ZYDIS) 2.5 mg PRN Q2HR PRN PO ANXIETY / AGITATION Last administered on 08/20/17 19:46; Start 08/12/17 at 05:15 Olanzapine (ZyPREXA ZYDIS) 2.5 mg QHS PO Last administered on 08/21/17 19:35; Start 08/12/17 at 21:00 Sertraline HCl (Zoloft) 50 mg DAILY PO Last administered on 08/21/17 09:12; Start 08/12/17 at 09:00 Levothyroxine Sodium (Synthroid) 125 mcg DAILY07 PO Last administered on 08:49; Start 08/12/17 at 07:00; Stop 08/12/17 at 16:58; Status DC Acetaminophen (Tylenol) 650 mg PRN Q6HRS PRN PO PAIN; Start 08/12/17 at 05:15 Magnesium Hydroxide (Milk Of Magnesia) 2,400 mg PRN QHS PRN PO CONSTIPATION; Start 08/12/17 at 05:15 Multi-Ingredient Ointment (Analgesic [place]) 1 valery PRN QID PRN TP MUSCLE PAIN; Start 08/12/17 at 05:15 Insulin Human Lispro (HumaLOG) 5 units TIDAC SQ Last administered on 08/21/17 12:19; Start 08/12/17 at 07:30 Insulin Glargine (Lantus) 5 units DAILY SQ Last administered on 08/21/17 09:18 ; Start 08/12/17 at 09:00 Insulin Glargine (Lantus) 10 units QHS SQ Last administered on 08/20/17 19:49 ; Start 08/12/17 at 21:00 Al Hydroxide/Mg Hydroxide (Mylanta Plus Xs) 30 ml PRN AFTMEALHC PRN PO DYSPEPSIA; Start 08/12/17 at 05:15 Aspirin (Children'S Aspirin) 81 mg DAILY PO Last administered on 08/21/17at 09: 11; Start 08/12/17 at 09:00 Sennosides (Senna) 8.6 mg BID PO Last administered on 08/21/17at 19:35; Start at 09:00 Levothyroxine Sodium (Synthroid) 125 mcg DAILY06 PO Last administered on at 05:48; Start 08/13/17 at 06:00 Divalproex Sodium (Depakote Sprinkles) 125 mg 0900,1300 PO Last administered on 08/19/17at 13:02; Start 08/13/17 at 09:00; Stop 08/19/17 at 19:10; Status DC Divalproex Sodium (Depakote Sprinkles) 125 mg TID PO Last administered on at 19:35; Start 08/19/17 at 21:00 Trazodone HCl (Desyrel) 50 mg PRN QHS PRN PO INSOMNIA, MAY REPEAT X1 Last administered on 08/20/17at 20:07; Start 08/20/17 at 18:30 Active Scripts Active Mucinex (Guaifenesin) 600 Mg Tablet.er 600 Mg PO BID 30 Days Duoneb 0.5-3(2.5) Mg/3 Ml (Albuterol/Ipratropium) 3 Ml Ampul.neb 3 Ml NEB TID Reported Aspirin 81 Mg Tab.chew 81 Mg PO DAILY Senna Lax (Sennosides) 8.6 Mg Tablet 8.6 Mg PO BID Mag-Al Plus Xs Suspension (Mag Hydrox/Al Hydrox/Simeth) 30 Ml Oral.susp 30 Ml PO PRN AFTMEALHC PRN Zoloft (Sertraline Hcl) 50 Mg Tablet 50 Mg PO DAILY Olanzapine Odt (Olanzapine) 5 Mg Tab.rapdis 2.5 Mg PO PRN Q2HR MDD 7.5mg Olanzapine Odt (Olanzapine) 5 Mg Tab.rapdis 2.5 Mg PO QHS Nystop (Nystatin) 60 Gm Powder 1 Valery TP BID Apply to groin Analgesic [place] (Methyl Salicylate/Menthol) 28 Gm Oint...g. 1 Gm TP PRN QID PRN Milk Of Magnesia (Magnesium Hydroxide) 400 Mg/5 Ml Oral.susp 2,400 Mg PO PRN QHS PRN Novolog Flexpen (Insulin Aspart) 100 Unit/1 Ml Insuln.pen 5 Unit SQ TIDAC Levemir Flextouch (Insulin Detemir) 100 Unit/1 Ml Insuln.pen 10 Unit SQ QHS Levemir Flextouch (Insulin Detemir) 100 Unit/1 Ml Insuln.pen 5 Unit SQ DAILY D3-50 (Cholecalciferol (Vitamin D3)) 50,000 Unit Capsule 50,000 Unit PO QSU Tylenol (Acetaminophen) 325 Mg Tablet 650 Mg PO PRN Q6HRS PRN Levothyroxine Sodium 125 Mcg Tablet 1 Tab PO DAILY Flomax (Tamsulosin Hcl) 0.4 Mg Cap.er.24h 1 Cap PO BID I have reviewed the current psychotropics carefully including drug interactions. Risk benefit ratio favors no change other than as noted in my dictated progress note. 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
--- NOTE | 2017-08-21 21:22 | PN ---
DATE: 08/20/2017 This is a late entry of 08/20/2017 covers elements not covered in my initial note of 08/20/2017. SUBJECTIVE: The patient was seen individually evening of 08/20/2017. He slept 5 hours previous evening. Last previous night, he refused to shower, was quite delusional per nursing report "I paid for food." He was agitated at dinnertime, received Zyprexa at 1700. REVIEW OF SYSTEMS: Ambulation impaired, in wheelchair. No CV, , pulmonary, eye, ENT system symptoms on review. MENTAL STATUS EXAM: Oriented to himself. Insight, judgment, recent and remote memory, attention, concentration, fund of knowledge poor, consistent with his diagnosis mentioned in my initial note. IMPRESSION: Major neurocognitive disorder, Alzheimer, vascular with delusion, depression, behavioral disturbance. Rest unchanged. PLAN: Continue current psychotropic. Check CBC, CMP, valproic acid level at 61. Adjust thereafter. May need to increase the Depakote and Zoloft. MAN Kwabena PADILLA MD DR: AMY/treasure JOB#: [id number] / [id number]
--- NOTE | 2017-08-21 22:42 | CONS ---
DATE OF CONSULTATION: 08/21/2017 REASON FOR CONSULTATION: Medical management. HISTORY OF PRESENT ILLNESS: The patient is an 87-year-old male patient, who was admitted on account of dangerous, out of control and unmanageable behavior. As he apparently grabbed his 's arm and threatened to break it. He has been delusional, confused, believe he has to go to work. He has been non-directable, unmanageable at home where the has preferred to keep him other than in a snf and was admitted for inpatient psychiatric stabilization. PAST PSYCHIATRIC HISTORY: Significant for dementia, Alzheimer's, vascular type, has been apparently in this unit multiple times before. PAST MEDICAL HISTORY: Significant for hypertension, hypothyroidism, type 2 diabetes. ALLERGIES: He has no known drug allergies. MEDICATIONS: He is currently on following medications: He is on ipratropium bromide, albuterol sulfate 0.5-2.5 mg 3 mL by nebulizer 3 times a day, tamsulosin, Flomax 0.4 mg twice a day. He is on aspirin 81 mg once a day, Tylenol 650 mg every 6 hours, sertraline 50 mg daily, olanzapine 2.5 mg at bedtime, olanzapine 2.5 mg every 2 hours as needed, Mucinex 600 mg twice a day, milk of magnesia 30 mL p.o. daily p.r.n. for constipation, Senna-Lax 1 tablet twice a day. He is on NovoLog insulin 5 units subcutaneously 3 times a day before meals and Levemir insulin 5 units subcutaneously daily and Levemir insulin 10 units at bedtime. He is on levothyroxine 125 mcg once a day, nystatin powder applied topically twice a day and cholecalciferol for vitamin D3 50,000 units once every Friday. FAMILY HISTORY: Noncontributory. SOCIAL HISTORY: The patient lives at home. He apparently does not smoke, drink alcohol or use recreational drugs. 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 REVIEW OF SYSTEMS: As per history of present illness. PHYSICAL EXAMINATION: GENERAL: When I examined him, he was sitting comfortably in his chair in no apparent respiratory distress, slightly pale, but no jaundice, cyanosis or thyromegaly. No jugular venous distension. No lower limb edema. VITAL SIGNS: His heart rate was 72, blood pressure 112/73, temperature was 97.8, respiratory rate was 18 and oxygen saturation was 96%. HEAD, EYES, EARS, NOSE AND THROAT: Showed normocephalic, atraumatic. NECK: Supple. HEART: Showed normal first and second sounds. No gallop, rub or murmur. CHEST: Clear to auscultation. No crepitation or rhonchi. ABDOMEN: Distended, soft, nontender. No guarding or rigidity. No organomegaly. Hernial orifices intact. Bowel sounds normal. NEUROLOGIC: He is awake, alert, but confused. All his cranial nerves are intact. EXTREMITIES: He moves extremities without difficulty, although he walks with a walker. LABORATORY DATA: Showed a white cell count of 7000, hemoglobin 13, hematocrit 38, MCV 94 and platelet count of 175,000 with normal manual differential. His chemistry showed a serum sodium 140, potassium 4, chloride 103, bicarbonate 30, anion gap of 7, BUN 22, creatinine 1.2. Estimated GFR was 57 mL per minute. His glucose was 123. Calcium was 8.7. Total bilirubin, AST, ALT, alkaline phosphatase were normal. Total protein 7.3, albumin 3.3. His vitamin B12 was 496 pg/mL and 25-hydroxy vitamin D was 57 ng. His hemoglobin A1c was 6.9. His serum iron was 82. TIBC was 268 and percent saturation was 31%. Serum triglycerides 176. Total cholesterol 214. LDL cholesterol 148, VLDL was 35 and HDL was 31. Ratio was 6. His TSH was 1.202. His total T4 was 8.1 and total T3 was 92. His urinalysis was essentially unremarkable. Urine toxicology screen was also unremarkable. His RPR is nonreactive. IMPRESSION: In summary, this is an 87-year-old male patient, who was admitted on account of being increasingly confused, oriented to himself and place little else. He has been quite delusional, agitated with sleep and appetite changes, marked with aggression and dangerous behavior noted above. His was significantly understandably afraid of the patient and prompting his referral to the Emergency Room and admission to the [facility]. Medically, he has multiple medical problems including hypertension, hypothyroidism, type 2 diabetes and benign prostatic hypertrophy as well as osteoarthritis. He seems to be generally medically stable. I would continue all these medication and follow him closely and decide on further management according to the finding and his lab work. JHONATHAN AWAN MD DR: Roselia JOB#: [id number] / [id number]
--- NOTE | 2017-08-22 02:20 | NUR ---
Behavior Intervention Response and Plan: BIRP Note: Behavior: Assumed Care of patient, patient located in Hallway at shift change. Patient exhibited the following behavior Wandering, Calm, Disorganized. Brief assessment on rounds of vital signs, medication needs, lab studies, and pain. Treatment plan problems 1 and 2. Intervention: Patient assessed and the following interventions initiated safety checks 15 Minute Checks Cognitive Assessment , Head to toe Assessment , Medications. Response: After interactions and interventions patient responded in the following manner, Calm , Compliant ,Cooperative. Continue to assess behaviors and condition will continue to monitor throughout the shift as needed. Patient educated on ADL's, and hand hygiene. 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 Continue to assess patient for changes in above assessment. Monitor for medication needs, pain, and safety concerns. Hourly rounding performed to ensure safe environment.
[2017-08-22] MEDS: LEVOTHYROXINE 125 MCG TABLET PO SCH (05:23)
[2017-08-22] MEDS: IPRATRPIUM/ALBUTEROL 0.5/2.5MG 3 ML NEBU. NEB SCH ×3 (05:52→20:04)
[2017-08-22 05:56] VITALS: BP 114/63
[2017-08-22] MEDS: TAMSULOSIN 0.4 MG CAP.ER.24H. PO SCH ×2 (07:16→19:27)
[2017-08-22] MEDS: SENNOSIDES 8.6 MG TABLET PO SCH ×2 (07:16→19:27)
[2017-08-22] MEDS: DIVALPROEX 125 MG CAP.SPRINK PO SCH ×3 (07:16→19:27)
[2017-08-22] MEDS: SERTRALINE 50 MG TABLET. PO SCH (07:16)
[2017-08-22] MEDS: ASPIRIN 81 MG TAB.CHEW PO SCH (07:18)
[2017-08-22] MEDS: INSULIN LISPRO 300 UNITS/3 ML INSULN.PEN. SQ SCH ×3 (07:30→16:30)
[2017-08-22 07:50] LABS: BASO # 0.1 x10^3/uL (0.0-0.2); BASO % 1 % (0-3); EOS # 0.7 x10^3/uL (0.0-0.7); EOS % 11 % (0-3); HEMATOCRIT 37.6 % (39.0-53.0); HEMOGLOBIN 12.6 g/dL (13.0-17.5); LYMPH # 1.4 x10^3/uL (1.0-4.8); LYMPH % 25 % (24-48); MEAN CORPUSCULAR HEMOGLOBIN 32 pg (25-35); MEAN CORPUSCULAR HGB CONC 34 g/dL (31-37); MEAN CORPUSCULAR VOLUME 94 fL (79-100); MONO # 0.7 x10^3/uL (0.0-1.1); MONO % 11 % (0-9); NEUT % 51 % (31-73); PLATELET COUNT 194 x10^3/uL (140-400); RED BLOOD COUNT 3.99 x10^6/uL (4.30-5.70); RED CELL DISTRIBUTION WIDTH 13.9 % (11.5-14.5); WHITE BLOOD COUNT 5.8 x10^3/uL (4.0-11.0)
[2017-08-22 07:57] LABS: ALBUMIN 2.8 g/dL (3.4-5.0); ALBUMIN/GLOBULIN RATIO 0.7 (1.0-1.7); ALK PHOS 63 U/L (46-116); ALT (SGPT) 16 U/L (16-63); ANION GAP 8 (6-14); AST (SGOT) 19 U/L (15-37); BLOOD UREA NITROGEN 26 mg/dL (8-26); BUN/CREATININE RATIO 22 (6-20); CALCIUM 8.3 mg/dL (8.5-10.1); CARBON DIOXIDE 29 mmol/L (21-32); CHLORIDE 104 mmol/L (98-107); CREATININE 1.2 mg/dL (0.7-1.3); GFR 57.3; GLUCOSE 105 mg/dL (70-99); POTASSIUM 4.3 mmol/L (3.5-5.1); SODIUM 141 mmol/L (136-145); TOTAL BILIRUBIN 0.3 mg/dL (0.2-1.0); TOTAL PROTEIN 6.7 g/dL (6.4-8.2)
[2017-08-22 08:02] LABS: VAL ACID 30 mcg/mL (50-100)
[2017-08-22] MEDS: NYSTATIN TOPICAL POWDER 15GM BOTTLE. TP SCH ×2 (09:00→19:28)
--- NOTE | 2017-08-22 09:40 | NUR ---
Behavior Intervention Response and Plan: BIRP Note: Behavior: Assumed Care of patient, patient located in Patients Rom at shift change. Patient exhibited the following behavior Resting, Calm, Compliant. Brief assessment on rounds of vital signs, medication needs, lab studies, and pain. Treatment plan problems 1 and 2. Intervention: Patient assessed and the following interventions initiated safety checks 15 Minute Checks Cognitive Assessment , Head to toe Assessment , Medications. Response: After interactions and interventions patient responded in the following manner, Calm , Compliant ,Cooperative. Continue to assess behaviors and condition will continue to monitor throughout the shift as needed. Patient educated on ADL's, and hand hygiene. 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 Continue to assess patient for changes in above assessment. Monitor for medication needs, pain, and safety concerns. Hourly rounding performed to ensure safe environment.
[2017-08-22] MEDS: INSULIN GLARGINE 300 UNITS/3 ML INSULN.PEN. SQ SCH ×2 (10:25→19:33)
[2017-08-22 15:58] VITALS: BP 116/73
--- NOTE | 2017-08-22 16:54 | RAD ---
Chest, PA and Lateral: Technique: PA and lateral views of the chest were obtained. History: Chest pain. Comparison: 07/14/2017. Findings: The heart and pulmonary vasculature appear within normal limits. Minimal left lung base atelectasis or infiltrate.. The pleural margins are clear. Impression: Minimal left lung base atelectasis or infiltrate.. Electronically signed by: Tony Pérez MD (08/22/2017 4:50 PM) [id number]
--- NOTE | 2017-08-22 20:35 | PDOC ---
Exam Note: Pradeep Note: Please also refer to the separate dictated note~for this date of service dictated separately.~Patient seen individually. Discussed the patient with Nursing staff reviewed the chart.~Reviewed interim history and current functioning. Reviewed vital signs,~Labs/ Radiology~and current medications noted below. Continue current treatment with the changes noted in the dictated addendum note Assessment: Vital Signs: Vital Signs Date Time Temp Pulse Resp B/P (MAP) Pulse Ox O2 Delivery O2 Flow Rate FiO2 08/22/17 20:05 96 Room Air 08/22/17 15:58 97.5 73 18 116/73 (87) I&O Intake and Output 08/22/17 07:00 Intake Total 1560 ml Balance 1560 ml Intake Oral 1560 ml # Bowel Movements 1 Labs: Laboratory Tests Test 08/22/17 07:27 08/22/17 07:43 08/22/17 11:27 08/22/17 16:27 White Blood Count 5.8 x10^3/uL (4.0-11.0) Red Blood Count 3.99 x10^6/uL (4.30-5.70) L Hemoglobin 12.6 g/dL (13.0-17.5) L Hematocrit 37.6 % (39.0-53.0) L Mean Corpuscular Volume 94 fL (79-100) Mean Corpuscular Hemoglobin 32 pg (25-35) Mean Corpuscular Hemoglobin Concent 34 g/dL (31-37) Red Cell Distribution Width 13.9 % (11.5-14.5) Platelet Count 194 x10^3/uL (140-400) Neutrophils (%) (Auto) 51 % (31-73) Lymphocytes (%) (Auto) 25 % (24-48) Monocytes (%) (Auto) 11 % (0-9) H Eosinophils (%) (Auto) 11 % (0-3) H Basophils (%) (Auto) 1 % (0-3) Neutrophils # (Auto) 3.0 x10^3uL (1.8-7.7) Lymphocytes # (Auto) 1.4 x10^3/uL (1.0-4.8) Monocytes # (Auto) 0.7 x10^3/uL (0.0-1.1) Eosinophils # (Auto) 0.7 x10^3/uL (0.0-0.7) Basophils # (Auto) 0.1 x10^3/uL (0.0-0.2) Sodium Level 141 mmol/L (136-145) Potassium Level 4.3 mmol/L (3.5-5.1) Chloride Level 104 mmol/L (98-107) Carbon Dioxide Level 29 mmol/L (21-32) Anion Gap 8 (6-14) Blood Urea Nitrogen 26 mg/dL (8-26) Creatinine 1.2 mg/dL (0.7-1.3) Estimated GFR (Cockcroft-Gault) 57.3 BUN/Creatinine Ratio 22 (6-20) H Glucose Level 105 mg/dL (70-99) H Calcium Level 8.3 mg/dL (8.5-10.1) L Total Bilirubin 0.3 mg/dL (0.2-1.0) Aspartate Amino Transferase (AST) 19 U/L (15-37) Alanine Aminotransferase (ALT) 16 U/L (16-63) Alkaline Phosphatase 63 U/L (46-116) Total Protein 6.7 g/dL (6.4-8.2) Albumin 2.8 g/dL (3.4-5.0) L Albumin/Globulin Ratio 0.7 (1.0-1.7) L Valproic Acid Level 30 mcg/mL (50-100) L Valproic Acid Last Dose Date 08/21/2017 Valproic Acid Last Dose Time 2100 Glucose (Fingerstick) 109 mg/dL (70-99) H 161 mg/dL (70-99) H 91 mg/dL (70-99) Test 08/22/17 19:31 Glucose (Fingerstick) 174 mg/dL (70-99) H Current Medications: Meds: Current Medications Acetaminophen (Tylenol) 650 mg PRN Q6HRS PRN PO PAIN / TEMP; Start 08/12/17 at 05:00; Status UNV Multi-Ingredient Ointment (Analgesic Palmer) 1 valery PRN QID PRN TP MUSCLE PAIN; Start 08/12/17 at 05:00; Stop 08/12/17 at 05:19; Status DC Al Hydroxide/Mg Hydroxide (Mylanta Plus Xs) 15 ml PRN AFTMEALHC PRN PO DYSPEPSIA; Start 08/12/17 at 05:00; Stop 08/12/17 at 05:19; Status DC Magnesium Hydroxide (Milk Of Magnesia) 2,400 mg PRN QHS PRN PO CONSTIPATION; Start 08/12/17 at 05:00; Stop 08/12/17 at 05:19; Status DC Vitamin D (Vitamin D3) 50,000 unit QSU PO Last administered on 08/17/17 17:19 ; Start 08/17/17 at 16:00 Guaifenesin (Mucinex Er) 600 mg BID PO Last administered on 08/22/17 19:27; Start 08/12/17 at 09:00 Albuterol/ Ipratropium (Duoneb) 3 ml TID NEB Last administered on 08/22/17 20: 04; Start 08/12/17 at 09:00 Nystatin (Nystop) 1 valery BID TP Last administered on 08/22/17 19:28; Start 08/12 at 09:00 Tamsulosin HCl (Flomax) 0.4 mg BID PO Last administered on 08/22/17 19:27; Start 08/12/17 at 09:00 Olanzapine (ZyPREXA ZYDIS) 2.5 mg PRN Q2HR PRN PO ANXIETY / AGITATION Last administered on 08/20/17 19:46; Start 08/12/17 at 05:15 Olanzapine (ZyPREXA ZYDIS) 2.5 mg QHS PO Last administered on 08/22/17 19:27; Start 08/12/17 at 21:00 Sertraline HCl (Zoloft) 50 mg DAILY PO Last administered on 08/22/17 07:16; Start 08/12/17 at 09:00 Levothyroxine Sodium (Synthroid) 125 mcg DAILY07 PO Last administered on 08:49; Start 08/12/17 at 07:00; Stop 08/12/17 at 16:58; Status DC Acetaminophen (Tylenol) 650 mg PRN Q6HRS PRN PO PAIN Last administered on 19:27; Start 08/12/17 at 05:15 Magnesium Hydroxide (Milk Of Magnesia) 2,400 mg PRN QHS PRN PO CONSTIPATION; Start 08/12/17 at 05:15 Multi-Ingredient Ointment (Analgesic Palmer) 1 valery PRN QID PRN TP MUSCLE PAIN; Start 08/12/17 at 05:15 Insulin Human Lispro (HumaLOG) 5 units TIDAC SQ Last administered on 08/22/17 12:15; Start 08/12/17 at 07:30 Insulin Glargine (Lantus) 5 units DAILY SQ Last administered on 08/22/17 10:25 ; Start 08/12/17 at 09:00 Insulin Glargine (Lantus) 10 units QHS SQ Last administered on 08/22/17 19:33; Start 08/12/17 at 21:00 Al Hydroxide/Mg Hydroxide (Mylanta Plus Xs) 30 ml PRN AFTMEALHC PRN PO DYSPEPSIA; Start 08/12/17 at 05:15 Aspirin (Children'S Aspirin) 81 mg DAILY PO Last administered on 08/22/17 07:18 ; Start 08/12/17 at 09:00 Sennosides (Senna) 8.6 mg BID PO Last administered on 08/22/17 19:27; Start at 09:00 Levothyroxine Sodium (Synthroid) 125 mcg DAILY06 PO Last administered on 05:23; Start 08/13/17 at 06:00 Divalproex Sodium (Depakote Sprinkles) 125 mg 0900,1300 PO Last administered on 08/19/17 13:02; Start 08/13/17 at 09:00; Stop 08/19/17 at 19:10; Status DC Divalproex Sodium (Depakote Sprinkles) 125 mg TID PO Last administered on 19:27; Start 08/19/17 at 21:00 Trazodone HCl (Desyrel) 50 mg PRN QHS PRN PO INSOMNIA, MAY REPEAT X1 Last administered on 08/20/17 20:07; Start 08/20/17 at 18:30 Active Scripts Active Mucinex (Guaifenesin) 600 Mg Tablet.er 600 Mg PO BID 30 Days Duoneb 0.5-3(2.5) Mg/3 Ml (Albuterol/Ipratropium) 3 Ml Ampul.neb 3 Ml NEB TID Reported Aspirin 81 Mg Tab.chew 81 Mg PO DAILY Senna Lax (Sennosides) 8.6 Mg Tablet 8.6 Mg PO BID Mag-Al Plus Xs Suspension (Mag Hydrox/Al Hydrox/Simeth) 30 Ml Oral.susp 30 Ml PO PRN AFTMEALHC PRN Zoloft (Sertraline Hcl) 50 Mg Tablet 50 Mg PO DAILY Olanzapine Odt (Olanzapine) 5 Mg Tab.rapdis 2.5 Mg PO PRN Q2HR MDD 7.5mg Olanzapine Odt (Olanzapine) 5 Mg Tab.rapdis 2.5 Mg PO QHS Nystop (Nystatin) 60 Gm Powder 1 Valery TP BID Apply to groin Analgesic Palmer (Methyl Salicylate/Menthol) 28 Gm Oint...g. 1 Gm TP PRN QID PRN Milk Of Magnesia (Magnesium Hydroxide) 400 Mg/5 Ml Oral.susp 2,400 Mg PO PRN QHS PRN Novolog Flexpen (Insulin Aspart) 100 Unit/1 Ml Insuln.pen 5 Unit SQ TIDAC Levemir Flextouch (Insulin Detemir) 100 Unit/1 Ml Insuln.pen 10 Unit SQ QHS Levemir Flextouch (Insulin Detemir) 100 Unit/1 Ml Insuln.pen 5 Unit SQ DAILY D3-50 (Cholecalciferol (Vitamin D3)) 50,000 Unit Capsule 50,000 Unit PO QSU Tylenol (Acetaminophen) 325 Mg Tablet 650 Mg PO PRN Q6HRS PRN Levothyroxine Sodium 125 Mcg Tablet 1 Tab PO DAILY Flomax (Tamsulosin Hcl) 0.4 Mg Cap.er.24h 1 Cap PO BID I have reviewed the current psychotropics carefully including drug interactions. Risk benefit ratio favors no change other than as noted in my dictated progress note. 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
--- NOTE | 2017-08-22 21:23 | NUR ---
Behavior Intervention Response and Plan: BIRP Note: Behavior: Assumed Care of patient, patient located in Day Room at shift change. Patient exhibited the following behavior Calm, Compliant, Cooperative. Brief assessment on rounds of vital signs, medication needs, lab studies, and pain. Treatment plan problems Altered Thought Process and Fall Risk. Intervention: Patient assessed and the following interventions initiated safety checks 15 Minute Checks Cognitive Assessment , Head to toe Assessment , Medications. Response: After interactions and interventions patient responded in the following manner, Calm , Compliant ,Cooperative. Continue to assess behaviors and condition will continue to monitor throughout the shift as needed. Patient educated on ADL's, and hand hygiene. 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 Continue to assess patient for changes in above assessment. Monitor for medication needs, pain, and safety concerns. Hourly rounding performed to ensure safe environment.
[2017-08-23] MEDS: IPRATRPIUM/ALBUTEROL 0.5/2.5MG 3 ML NEBU. NEB SCH ×3 (05:58→20:46)
[2017-08-23] MEDS: LEVOTHYROXINE 125 MCG TABLET PO SCH (05:59)
[2017-08-23 06:11] VITALS: BP 122/65
[2017-08-23] MEDS: INSULIN LISPRO 300 UNITS/3 ML INSULN.PEN. SQ SCH ×3 (08:07→17:24)
[2017-08-23] MEDS: TAMSULOSIN 0.4 MG CAP.ER.24H. PO SCH ×2 (08:08→19:25)
[2017-08-23] MEDS: ASPIRIN 81 MG TAB.CHEW PO SCH (08:08)
[2017-08-23] MEDS: SERTRALINE 50 MG TABLET. PO SCH (08:08)
[2017-08-23] MEDS: DIVALPROEX 125 MG CAP.SPRINK PO SCH ×3 (08:08→19:25)
[2017-08-23] MEDS: SENNOSIDES 8.6 MG TABLET PO SCH ×2 (08:08→19:25)
[2017-08-23] MEDS: INSULIN GLARGINE 300 UNITS/3 ML INSULN.PEN. SQ SCH ×2 (08:10→19:26)
[2017-08-23] MEDS: NYSTATIN TOPICAL POWDER 15GM BOTTLE. TP SCH ×2 (10:04→19:28)
--- NOTE | 2017-08-23 11:01 | NUR ---
Behavior Intervention Response and Plan: BIRP Note: Behavior: Assumed Care of patient, patient located in patient room at shift change. Patient exhibited the following behavior Calm, Cooperative, confused. Brief assessment on rounds of vital signs, medication needs, lab studies, and pain. Treatment plan problems Altered Thought Process and Fall Risk. Intervention: Patient assessed and the following interventions initiated safety checks 15 Minute Checks Cognitive Assessment, Head to toe Assessment , Medications. Response: After interactions and interventions patient responded in the following manner, Calm, Compliant, confused, Cooperative. Continue to assess behaviors and condition will continue to monitor throughout the shift as needed. Patient educated on ADL's, and hand hygiene. Plan: Continue to monitor Master Treatment Plan for patient's progress toward short term goals of Decreased Aggression, No harm To self/ others, assisted goals to return to previous living setting vs placement. Continue to assess patient for changes in above assessment. Monitor for medication needs, pain, and safety concerns. Hourly rounding performed to ensure safe environment.
[2017-08-23 16:31] VITALS: BP 93/55
--- NOTE | 2017-08-23 22:01 | PDOC ---
Exam Note: Pradeep Note: Please also refer to the separate dictated note~for this date of service dictated separately.~Patient seen individually. Discussed the patient with Nursing staff reviewed the chart.~Reviewed interim history and current functioning. Reviewed vital signs,~Labs/ Radiology~and current medications noted below. Continue current treatment with the changes noted in the dictated addendum note Assessment: Vital Signs: Vital Signs Date Time Temp Pulse Resp B/P (MAP) Pulse Ox O2 Delivery O2 Flow Rate FiO2 08/23/17 20:45 96 Room Air 08/23/17 16:31 98.6 82 16 93/55 (68) I&O Intake and Output 08/23/17 07:00 Intake Total 360 ml Balance 360 ml Intake Oral 360 ml Labs: Laboratory Tests Test 08/23/17 07:37 08/23/17 11:54 08/23/17 16:55 Glucose (Fingerstick) 116 mg/dL (70-99) H 111 mg/dL (70-99) H 117 mg/dL (70-99) H Current Medications: Meds: Current Medications Acetaminophen (Tylenol) 650 mg PRN Q6HRS PRN PO PAIN / TEMP; Start 08/12/17 at 05:00; Status UNV Multi-Ingredient Ointment (Analgesic [place]) 1 valery PRN QID PRN TP MUSCLE PAIN; Start 08/12/17 at 05:00; Stop 08/12/17 at 05:19; Status DC Al Hydroxide/Mg Hydroxide (Mylanta Plus Xs) 15 ml PRN AFTMEALHC PRN PO DYSPEPSIA; Start 08/12/17 at 05:00; Stop 08/12/17 at 05:19; Status DC Magnesium Hydroxide (Milk Of Magnesia) 2,400 mg PRN QHS PRN PO CONSTIPATION; Start 08/12/17 at 05:00; Stop 08/12/17 at 05:19; Status DC Vitamin D (Vitamin D3) 50,000 unit QSU PO Last administered on 08/17/17at 17:19 ; Start 08/17/17 at 16:00 Guaifenesin (Mucinex Er) 600 mg BID PO Last administered on 08/23/17at 19:25; Start 08/12/17 at 09:00 Albuterol/ Ipratropium (Duoneb) 3 ml TID NEB Last administered on 08/23/17 20: 46; Start 08/12/17 at 09:00 Nystatin (Nystop) 1 valery BID TP Last administered on 08/23/17 19:28; Start 08/12 at 09:00 Tamsulosin HCl (Flomax) 0.4 mg BID PO Last administered on 08/23/17 19:25; Start 08/12/17 at 09:00 Olanzapine (ZyPREXA ZYDIS) 2.5 mg PRN Q2HR PRN PO ANXIETY / AGITATION Last administered on 08/20/17 19:46; Start 08/12/17 at 05:15 Olanzapine (ZyPREXA ZYDIS) 2.5 mg QHS PO Last administered on 08/23/17 19:25; Start 08/12/17 at 21:00 Sertraline HCl (Zoloft) 50 mg DAILY PO Last administered on 08/23/17 08:08; Start 08/12/17 at 09:00 Levothyroxine Sodium (Synthroid) 125 mcg DAILY07 PO Last administered on 08:49; Start 08/12/17 at 07:00; Stop 08/12/17 at 16:58; Status DC Acetaminophen (Tylenol) 650 mg PRN Q6HRS PRN PO PAIN Last administered on 19:27; Start 08/12/17 at 05:15 Magnesium Hydroxide (Milk Of Magnesia) 2,400 mg PRN QHS PRN PO CONSTIPATION; Start 08/12/17 at 05:15 Multi-Ingredient Ointment (Analgesic [place]) 1 valery PRN QID PRN TP MUSCLE PAIN; Start 08/12/17 at 05:15 Insulin Human Lispro (HumaLOG) 5 units TIDAC SQ Last administered on 08/23/17 17:24; Start 08/12/17 at 07:30 Insulin Glargine (Lantus) 5 units DAILY SQ Last administered on 08/23/17 08:10 ; Start 08/12/17 at 09:00 Insulin Glargine (Lantus) 10 units QHS SQ Last administered on 08/23/17 19:26; Start 08/12/17 at 21:00 Al Hydroxide/Mg Hydroxide (Mylanta Plus Xs) 30 ml PRN AFTMEALHC PRN PO DYSPEPSIA; Start 08/12/17 at 05:15 Aspirin (Children'S Aspirin) 81 mg DAILY PO Last administered on 08/23/17at 08:08 ; Start 08/12/17 at 09:00 Sennosides (Senna) 8.6 mg BID PO Last administered on 08/23/17at 19:25; Start at 09:00 Levothyroxine Sodium (Synthroid) 125 mcg DAILY06 PO Last administered on at 05:59; Start 08/13/17 at 06:00 Divalproex Sodium (Depakote Sprinkles) 125 mg 0900,1300 PO Last administered on 08/19/17at 13:02; Start 08/13/17 at 09:00; Stop 08/19/17 at 19:10; Status DC Divalproex Sodium (Depakote Sprinkles) 125 mg TID PO Last administered on at 19:25; Start 08/19/17 at 21:00 Trazodone HCl (Desyrel) 50 mg PRN QHS PRN PO INSOMNIA, MAY REPEAT X1 Last administered on 08/20/17at 20:07; Start 08/20/17 at 18:30 Active Scripts Active Mucinex (Guaifenesin) 600 Mg Tablet.er 600 Mg PO BID 30 Days Duoneb 0.5-3(2.5) Mg/3 Ml (Albuterol/Ipratropium) 3 Ml Ampul.neb 3 Ml NEB TID Reported Aspirin 81 Mg Tab.chew 81 Mg PO DAILY Senna Lax (Sennosides) 8.6 Mg Tablet 8.6 Mg PO BID Mag-Al Plus Xs Suspension (Mag Hydrox/Al Hydrox/Simeth) 30 Ml Oral.susp 30 Ml PO PRN AFTMEALHC PRN Zoloft (Sertraline Hcl) 50 Mg Tablet 50 Mg PO DAILY Olanzapine Odt (Olanzapine) 5 Mg Tab.rapdis 2.5 Mg PO PRN Q2HR MDD 7.5mg Olanzapine Odt (Olanzapine) 5 Mg Tab.rapdis 2.5 Mg PO QHS Nystop (Nystatin) 60 Gm Powder 1 Valery TP BID Apply to groin Analgesic [place] (Methyl Salicylate/Menthol) 28 Gm Oint...g. 1 Gm TP PRN QID PRN Milk Of Magnesia (Magnesium Hydroxide) 400 Mg/5 Ml Oral.susp 2,400 Mg PO PRN QHS PRN Novolog Flexpen (Insulin Aspart) 100 Unit/1 Ml Insuln.pen 5 Unit SQ TIDAC Levemir Flextouch (Insulin Detemir) 100 Unit/1 Ml Insuln.pen 10 Unit SQ QHS Levemir Flextouch (Insulin Detemir) 100 Unit/1 Ml Insuln.pen 5 Unit SQ DAILY D3-50 (Cholecalciferol (Vitamin D3)) 50,000 Unit Capsule 50,000 Unit PO QSU Tylenol (Acetaminophen) 325 Mg Tablet 650 Mg PO PRN Q6HRS PRN Levothyroxine Sodium 125 Mcg Tablet 1 Tab PO DAILY Flomax (Tamsulosin Hcl) 0.4 Mg Cap.er.24h 1 Cap PO BID I have reviewed the current psychotropics carefully including drug interactions. Risk benefit ratio favors no change other than as noted in my dictated progress note. 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
--- NOTE | 2017-08-23 22:17 | NUR ---
Behavior Intervention Response and Plan: BIRP Note: Behavior: Assumed Care of patient, patient located in Day Room at shift change. Patient exhibited the following behavior Calm, Compliant, Cooperative. Brief assessment on rounds of vital signs, medication needs, lab studies, and pain. Treatment plan problems Altered Thought Process and Fall Risk. Intervention: Patient assessed and the following interventions initiated safety checks 15 Minute Checks Cognitive Assessment , Head to toe Assessment , Medications. Response: After interactions and interventions patient responded in the following manner, Calm , Compliant ,Cooperative. Continue to assess behaviors and condition will continue to monitor throughout the shift as needed. Patient educated on ADL's, and hand hygiene. 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 Continue to assess patient for changes in above assessment. Monitor for medication needs, pain, and safety concerns. Hourly rounding performed to ensure safe environment.
[2017-08-24] MEDS: LEVOTHYROXINE 125 MCG TABLET PO SCH (05:40)
[2017-08-24 05:42] VITALS: BP 137/73
[2017-08-24] MEDS: IPRATRPIUM/ALBUTEROL 0.5/2.5MG 3 ML NEBU. NEB SCH ×3 (06:00→21:00)
[2017-08-24] MEDS: INSULIN LISPRO 300 UNITS/3 ML INSULN.PEN. SQ SCH ×3 (07:48→17:41)
[2017-08-24] MEDS: INSULIN GLARGINE 300 UNITS/3 ML INSULN.PEN. SQ SCH ×2 (07:48→20:25)
[2017-08-24] MEDS: ASPIRIN 81 MG TAB.CHEW PO SCH (08:35)
[2017-08-24] MEDS: DIVALPROEX 125 MG CAP.SPRINK PO SCH ×3 (08:35→19:32)
[2017-08-24] MEDS: SENNOSIDES 8.6 MG TABLET PO SCH ×2 (08:35→19:32)
[2017-08-24] MEDS: CHOLECALCIFEROL (VITAMIN D3) 50,000 UNIT CAPSULE PO SCH (08:35)
[2017-08-24] MEDS: TAMSULOSIN 0.4 MG CAP.ER.24H. PO SCH ×2 (08:35→19:32)
[2017-08-24] MEDS: SERTRALINE 50 MG TABLET. PO SCH (08:35)
[2017-08-24] MEDS: NYSTATIN TOPICAL POWDER 15GM BOTTLE. TP SCH ×2 (09:00→19:33)
--- NOTE | 2017-08-24 11:08 | NUR ---
Behavior Intervention Response and Plan: BIRP Note: Behavior: Assumed Care of patient, patient located in patient room at shift change. Patient exhibited the following behavior Calm, Cooperative, disorganized, confused. Brief assessment on rounds of vital signs, medication needs, lab studies, and pain. Treatment plan problems Altered Thought Process and Fall Risk. Intervention: Patient assessed and the following interventions initiated safety checks 15 Minute Checks Cognitive Assessment, Head to toe Assessment , Medications. Response: After interactions and interventions patient responded in the following manner, Calm, disorganized, confused, Cooperative. Continue to assess behaviors and condition will continue to monitor throughout the shift as needed. Patient educated on ADL's, and hand hygiene. Plan: Continue to monitor Master Treatment Plan for patient's progress toward short term goals of Decreased Aggression, No harm To self/ others, meterman goals to return to previous living setting vs placement. Continue to assess patient for changes in above assessment. Monitor for medication needs, pain, and safety concerns. Hourly rounding performed to ensure safe environment.
[2017-08-24 16:25] VITALS: BP 109/61
--- NOTE | 2017-08-24 18:01 | NUR ---
Pt is delusional looking for his 7 year old son, his 22 year old son and is getting ready for work and trying to ambulate unassisted. Pt is unable to be redirected. PRN masoud zuluaga given.
[2017-08-24] MEDS: traZODone 50 MG TABLET. PO PRN (19:35)
--- NOTE | 2017-08-24 19:51 | PDOC ---
Exam Note: Pradeep Note: Please also refer to the separate dictated note~for this date of service dictated separately.~Patient seen individually. Discussed the patient with Nursing staff reviewed the chart.~Reviewed interim history and current functioning. Reviewed vital signs,~Labs/ Radiology~and current medications noted below. Continue current treatment with the changes noted in the dictated addendum note Assessment: Vital Signs: Vital Signs Date Time Temp Pulse Resp B/P (MAP) Pulse Ox O2 Delivery O2 Flow Rate FiO2 08/24/17 16:25 98.5 80 20 109/61 (77) 94 08/24/17 10:18 Room Air I&O Intake and Output 08/24/17 07:00 Intake Total 840 ml Balance 840 ml Intake Oral 840 ml # Bowel Movements 2 Labs: Laboratory Tests Test 08/24/17 07:41 08/24/17 11:44 08/24/17 17:04 Glucose (Fingerstick) 110 mg/dL (70-99) H 115 mg/dL (70-99) H 77 mg/dL (70-99) Current Medications: Meds: Current Medications Acetaminophen (Tylenol) 650 mg PRN Q6HRS PRN PO PAIN / TEMP; Start 08/12/17 at 05:00; Status UNV Multi-Ingredient Ointment (Analgesic [place]) 1 valery PRN QID PRN TP MUSCLE PAIN; Start 08/12/17 at 05:00; Stop 08/12/17 at 05:19; Status DC Al Hydroxide/Mg Hydroxide (Mylanta Plus Xs) 15 ml PRN AFTMEALHC PRN PO DYSPEPSIA; Start 08/12/17 at 05:00; Stop 08/12/17 at 05:19; Status DC Magnesium Hydroxide (Milk Of Magnesia) 2,400 mg PRN QHS PRN PO CONSTIPATION; Start 08/12/17 at 05:00; Stop 08/12/17 at 05:19; Status DC Vitamin D (Vitamin D3) 50,000 unit QSU PO Last administered on 08/24/17at 08:35; Start 08/17/17 at 16:00 Guaifenesin (Mucinex Er) 600 mg BID PO Last administered on 08/24/17at 19:32; Start 08/12/17 at 09:00 Albuterol/ Ipratropium (Duoneb) 3 ml TID NEB Last administered on 08/24/17 10: 17; Start 08/12/17 at 09:00 Nystatin (Nystop) 1 valery BID TP Last administered on 08/24/17 19:33; Start 08/12 at 09:00 Tamsulosin HCl (Flomax) 0.4 mg BID PO Last administered on 08/24/17 19:32; Start 08/12/17 at 09:00 Olanzapine (ZyPREXA ZYDIS) 2.5 mg PRN Q2HR PRN PO ANXIETY / AGITATION Last administered on 08/24/17 17:54; Start 08/12/17 at 05:15 Olanzapine (ZyPREXA ZYDIS) 2.5 mg QHS PO Last administered on 08/23/17 19:25; Start 08/12/17 at 21:00; Stop 08/24/17 at 15:56; Status DC Sertraline HCl (Zoloft) 50 mg DAILY PO Last administered on 08/24/17 08:35; Start 08/12/17 at 09:00 Levothyroxine Sodium (Synthroid) 125 mcg DAILY07 PO Last administered on 08:49; Start 08/12/17 at 07:00; Stop 08/12/17 at 16:58; Status DC Acetaminophen (Tylenol) 650 mg PRN Q6HRS PRN PO PAIN Last administered on 19:27; Start 08/12/17 at 05:15 Magnesium Hydroxide (Milk Of Magnesia) 2,400 mg PRN QHS PRN PO CONSTIPATION; Start 08/12/17 at 05:15 Multi-Ingredient Ointment (Analgesic [place]) 1 valery PRN QID PRN TP MUSCLE PAIN; Start 08/12/17 at 05:15 Insulin Human Lispro (HumaLOG) 5 units TIDAC SQ Last administered on 08/24/17 17:41; Start 08/12/17 at 07:30 Insulin Glargine (Lantus) 5 units DAILY SQ Last administered on 08/24/17 07:48 ; Start 08/12/17 at 09:00 Insulin Glargine (Lantus) 10 units QHS SQ Last administered on 08/23/17 19:26; Start 08/12/17 at 21:00 Al Hydroxide/Mg Hydroxide (Mylanta Plus Xs) 30 ml PRN AFTMEALHC PRN PO DYSPEPSIA; Start 08/12/17 at 05:15 Aspirin (Children'S Aspirin) 81 mg DAILY PO Last administered on 08/24/17 08:35 ; Start 08/12/17 at 09:00 Sennosides (Senna) 8.6 mg BID PO Last administered on 08/24/17 19:32; Start at 09:00 Levothyroxine Sodium (Synthroid) 125 mcg DAILY06 PO Last administered on at 05:40; Start 08/13/17 at 06:00 Divalproex Sodium (Depakote Sprinkles) 125 mg 0900,1300 PO Last administered on 08/19/17at 13:02; Start 08/13/17 at 09:00; Stop 08/19/17 at 19:10; Status DC Divalproex Sodium (Depakote Sprinkles) 125 mg TID PO Last administered on 19:32; Start 08/19/17 at 21:00 Trazodone HCl (Desyrel) 50 mg PRN QHS PRN PO INSOMNIA, MAY REPEAT X1 Last administered on 08/24/17 19:35; Start 08/20/17 at 18:30 Olanzapine (ZyPREXA ZYDIS) 5 mg HS PO Last administered on 08/24/17 19:32; Start 08/24/17 at 21:00 Active Scripts Active Mucinex (Guaifenesin) 600 Mg Tablet.er 600 Mg PO BID 30 Days Duoneb 0.5-3(2.5) Mg/3 Ml (Albuterol/Ipratropium) 3 Ml Ampul.neb 3 Ml NEB TID Reported Aspirin 81 Mg Tab.chew 81 Mg PO DAILY Senna Lax (Sennosides) 8.6 Mg Tablet 8.6 Mg PO BID Mag-Al Plus Xs Suspension (Mag Hydrox/Al Hydrox/Simeth) 30 Ml Oral.susp 30 Ml PO PRN AFTMEALHC PRN Zoloft (Sertraline Hcl) 50 Mg Tablet 50 Mg PO DAILY Olanzapine Odt (Olanzapine) 5 Mg Tab.rapdis 2.5 Mg PO PRN Q2HR MDD 7.5mg Olanzapine Odt (Olanzapine) 5 Mg Tab.rapdis 2.5 Mg PO QHS Nystop (Nystatin) 60 Gm Powder 1 Valery TP BID Apply to groin Analgesic [place] (Methyl Salicylate/Menthol) 28 Gm Oint...g. 1 Gm TP PRN QID PRN Milk Of Magnesia (Magnesium Hydroxide) 400 Mg/5 Ml Oral.susp 2,400 Mg PO PRN QHS PRN Novolog Flexpen (Insulin Aspart) 100 Unit/1 Ml Insuln.pen 5 Unit SQ TIDAC Levemir Flextouch (Insulin Detemir) 100 Unit/1 Ml Insuln.pen 10 Unit SQ QHS Levemir Flextouch (Insulin Detemir) 100 Unit/1 Ml Insuln.pen 5 Unit SQ DAILY D3-50 (Cholecalciferol (Vitamin D3)) 50,000 Unit Capsule 50,000 Unit PO QSU Tylenol (Acetaminophen) 325 Mg Tablet 650 Mg PO PRN Q6HRS PRN Levothyroxine Sodium 125 Mcg Tablet 1 Tab PO DAILY Flomax (Tamsulosin Hcl) 0.4 Mg Cap.er.24h 1 Cap PO BID I have reviewed the current psychotropics carefully including drug interactions. Risk benefit ratio favors no change other than as noted in my dictated progress note. 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
--- NOTE | 2017-08-24 22:02 | NUR ---
Nursing Note Pt doesn't seem to do well with male staff, seems to challenge their authority, and try to do the opposite of what he is told. Pt redirects with female staff and responds quite well. He is having a long involved discussion with the FIELD EVIDENCE TECHNICIAN about how to sell the house they are working on. He has given her a deadline of tomorrow afternoon to fix the code violations and have the sale completed. He is very articulate on his details of realtor lingo and home repairs. Eventually allowed PM care and was compliant with meds and assessments.
[2017-08-25] MEDS: LEVOTHYROXINE 125 MCG TABLET PO SCH (03:56)
[2017-08-25] MEDS: IPRATRPIUM/ALBUTEROL 0.5/2.5MG 3 ML NEBU. NEB SCH ×3 (05:40→20:26)
[2017-08-25 05:48] VITALS: BP 110/62
[2017-08-25] MEDS: INSULIN LISPRO 300 UNITS/3 ML INSULN.PEN. SQ SCH ×3 (08:22→17:24)
[2017-08-25] MEDS: TAMSULOSIN 0.4 MG CAP.ER.24H. PO SCH ×2 (08:23→20:04)
[2017-08-25] MEDS: DIVALPROEX 125 MG CAP.SPRINK PO SCH ×3 (08:23→20:04)
[2017-08-25] MEDS: INSULIN GLARGINE 300 UNITS/3 ML INSULN.PEN. SQ SCH ×2 (08:23→20:06)
[2017-08-25] MEDS: SENNOSIDES 8.6 MG TABLET PO SCH ×2 (08:23→20:03)
[2017-08-25] MEDS: ASPIRIN 81 MG TAB.CHEW PO SCH (08:23)
[2017-08-25] MEDS: SERTRALINE 50 MG TABLET. PO SCH (08:24)
[2017-08-25] MEDS: NYSTATIN TOPICAL POWDER 15GM BOTTLE. TP SCH ×2 (08:25→20:04)
--- NOTE | 2017-08-25 09:14 | NUR ---
Behavior Intervention Response and Plan: BIRP Note: Behavior: Assumed Care of patient, patient located in patient room at shift change. Patient exhibited the following behavior Calm, disorganized, confused. Brief assessment on rounds of vital signs, medication needs, lab studies, and pain. Treatment plan problems Altered Thought Process and Fall Risk. Intervention: Patient assessed and the following interventions initiated safety checks 15 Minute Checks Cognitive Assessment, Head to toe Assessment , Medications. Response: After interactions and interventions patient responded in the following manner, Calm, disorganized, Cooperative. Continue to assess behaviors and condition will continue to monitor throughout the shift as needed. Patient educated on ADL's, and hand hygiene. Plan: Continue to monitor Master Treatment Plan for patient's progress toward short term goals of Decreased Aggression, No harm To self/ others, assisted goals to return to previous living setting vs placement. Continue to assess patient for changes in above assessment. Monitor for medication needs, pain, and safety concerns. Hourly rounding performed to ensure safe environment.
[2017-08-25 16:33] VITALS: BP 101/68
--- NOTE | 2017-08-25 20:46 | PDOC ---
Exam Note: Pradeep Note: Please also refer to the separate dictated note~for this date of service dictated separately.~Patient seen individually. Discussed the patient with Nursing staff reviewed the chart.~Reviewed interim history and current functioning. Reviewed vital signs,~Labs/ Radiology~and current medications noted below. Continue current treatment with the changes noted in the dictated addendum note Assessment: Vital Signs: Vital Signs Date Time Temp Pulse Resp B/P (MAP) Pulse Ox O2 Delivery O2 Flow Rate FiO2 08/25/17 20:27 95 Room Air 08/25/17 16:33 99.3 69 18 101/68 (79) I&O Intake and Output 08/25/17 07:00 Intake Total 1080 ml Balance 1080 ml Intake Oral 1080 ml Labs: Laboratory Tests Test 08/25/17 08:01 08/25/17 12:03 08/25/17 16:51 08/25/17 19:08 Glucose (Fingerstick) 89 mg/dL (70-99) 67 mg/dL (70-99) L 112 mg/dL (70-99) H 126 mg/dL (70-99) H Current Medications: Meds: Current Medications Acetaminophen (Tylenol) 650 mg PRN Q6HRS PRN PO PAIN / TEMP; Start 08/12/17 at 05:00; Status UNV Multi-Ingredient Ointment (Analgesic [place]) 1 valery PRN QID PRN TP MUSCLE PAIN; Start 08/12/17 at 05:00; Stop 08/12/17 at 05:19; Status DC Al Hydroxide/Mg Hydroxide (Mylanta Plus Xs) 15 ml PRN AFTMEALHC PRN PO DYSPEPSIA; Start 08/12/17 at 05:00; Stop 08/12/17 at 05:19; Status DC Magnesium Hydroxide (Milk Of Magnesia) 2,400 mg PRN QHS PRN PO CONSTIPATION; Start 08/12/17 at 05:00; Stop 08/12/17 at 05:19; Status DC Vitamin D (Vitamin D3) 50,000 unit QSU PO Last administered on 08/24/17at 08:35; Start 08/17/17 at 16:00 Guaifenesin (Mucinex Er) 600 mg BID PO Last administered on 08/25/17at 20:03; Start 08/12/17 at 09:00 Albuterol/ Ipratropium (Duoneb) 3 ml TID NEB Last administered on 08/25/17 20: 26; Start 08/12/17 at 09:00 Nystatin (Nystop) 1 valery BID TP Last administered on 08/25/17 20:04; Start 08/12 at 09:00 Tamsulosin HCl (Flomax) 0.4 mg BID PO Last administered on 08/25/17 20:04; Start 08/12/17 at 09:00 Olanzapine (ZyPREXA ZYDIS) 2.5 mg PRN Q2HR PRN PO ANXIETY / AGITATION Last administered on 08/24/17 17:54; Start 08/12/17 at 05:15 Olanzapine (ZyPREXA ZYDIS) 2.5 mg QHS PO Last administered on 08/23/17 19:25; Start 08/12/17 at 21:00; Stop 08/24/17 at 15:56; Status DC Sertraline HCl (Zoloft) 50 mg DAILY PO Last administered on 08/25/17 08:24; Start 08/12/17 at 09:00 Levothyroxine Sodium (Synthroid) 125 mcg DAILY07 PO Last administered on 08:49; Start 08/12/17 at 07:00; Stop 08/12/17 at 16:58; Status DC Acetaminophen (Tylenol) 650 mg PRN Q6HRS PRN PO PAIN Last administered on 19:27; Start 08/12/17 at 05:15 Magnesium Hydroxide (Milk Of Magnesia) 2,400 mg PRN QHS PRN PO CONSTIPATION; Start 08/12/17 at 05:15 Multi-Ingredient Ointment (Analgesic [place]) 1 valery PRN QID PRN TP MUSCLE PAIN; Start 08/12/17 at 05:15 Insulin Human Lispro (HumaLOG) 5 units TIDAC SQ Last administered on 08/25/17 17:24; Start 08/12/17 at 07:30 Insulin Glargine (Lantus) 5 units DAILY SQ Last administered on 08/25/17 08:23 ; Start 08/12/17 at 09:00 Insulin Glargine (Lantus) 10 units QHS SQ Last administered on 08/25/17 20:06; Start 08/12/17 at 21:00 Al Hydroxide/Mg Hydroxide (Mylanta Plus Xs) 30 ml PRN AFTMEALHC PRN PO DYSPEPSIA; Start 08/12/17 at 05:15 Aspirin (Children'S Aspirin) 81 mg DAILY PO Last administered on 08/25/17 08:23 ; Start 08/12/17 at 09:00 Sennosides (Senna) 8.6 mg BID PO Last administered on 08/25/17 20:03; Start at 09:00 Levothyroxine Sodium (Synthroid) 125 mcg DAILY06 PO Last administered on 03:56; Start 08/13/17 at 06:00 Divalproex Sodium (Depakote Sprinkles) 125 mg 0900,1300 PO Last administered on 08/19/17 13:02; Start 08/13/17 at 09:00; Stop 08/19/17 at 19:10; Status DC Divalproex Sodium (Depakote Sprinkles) 125 mg TID PO Last administered on 20:04; Start 08/19/17 at 21:00 Trazodone HCl (Desyrel) 50 mg PRN QHS PRN PO INSOMNIA, MAY REPEAT X1 Last administered on 08/24/17 19:35; Start 08/20/17 at 18:30 Olanzapine (ZyPREXA ZYDIS) 5 mg HS PO Last administered on 08/25/17 20:03; Start 08/24/17 at 21:00 Active Scripts Active Mucinex (Guaifenesin) 600 Mg Tablet.er 600 Mg PO BID 30 Days Duoneb 0.5-3(2.5) Mg/3 Ml (Albuterol/Ipratropium) 3 Ml Ampul.neb 3 Ml NEB TID Reported Aspirin 81 Mg Tab.chew 81 Mg PO DAILY Senna Lax (Sennosides) 8.6 Mg Tablet 8.6 Mg PO BID Mag-Al Plus Xs Suspension (Mag Hydrox/Al Hydrox/Simeth) 30 Ml Oral.susp 30 Ml PO PRN AFTMEALHC PRN Zoloft (Sertraline Hcl) 50 Mg Tablet 50 Mg PO DAILY Olanzapine Odt (Olanzapine) 5 Mg Tab.rapdis 2.5 Mg PO PRN Q2HR MDD 7.5mg Olanzapine Odt (Olanzapine) 5 Mg Tab.rapdis 2.5 Mg PO QHS Nystop (Nystatin) 60 Gm Powder 1 Valery TP BID Apply to groin Analgesic [place] (Methyl Salicylate/Menthol) 28 Gm Oint...g. 1 Gm TP PRN QID PRN Milk Of Magnesia (Magnesium Hydroxide) 400 Mg/5 Ml Oral.susp 2,400 Mg PO PRN QHS PRN Novolog Flexpen (Insulin Aspart) 100 Unit/1 Ml Insuln.pen 5 Unit SQ TIDAC Levemir Flextouch (Insulin Detemir) 100 Unit/1 Ml Insuln.pen 10 Unit SQ QHS Levemir Flextouch (Insulin Detemir) 100 Unit/1 Ml Insuln.pen 5 Unit SQ DAILY D3-50 (Cholecalciferol (Vitamin D3)) 50,000 Unit Capsule 50,000 Unit PO QSU Tylenol (Acetaminophen) 325 Mg Tablet 650 Mg PO PRN Q6HRS PRN Levothyroxine Sodium 125 Mcg Tablet 1 Tab PO DAILY Flomax (Tamsulosin Hcl) 0.4 Mg Cap.er.24h 1 Cap PO BID I have reviewed the current psychotropics carefully including drug interactions. Risk benefit ratio favors no change other than as noted in my dictated progress note. 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
--- NOTE | 2017-08-25 21:11 | PN ---
DATE: 08/23/2017 This is a late entry for 08/23/2017 covers elements not covered in my initial note of 08/23/2017. SUBJECTIVE: I met with the patient in the evening. Overall, the patient remains confused, was looking for his son's car outside the window, redirectable. The owning that was more prominent recently seems a little better. REVIEW OF SYSTEMS: Hard of hearing. Impaired ambulation. No CV, , pulmonary, eye, ENT system symptoms on review. MENTAL STATUS EXAM: Oriented to himself. Insight, judgment, recent and remote memory, attention, concentration, fund of knowledge poor, consistent with his diagnosis mentioned in my initial note. PLAN: Continue current psychotropics from initial note. MAN Kwabena PADILLA MD DR: AMY/treasure JOB#: [id number] / [id number]
--- NOTE | 2017-08-25 21:17 | PN ---
DATE: 08/22/2017 This late entry 08/22/2017 covers elements not covered in my initial note 08/22/2017. Met with the patient in the evening. The patient remains confused, oriented to himself. He was cooperative with showers and physical therapy. Appetite is fair. He believed his son wants coming to visit him and gets somewhat delusional. REVIEW OF SYSTEMS: Ambulation impaired, in wheelchair. No CV, , pulmonary, eye, ENT system symptoms on review. Hard of hearing. MENTAL STATUS EXAM: Oriented to himself. Insight, judgment, recent and remote memory, attention, concentration, fund of knowledge poor, consistent with his diagnosis mentioned in my initial note. PLAN: Continue psychotropics mentioned in my initial note, may make further adjustments depending on his progress. MAN Kwabena PADILLA MD DR: AMY/treasure JOB#: [id number] / [id number]
--- NOTE | 2017-08-26 00:38 | NUR ---
Behavior Intervention Response and Plan: BIRP Note: Behavior: Assumed Care of patient, patient located in Day Room at shift change. Patient exhibited the following behavior Calm, Interactive, Cooperative. Brief assessment on rounds of vital signs, medication needs, lab studies, and pain. Treatment plan problems 1 and 2. Intervention: Patient assessed and the following interventions initiated safety checks 15 Minute Checks Cognitive Assessment , Head to toe Assessment , Medications. Response: After interactions and interventions patient responded in the following manner, Calm , Compliant ,Cooperative. Continue to assess behaviors and condition will continue to monitor throughout the shift as needed. Patient educated on ADL's, and hand hygiene. Plan: Continue to monitor Master Treatment Plan for patient's progress toward short term goals of Decreased Agitation, Decreased Aggression, custodial goals to return to previous living setting vs placement. Continue to assess patient for changes in above assessment. Monitor for medication needs, pain, and safety concerns. Hourly rounding performed to ensure safe environment.
[2017-08-26] MEDS: IPRATRPIUM/ALBUTEROL 0.5/2.5MG 3 ML NEBU. NEB SCH ×3 (04:14→21:06)
[2017-08-26] MEDS: LEVOTHYROXINE 125 MCG TABLET PO SCH (05:10)
[2017-08-26 06:03] VITALS: BP 128/68
--- NOTE | 2017-08-26 06:14 | PN ---
DATE: 08/21/2017 PSYCHIATRIC PROGRESS NOTE This late entry 08/21/2017 covers elements not covered in my initial note 08/21/2017. SUBJECTIVE: The patient was staffed at a treatment team meeting with the entire team in the morning, seen individually in the evening. My original note for the state is unavailable and I am redictating. The patient's , Rosaura Melton participated in the treatment team meeting in the morning, reviewed the patient's history at length progress, medications, placement options since he is unable to return home. He did have a shower at night, somewhat delusional in the evening, talking about his family and taking them out all of them for a meal, oblivious of his surroundings. REVIEW OF SYSTEMS: Ambulation impaired, in wheelchair. No CV, , pulmonary, eye system symptoms on review. MENTAL STATUS EXAM: Oriented to himself and situation. Speech moderate latency, often responses monosyllabic, hard of hearing. Abstraction fair, computation impaired, language function intact, attention span short. Mood and affect somewhat withdrawn at times. LABORATORY DATA: Reviewed. IMPRESSION: Unchanged from initial note. PLAN: Continue current psychotropics. Adjust as clinically indicated. LISBET PADILLA MD DR: AMY/treasure JOB#: [id number] / [id number]
--- NOTE | 2017-08-26 08:23 | PN ---
DATE: 08/24/2017 This late entry 08/24/2017 covers elements not covered in my initial note 08/24/2017. Met with the patient in the afternoon. The patient remains confused. Previous evening, he was looking for his car, felt he had to drive home. REVIEW OF SYSTEMS: No CV, , pulmonary, eye, ENT system symptoms on review. Reliability poor. MENTAL STATUS EXAM: Oriented to himself. Insight, judgment, recent and remote memory, attention, concentration, fund of knowledge poor, consistent with his diagnosis. He is in a wheelchair as I met with him. LABORATORY DATA: Reviewed. IMPRESSION: Unchanged from initial note. PLAN: Change the scheduled Zyprexa to 5 mg at bedtime. Continue rest unchanged. He has been getting the 2.5 at bedtime together with p.r.n. and the 5 schedule will help eliminate the duplication. MAN Kwabena PADILLA MD DR: AMY/treasure JOB#: [id number] / [id number]
[2017-08-26] MEDS: ASPIRIN 81 MG TAB.CHEW PO SCH (09:00)
[2017-08-26] MEDS: DIVALPROEX 125 MG CAP.SPRINK PO SCH ×3 (09:00→20:06)
[2017-08-26] MEDS: SERTRALINE 50 MG TABLET. PO SCH (09:00)
[2017-08-26] MEDS: SENNOSIDES 8.6 MG TABLET PO SCH ×2 (09:00→20:05)
[2017-08-26] MEDS: TAMSULOSIN 0.4 MG CAP.ER.24H. PO SCH ×2 (09:00→20:04)
[2017-08-26] MEDS: NYSTATIN TOPICAL POWDER 15GM BOTTLE. TP SCH ×2 (09:01→20:06)
[2017-08-26] MEDS: INSULIN GLARGINE 300 UNITS/3 ML INSULN.PEN. SQ SCH ×2 (09:02→20:08)
[2017-08-26] MEDS: INSULIN LISPRO 300 UNITS/3 ML INSULN.PEN. SQ SCH ×3 (09:08→17:12)
--- NOTE | 2017-08-26 09:51 | NUR ---
[facility] and [facility] both have declined pt
--- NOTE | 2017-08-26 09:51 | NUR ---
SW has faxed information to [facility], [facility], [facility], [facility], and [facility]. Pt is requesting pt to be as close to her as possible.
--- NOTE | 2017-08-26 13:04 | NUR ---
Behavior Intervention Response and Plan: BIRP Note: Behavior: Assumed Care of patient, patient located in Hallway at shift change. Patient exhibited the following behavior Calm, Interactive, Able to Focus on Task. Brief assessment on rounds of vital signs, medication needs, lab studies, and pain. Treatment plan problems 1-2. Intervention: Patient assessed and the following interventions initiated safety checks 15 Minute Checks Cognitive Assessment , Head to toe Assessment , Medications. Response: After interactions and interventions patient responded in the following manner, Interactive , Calm ,Able to Focus on Task. Continue to assess behaviors and condition will continue to monitor throughout the shift as needed. Patient educated on ADL's, and hand hygiene. Plan: Continue to monitor Master Treatment Plan for patient's progress toward short term goals of Medication Compliance, No harm To self/ others, meterman goals to return to previous living setting vs placement. Continue to assess patient for changes in above assessment. Monitor for medication needs, pain, and safety concerns. Hourly rounding performed to ensure safe environment.
[2017-08-26 16:52] VITALS: BP 123/67
[2017-08-26] MEDS: traZODone 50 MG TABLET. PO PRN (20:06)
--- NOTE | 2017-08-26 20:49 | PDOC ---
Exam Note: Pradeep Note: Please also refer to the separate dictated note~for this date of service dictated separately.~Patient seen individually. Discussed the patient with Nursing staff reviewed the chart.~Reviewed interim history and current functioning. Reviewed vital signs,~Labs/ Radiology~and current medications noted below. Continue current treatment with the changes noted in the dictated addendum note Assessment: Vital Signs: Vital Signs Date Time Temp Pulse Resp B/P (MAP) Pulse Ox O2 Delivery O2 Flow Rate FiO2 08/26/17 16:52 98.0 70 20 123/67 (85) 100 08/26/17 10:26 Room Air I&O Intake and Output 08/26/17 07:00 Intake Total 960 ml Balance 960 ml Intake Oral 960 ml # Bowel Movements 1 Labs: Laboratory Tests Test 08/26/17 07:31 08/26/17 11:44 08/26/17 16:55 08/26/17 19:06 Glucose (Fingerstick) 113 mg/dL (70-99) H 104 mg/dL (70-99) H 112 mg/dL (70-99) H 190 mg/dL (70-99) H Current Medications: Meds: Current Medications Acetaminophen (Tylenol) 650 mg PRN Q6HRS PRN PO PAIN / TEMP; Start 08/12/17 at 05:00; Status UNV Multi-Ingredient Ointment (Analgesic [place]) 1 valery PRN QID PRN TP MUSCLE PAIN; Start 08/12/17 at 05:00; Stop 08/12/17 at 05:19; Status DC Al Hydroxide/Mg Hydroxide (Mylanta Plus Xs) 15 ml PRN AFTMEALHC PRN PO DYSPEPSIA; Start 08/12/17 at 05:00; Stop 08/12/17 at 05:19; Status DC Magnesium Hydroxide (Milk Of Magnesia) 2,400 mg PRN QHS PRN PO CONSTIPATION; Start 08/12/17 at 05:00; Stop 08/12/17 at 05:19; Status DC Vitamin D (Vitamin D3) 50,000 unit QSU PO Last administered on 08/24/17at 08:35; Start 08/17/17 at 16:00 Guaifenesin (Mucinex Er) 600 mg BID PO Last administered on 08/26/17at 20:04; Start 08/12/17 at 09:00 Albuterol/ Ipratropium (Duoneb) 3 ml TID NEB Last administered on 08/26/17 10: 25; Start 08/12/17 at 09:00 Nystatin (Nystop) 1 valery BID TP Last administered on 08/26/17 20:06; Start 08/12 at 09:00 Tamsulosin HCl (Flomax) 0.4 mg BID PO Last administered on 08/26/17 20:04; Start 08/12/17 at 09:00 Olanzapine (ZyPREXA ZYDIS) 2.5 mg PRN Q2HR PRN PO ANXIETY / AGITATION Last administered on 08/26/17 14:58; Start 08/12/17 at 05:15 Olanzapine (ZyPREXA ZYDIS) 2.5 mg QHS PO Last administered on 08/23/17 19:25; Start 08/12/17 at 21:00; Stop 08/24/17 at 15:56; Status DC Sertraline HCl (Zoloft) 50 mg DAILY PO Last administered on 08/26/17 09:00; Start 08/12/17 at 09:00 Levothyroxine Sodium (Synthroid) 125 mcg DAILY07 PO Last administered on 08:49; Start 08/12/17 at 07:00; Stop 08/12/17 at 16:58; Status DC Acetaminophen (Tylenol) 650 mg PRN Q6HRS PRN PO PAIN Last administered on 19:27; Start 08/12/17 at 05:15 Magnesium Hydroxide (Milk Of Magnesia) 2,400 mg PRN QHS PRN PO CONSTIPATION; Start 08/12/17 at 05:15 Multi-Ingredient Ointment (Analgesic [place]) 1 valery PRN QID PRN TP MUSCLE PAIN; Start 08/12/17 at 05:15 Insulin Human Lispro (HumaLOG) 5 units TIDAC SQ Last administered on 08/26/17 17:12; Start 08/12/17 at 07:30 Insulin Glargine (Lantus) 5 units DAILY SQ Last administered on 08/26/17 09:02 ; Start 08/12/17 at 09:00 Insulin Glargine (Lantus) 10 units QHS SQ Last administered on 08/26/17 20:08; Start 08/12/17 at 21:00 Al Hydroxide/Mg Hydroxide (Mylanta Plus Xs) 30 ml PRN AFTMEALHC PRN PO DYSPEPSIA; Start 08/12/17 at 05:15 Aspirin (Children'S Aspirin) 81 mg DAILY PO Last administered on 08/26/17 09:00 ; Start 08/12/17 at 09:00 Sennosides (Senna) 8.6 mg BID PO Last administered on 08/26/17 20:05; Start at 09:00 Levothyroxine Sodium (Synthroid) 125 mcg DAILY06 PO Last administered on 05:10; Start 08/13/17 at 06:00 Divalproex Sodium (Depakote Sprinkles) 125 mg 0900,1300 PO Last administered on 08/19/17 13:02; Start 08/13/17 at 09:00; Stop 08/19/17 at 19:10; Status DC Divalproex Sodium (Depakote Sprinkles) 125 mg TID PO Last administered on 20:06; Start 08/19/17 at 21:00 Trazodone HCl (Desyrel) 50 mg PRN QHS PRN PO INSOMNIA, MAY REPEAT X1 Last administered on 08/26/17 20:06; Start 08/20/17 at 18:30 Olanzapine (ZyPREXA ZYDIS) 5 mg HS PO Last administered on 08/26/17 20:05; Start 08/24/17 at 21:00 Active Scripts Active Mucinex (Guaifenesin) 600 Mg Tablet.er 600 Mg PO BID 30 Days Duoneb 0.5-3(2.5) Mg/3 Ml (Albuterol/Ipratropium) 3 Ml Ampul.neb 3 Ml NEB TID Reported Aspirin 81 Mg Tab.chew 81 Mg PO DAILY Senna Lax (Sennosides) 8.6 Mg Tablet 8.6 Mg PO BID Mag-Al Plus Xs Suspension (Mag Hydrox/Al Hydrox/Simeth) 30 Ml Oral.susp 30 Ml PO PRN AFTMEALHC PRN Zoloft (Sertraline Hcl) 50 Mg Tablet 50 Mg PO DAILY Olanzapine Odt (Olanzapine) 5 Mg Tab.rapdis 2.5 Mg PO PRN Q2HR MDD 7.5mg Olanzapine Odt (Olanzapine) 5 Mg Tab.rapdis 2.5 Mg PO QHS Nystop (Nystatin) 60 Gm Powder 1 Valery TP BID Apply to groin Analgesic [place] (Methyl Salicylate/Menthol) 28 Gm Oint...g. 1 Gm TP PRN QID PRN Milk Of Magnesia (Magnesium Hydroxide) 400 Mg/5 Ml Oral.susp 2,400 Mg PO PRN QHS PRN Novolog Flexpen (Insulin Aspart) 100 Unit/1 Ml Insuln.pen 5 Unit SQ TIDAC Levemir Flextouch (Insulin Detemir) 100 Unit/1 Ml Insuln.pen 10 Unit SQ QHS Levemir Flextouch (Insulin Detemir) 100 Unit/1 Ml Insuln.pen 5 Unit SQ DAILY D3-50 (Cholecalciferol (Vitamin D3)) 50,000 Unit Capsule 50,000 Unit PO QSU Tylenol (Acetaminophen) 325 Mg Tablet 650 Mg PO PRN Q6HRS PRN Levothyroxine Sodium 125 Mcg Tablet 1 Tab PO DAILY Flomax (Tamsulosin Hcl) 0.4 Mg Cap.er.24h 1 Cap PO BID I have reviewed the current psychotropics carefully including drug interactions. Risk benefit ratio favors no change other than as noted in my dictated progress note. 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
--- NOTE | 2017-08-26 21:01 | PN ---
DATE: 08/25/2017 This late entry 08/25/2017 covers elements not covered in my initial note 08/25/2017. SUBJECTIVE: I met with the patient in the evening. The patient slept 7-1/4 hours. Previous night, he was trying to get up repeatedly, is at fall risk, somewhat delusional, confused, wanting to sell his house. REVIEW OF SYSTEMS: Ambulation impaired, in wheelchair. No CV, , eye, ENT or pulmonary system symptoms on review. Reliability poor. MENTAL STATUS EXAM: Oriented to himself. Insight, judgment, recent and remote memory, attention, concentration, fund of knowledge poor, consistent with his diagnosis mentioned in my initial note. PLAN: Continue psychotropics mentioned in my initial note. Adjust as clinically indicated. MAN Kwabena PADILLA MD DR: AMY/treasure JOB#: [id number] / [id number]
--- NOTE | 2017-08-26 23:19 | NUR ---
Behavior Intervention Response and Plan: BIRP Note: Behavior: Assumed Care of patient, patient located in Hallway at shift change. Patient exhibited the following behavior Restless, Disorganized, Irritable. Brief assessment on rounds of vital signs, medication needs, lab studies, and pain. Treatment plan problems 1 and 2. Intervention: Patient assessed and the following interventions initiated safety checks 15 Minute Checks Cognitive Assessment , Head to toe Assessment , Medications. Response: After interactions and interventions patient responded in the following manner, Calm , Compliant ,Cooperative. Continue to assess behaviors and condition will continue to monitor throughout the shift as needed. Patient educated on ADL's, and hand hygiene. 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 Continue to assess patient for changes in above assessment. Monitor for medication needs, pain, and safety concerns. Hourly rounding performed to ensure safe environment.
--- NOTE | 2017-08-27 01:52 | PN ---
DATE: 08/26/2017 This note covers elements the not covered in my initial note, 08/26/2017. SUBJECTIVE: I met with the patient in the evening. Staff member from the [facility] facility where he would be going to did come to visit him today. He was somewhat loud at times, received Zyprexa x 1. Compliant with his medications. REVIEW OF SYSTEMS: Hard of hearing, impaired ambulation, in wheelchair. No CV, , pulmonary, eye, ENT system symptoms on review other than noted above. MENTAL STATUS EXAM: Oriented to himself. Insight, judgment, recent and remote memory, attention, concentration, fund of knowledge poor, consistent with his diagnosis as mentioned in my initial note. PLAN: Continue current psychotropics. Adjust further as clinically indicated. MAN Kwabena PADILLA MD DR: AMY/treasure JOB#: [id number] / [id number]
[2017-08-27] MEDS: IPRATRPIUM/ALBUTEROL 0.5/2.5MG 3 ML NEBU. NEB SCH ×3 (05:05→20:05)
[2017-08-27] MEDS: LEVOTHYROXINE 125 MCG TABLET PO SCH (05:10)
[2017-08-27 06:17] VITALS: BP 111/62
[2017-08-27 06:18] VITALS: BP 126/82
[2017-08-27] MEDS: SERTRALINE 50 MG TABLET. PO SCH (08:19)
[2017-08-27] MEDS: DIVALPROEX 125 MG CAP.SPRINK PO SCH ×3 (08:19→19:32)
[2017-08-27] MEDS: TAMSULOSIN 0.4 MG CAP.ER.24H. PO SCH ×2 (08:19→19:32)
[2017-08-27] MEDS: ASPIRIN 81 MG TAB.CHEW PO SCH (08:19)
[2017-08-27] MEDS: SENNOSIDES 8.6 MG TABLET PO SCH ×2 (08:22→19:32)
[2017-08-27] MEDS: NYSTATIN TOPICAL POWDER 15GM BOTTLE. TP SCH ×2 (08:22→19:32)
[2017-08-27] MEDS: INSULIN GLARGINE 300 UNITS/3 ML INSULN.PEN. SQ SCH ×2 (08:26→19:35)
[2017-08-27] MEDS: INSULIN LISPRO 300 UNITS/3 ML INSULN.PEN. SQ SCH ×3 (08:27→17:22)
--- NOTE | 2017-08-27 13:33 | NUR ---
Behavior Intervention Response and Plan: BIRP Note: Behavior: Assumed Care of patient, patient located in Patient Room at shift change. Patient exhibited the following behavior Calm, Interactive, Appropriate. Brief assessment on rounds of vital signs, medication needs, lab studies, and pain. Treatment plan problems 1-2. Intervention: Patient assessed and the following interventions initiated safety checks 15 Minute Checks Cognitive Assessment , Head to toe Assessment , Medications. Response: After interactions and interventions patient responded in the following manner, Calm , Interactive ,Calm. Continue to assess behaviors and condition will continue to monitor throughout the shift as needed. Patient educated on ADL's, and hand hygiene. 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 Continue to assess patient for changes in above assessment. Monitor for medication needs, pain, and safety concerns. Hourly rounding performed to ensure safe environment.
--- NOTE | 2017-08-27 15:00 | NUR ---
WEEKLY THERAPEUTIC RECREATION NOTE Date of Admission: 08/12/2017 Date of AT Assessment: 08/15/2017 Goal aimed: to increase engagement/ stimulation Initial goal: Pt. will participate in at least two groups a day. Weekly progress towards goal: Did not meet. Group participation level: Minimal. Behaviors observed: Minimal interest in groups, wanders the kyle or stay to himself. Plan: No change to goal.
--- NOTE | 2017-08-27 15:05 | NUR ---
[facility] and [facility] both accepted pt. [facility] stated Rosaura came to visit and has chosen them. SW has left message for pt .
[2017-08-27 16:13] VITALS: BP 117/80
[2017-08-27] MEDS: traZODone 50 MG TABLET. PO PRN (19:37)
--- NOTE | 2017-08-27 20:44 | PDOC ---
Exam Note: Pradeep Note: Please also refer to the separate dictated note~for this date of service dictated separately.~Patient seen individually. Discussed the patient with Nursing staff reviewed the chart.~Reviewed interim history and current functioning. Reviewed vital signs,~Labs/ Radiology~and current medications noted below. Continue current treatment with the changes noted in the dictated addendum note Assessment: Vital Signs: Vital Signs Date Time Temp Pulse Resp B/P (MAP) Pulse Ox O2 Delivery O2 Flow Rate FiO2 08/27/17 20:05 96 Room Air 08/27/17 16:13 98.0 76 17 117/80 (92) I&O Intake and Output 08/27/17 07:00 Intake Total 2120 ml Balance 2120 ml Intake Oral 2120 ml Labs: Laboratory Tests Test 08/27/17 07:32 08/27/17 12:00 08/27/17 16:31 08/27/17 19:13 Glucose (Fingerstick) 158 mg/dL (70-99) H 167 mg/dL (70-99) H 161 mg/dL (70-99) H 184 mg/dL (70-99) H Current Medications: Meds: Current Medications Acetaminophen (Tylenol) 650 mg PRN Q6HRS PRN PO PAIN / TEMP; Start 08/12/17 at 05:00; Status UNV Multi-Ingredient Ointment (Analgesic [place]) 1 valery PRN QID PRN TP MUSCLE PAIN; Start 08/12/17 at 05:00; Stop 08/12/17 at 05:19; Status DC Al Hydroxide/Mg Hydroxide (Mylanta Plus Xs) 15 ml PRN AFTMEALHC PRN PO DYSPEPSIA; Start 08/12/17 at 05:00; Stop 08/12/17 at 05:19; Status DC Magnesium Hydroxide (Milk Of Magnesia) 2,400 mg PRN QHS PRN PO CONSTIPATION; Start 08/12/17 at 05:00; Stop 08/12/17 at 05:19; Status DC Vitamin D (Vitamin D3) 50,000 unit QSU PO Last administered on 08/24/17at 08:35; Start 08/17/17 at 16:00 Guaifenesin (Mucinex Er) 600 mg BID PO Last administered on 08/27/17at 19:32; Start 08/12/17 at 09:00 Albuterol/ Ipratropium (Duoneb) 3 ml TID NEB Last administered on 08/27/17 20: 05; Start 08/12/17 at 09:00 Nystatin (Nystop) 1 valery BID TP Last administered on 08/27/17 19:32; Start 08/12 at 09:00 Tamsulosin HCl (Flomax) 0.4 mg BID PO Last administered on 08/27/17 19:32; Start 08/12/17 at 09:00 Olanzapine (ZyPREXA ZYDIS) 2.5 mg PRN Q2HR PRN PO ANXIETY / AGITATION Last administered on 08/26/17 14:58; Start 08/12/17 at 05:15 Olanzapine (ZyPREXA ZYDIS) 2.5 mg QHS PO Last administered on 08/23/17 19:25; Start 08/12/17 at 21:00; Stop 08/24/17 at 15:56; Status DC Sertraline HCl (Zoloft) 50 mg DAILY PO Last administered on 08/27/17 08:19; Start 08/12/17 at 09:00 Levothyroxine Sodium (Synthroid) 125 mcg DAILY07 PO Last administered on 08:49; Start 08/12/17 at 07:00; Stop 08/12/17 at 16:58; Status DC Acetaminophen (Tylenol) 650 mg PRN Q6HRS PRN PO PAIN Last administered on 19:27; Start 08/12/17 at 05:15 Magnesium Hydroxide (Milk Of Magnesia) 2,400 mg PRN QHS PRN PO CONSTIPATION; Start 08/12/17 at 05:15 Multi-Ingredient Ointment (Analgesic [place]) 1 valery PRN QID PRN TP MUSCLE PAIN; Start 08/12/17 at 05:15 Insulin Human Lispro (HumaLOG) 5 units TIDAC SQ Last administered on 08/27/17 17:22; Start 08/12/17 at 07:30 Insulin Glargine (Lantus) 5 units DAILY SQ Last administered on 08/27/17 08:26 ; Start 08/12/17 at 09:00 Insulin Glargine (Lantus) 10 units QHS SQ Last administered on 08/27/17 19:35; Start 08/12/17 at 21:00 Al Hydroxide/Mg Hydroxide (Mylanta Plus Xs) 30 ml PRN AFTMEALHC PRN PO DYSPEPSIA; Start 08/12/17 at 05:15 Aspirin (Children'S Aspirin) 81 mg DAILY PO Last administered on 08/27/17 08:19 ; Start 08/12/17 at 09:00 Sennosides (Senna) 8.6 mg BID PO Last administered on 08/27/17 19:32; Start at 09:00 Levothyroxine Sodium (Synthroid) 125 mcg DAILY06 PO Last administered on 05:10; Start 08/13/17 at 06:00 Divalproex Sodium (Depakote Sprinkles) 125 mg 0900,1300 PO Last administered on 08/19/17 13:02; Start 08/13/17 at 09:00; Stop 08/19/17 at 19:10; Status DC Divalproex Sodium (Depakote Sprinkles) 125 mg TID PO Last administered on 19:32; Start 08/19/17 at 21:00 Trazodone HCl (Desyrel) 50 mg PRN QHS PRN PO INSOMNIA, MAY REPEAT X1 Last administered on 08/27/17 19:37; Start 08/20/17 at 18:30 Olanzapine (ZyPREXA ZYDIS) 5 mg HS PO Last administered on 08/27/17 19:32; Start 08/24/17 at 21:00 Active Scripts Active Mucinex (Guaifenesin) 600 Mg Tablet.er 600 Mg PO BID 30 Days Duoneb 0.5-3(2.5) Mg/3 Ml (Albuterol/Ipratropium) 3 Ml Ampul.neb 3 Ml NEB TID Reported Aspirin 81 Mg Tab.chew 81 Mg PO DAILY Senna Lax (Sennosides) 8.6 Mg Tablet 8.6 Mg PO BID Mag-Al Plus Xs Suspension (Mag Hydrox/Al Hydrox/Simeth) 30 Ml Oral.susp 30 Ml PO PRN AFTMEALHC PRN Zoloft (Sertraline Hcl) 50 Mg Tablet 50 Mg PO DAILY Olanzapine Odt (Olanzapine) 5 Mg Tab.rapdis 2.5 Mg PO PRN Q2HR MDD 7.5mg Olanzapine Odt (Olanzapine) 5 Mg Tab.rapdis 2.5 Mg PO QHS Nystop (Nystatin) 60 Gm Powder 1 Valery TP BID Apply to groin Analgesic [place] (Methyl Salicylate/Menthol) 28 Gm Oint...g. 1 Gm TP PRN QID PRN Milk Of Magnesia (Magnesium Hydroxide) 400 Mg/5 Ml Oral.susp 2,400 Mg PO PRN QHS PRN Novolog Flexpen (Insulin Aspart) 100 Unit/1 Ml Insuln.pen 5 Unit SQ TIDAC Levemir Flextouch (Insulin Detemir) 100 Unit/1 Ml Insuln.pen 10 Unit SQ QHS Levemir Flextouch (Insulin Detemir) 100 Unit/1 Ml Insuln.pen 5 Unit SQ DAILY D3-50 (Cholecalciferol (Vitamin D3)) 50,000 Unit Capsule 50,000 Unit PO QSU Tylenol (Acetaminophen) 325 Mg Tablet 650 Mg PO PRN Q6HRS PRN Levothyroxine Sodium 125 Mcg Tablet 1 Tab PO DAILY Flomax (Tamsulosin Hcl) 0.4 Mg Cap.er.24h 1 Cap PO BID I have reviewed the current psychotropics carefully including drug interactions. Risk benefit ratio favors no change other than as noted in my dictated progress note. 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
--- NOTE | 2017-08-27 23:05 | NUR ---
Behavior Intervention Response and Plan: BIRP Note: Behavior: Assumed Care of patient, patient located in Day Room at shift change. Patient exhibited the following behavior Restless, Disorganized, Irritable. Brief assessment on rounds of vital signs, medication needs, lab studies, and pain. Treatment plan problems 1 and 2. Intervention: Patient assessed and the following interventions initiated safety checks 15 Minute Checks Cognitive Assessment , Head to toe Assessment , Medications. Response: After interactions and interventions patient responded in the following manner, Calm , Compliant ,Cooperative. Continue to assess behaviors and condition will continue to monitor throughout the shift as needed. Patient educated on ADL's, and hand hygiene. 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 Continue to assess patient for changes in above assessment. Monitor for medication needs, pain, and safety concerns. Hourly rounding performed to ensure safe environment.
[2017-08-28] MEDS: LEVOTHYROXINE 125 MCG TABLET PO SCH (05:35)
[2017-08-28] MEDS: IPRATRPIUM/ALBUTEROL 0.5/2.5MG 3 ML NEBU. NEB SCH ×3 (06:03→20:04)
[2017-08-28 06:16] VITALS: BP 120/70
[2017-08-28] MEDS: SENNOSIDES 8.6 MG TABLET PO SCH ×2 (07:55→19:48)
[2017-08-28] MEDS: SERTRALINE 50 MG TABLET. PO SCH (07:55)
[2017-08-28] MEDS: TAMSULOSIN 0.4 MG CAP.ER.24H. PO SCH ×2 (07:55→19:48)
[2017-08-28] MEDS: ASPIRIN 81 MG TAB.CHEW PO SCH (07:55)
[2017-08-28] MEDS: INSULIN LISPRO 300 UNITS/3 ML INSULN.PEN. SQ SCH ×3 (07:55→17:08)
[2017-08-28] MEDS: DIVALPROEX 125 MG CAP.SPRINK PO SCH ×3 (07:56→19:48)
[2017-08-28] MEDS: INSULIN GLARGINE 300 UNITS/3 ML INSULN.PEN. SQ SCH ×2 (08:00→19:50)
[2017-08-28] MEDS: NYSTATIN TOPICAL POWDER 15GM BOTTLE. TP SCH ×2 (08:01→19:51)
--- NOTE | 2017-08-28 10:53 | NUR ---
Behavior Intervention Response and Plan: BIRP Note: Behavior: Assumed Care of patient, patient located in Day Room at shift change. Patient exhibited the following behavior Restless, Disorganized, Compliant. Brief assessment on rounds of vital signs, medication needs, lab studies, and pain. Treatment plan problems 1 and 2. Intervention: Patient assessed and the following interventions initiated safety checks 15 Minute Checks Cognitive Assessment , Head to toe Assessment , Medications. Response: After interactions and interventions patient responded in the following manner, Interactive , Calm ,Compliant. Continue to assess behaviors and condition will continue to monitor throughout the shift as needed. Patient educated on ADL's, and hand hygiene. 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 Continue to assess patient for changes in above assessment. Monitor for medication needs, pain, and safety concerns. Hourly rounding performed to ensure safe environment.
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
[2017-08-28 16:17] VITALS: BP 141/82
[2017-08-28] MEDS: traZODone 50 MG TABLET. PO PRN (19:48)
--- NOTE | 2017-08-28 22:22 | PDOC ---
Exam Note: Pradeep Note: Please also refer to the separate dictated note~for this date of service dictated separately.~Patient seen individually. Discussed the patient with Nursing staff reviewed the chart.~Reviewed interim history and current functioning. Reviewed vital signs,~Labs/ Radiology~and current medications noted below. Continue current treatment with the changes noted in the dictated addendum note Assessment: Vital Signs: Vital Signs Date Time Temp Pulse Resp B/P (MAP) Pulse Ox O2 Delivery O2 Flow Rate FiO2 08/28/17 20:05 97 Room Air 08/28/17 16:17 97.1 63 20 141/82 (101) I&O Intake and Output 08/28/17 07:00 Intake Total 960 ml Balance 960 ml Intake Oral 960 ml # Voids 1 Labs: Laboratory Tests Test 08/28/17 07:20 08/28/17 11:05 08/28/17 16:49 08/28/17 19:00 Glucose (Fingerstick) 102 mg/dL (70-99) H 120 mg/dL (70-99) H 103 mg/dL (70-99) H 216 mg/dL (70-99) H Current Medications: Meds: Current Medications Acetaminophen (Tylenol) 650 mg PRN Q6HRS PRN PO PAIN / TEMP; Start 08/12/17 at 05:00; Status UNV Multi-Ingredient Ointment (Analgesic [place]) 1 valery PRN QID PRN TP MUSCLE PAIN; Start 08/12/17 at 05:00; Stop 08/12/17 at 05:19; Status DC Al Hydroxide/Mg Hydroxide (Mylanta Plus Xs) 15 ml PRN AFTMEALHC PRN PO DYSPEPSIA; Start 08/12/17 at 05:00; Stop 08/12/17 at 05:19; Status DC Magnesium Hydroxide (Milk Of Magnesia) 2,400 mg PRN QHS PRN PO CONSTIPATION; Start 08/12/17 at 05:00; Stop 08/12/17 at 05:19; Status DC Vitamin D (Vitamin D3) 50,000 unit QSU PO Last administered on 08/24/17at 08:35; Start 08/17/17 at 16:00 Guaifenesin (Mucinex Er) 600 mg BID PO Last administered on 08/28/17at 19:48; Start 08/12/17 at 09:00 Albuterol/ Ipratropium (Duoneb) 3 ml TID NEB Last administered on 08/28/17 20: 04; Start 08/12/17 at 09:00 Nystatin (Nystop) 1 valery BID TP Last administered on 08/28/17 19:51; Start 08/12 at 09:00 Tamsulosin HCl (Flomax) 0.4 mg BID PO Last administered on 08/28/17 19:48; Start 08/12/17 at 09:00 Olanzapine (ZyPREXA ZYDIS) 2.5 mg PRN Q2HR PRN PO ANXIETY / AGITATION Last administered on 08/26/17 14:58; Start 08/12/17 at 05:15 Olanzapine (ZyPREXA ZYDIS) 2.5 mg QHS PO Last administered on 08/23/17 19:25; Start 08/12/17 at 21:00; Stop 08/24/17 at 15:56; Status DC Sertraline HCl (Zoloft) 50 mg DAILY PO Last administered on 08/28/17 07:55; Start 08/12/17 at 09:00 Levothyroxine Sodium (Synthroid) 125 mcg DAILY07 PO Last administered on 08:49; Start 08/12/17 at 07:00; Stop 08/12/17 at 16:58; Status DC Acetaminophen (Tylenol) 650 mg PRN Q6HRS PRN PO PAIN Last administered on 19:27; Start 08/12/17 at 05:15 Magnesium Hydroxide (Milk Of Magnesia) 2,400 mg PRN QHS PRN PO CONSTIPATION; Start 08/12/17 at 05:15 Multi-Ingredient Ointment (Analgesic [place]) 1 valery PRN QID PRN TP MUSCLE PAIN; Start 08/12/17 at 05:15 Insulin Human Lispro (HumaLOG) 5 units TIDAC SQ Last administered on 08/28/17 12:25; Start 08/12/17 at 07:30 Insulin Glargine (Lantus) 5 units DAILY SQ Last administered on 08/28/17 08:00 ; Start 08/12/17 at 09:00 Insulin Glargine (Lantus) 10 units QHS SQ Last administered on 08/28/17 19:50; Start 08/12/17 at 21:00 Al Hydroxide/Mg Hydroxide (Mylanta Plus Xs) 30 ml PRN AFTMEALHC PRN PO DYSPEPSIA; Start 08/12/17 at 05:15 Aspirin (Children'S Aspirin) 81 mg DAILY PO Last administered on 08/28/17 07:55 ; Start 08/12/17 at 09:00 Sennosides (Senna) 8.6 mg BID PO Last administered on 08/28/17 19:48; Start at 09:00 Levothyroxine Sodium (Synthroid) 125 mcg DAILY06 PO Last administered on 05:35; Start 08/13/17 at 06:00 Divalproex Sodium (Depakote Sprinkles) 125 mg 0900,1300 PO Last administered on 08/19/17 13:02; Start 08/13/17 at 09:00; Stop 08/19/17 at 19:10; Status DC Divalproex Sodium (Depakote Sprinkles) 125 mg TID PO Last administered on 19:48; Start 08/19/17 at 21:00 Trazodone HCl (Desyrel) 50 mg PRN QHS PRN PO INSOMNIA, MAY REPEAT X1 Last administered on 08/28/17 19:48; Start 08/20/17 at 18:30 Olanzapine (ZyPREXA ZYDIS) 5 mg HS PO Last administered on 08/28/17 19:48; Start 08/24/17 at 21:00 Active Scripts Active Mucinex (Guaifenesin) 600 Mg Tablet.er 600 Mg PO BID 30 Days Duoneb 0.5-3(2.5) Mg/3 Ml (Albuterol/Ipratropium) 3 Ml Ampul.neb 3 Ml NEB TID Reported Aspirin 81 Mg Tab.chew 81 Mg PO DAILY Senna Lax (Sennosides) 8.6 Mg Tablet 8.6 Mg PO BID Mag-Al Plus Xs Suspension (Mag Hydrox/Al Hydrox/Simeth) 30 Ml Oral.susp 30 Ml PO PRN AFTMEALHC PRN Zoloft (Sertraline Hcl) 50 Mg Tablet 50 Mg PO DAILY Olanzapine Odt (Olanzapine) 5 Mg Tab.rapdis 2.5 Mg PO PRN Q2HR MDD 7.5mg Olanzapine Odt (Olanzapine) 5 Mg Tab.rapdis 2.5 Mg PO QHS Nystop (Nystatin) 60 Gm Powder 1 Valery TP BID Apply to groin Analgesic [place] (Methyl Salicylate/Menthol) 28 Gm Oint...g. 1 Gm TP PRN QID PRN Milk Of Magnesia (Magnesium Hydroxide) 400 Mg/5 Ml Oral.susp 2,400 Mg PO PRN QHS PRN Novolog Flexpen (Insulin Aspart) 100 Unit/1 Ml Insuln.pen 5 Unit SQ TIDAC Levemir Flextouch (Insulin Detemir) 100 Unit/1 Ml Insuln.pen 10 Unit SQ QHS Levemir Flextouch (Insulin Detemir) 100 Unit/1 Ml Insuln.pen 5 Unit SQ DAILY D3-50 (Cholecalciferol (Vitamin D3)) 50,000 Unit Capsule 50,000 Unit PO QSU Tylenol (Acetaminophen) 325 Mg Tablet 650 Mg PO PRN Q6HRS PRN Levothyroxine Sodium 125 Mcg Tablet 1 Tab PO DAILY Flomax (Tamsulosin Hcl) 0.4 Mg Cap.er.24h 1 Cap PO BID I have reviewed the current psychotropics carefully including drug interactions. Risk benefit ratio favors no change other than as noted in my dictated progress note. 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
--- NOTE | 2017-08-29 03:27 | NUR ---
Nursing Note Patient in day room area for shift assessment. Patient attempting to take off clothes off in day room. Patient took medications whole and is compliant with assessment. Patient alert and oriented to self only. Patient currently sleeping in patient room.
[2017-08-29 05:43] VITALS: BP 130/58
[2017-08-29] MEDS: IPRATRPIUM/ALBUTEROL 0.5/2.5MG 3 ML NEBU. NEB SCH ×3 (06:28→19:59)
[2017-08-29] MEDS: LEVOTHYROXINE 125 MCG TABLET PO SCH (06:39)
[2017-08-29] MEDS: ASPIRIN 81 MG TAB.CHEW PO SCH (09:00)
[2017-08-29] MEDS: SERTRALINE 50 MG TABLET. PO SCH (09:00)
[2017-08-29] MEDS: SENNOSIDES 8.6 MG TABLET PO SCH ×2 (09:00→20:25)
[2017-08-29] MEDS: DIVALPROEX 125 MG CAP.SPRINK PO SCH ×3 (09:00→20:25)
[2017-08-29] MEDS: TAMSULOSIN 0.4 MG CAP.ER.24H. PO SCH ×2 (09:00→20:25)
[2017-08-29] MEDS: INSULIN GLARGINE 300 UNITS/3 ML INSULN.PEN. SQ SCH ×2 (09:01→20:30)
[2017-08-29] MEDS: NYSTATIN TOPICAL POWDER 15GM BOTTLE. TP SCH ×2 (09:03→20:26)
[2017-08-29] MEDS: INSULIN LISPRO 300 UNITS/3 ML INSULN.PEN. SQ SCH ×3 (09:03→18:11)
--- NOTE | 2017-08-29 10:50 | NUR ---
Patient compliant with medications given whole and with insulin administration. Patient located in dining room, at this time patient is oriented to self and hospital, but confused to situation and date. 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 Patient has shown no aggression toward staff, is in wheelchair with chair alarm, which he can propel himself. Patient does attempt to get out of chair unassisted and ambulate, but is not steady. Easily redirectable at this time.
--- NOTE | 2017-08-29 12:24 | PN ---
DATE: 08/27/2017 PSYCHIATRIC PROGRESS NOTE This is a late entry 08/27/2017 covers elements not covered in my initial note 08/27/2017. SUBJECTIVE: I met with the patient in the evening. The patient remains somewhat confused, was around the unit in his wheelchair, somewhat irritable at times. Gait is poor. Physical therapy is participating in rehabilitation. REVIEW OF SYSTEMS: No CV, , pulmonary, eye system symptoms on review. Reliability poor. MENTAL STATUS EXAM: Oriented to himself. Insight, judgment, recent and remote memory, attention, concentration, fund of knowledge poor, consistent with his diagnosis. He is hard of hearing. LABORATORY DATA: Reviewed. IMPRESSION: Unchanged from initial note. PLAN: No change from a psychiatric standpoint. MAN Kwabena PADILLA MD DR: AMY/treasure JOB#: [id number] / [id number]
[2017-08-29 15:51] VITALS: BP 106/76
--- NOTE | 2017-08-29 18:20 | PN ---
DATE: 08/28/2017 PSYCHIATRIC PROGRESS NOTE This late entry 08/28/2017 covers elements not covered in my initial note. SUBJECTIVE: The patient was staffed at a treatment team meeting with the entire team in the morning, seen individually in the evening. He has been confused, urinated, and was incontinent in the hallway. His and son visited. REVIEW OF SYSTEMS: Ambulation impaired, in a wheelchair, hard of hearing. No CV, , pulmonary, eye system symptoms on review. MENTAL STATUS EXAM: Oriented to himself. Insight, judgment, recent and remote memory, attention, concentration, fund of knowledge poor, consistent with his diagnosis mentioned in my initial note. PLAN: Continue current psychotropics. Adjust as clinically indicated. Transition to [facility] on Friday. MAN Kwabena PADILLA MD DR: AMY/treasure JOB#: [id number] / [id number]
--- NOTE | 2017-08-29 20:00 | NUR ---
Behavior Intervention Response and Plan: BIRP Note: Behavior: Assumed Care of patient, patient located in Day Room at shift change. Patient exhibited the following behavior Restless, Disorganized, Able to Focus on Task. Brief assessment on rounds of vital signs, medication needs, lab studies, and pain. Treatment plan problems . Intervention: Patient assessed and the following interventions initiated safety checks 15 Minute Checks Cognitive Assessment , Head to toe Assessment , Medications. Response: After interactions and interventions patient responded in the following manner, Disorganized , Compliant ,Social. Continue to assess behaviors and condition will continue to monitor throughout the shift as needed. Patient educated on ADL's, and hand hygiene. 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 Continue to assess patient for changes in above assessment. Monitor for medication needs, pain, and safety concerns. Hourly rounding performed to ensure safe environment.
--- NOTE | 2017-08-29 23:09 | PDOC ---
Exam Note: Pradeep Note: Please also refer to the separate dictated note~for this date of service dictated separately.~Patient seen individually. Discussed the patient with Nursing staff reviewed the chart.~Reviewed interim history and current functioning. Reviewed vital signs,~Labs/ Radiology~and current medications noted below. Continue current treatment with the changes noted in the dictated addendum note Assessment: Vital Signs: Vital Signs Date Time Temp Pulse Resp B/P (MAP) Pulse Ox O2 Delivery O2 Flow Rate FiO2 08/29/17 20:00 96 Room Air 08/29/17 15:51 98.8 83 18 106/76 (86) I&O Intake and Output 08/29/17 07:00 Intake Total 1220 ml Balance 1220 ml Intake Oral 1220 ml # Bowel Movements 1 Labs: Laboratory Tests Test 08/29/17 07:27 08/29/17 11:44 08/29/17 16:46 08/29/17 19:00 Glucose (Fingerstick) 98 mg/dL (70-99) 108 mg/dL (70-99) H 145 mg/dL (70-99) H 180 mg/dL (70-99) H Current Medications: Meds: Current Medications Acetaminophen (Tylenol) 650 mg PRN Q6HRS PRN PO PAIN / TEMP; Start 08/12/17 at 05:00; Status UNV Multi-Ingredient Ointment (Analgesic [place]) 1 valery PRN QID PRN TP MUSCLE PAIN; Start 08/12/17 at 05:00; Stop 08/12/17 at 05:19; Status DC Al Hydroxide/Mg Hydroxide (Mylanta Plus Xs) 15 ml PRN AFTMEALHC PRN PO DYSPEPSIA; Start 08/12/17 at 05:00; Stop 08/12/17 at 05:19; Status DC Magnesium Hydroxide (Milk Of Magnesia) 2,400 mg PRN QHS PRN PO CONSTIPATION; Start 08/12/17 at 05:00; Stop 08/12/17 at 05:19; Status DC Vitamin D (Vitamin D3) 50,000 unit QSU PO Last administered on 08/24/17at 08:35; Start 08/17/17 at 16:00 Guaifenesin (Mucinex Er) 600 mg BID PO Last administered on 08/29/17at 20:25; Start 08/12/17 at 09:00 Albuterol/ Ipratropium (Duoneb) 3 ml TID NEB Last administered on 08/29/17 19: 59; Start 08/12/17 at 09:00 Nystatin (Nystop) 1 valery BID TP Last administered on 08/29/17 20:26; Start 08/12 at 09:00 Tamsulosin HCl (Flomax) 0.4 mg BID PO Last administered on 08/29/17 20:25; Start 08/12/17 at 09:00 Olanzapine (ZyPREXA ZYDIS) 2.5 mg PRN Q2HR PRN PO ANXIETY / AGITATION Last administered on 08/26/17 14:58; Start 08/12/17 at 05:15 Olanzapine (ZyPREXA ZYDIS) 2.5 mg QHS PO Last administered on 08/23/17 19:25; Start 08/12/17 at 21:00; Stop 08/24/17 at 15:56; Status DC Sertraline HCl (Zoloft) 50 mg DAILY PO Last administered on 08/29/17 09:00; Start 08/12/17 at 09:00 Levothyroxine Sodium (Synthroid) 125 mcg DAILY07 PO Last administered on 08:49; Start 08/12/17 at 07:00; Stop 08/12/17 at 16:58; Status DC Acetaminophen (Tylenol) 650 mg PRN Q6HRS PRN PO PAIN Last administered on 19:27; Start 08/12/17 at 05:15 Magnesium Hydroxide (Milk Of Magnesia) 2,400 mg PRN QHS PRN PO CONSTIPATION; Start 08/12/17 at 05:15 Multi-Ingredient Ointment (Analgesic [place]) 1 valery PRN QID PRN TP MUSCLE PAIN; Start 08/12/17 at 05:15 Insulin Human Lispro (HumaLOG) 5 units TIDAC SQ Last administered on 08/29/17 18:11; Start 08/12/17 at 07:30 Insulin Glargine (Lantus) 5 units DAILY SQ Last administered on 08/29/17 09:01 ; Start 08/12/17 at 09:00 Insulin Glargine (Lantus) 10 units QHS SQ Last administered on 08/29/17 20:30; Start 08/12/17 at 21:00 Al Hydroxide/Mg Hydroxide (Mylanta Plus Xs) 30 ml PRN AFTMEALHC PRN PO DYSPEPSIA; Start 08/12/17 at 05:15 Aspirin (Children'S Aspirin) 81 mg DAILY PO Last administered on 08/29/17 09:00 ; Start 08/12/17 at 09:00 Sennosides (Senna) 8.6 mg BID PO Last administered on 08/29/17 20:25; Start at 09:00 Levothyroxine Sodium (Synthroid) 125 mcg DAILY06 PO Last administered on 06:39; Start 08/13/17 at 06:00 Divalproex Sodium (Depakote Sprinkles) 125 mg 0900,1300 PO Last administered on 08/19/17 13:02; Start 08/13/17 at 09:00; Stop 08/19/17 at 19:10; Status DC Divalproex Sodium (Depakote Sprinkles) 125 mg TID PO Last administered on 20:25; Start 08/19/17 at 21:00 Trazodone HCl (Desyrel) 50 mg PRN QHS PRN PO INSOMNIA, MAY REPEAT X1 Last administered on 08/28/17 19:48; Start 08/20/17 at 18:30 Olanzapine (ZyPREXA ZYDIS) 5 mg HS PO Last administered on 08/29/17 20:25; Start 08/24/17 at 21:00 Active Scripts Active Mucinex (Guaifenesin) 600 Mg Tablet.er 600 Mg PO BID 30 Days Duoneb 0.5-3(2.5) Mg/3 Ml (Albuterol/Ipratropium) 3 Ml Ampul.neb 3 Ml NEB TID Reported Aspirin 81 Mg Tab.chew 81 Mg PO DAILY Senna Lax (Sennosides) 8.6 Mg Tablet 8.6 Mg PO BID Mag-Al Plus Xs Suspension (Mag Hydrox/Al Hydrox/Simeth) 30 Ml Oral.susp 30 Ml PO PRN AFTMEALHC PRN Zoloft (Sertraline Hcl) 50 Mg Tablet 50 Mg PO DAILY Olanzapine Odt (Olanzapine) 5 Mg Tab.rapdis 2.5 Mg PO PRN Q2HR MDD 7.5mg Olanzapine Odt (Olanzapine) 5 Mg Tab.rapdis 2.5 Mg PO QHS Nystop (Nystatin) 60 Gm Powder 1 Valery TP BID Apply to groin Analgesic [place] (Methyl Salicylate/Menthol) 28 Gm Oint...g. 1 Gm TP PRN QID PRN Milk Of Magnesia (Magnesium Hydroxide) 400 Mg/5 Ml Oral.susp 2,400 Mg PO PRN QHS PRN Novolog Flexpen (Insulin Aspart) 100 Unit/1 Ml Insuln.pen 5 Unit SQ TIDAC Levemir Flextouch (Insulin Detemir) 100 Unit/1 Ml Insuln.pen 10 Unit SQ QHS Levemir Flextouch (Insulin Detemir) 100 Unit/1 Ml Insuln.pen 5 Unit SQ DAILY D3-50 (Cholecalciferol (Vitamin D3)) 50,000 Unit Capsule 50,000 Unit PO QSU Tylenol (Acetaminophen) 325 Mg Tablet 650 Mg PO PRN Q6HRS PRN Levothyroxine Sodium 125 Mcg Tablet 1 Tab PO DAILY Flomax (Tamsulosin Hcl) 0.4 Mg Cap.er.24h 1 Cap PO BID I have reviewed the current psychotropics carefully including drug interactions. Risk benefit ratio favors no change other than as noted in my dictated progress note. 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
[2017-08-30 05:36] VITALS: BP 104/72
[2017-08-30] MEDS: LEVOTHYROXINE 125 MCG TABLET PO SCH (06:00)
[2017-08-30] MEDS: IPRATRPIUM/ALBUTEROL 0.5/2.5MG 3 ML NEBU. NEB SCH ×3 (06:03→20:32)
[2017-08-30] MEDS: INSULIN LISPRO 300 UNITS/3 ML INSULN.PEN. SQ SCH ×3 (07:30→17:25)
[2017-08-30] MEDS: ASPIRIN 81 MG TAB.CHEW PO SCH (08:08)
[2017-08-30] MEDS: TAMSULOSIN 0.4 MG CAP.ER.24H. PO SCH ×2 (08:08→20:31)
[2017-08-30] MEDS: SENNOSIDES 8.6 MG TABLET PO SCH ×2 (08:08→20:31)
[2017-08-30] MEDS: SERTRALINE 50 MG TABLET. PO SCH (08:08)
[2017-08-30] MEDS: DIVALPROEX 125 MG CAP.SPRINK PO SCH ×3 (08:08→20:31)
[2017-08-30] MEDS: INSULIN GLARGINE 300 UNITS/3 ML INSULN.PEN. SQ SCH ×2 (08:10→20:38)
[2017-08-30] MEDS: NYSTATIN TOPICAL POWDER 15GM BOTTLE. TP SCH ×2 (09:32→21:00)
[2017-08-30 09:43] LABS: BASO # 0.1 x10^3/uL (0.0-0.2); BASO % 1 % (0-3); EOS # 0.5 x10^3/uL (0.0-0.7); EOS % 6 % (0-3); HEMATOCRIT 39.1 % (39.0-53.0); HEMOGLOBIN 13.1 g/dL (13.0-17.5); LYMPH # 1.3 x10^3/uL (1.0-4.8); LYMPH % 15 % (24-48); MEAN CORPUSCULAR HEMOGLOBIN 32 pg (25-35); MEAN CORPUSCULAR HGB CONC 33 g/dL (31-37); MEAN CORPUSCULAR VOLUME 94 fL (79-100); MONO # 0.8 x10^3/uL (0.0-1.1); MONO % 9 % (0-9); NEUT # 5.7 x10^3uL (1.8-7.7); NEUT % 69 % (31-73); PLATELET COUNT 202 x10^3/uL (140-400); RED BLOOD COUNT 4.14 x10^6/uL (4.30-5.70); RED CELL DISTRIBUTION WIDTH 14.7 % (11.5-14.5); WHITE BLOOD COUNT 8.3 x10^3/uL (4.0-11.0)
[2017-08-30 09:58] LABS: ALBUMIN 3.1 g/dL (3.4-5.0); ALBUMIN/GLOBULIN RATIO 0.7 (1.0-1.7); CALCIUM 8.8 mg/dL (8.5-10.1); CREATININE 1.3 mg/dL (0.7-1.3); GFR 52.2; TOTAL BILIRUBIN 0.5 mg/dL (0.2-1.0); TOTAL PROTEIN 7.4 g/dL (6.4-8.2)
--- NOTE | 2017-08-30 10:50 | NUR ---
Behavior Intervention Response and Plan: BIRP Note: Behavior: Assumed Care of patient, patient located in Day Room at shift change. Patient exhibited the following behavior Restless, Disorganized, Compulsive. Brief assessment on rounds of vital signs, medication needs, lab studies, and pain. Treatment plan problems 1 & 2. Intervention: Patient assessed and the following interventions initiated safety checks 15 Minute Checks Cognitive Assessment , Head to toe Assessment , Medications. Response: After interactions and interventions patient responded in the following manner, Calm , Appropriate ,Compliant. Continue to assess behaviors and condition will continue to monitor throughout the shift as needed. Patient educated on ADL's, and hand hygiene. 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 Continue to assess patient for changes in above assessment. Monitor for medication needs, pain, and safety concerns. Hourly rounding performed to ensure safe environment.
--- NOTE | 2017-08-30 12:41 | PN ---
DATE: 08/29/2017 This late entry, 08/29/2017, covers elements not covered in my initial note of 08/29/2017. SUBJECTIVE: I met with the patient in the evening. The patient remains confused, somewhat anxious, restless, but not aggressive. REVIEW OF SYSTEMS: Ambulation impaired, in wheelchair. No CV, , pulmonary, eye, ENT system symptoms on review, somewhat hard of hearing. MENTAL STATUS EXAM: Oriented to himself. Insight, judgment, recent and remote memory, attention, concentration, and fund of knowledge poor, consistent with his diagnosis mentioned in my initial note. IMPRESSION: Major neurocognitive disorder, Alzheimer, vascular with delusion, depression, behavioral disturbance. PLAN: Continue psychotropics from my initial note including Zoloft, Depakote, Zyprexa, and trazodone, the latter two p.r.n. MAN Kwabena PADILLA MD DR: AMY/treasure JOB#: [id number] / [id number]
--- NOTE | 2017-08-30 16:05 | NUR ---
Earlier patient was found in another patient's room lying on the ground after setting off his chair alarm. When asked what had happened, he stated that he was trying to reach for the railing in the bathroom and slid out of his chair. Because he could not stand up on his own, he just laid down. Patient denied any pain at that time. No s/sx of trauma (neg DCAP BTLS) noted at that time. Patient is now telling his that he had a huge fall and was really banged up. Will continue to monitor behaviours.
[2017-08-30 16:12] VITALS: BP 139/70
--- NOTE | 2017-08-30 20:00 | NUR ---
Behavior Intervention Response and Plan: BIRP Note: Behavior: Assumed Care of patient, patient located in Patient Room at shift change. Patient exhibited the following behavior Disorganized, Cooperative, Drowsy. Brief assessment on rounds of vital signs, medication needs, lab studies, and pain. Treatment plan problems . Intervention: Patient assessed and the following interventions initiated safety checks 15 Minute Checks Cognitive Assessment , Head to toe Assessment , Medications. Response: After interactions and interventions patient responded in the following manner, Compliant , Calm ,Cooperative. Continue to assess behaviors and condition will continue to monitor throughout the shift as needed. Patient educated on ADL's, and hand hygiene. Plan: Continue to monitor Master Treatment Plan for patient's progress toward short term goals of Decreased Agitation, Decreased Anxiety, residential goals to return to previous living setting vs placement. Continue to assess patient for changes in above assessment. Monitor for medication needs, pain, and safety concerns. Hourly rounding performed to ensure safe environment.
[2017-08-31] MEDS: LEVOTHYROXINE 125 MCG TABLET PO SCH (05:29)
[2017-08-31 05:34] VITALS: BP 103/73
[2017-08-31] MEDS: IPRATRPIUM/ALBUTEROL 0.5/2.5MG 3 ML NEBU. NEB SCH ×3 (06:29→20:24)
[2017-08-31] MEDS: ASPIRIN 81 MG TAB.CHEW PO SCH (08:24)
[2017-08-31] MEDS: SENNOSIDES 8.6 MG TABLET PO SCH ×2 (08:24→20:15)
[2017-08-31] MEDS: SERTRALINE 50 MG TABLET. PO SCH (08:24)
[2017-08-31] MEDS: DIVALPROEX 125 MG CAP.SPRINK PO SCH ×3 (08:24→20:14)
[2017-08-31] MEDS: TAMSULOSIN 0.4 MG CAP.ER.24H. PO SCH ×2 (08:24→20:14)
[2017-08-31] MEDS: INSULIN LISPRO 300 UNITS/3 ML INSULN.PEN. SQ SCH ×3 (08:28→17:29)
[2017-08-31] MEDS: INSULIN GLARGINE 300 UNITS/3 ML INSULN.PEN. SQ SCH ×2 (08:31→20:19)
[2017-08-31] MEDS: NYSTATIN TOPICAL POWDER 15GM BOTTLE. TP SCH ×2 (09:00→20:20)
--- NOTE | 2017-08-31 11:38 | NUR ---
Behavior Intervention Response and Plan: BIRP Note: Behavior: Assumed Care of patient, patient located in Day Room at shift change. Patient exhibited the following behavior cooperative, Disorganized, calm. Brief assessment on rounds of vital signs, medication needs, lab studies, and pain. Treatment plan problems 1 & 2. Intervention: Patient assessed and the following interventions initiated safety checks 15 Minute Checks Cognitive Assessment , Head to toe Assessment , Medications. Response: After interactions and interventions patient responded in the following manner, Calm , Appropriate ,Compliant. Continue to assess behaviors and condition will continue to monitor throughout the shift as needed. Patient educated on ADL's, and hand hygiene. 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 Continue to assess patient for changes in above assessment. Monitor for medication needs, pain, and safety concerns. Hourly rounding performed to ensure safe environment.
[2017-08-31 16:27] VITALS: BP 116/56
[2017-08-31] MEDS: CHOLECALCIFEROL (VITAMIN D3) 50,000 UNIT CAPSULE PO SCH (17:31)
--- NOTE | 2017-08-31 20:00 | NUR ---
Behavior Intervention Response and Plan: BIRP Note: Behavior: Assumed Care of patient, patient located in Day Room at shift change. Patient exhibited the following behavior Interactive, Disorganized, Cooperative. Brief assessment on rounds of vital signs, medication needs, lab studies, and pain. Treatment plan problems . Intervention: Patient assessed and the following interventions initiated safety checks 15 Minute Checks Cognitive Assessment , Head to toe Assessment , Medications. Response: After interactions and interventions patient responded in the following manner, Cooperative , Calm ,Cooperative. Continue to assess behaviors and condition will continue to monitor throughout the shift as needed. Patient educated on ADL's, and hand hygiene. 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 Continue to assess patient for changes in above assessment. Monitor for medication needs, pain, and safety concerns. Hourly rounding performed to ensure safe environment.
--- NOTE | 2017-08-31 20:08 | PDOC ---
Exam Note: Pradeep Note: Please also refer to the separate dictated note~for this date of service dictated separately.~Patient seen individually. Discussed the patient with Nursing staff reviewed the chart.~Reviewed interim history and current functioning. Reviewed vital signs,~Labs/ Radiology~and current medications noted below. Continue current treatment with the changes noted in the dictated addendum note Assessment: Vital Signs: Vital Signs Date Time Temp Pulse Resp B/P (MAP) Pulse Ox O2 Delivery O2 Flow Rate FiO2 08/31/17 16:27 97.3 64 20 116/56 (76) 96 08/31/17 10:34 Room Air I&O Intake and Output 08/31/17 07:00 Intake Total 1200 ml Balance 1200 ml Intake Oral 1200 ml # Voids 3 # Bowel Movements 1 Labs: Laboratory Tests Test 08/31/17 07:56 08/31/17 11:53 08/31/17 16:40 Glucose (Fingerstick) 78 mg/dL (70-99) 52 mg/dL (70-99) L 182 mg/dL (70-99) H Current Medications: Meds: Current Medications Acetaminophen (Tylenol) 650 mg PRN Q6HRS PRN PO PAIN / TEMP; Start 08/12/17 at 05:00; Status UNV Multi-Ingredient Ointment (Analgesic [place]) 1 valery PRN QID PRN TP MUSCLE PAIN; Start 08/12/17 at 05:00; Stop 08/12/17 at 05:19; Status DC Al Hydroxide/Mg Hydroxide (Mylanta Plus Xs) 15 ml PRN AFTMEALHC PRN PO DYSPEPSIA; Start 08/12/17 at 05:00; Stop 08/12/17 at 05:19; Status DC Magnesium Hydroxide (Milk Of Magnesia) 2,400 mg PRN QHS PRN PO CONSTIPATION; Start 08/12/17 at 05:00; Stop 08/12/17 at 05:19; Status DC Vitamin D (Vitamin D3) 50,000 unit QSU PO Last administered on 08/31/17at 17:31 ; Start 08/17/17 at 16:00 Guaifenesin (Mucinex Er) 600 mg BID PO Last administered on 08/31/17at 08:24; Start 08/12/17 at 09:00 Albuterol/ Ipratropium (Duoneb) 3 ml TID NEB Last administered on 08/31/17 10: 33; Start 08/12/17 at 09:00 Nystatin (Nystop) 1 valery BID TP Last administered on 08/31/17 09:00; Start at 09:00 Tamsulosin HCl (Flomax) 0.4 mg BID PO Last administered on 08/31/17 08:24; Start 08/12/17 at 09:00 Olanzapine (ZyPREXA ZYDIS) 2.5 mg PRN Q2HR PRN PO ANXIETY / AGITATION Last administered on 08/30/17 13:48; Start 08/12/17 at 05:15 Olanzapine (ZyPREXA ZYDIS) 2.5 mg QHS PO Last administered on 08/23/17 19:25; Start 08/12/17 at 21:00; Stop 08/24/17 at 15:56; Status DC Sertraline HCl (Zoloft) 50 mg DAILY PO Last administered on 08/31/17 08:24; Start 08/12/17 at 09:00 Levothyroxine Sodium (Synthroid) 125 mcg DAILY07 PO Last administered on 08:49; Start 08/12/17 at 07:00; Stop 08/12/17 at 16:58; Status DC Acetaminophen (Tylenol) 650 mg PRN Q6HRS PRN PO PAIN Last administered on 19:27; Start 08/12/17 at 05:15 Magnesium Hydroxide (Milk Of Magnesia) 2,400 mg PRN QHS PRN PO CONSTIPATION; Start 08/12/17 at 05:15 Multi-Ingredient Ointment (Analgesic [place]) 1 valery PRN QID PRN TP MUSCLE PAIN; Start 08/12/17 at 05:15 Insulin Human Lispro (HumaLOG) 5 units TIDAC SQ Last administered on 08/31/17 17:29; Start 08/12/17 at 07:30 Insulin Glargine (Lantus) 5 units DAILY SQ Last administered on 08/31/17 08:31 ; Start 08/12/17 at 09:00 Insulin Glargine (Lantus) 10 units QHS SQ Last administered on 08/30/17at 20:38; Start 08/12/17 at 21:00 Al Hydroxide/Mg Hydroxide (Mylanta Plus Xs) 30 ml PRN AFTMEALHC PRN PO DYSPEPSIA; Start 08/12/17 at 05:15 Aspirin (Children'S Aspirin) 81 mg DAILY PO Last administered on 08/31/17at 08: 24; Start 08/12/17 at 09:00 Sennosides (Senna) 8.6 mg BID PO Last administered on 08/31/17at 08:24; Start at 09:00 Levothyroxine Sodium (Synthroid) 125 mcg DAILY06 PO Last administered on at 05:29; Start 08/13/17 at 06:00 Divalproex Sodium (Depakote Sprinkles) 125 mg 0900,1300 PO Last administered on 08/19/17at 13:02; Start 08/13/17 at 09:00; Stop 08/19/17 at 19:10; Status DC Divalproex Sodium (Depakote Sprinkles) 125 mg TID PO Last administered on at 14:44; Start 08/19/17 at 21:00 Trazodone HCl (Desyrel) 50 mg PRN QHS PRN PO INSOMNIA, MAY REPEAT X1 Last administered on 08/28/17 19:48; Start 08/20/17 at 18:30 Olanzapine (ZyPREXA ZYDIS) 5 mg HS PO Last administered on 08/30/17at 20:31; Start 08/24/17 at 21:00 Active Scripts Active Mucinex (Guaifenesin) 600 Mg Tablet.er 600 Mg PO BID 30 Days Duoneb 0.5-3(2.5) Mg/3 Ml (Albuterol/Ipratropium) 3 Ml Ampul.neb 3 Ml NEB TID Reported Aspirin 81 Mg Tab.chew 81 Mg PO DAILY Senna Lax (Sennosides) 8.6 Mg Tablet 8.6 Mg PO BID Mag-Al Plus Xs Suspension (Mag Hydrox/Al Hydrox/Simeth) 30 Ml Oral.susp 30 Ml PO PRN AFTMEALHC PRN Zoloft (Sertraline Hcl) 50 Mg Tablet 50 Mg PO DAILY Olanzapine Odt (Olanzapine) 5 Mg Tab.rapdis 2.5 Mg PO PRN Q2HR MDD 7.5mg Olanzapine Odt (Olanzapine) 5 Mg Tab.rapdis 2.5 Mg PO QHS Nystop (Nystatin) 60 Gm Powder 1 Valery TP BID Apply to groin Analgesic [place] (Methyl Salicylate/Menthol) 28 Gm Oint...g. 1 Gm TP PRN QID PRN Milk Of Magnesia (Magnesium Hydroxide) 400 Mg/5 Ml Oral.susp 2,400 Mg PO PRN QHS PRN Novolog Flexpen (Insulin Aspart) 100 Unit/1 Ml Insuln.pen 5 Unit SQ TIDAC Levemir Flextouch (Insulin Detemir) 100 Unit/1 Ml Insuln.pen 10 Unit SQ QHS Levemir Flextouch (Insulin Detemir) 100 Unit/1 Ml Insuln.pen 5 Unit SQ DAILY D3-50 (Cholecalciferol (Vitamin D3)) 50,000 Unit Capsule 50,000 Unit PO QSU Tylenol (Acetaminophen) 325 Mg Tablet 650 Mg PO PRN Q6HRS PRN Levothyroxine Sodium 125 Mcg Tablet 1 Tab PO DAILY Flomax (Tamsulosin Hcl) 0.4 Mg Cap.er.24h 1 Cap PO BID I have reviewed the current psychotropics carefully including drug interactions. Risk benefit ratio favors no change other than as noted in my dictated progress note. 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
--- NOTE | 2017-08-31 20:08 | PDOC ---
Exam Note: Pradeep Note: Late entry for date of service August 30, 2017. Please also refer to the separate dictated note~for this date of service dictated separately.~Patient seen individually. Discussed the patient with Nursing staff reviewed the chart.~ Reviewed interim history and current functioning. Reviewed vital signs,~Labs/ Radiology~and current medications noted below. Continue current treatment with the changes noted in the dictated addendum note Assessment: Vital Signs: VS - Last 72 Hours, by Label Date Time Temp Pulse Resp B/P (MAP) Pulse Ox O2 Delivery O2 Flow Rate FiO2 08/31/17 16:27 97.3 64 20 116/56 (76) 96 08/31/17 10:34 94 Room Air 08/31/17 05:34 98.1 80 18 103/73 (83) 93 08/30/17 20:30 96 Room Air 08/30/17 16:12 98.4 69 18 139/70 (93) 97 08/30/17 11:40 94 Room Air 08/30/17 06:05 95 Room Air 08/30/17 05:36 98.4 77 20 104/72 (83) 98 08/29/17 20:00 96 Room Air 08/29/17 15:51 98.8 83 18 106/76 (86) 94 08/29/17 09:56 93 Room Air 08/29/17 06:30 98 Room Air 08/29/17 05:43 98.5 72 20 130/58 (82) 95 Vital Signs Date Time Temp Pulse Resp B/P (MAP) Pulse Ox O2 Delivery O2 Flow Rate FiO2 08/31/17 16:27 97.3 64 20 116/56 (76) 96 08/31/17 10:34 Room Air I&O Intake and Output 08/31/17 07:00 Intake Total 1200 ml Balance 1200 ml Intake Oral 1200 ml # Voids 3 # Bowel Movements 1 Labs: Laboratory Tests Test 08/31/17 07:56 08/31/17 11:53 08/31/17 16:40 Glucose (Fingerstick) 78 mg/dL (70-99) 52 mg/dL (70-99) L 182 mg/dL (70-99) H Current Medications: Meds: Current Medications Acetaminophen (Tylenol) 650 mg PRN Q6HRS PRN PO PAIN / TEMP; Start 08/12/17 at 05:00; Status UNV Multi-Ingredient Ointment (Analgesic [place]) 1 valery PRN QID PRN TP MUSCLE PAIN; Start 08/12/17 at 05:00; Stop 08/12/17 at 05:19; Status DC Al Hydroxide/Mg Hydroxide (Mylanta Plus Xs) 15 ml PRN AFTMEALHC PRN PO DYSPEPSIA; Start 08/12/17 at 05:00; Stop 08/12/17 at 05:19; Status DC Magnesium Hydroxide (Milk Of Magnesia) 2,400 mg PRN QHS PRN PO CONSTIPATION; Start 08/12/17 at 05:00; Stop 08/12/17 at 05:19; Status DC Vitamin D (Vitamin D3) 50,000 unit QSU PO Last administered on 08/31/17 17:31 ; Start 08/17/17 at 16:00 Guaifenesin (Mucinex Er) 600 mg BID PO Last administered on 08/31/17 08:24; Start 08/12/17 at 09:00 Albuterol/ Ipratropium (Duoneb) 3 ml TID NEB Last administered on 08/31/17 10: 33; Start 08/12/17 at 09:00 Nystatin (Nystop) 1 valery BID TP Last administered on 08/31/17 09:00; Start at 09:00 Tamsulosin HCl (Flomax) 0.4 mg BID PO Last administered on 08/31/17 08:24; Start 08/12/17 at 09:00 Olanzapine (ZyPREXA ZYDIS) 2.5 mg PRN Q2HR PRN PO ANXIETY / AGITATION Last administered on 08/30/17at 13:48; Start 08/12/17 at 05:15 Olanzapine (ZyPREXA ZYDIS) 2.5 mg QHS PO Last administered on 08/23/17 19:25; Start 08/12/17 at 21:00; Stop 08/24/17 at 15:56; Status DC Sertraline HCl (Zoloft) 50 mg DAILY PO Last administered on 08/31/17at 08:24; Start 08/12/17 at 09:00 Levothyroxine Sodium (Synthroid) 125 mcg DAILY07 PO Last administered on at 08:49; Start 08/12/17 at 07:00; Stop 08/12/17 at 16:58; Status DC Acetaminophen (Tylenol) 650 mg PRN Q6HRS PRN PO PAIN Last administered on 19:27; Start 08/12/17 at 05:15 Magnesium Hydroxide (Milk Of Magnesia) 2,400 mg PRN QHS PRN PO CONSTIPATION; Start 08/12/17 at 05:15 Multi-Ingredient Ointment (Analgesic [place]) 1 valery PRN QID PRN TP MUSCLE PAIN; Start 08/12/17 at 05:15 Insulin Human Lispro (HumaLOG) 5 units TIDAC SQ Last administered on 08/31/17 17:29; Start 08/12/17 at 07:30 Insulin Glargine (Lantus) 5 units DAILY SQ Last administered on 08/31/17 08:31 ; Start 08/12/17 at 09:00 Insulin Glargine (Lantus) 10 units QHS SQ Last administered on 08/30/17 20:38; Start 08/12/17 at 21:00 Al Hydroxide/Mg Hydroxide (Mylanta Plus Xs) 30 ml PRN AFTMEALHC PRN PO DYSPEPSIA; Start 08/12/17 at 05:15 Aspirin (Children'S Aspirin) 81 mg DAILY PO Last administered on 08/31/17 08: 24; Start 08/12/17 at 09:00 Sennosides (Senna) 8.6 mg BID PO Last administered on 08/31/17 08:24; Start at 09:00 Levothyroxine Sodium (Synthroid) 125 mcg DAILY06 PO Last administered on 05:29; Start 08/13/17 at 06:00 Divalproex Sodium (Depakote Sprinkles) 125 mg 0900,1300 PO Last administered on 08/19/17 13:02; Start 08/13/17 at 09:00; Stop 08/19/17 at 19:10; Status DC Divalproex Sodium (Depakote Sprinkles) 125 mg TID PO Last administered on at 14:44; Start 08/19/17 at 21:00 Trazodone HCl (Desyrel) 50 mg PRN QHS PRN PO INSOMNIA, MAY REPEAT X1 Last administered on 08/28/17at 19:48; Start 08/20/17 at 18:30 Olanzapine (ZyPREXA ZYDIS) 5 mg HS PO Last administered on 08/30/17at 20:31; Start 08/24/17 at 21:00 Active Scripts Active Mucinex (Guaifenesin) 600 Mg Tablet.er 600 Mg PO BID 30 Days Duoneb 0.5-3(2.5) Mg/3 Ml (Albuterol/Ipratropium) 3 Ml Ampul.neb 3 Ml NEB TID Reported Aspirin 81 Mg Tab.chew 81 Mg PO DAILY Senna Lax (Sennosides) 8.6 Mg Tablet 8.6 Mg PO BID Mag-Al Plus Xs Suspension (Mag Hydrox/Al Hydrox/Simeth) 30 Ml Oral.susp 30 Ml PO PRN AFTMEALHC PRN Zoloft (Sertraline Hcl) 50 Mg Tablet 50 Mg PO DAILY Olanzapine Odt (Olanzapine) 5 Mg Tab.rapdis 2.5 Mg PO PRN Q2HR MDD 7.5mg Olanzapine Odt (Olanzapine) 5 Mg Tab.rapdis 2.5 Mg PO QHS Nystop (Nystatin) 60 Gm Powder 1 Valery TP BID Apply to groin Analgesic [place] (Methyl Salicylate/Menthol) 28 Gm Oint...g. 1 Gm TP PRN QID PRN Milk Of Magnesia (Magnesium Hydroxide) 400 Mg/5 Ml Oral.susp 2,400 Mg PO PRN QHS PRN Novolog Flexpen (Insulin Aspart) 100 Unit/1 Ml Insuln.pen 5 Unit SQ TIDAC Levemir Flextouch (Insulin Detemir) 100 Unit/1 Ml Insuln.pen 10 Unit SQ QHS Levemir Flextouch (Insulin Detemir) 100 Unit/1 Ml Insuln.pen 5 Unit SQ DAILY D3-50 (Cholecalciferol (Vitamin D3)) 50,000 Unit Capsule 50,000 Unit PO QSU Tylenol (Acetaminophen) 325 Mg Tablet 650 Mg PO PRN Q6HRS PRN Levothyroxine Sodium 125 Mcg Tablet 1 Tab PO DAILY Flomax (Tamsulosin Hcl) 0.4 Mg Cap.er.24h 1 Cap PO BID I have reviewed the current psychotropics carefully including drug interactions. Risk benefit ratio favors no change other than as noted in my dictated progress note. 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
[2017-09-01] MEDS ORDERED: DIVA125C PO (01:24)
[2017-09-01] MEDS ORDERED: TRAZ50TA15 PO (01:26)
[2017-09-01] MEDS: LEVOTHYROXINE 125 MCG TABLET PO SCH (05:55)
[2017-09-01 06:04] VITALS: BP 109/50
[2017-09-01] MEDS: IPRATRPIUM/ALBUTEROL 0.5/2.5MG 3 ML NEBU. NEB SCH ×2 (07:01→10:26)
[2017-09-01] MEDS: INSULIN LISPRO 300 UNITS/3 ML INSULN.PEN. SQ SCH (07:30)
--- NOTE | 2017-09-01 07:49 | NUR ---
[facility] Social Work Discharge Planning Form Patient Name GUCCI FONTANEZ Admit Date: 08/12/17 DISCHARGE PLAN Discharge Destination: [facility] Care Assessment: Completed Level II Assessment: Does not trigger Transportation: 11am Special Instructions/Notes: DISCHARGE TO FACILITY Facility: [facility] [address] Contact Name: KIZZY GARCIA, Other: Sona PCP:at facility Psychiatrist: at facility Psychiatrist/Mental Health Follow Up 7-10 days Primary Care Follow Up 7-10 days
[2017-09-01] MEDS: DIVALPROEX 125 MG CAP.SPRINK PO SCH (08:01)
[2017-09-01] MEDS: ASPIRIN 81 MG TAB.CHEW PO SCH (08:01)
[2017-09-01] MEDS: SERTRALINE 50 MG TABLET. PO SCH (08:01)
[2017-09-01] MEDS: TAMSULOSIN 0.4 MG CAP.ER.24H. PO SCH (08:01)
[2017-09-01] MEDS: SENNOSIDES 8.6 MG TABLET PO SCH (08:01)
[2017-09-01] MEDS: INSULIN GLARGINE 300 UNITS/3 ML INSULN.PEN. SQ SCH (08:04)
[2017-09-01] MEDS: NYSTATIN TOPICAL POWDER 15GM BOTTLE. TP SCH (08:05)
--- NOTE | 2017-09-01 12:10 | NUR ---
Behavior Intervention Response and Plan: BIRP Note: Behavior: Assumed Care of patient, patient located in Hallway at shift change. Patient exhibited the following behavior Disorganized, Calm, Cooperative. Brief assessment on rounds of vital signs, medication needs, lab studies, and pain. Treatment plan problems 1-2. Intervention: Patient assessed and the following interventions initiated safety checks 15 Minute Checks Personal Alarm in place , Cognitive Assessment , Head to toe Assessment. Response: After interactions and interventions patient responded in the following manner, Disorganized , Cooperative ,Drowsy. Continue to assess behaviors and condition will continue to monitor throughout the shift as needed. Patient educated on ADL's, and hand hygiene. Plan: Continue to monitor Master Treatment Plan for patient's progress toward short term goals of Decreased Agitation, Decreased Aggression, terminal gauger goals to return to previous living setting vs placement. Continue to assess patient for changes in above assessment. Monitor for medication needs, pain, and safety concerns. Hourly rounding performed to ensure safe environment.
--- NOTE | 2017-09-01 12:11 | NUR ---
Transition Record was faxed to follow-up provider with the following elements: Reason for admission, procedures, tests, principal diagnosis, pending studies, patient instructions, 14/10 contact information for unit, phone number to obtain pending test results, plan for follow-up care, physician follow-up, advanced directive information, and medication list with dose, duration and instructions. This information was included in the following documents: History and physical, lab results, study results, progress notes, social work planning form, DC instruction form, patient visit summary, and medication reconciliation form. Date & time record faxed:09/01/17 [id number] Record faxed to:[facility] Care Record discussed with/ report given to: Samantha
--- NOTE | 2017-09-01 12:56 | PN ---
DATE: 08/30/2017 PSYCHIATRIC PROGRESS NOTE This is a late entry 08/30/2017, covers elements not covered in my initial note 08/30/2017. SUBJECTIVE: I met with the patient in the evening. The patient is irritable at times, but redirects. Labs are unremarkable. REVIEW OF SYSTEMS: No CV, , pulmonary, eye, ENT system symptoms on review. Gait unsteady, in wheelchair. MENTAL STATUS EXAM: Oriented to himself. Insight, judgment, recent and remote memory, attention, concentration, fund of knowledge poor, consistent with his diagnoses from initial note. PLAN: Continue current psychotropics. Adjust as indicated. MAN Kwabena PADILLA MD DR: AMY/treasure JOB#: [id number] / [id number]
--- NOTE | 2017-09-01 18:24 | PDOC ---
Exam Note: Pradeep Note: Please also refer to the separate dictated note~for this date of service dictated separately.~Patient seen individually. Discussed the patient with Nursing staff reviewed the chart.~Reviewed interim history and current functioning. Reviewed vital signs,~Labs/ Radiology~and current medications noted below. Continue current treatment with the changes noted in the dictated addendum note Assessment: Vital Signs: Vital Signs Date Time Temp Pulse Resp B/P (MAP) Pulse Ox O2 Delivery O2 Flow Rate FiO2 09/01/17 06:04 98.4 70 18 109/50 (69) 96 08/31/17 20:25 Room Air I&O Intake and Output 09/01/17 07:00 Intake Total 845 ml Balance 845 ml Intake Oral 845 ml # Voids 2 # Bowel Movements 1 Labs: Laboratory Tests Test 08/31/17 20:14 09/01/17 07:23 Glucose (Fingerstick) 164 mg/dL (70-99) H 106 mg/dL (70-99) H Current Medications: Meds: Current Medications Acetaminophen (Tylenol) 650 mg PRN Q6HRS PRN PO PAIN / TEMP; Start 08/12/17 at 05:00; Status UNV Multi-Ingredient Ointment (Analgesic [place]) 1 valery PRN QID PRN TP MUSCLE PAIN; Start 08/12/17 at 05:00; Stop 08/12/17 at 05:19; Status DC Al Hydroxide/Mg Hydroxide (Mylanta Plus Xs) 15 ml PRN AFTMEALHC PRN PO DYSPEPSIA; Start 08/12/17 at 05:00; Stop 08/12/17 at 05:19; Status DC Magnesium Hydroxide (Milk Of Magnesia) 2,400 mg PRN QHS PRN PO CONSTIPATION; Start 08/12/17 at 05:00; Stop 08/12/17 at 05:19; Status DC Vitamin D (Vitamin D3) 50,000 unit QSU PO Last administered on 08/31/17at 17:31 ; Start 08/17/17 at 16:00; Stop 09/01/17 at 12:13; Status DC Guaifenesin (Mucinex Er) 600 mg BID PO Last administered on 09/01/17at 08:01; Start 08/12/17 at 09:00; Stop 09/01/17 at 12:13; Status DC Albuterol/ Ipratropium (Duoneb) 3 ml TID NEB Last administered on 08/31/17 20: 24; Start 08/12/17 at 09:00; Stop 09/01/17 at 12:13; Status DC Nystatin (Nystop) 1 valery BID TP Last administered on 08/31/17at 20:20; Start at 09:00; Stop 09/01/17 at 12:13; Status DC Tamsulosin HCl (Flomax) 0.4 mg BID PO Last administered on 09/01/17at 08:01; Start 08/12/17 at 09:00; Stop 09/01/17 at 12:13; Status DC Olanzapine (ZyPREXA ZYDIS) 2.5 mg PRN Q2HR PRN PO ANXIETY / AGITATION Last administered on 08/30/17at 13:48; Start 08/12/17 at 05:15; Stop 09/01/17 at 12:13 ; Status DC Olanzapine (ZyPREXA ZYDIS) 2.5 mg QHS PO Last administered on 08/23/17 19:25; Start 08/12/17 at 21:00; Stop 08/24/17 at 15:56; Status DC Sertraline HCl (Zoloft) 50 mg DAILY PO Last administered on 09/01/17 08:01; Start 08/12/17 at 09:00; Stop 09/01/17 at 12:13; Status DC Levothyroxine Sodium (Synthroid) 125 mcg DAILY07 PO Last administered on at 08:49; Start 08/12/17 at 07:00; Stop 08/12/17 at 16:58; Status DC Acetaminophen (Tylenol) 650 mg PRN Q6HRS PRN PO PAIN Last administered on 19:27; Start 08/12/17 at 05:15; Stop 09/01/17 at 12:13; Status DC Magnesium Hydroxide (Milk Of Magnesia) 2,400 mg PRN QHS PRN PO CONSTIPATION; Start 08/12/17 at 05:15; Stop 09/01/17 at 12:13; Status DC Multi-Ingredient Ointment (Analgesic [place]) 1 valery PRN QID PRN TP MUSCLE PAIN; Start 08/12/17 at 05:15; Stop 09/01/17 at 12:13; Status DC Insulin Human Lispro (HumaLOG) 5 units TIDAC SQ Last administered on 08/31/17at 17:29; Start 08/12/17 at 07:30; Stop 09/01/17 at 12:13; Status DC Insulin Glargine (Lantus) 5 units DAILY SQ Last administered on 09/01/17at 08:04 ; Start 08/12/17 at 09:00; Stop 09/01/17 at 12:13; Status DC Insulin Glargine (Lantus) 10 units QHS SQ Last administered on 08/31/17at 20:19 ; Start 08/12/17 at 21:00; Stop 09/01/17 at 12:13; Status DC Al Hydroxide/Mg Hydroxide (Mylanta Plus Xs) 30 ml PRN AFTMEALHC PRN PO DYSPEPSIA; Start 08/12/17 at 05:15; Stop 09/01/17 at 12:13; Status DC Aspirin (Children'S Aspirin) 81 mg DAILY PO Last administered on 09/01/17at 08: 01; Start 08/12/17 at 09:00; Stop 09/01/17 at 12:13; Status DC Sennosides (Senna) 8.6 mg BID PO Last administered on 09/01/17at 08:01; Start at 09:00; Stop 09/01/17 at 12:13; Status DC Levothyroxine Sodium (Synthroid) 125 mcg DAILY06 PO Last administered on at 05:55; Start 08/13/17 at 06:00; Stop 09/01/17 at 12:13; Status DC Divalproex Sodium (Depakote Sprinkles) 125 mg 0900,1300 PO Last administered on 08/19/17at 13:02; Start 08/13/17 at 09:00; Stop 08/19/17 at 19:10; Status DC Divalproex Sodium (Depakote Sprinkles) 125 mg TID PO Last administered on at 08:01; Start 08/19/17 at 21:00; Stop 09/01/17 at 12:13; Status DC Trazodone HCl (Desyrel) 50 mg PRN QHS PRN PO INSOMNIA, MAY REPEAT X1 Last administered on 08/28/17at 19:48; Start 08/20/17 at 18:30; Stop 09/01/17 at 12:13 ; Status DC Olanzapine (ZyPREXA ZYDIS) 5 mg HS PO Last administered on 08/31/17at 20:15; Start 08/24/17 at 21:00; Stop 09/01/17 at 12:13; Status DC Active Scripts Active Mucinex (Guaifenesin) 600 Mg Tablet.er 600 Mg PO BID 30 Days Duoneb 0.5-3(2.5) Mg/3 Ml (Albuterol/Ipratropium) 3 Ml Ampul.neb 3 Ml NEB TID Reported Trazodone Hcl 50 Mg Tablet 50 Mg PO PRN QHS PRN Depakote Sprinkle (Divalproex Sodium) 125 Mg Cap.sprink 125 Mg PO TID Aspirin 81 Mg Tab.chew 81 Mg PO DAILY Senna Lax (Sennosides) 8.6 Mg Tablet 8.6 Mg PO BID Mag-Al Plus Xs Suspension (Mag Hydrox/Al Hydrox/Simeth) 30 Ml Oral.susp 30 Ml PO PRN AFTMEALHC PRN Zoloft (Sertraline Hcl) 50 Mg Tablet 50 Mg PO DAILY Olanzapine Odt (Olanzapine) 5 Mg Tab.rapdis 2.5 Mg PO PRN Q2HR MDD 7.5mg Olanzapine Odt (Olanzapine) 5 Mg Tab.rapdis 5 Mg PO QHS Nystop (Nystatin) 60 Gm Powder 1 Valery TP BID Apply to groin Analgesic [place] (Methyl Salicylate/Menthol) 28 Gm Oint...g. 1 Gm TP PRN QID PRN Milk Of Magnesia (Magnesium Hydroxide) 400 Mg/5 Ml Oral.susp 2,400 Mg PO PRN QHS PRN Novolog Flexpen (Insulin Aspart) 100 Unit/1 Ml Insuln.pen 5 Unit SQ TIDAC Levemir Flextouch (Insulin Detemir) 100 Unit/1 Ml Insuln.pen 10 Unit SQ QHS Levemir Flextouch (Insulin Detemir) 100 Unit/1 Ml Insuln.pen 5 Unit SQ DAILY D3-50 (Cholecalciferol (Vitamin D3)) 50,000 Unit Capsule 50,000 Unit PO QSU Tylenol (Acetaminophen) 325 Mg Tablet 650 Mg PO PRN Q6HRS PRN Levothyroxine Sodium 125 Mcg Tablet 125 Mg PO DAILY@0600 Flomax (Tamsulosin Hcl) 0.4 Mg Cap.er.24h 1 Cap PO BID I have reviewed the current psychotropics carefully including drug interactions. Risk benefit ratio favors no change other than as noted in my dictated progress note. Diagnosis: Problems: (1) Dementia, vascular, with depression (2) Dementia in Alzheimer's disease with delusions (3) Anxiety disorder (4) Impulse control disorder LISBET PADILLA MD Sep 01, 2017 18:24
--- NOTE | 2017-09-02 02:46 | PN ---
DATE: 08/31/2017 This is a late entry for 08/31/2017 covers elements not covered in my initial note. SUBJECTIVE: I met with the patient in the evening. The patient remains confused, ambulates in his wheelchair. He is seated near the back porch, looking out at a "jackrabbit." He was able to explain to me the difference between a regular rabbit and a jackrabbit then said the latter had larger ears. Seemed fairly coherent for this. REVIEW OF SYSTEMS: Ambulation impaired, in wheelchair. No CV, , pulmonary, eye, ENT system symptoms on review. MENTAL STATUS EXAM: Oriented to himself. Insight, judgment, recent and remote memory, attention, concentration, fund of knowledge poor, consistent with his diagnosis mentioned in my initial note. PLAN: Continue psychotropics from initial note. Transition to long term this coming week. MAN Kwabena PADILLA MD DR: AMY/treasure JOB#: [id number] / [id number]
--- NOTE | 2017-09-02 13:19 | DS ---
DATE OF DISCHARGE: 09/01/2017 DISCHARGE SUMMARY/PSYCHIATRIC PROGRESS NOTE This late entry 09/01/2017 covers elements not covered in my initial note 09/01/2017. REASON FOR ADMISSION: Please refer to the admission history for details. Briefly, the patient is an 87-year-old male referred to us from the Emergency Room at [facility] where he presented from home with his on account of marked agitation, aggression, after he grabbed his 's arm and threatened to break it. He was delusional, felt he had to go to work, non-redirectable, had failed outpatient psychiatric interventions. SIGNIFICANT FINDINGS AND CLINICAL COURSE: Following admission, the patient was seen daily individually by myself, followed medically per Dr. Dyer/Dr. Ken. The patient remained quite confused. He was hard of hearing with impaired ambulation, in wheelchair. He was quite irritable, labile, and paranoid. Adjustments were made in his psychotropics. He seemed to respond to a combination of Zoloft 50 mg a day, Depakote Sprinkles 125 mg 3 times a day with the level subtherapeutic at 30, but clinically adequate, trazodone 50 mg at bedtime, may repeat x 1 for insomnia along with Zyprexa p.r.n. Gradually, the patient's mood appeared to improve. He is much less labile, angry, aggressive. REVIEW OF SYSTEMS: Hard of hearing, impaired ambulation, in wheelchair. No CV, , pulmonary, eye, ENT system symptoms on review other than above. Reliability poor. MENTAL STATUS EXAM: Oriented to himself. Insight, judgment, recent and remote memory, attention, concentration, fund of knowledge poor, consistent with his diagnosis. CONDITION AT DISCHARGE: Improved. FINAL DIAGNOSES: Major neurocognitive disorder, Alzheimer, vascular with delusion, depression, behavioral disturbance; anxiety disorder, unspecified; impulse control disorder, unspecified. Rest unchanged from admission. DISCHARGE MEDICATIONS: Please refer to the MRAD. DISCHARGE INSTRUCTIONS: Outpatient psychiatric and medical followup at the snf. MAN Kwabena PADILLA MD DR: AMY/treasure JOB#: [id number] / [id number]
== END 2017-09-01 12:12 | DRG 56 ==
LOC: ER 23:38 → GEROPSY 08-12 04:45
PROVIDERS: ADMIT Psychiatry & Neurology Psychiatry; ATTEND Psychiatry & Neurology Psychiatry
DX: G30.9 Alzheimer's disease, unspecified (principal); J18.9 Pneumonia, unspecified organism; F05 Delirium due to known physiological condition; F01.51 Vascular dementia, unspecified severity, with behavioral disturbance; F02.81 Dementia in other diseases classified elsewhere, unspecified severity, with behavioral disturbance; E03.9 Hypothyroidism, unspecified; E11.9 Type 2 diabetes mellitus without complications; F32.9 Major depressive disorder, single episode, unspecified; F41.9 Anxiety disorder, unspecified; F63.9 Impulse disorder, unspecified; G47.00 Insomnia, unspecified; H91.90 Unspecified hearing loss, unspecified ear; I10 Essential (primary) hypertension; M19.90 Unspecified osteoarthritis, unspecified site; N28.9 Disorder of kidney and ureter, unspecified; N40.0 Benign prostatic hyperplasia without lower urinary tract symptoms; Z79.899 Other long term (current) drug therapy; Z91.81 History of falling
CPT/HCPCS: 36415; 71046; 80053; 80061; 80164; 81001; 82306; 82607; 82947; 83036; 83540; 83550; 83735; 84436; 84443; 84480; 85025; 86593; 93005; 94640; J1815; J7620; 97110; 97116; 97530; 97535; 99285-25

== ENCOUNTER 2018-03-21 19:44 | Inpatient (IN) | payer MEDICARE ==
[~2018-03-21] VITALS: Ht 177.8 cm; Wt 83.6 kg
[~2018-03-21 19:44] MED LIST changes: +ASPI-612 PO; +ASPI-630 PO; +DIVA125C2 PO; -IPRA3AMP NEB; +IPRA3AMP29 NEB; +MAG30ORA2 PO; -SENN-79 PO; +SENN-80 PO; +SENN-87 PO; +SENN8.6T67 PO; +TRAZ-85 PO
[2018-03-21] MEDS ORDERED: IV NORMAL SALINE 1,000ML 1,000 ML IV ONE ×2 (20:00→23:45)
[2018-03-21 20:40] LABS: BILIRUBIN,URINE NEG (NEG); CLARITY,URINE TURBID; COLOR,URINE YELLOW; GLUCOSE,URINE NEG (NEG); NITRITE,URINE NEG (NEG); UROBILINOGEN,URINE 0.2 mg/dL (0.2 mg/dL)
[2018-03-21 20:41] LABS: BACTERIA,URINE MANY /HPF (0-FEW); WBC,URINE TNTC /HPF (0-4)
--- NOTE | 2018-03-21 20:45 | PHYS DOC ---
Past History Past Medical History: Anxiety, Dementia, Depression, Diabetes, High Cholesterol , Other Past Medical History Limited due to history of dementia and current altered mental status Past Surgical History: No Surgical History Past Surgical History Limited due to history of dementia and current altered mental status Alcohol Use: Occasionally Drug Use: None Social History Limited due to history of dementia and current altered mental status Adult General Chief Complaint Chief Complaint: ALTERED MENTAL STATUS HPI HPI Patient is a 88 year old male with hx of dementia and aphasia who presents with AMS. Pt is minimally responsive to questions. Per skilled nursing report, pt has not been talking as usual and only alert and oriented to person. His mentions she has seen him last (03/19/18) and was able to carry on a conversation more than today (03/21/2018). The skilled nursing nurse told his that the pt seemed to be more "lethargic" recently. His also mentions that pt had similar event last Mar-Apr during which he was diagnosed with a UTI. He is wheelchair bound and has not fallen recently per skilled nursing. Limited history obtained due to AMS and history of dementia. Review of Systems Review of Systems Limited due to hx of dementia and AMS Current Medications Current Medications Current Medications Medications (Trade) Dose Ordered Sig/Smita Start Time Stop Time Status Last Admin Dose Admin Sodium Chloride 1,000 ml @ 1,000 mls/hr 1X ONCE 03/21/18 20:00 03/21/18 20:59 Allergies Allergies Allergies Coded Allergies Type Severity Reaction Last Updated Verified No Known Drug Allergies 05/16/17 No Physical Exam Physical Exam Constitutional: Well developed, well nourished, no acute distress HENT: Normocephalic, atraumatic, bilateral external ears normal, mucous membranes dry Eyes: PERRL, conjunctiva normal, no discharge. [] Cardiovascular: Heart rate regular rhythm, no murmur [] Lungs & Thorax: Bilateral breath sounds clear to auscultation [] Abdomen: Soft, no tenderness. [] Skin: Warm, dry, no erythema, no rash. [] Extremities: No tenderness, no edema. [] Neurologic: Alert, limited speech but appropriate, patient moving all four extremities Psychologic: Flat affect[] EKG EKG @ 1959 NSR at 86bpm, RBBB, Q wave in III, nonspecific t wave inversion V1-V2, NO ST elevation Radiology/Procedures Radiology/Procedures PROCEDURE: CT HEAD WO CONTRAST PQRS Compliance Statement: One or more of the following individualized dose reduction techniques were utilized for this examination: 1. Automated exposure control 2. Adjustment of the mA and/or kV according to patient size 3. Use of iterative reconstruction technique CT HEAD WITHOUT CONTRAST History: Altered mental status Comparison: CT head without contrast, July 14, 2017. Technique: Axial images are obtained of the head from the skull base through the vertex without IV contrast. Findings: No mass-effect, midline shift, extra-axial fluid collection, hemorrhage, or obvious acute infarction is identified. Basilar cisterns are patent. The ventricles and sulci are prominent, consistent with age-related cerebral atrophy. Ventricles are out of proportion to the sulci which may reflect central atrophy. This finding is unchanged. There is moderate supratentorial white matter hypoattenuation. This is a nonspecific finding but is commonly due to chronic small vessel ischemic disease. Bone windows demonstrate no acute calvarial abnormality. The visualized paranasal sinuses are clear. Mastoid air cells are well aerated. IMPRESSION: 1. No acute intracranial abnormality. 2. Age-related cerebral atrophy and moderate supratentorial white matter changes of chronic small vessel ischemic disease. Electronically signed by: Lucas Blackmon MD (03/21/2018 10:26 PM) [facility] PROCEDURE: PORTABLE CHEST 1V Portable chest, 03/21/2018: HISTORY: Altered mental status Comparison is made to a study from 08/22/2017. The heart size and pulmonary vascularity are normal. There is tortuosity of the thoracic aorta. No pulmonary infiltrate is seen. There is no evidence of pleural fluid. IMPRESSION: No acute cardiopulmonary abnormality is detected. Electronically signed by: Elias Hall MD (03/21/2018 10:45 PM) [facility] Course & Med Decision Making Course & Med Decision Making Pertinent Labs and Imaging studies reviewed. (See chart for details) Elderly patient with pmh of dementia and history of aphasia presents with report of altered mental status from baseline. Afebrile. Patient alert and following commands but limited. Unclear baseline. Labs obtained and posted to chart. UA with significant sign of infection. Empiric antibiotics given. WBC elevated. Bandemia also noted. Lactic acid 2.1. Ammonia WNL. BUN/Creat elevated in comparison to prior lab values per [employer] review (baseline Creat 1.4). IVF hydration given. EKG stable. CXR clear. CT head without acute process. Patient requiring admission for further evaluation and treatment. Discussed with Dr. Araujo (PCP) who is in agreement with admission. Discussed findings and plan with family, who acknowledge understanding and agreement. Dragon Disclaimer Dragon Disclaimer This electronic medical record was generated, in whole or in part, using a voice recognition dictation system. Departure Departure: Impression: Primary Impression: Severe sepsis Additional Impressions: Altered mental status UTI (urinary tract infection) Acute on chronic renal insufficiency Disposition: ADMITTED INPATIENT (Med/surg) Admitting Physician: Elsie Mancini Condition: GUARDED Referrals: ELSIE MANCINI MD (PCP) Critical Care Time Critical care time was 30 minutes which includes time at bedside, spent in discussion of patient's care with specialists and/or family members, with interpretation of laboratory and/or radiological studies and is exclusive of procedures. Problem Qualifiers Additional Impressions: Altered mental status Altered mental status type: unspecified Qualified Codes: R41.82 - Altered mental status, unspecified UTI (urinary tract infection) Urinary tract infection type: acute cystitis Hematuria presence: with hematuria Qualified Codes: N30.01 - Acute cystitis with hematuria DLYAN QUINONEZ DO Mar 21, 2018 20:45
[2018-03-21 20:48] LABS: BASO # 0.1 x10^3/uL (0.0-0.2); BASO % 1 % (0-3); EOS % 0 % (0-3); HEMATOCRIT 33.2 % (39.0-53.0); HEMOGLOBIN 11.1 g/dL (13.0-17.5); LYMPH # 0.9 x10^3/uL (1.0-4.8); LYMPH % 5 % (24-48); MEAN CORPUSCULAR HEMOGLOBIN 31 pg (25-35); MEAN CORPUSCULAR HGB CONC 33 g/dL (31-37); MEAN CORPUSCULAR VOLUME 93 fL (79-100); MONO # 0.9 x10^3/uL (0.0-1.1); MONO % 5 % (0-9); NEUT # 16.6 x10^3uL (1.8-7.7); NEUT % 90 % (31-73); PLATELET COUNT 400 x10^3/uL (140-400); RED BLOOD COUNT 3.59 x10^6/uL (4.30-5.70); RED CELL DISTRIBUTION WIDTH 15.2 % (11.5-14.5); WHITE BLOOD COUNT 18.5 x10^3/uL (4.0-11.0)
[2018-03-21 21:03] LABS: VAL ACID 27 mcg/mL (50-100)
[2018-03-21 21:09] LABS: ALBUMIN 2.1 g/dL (3.4-5.0); ALBUMIN/GLOBULIN RATIO 0.3 (1.0-1.7); CALCIUM 8.9 mg/dL (8.5-10.1); CREATININE 2.4 mg/dL (0.7-1.3); GFR 25.7; MAGNESIUM 2.4 mg/dL (1.8-2.4); POTASSIUM 4.8 mmol/L (3.5-5.1); TOTAL BILIRUBIN 0.3 mg/dL (0.2-1.0); TOTAL PROTEIN 8.7 g/dL (6.4-8.2)
[2018-03-21] MEDS ORDERED: cefTRIAXone SODIUM 1 GM VIAL IV ONE (21:15)
[2018-03-21] MEDS ORDERED: IV NORMAL SALINE 50ML 50 ML ONE (21:16)
[2018-03-21] MEDS ORDERED: ACETAMINOPHEN 325 MG TABLET PO PRN (21:30)
[2018-03-21] MEDS ORDERED: cefTRIAXone IV Push 1 GM VIAL. IVP ONE (21:30)
[2018-03-21] MEDS ORDERED: DEXTROSE 50% 25 GM / 50ML DISP.SYRIN. IV PRN (21:30)
[2018-03-21] MEDS ORDERED: ONDANSETRON PF 4 MG/2 ML VIAL. IV PRN (21:30)
[2018-03-21 22:06] VITALS: BP 144/67
--- NOTE | 2018-03-21 22:30 | RAD ---
RS Compliance Statement: One or more of the following individualized dose reduction techniques were utilized for this examination: 1. Automated exposure control 2. Adjustment of the mA and/or kV according to patient size 3. Use of iterative reconstruction technique CT HEAD WITHOUT CONTRAST History: Altered mental status Comparison: CT head without contrast, July 14, 2017. Technique: Axial images are obtained of the head from the skull base through the vertex without IV contrast. Findings: No mass-effect, midline shift, extra-axial fluid collection, hemorrhage, or obvious acute infarction is identified. Basilar cisterns are patent. The ventricles and sulci are prominent, consistent with age-related cerebral atrophy. Ventricles are out of proportion to the sulci which may reflect central atrophy. This finding is unchanged. There is moderate supratentorial white matter hypoattenuation. This is a nonspecific finding but is commonly due to chronic small vessel ischemic disease. Bone windows demonstrate no acute calvarial abnormality. The visualized paranasal sinuses are clear. Mastoid air cells are well aerated. IMPRESSION: 1. No acute intracranial abnormality. 2. Age-related cerebral atrophy and moderate supratentorial white matter changes of chronic small vessel ischemic disease. Electronically signed by: Lucas Blackmon MD (03/21/2018 10:26 PM) [facility]
[2018-03-21] MEDS ORDERED: IV NORMAL SALINE 1,000ML 1,000 ML IV SCH (22:45)
[2018-03-21] MEDS ORDERED: BISA10SU2 RC (22:47)
[2018-03-21] MEDS ORDERED: GLUC1KIT IM (22:47)
[2018-03-21] MEDS ORDERED: MAG355OR30 PO (22:47)
[2018-03-21] MEDS ORDERED: INSU100I17 SQ (22:47)
[2018-03-21] MEDS ORDERED: ACET500T68 PO (22:47)
[2018-03-21] MEDS ORDERED: NA P133E6 RC (22:47)
--- NOTE | 2018-03-21 22:49 | RAD ---
Portable chest, 03/21/2018: HISTORY: Altered mental status Comparison is made to a study from 08/22/2017. The heart size and pulmonary vascularity are normal. There is tortuosity of the thoracic aorta. No pulmonary infiltrate is seen. There is no evidence of pleural fluid. IMPRESSION: No acute cardiopulmonary abnormality is detected. Electronically signed by: Elias Hall MD (03/21/2018 10:45 PM) [facility]
[2018-03-21 22:58] LABS: % BANDS 15 % (0-9); % LYMPHS 3 % (24-48); % MONOS 8 % (0-10); % SEGS 72 % (35-66)
[2018-03-21 23:02] LABS: PLT ESTIMATE ADEQUATE (ADEQUATE)
[2018-03-21 23:04] LABS: TARGET CELLS OCC
[2018-03-21 23:05] LABS: % ATYL 2 % (0-0)
[2018-03-21] MEDS ORDERED: IV NORMAL SALINE 500ML 500 ML IV ONE (23:45)
[2018-03-22 05:29] VITALS: BP 141/74
[2018-03-22] MEDS: INSULIN LISPRO 300 UNITS/3 ML INSULN.PEN. SQ SCH ×6 (07:41→17:00)
[2018-03-22] MEDS ORDERED: MAGNESIUM HYDROXIDE 2,400 MG/30 ML ORAL.SUSP. PO PRN (09:45)
[2018-03-22] MEDS ORDERED: SODIUM PHOSPHATES 19/7GM 133 ML ENEMA. RC PRN (09:45)
[2018-03-22] MEDS ORDERED: METHYL SALICYLATE/MENTHOL TOPICAL OINTMENT 29GM TUBE. TP PRN (09:45)
[2018-03-22] MEDS ORDERED: BISACODYL 10 MG SUPP.RECT PR PRN (10:00)
[2018-03-22] MEDS ORDERED: GLUCAGON,HUMAN RECOMBINANT 1 MG KIT. IM PRN (10:00)
[2018-03-22] MEDS: ASPIRIN 81 MG TAB.CHEW PO SCH (10:07)
[2018-03-22] MEDS ORDERED: MAG HYDROX/AL HYDROX/SIMETH 30 ML ORAL.SUSP PO PRN (10:30)
[2018-03-22] MEDS: TAMSULOSIN 0.4 MG CAP.ER.24H. PO SCH ×2 (10:33→21:49)
[2018-03-22] MEDS: SERTRALINE 50 MG TABLET. PO SCH (10:33)
--- NOTE | 2018-03-22 10:54 | HP ---
ADMIT DATE: 03/21/2018 HISTORY OF PRESENT ILLNESS: An 88-year-old male with severe Alzheimer's disease, came in with even worse mental status, minimally responsive to questions. Per senior care report, the patient became basically unable to talk, became more confused and lethargic, brought in through the Emergency Room, too numerous to count white blood cells in his urine. As a result of this, the patient was admitted for possible sepsis, change in mental status. PAST MEDICAL HISTORY: Includes dementia, Alzheimer type, cardiac disorders, hypercholesterolemia, BPH, severe arthritis, hypothyroidism, melanoma of the skin, tetanus, influenza and pneumococcal vaccinations are basically up-to-date. FAMILY HISTORY: Mother with breast cancer. ALLERGIES: SULFUR, TRIMETHOPRIM. MEDICATIONS: Include from the senior care, DuoNeb treatments, Flomax, aspirin 81, Tylenol, Depakote 125 t.i.d., Zoloft 75 mg a day, Zyprexa 5 mg a day, bisacodyl suppositories, Senna-Lax. He is also on sliding scales of insulin as well as Levemir 10 units at bedtime, glucagon, levothyroxine, nystatin powder, vitamin D. REVIEW OF SYSTEMS: Unable to obtain from the patient. SOCIAL HISTORY: The patient denies smoking, alcohol or drug use. PHYSICAL EXAMINATION: GENERAL: This is a very pleasant white male WD, WN, NAD, basically not able to give much of a history. The patient at this time is not alert. VITAL SIGNS: Blood pressure is 101/60, respiratory rate 20, pulse 64, afebrile. HEENT: Eyes are PERRL. Mouth and Throat: Dry mucous membranes. NECK: Supple. LUNGS: Diminished, but clear. CARDIOVASCULAR: Regular sinus rhythm. ABDOMEN: Soft, diffuse tenderness. No rebounding or guarding. Positive bowel sounds. EXTREMITIES: No clubbing, cyanosis or edema. NEUROLOGIC: The patient was alert at times, but not oriented. EXTREMITIES: No clubbing, cyanosis, or edema. LABORATORY DATA: The patient's labs do show elevated white count of 18,000 and elevated lactic acid of 2.1, creatinine of 2.4, albumin of 2.1. Urine too numerous to count white blood cells. IMPRESSION AND PLAN: Sepsis, urinary tract infection, change in mental status, dementia, Alzheimer type. The patient will be admitted and placed on IV antibiotic therapy, sepsis protocol, fluids, make further evaluation on him as indicated. ELSIE MANCINI MD DR: IVAN/treasure JOB#: [id number] / [id number]
[2018-03-22 11:02] VITALS: BP 155/73
[2018-03-22] MEDS: IV NORMAL SALINE 1,000ML 1,000 ML IV SCH (13:45)
[2018-03-22] MEDS: DIVALPROEX 125 MG CAP.SPRINK PO SCH ×2 (14:24→21:49)
[2018-03-22] MEDS: ACETAMINOPHEN 500 MG TABLET PO SCH ×2 (14:24→21:49)
[2018-03-22] MEDS ORDERED: CHOLECALCIFEROL (VITAMIN D3) 50,000 UNIT CAPSULE PO SCH (16:00)
[2018-03-22 16:17] VITALS: BP 102/55
[2018-03-22] MEDS: IPRATRPIUM/ALBUTEROL 0.5/2.5MG 3 ML NEBU. NEB SCH ×2 (16:34→21:00)
[2018-03-22 20:12] VITALS: BP 126/66
--- NOTE | 2018-03-22 20:45 | EKG ---
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
[2018-03-22] MEDS: NYSTATIN TOPICAL POWDER 15GM BOTTLE. TP SCH (21:48)
[2018-03-22] MEDS: SENNOSIDES 8.6 MG TABLET PO SCH (21:49)
[2018-03-22] MEDS: INSULIN GLARGINE 300 UNITS/3 ML INSULN.PEN. SQ SCH (21:50)
[2018-03-22 23:39] VITALS: BP 117/61
[2018-03-23] MEDS: IV NORMAL SALINE 1,000ML 1,000 ML IV SCH ×3 (00:39→21:34)
[2018-03-23 06:04] VITALS: BP 122/83
[2018-03-23] MEDS: LEVOTHYROXINE 125 MCG TABLET PO SCH (06:06)
[2018-03-23] MEDS: INSULIN LISPRO 300 UNITS/3 ML INSULN.PEN. SQ SCH ×6 (08:00→17:00)
[2018-03-23] MEDS: DIVALPROEX 125 MG CAP.SPRINK PO SCH ×3 (08:34→21:38)
[2018-03-23] MEDS: SERTRALINE 50 MG TABLET. PO SCH (08:34)
[2018-03-23] MEDS: SENNOSIDES 8.6 MG TABLET PO SCH ×2 (08:34→21:46)
[2018-03-23] MEDS: ASPIRIN 81 MG TAB.CHEW PO SCH (08:34)
[2018-03-23] MEDS: TAMSULOSIN 0.4 MG CAP.ER.24H. PO SCH ×2 (08:34→21:41)
[2018-03-23] MEDS: ACETAMINOPHEN 500 MG TABLET PO SCH ×3 (08:34→21:46)
[2018-03-23] MEDS: INSULIN GLARGINE 300 UNITS/3 ML INSULN.PEN. SQ SCH ×2 (08:41→21:00)
[2018-03-23] MEDS: IPRATRPIUM/ALBUTEROL 0.5/2.5MG 3 ML NEBU. NEB SCH ×3 (09:00→20:42)
[2018-03-23] MEDS: NYSTATIN TOPICAL POWDER 15GM BOTTLE. TP SCH ×2 (09:00→21:00)
[2018-03-23 09:45] LABS: BASO % 0 % (0-3); EOS # 0.2 x10^3/uL (0.0-0.7); EOS % 1 % (0-3); HEMATOCRIT 27.1 % (39.0-53.0); LYMPH # 1.2 x10^3/uL (1.0-4.8); LYMPH % 10 % (24-48); MEAN CORPUSCULAR HEMOGLOBIN 31 pg (25-35); MEAN CORPUSCULAR HGB CONC 33 g/dL (31-37); MEAN CORPUSCULAR VOLUME 93 fL (79-100); MONO # 0.6 x10^3/uL (0.0-1.1); MONO % 6 % (0-9); NEUT # 9.2 x10^3uL (1.8-7.7); NEUT % 82 % (31-73); PLATELET COUNT 275 x10^3/uL (140-400); RED CELL DISTRIBUTION WIDTH 15.3 % (11.5-14.5); WHITE BLOOD COUNT 11.2 x10^3/uL (4.0-11.0)
[2018-03-23 11:08] VITALS: BP 120/64
[2018-03-23 14:37] VITALS: BP 148/69
--- NOTE | 2018-03-23 15:05 | PN ---
DATE: 03/23/2018 SUBJECTIVE: An 88-year-old male admitted yesterday with problems with probable urinary tract sepsis. The patient seems a little bit more alert today, but not by much, but still a little bit more responsive than he has been. Labs are still pending, from this morning blood sugars anywhere from 180-110. PHYSICAL EXAMINATION: VITAL SIGNS: Otherwise; vital signs 120/80, respiratory rate 18, pulse 83, temperature is still 99.3, he is on double antibiotics. GENERAL: The patient is alert at times, but not oriented. He is unable to speak or does not speak. NEUROLOGIC: Baseline. LUNGS: Diminished, but clear. CARDIOVASCULAR: Stable. ABDOMEN: Soft, nontender. IMPRESSION: Sepsis, urinary tract infection, Escherichia coli. PLAN: As above. Continue to monitor the patient accordingly and continue with IV antibiotic therapy. ELSIE MANCINI MD DR: IVAN/treasure JOB#: [id number] / [id number]
[2018-03-23 18:52] VITALS: BP 117/68
[2018-03-23 23:41] VITALS: BP 107/57
[2018-03-24 04:29] VITALS: BP 143/76
[2018-03-24] MEDS: IPRATRPIUM/ALBUTEROL 0.5/2.5MG 3 ML NEBU. NEB SCH ×3 (05:18→20:37)
[2018-03-24] MEDS: LEVOTHYROXINE 125 MCG TABLET PO SCH (06:01)
[2018-03-24 06:27] LABS: BASO % 0 % (0-3); EOS # 0.3 x10^3/uL (0.0-0.7); EOS % 2 % (0-3); HEMATOCRIT 30.1 % (39.0-53.0); HEMOGLOBIN 9.9 g/dL (13.0-17.5); LYMPH # 2.3 x10^3/uL (1.0-4.8); LYMPH % 21 % (24-48); MEAN CORPUSCULAR HEMOGLOBIN 31 pg (25-35); MEAN CORPUSCULAR HGB CONC 33 g/dL (31-37); MEAN CORPUSCULAR VOLUME 95 fL (79-100); MONO # 0.9 x10^3/uL (0.0-1.1); MONO % 8 % (0-9); NEUT # 7.5 x10^3uL (1.8-7.7); NEUT % 69 % (31-73); PLATELET COUNT 306 x10^3/uL (140-400); RED BLOOD COUNT 3.19 x10^6/uL (4.30-5.70); RED CELL DISTRIBUTION WIDTH 15.3 % (11.5-14.5); WHITE BLOOD COUNT 10.9 x10^3/uL (4.0-11.0)
[2018-03-24 06:32] LABS: CREATININE 1.5 mg/dL (0.7-1.3); GFR 44.2
[2018-03-24] MEDS: INSULIN LISPRO 300 UNITS/3 ML INSULN.PEN. SQ SCH ×6 (08:00→16:43)
[2018-03-24] MEDS: DIVALPROEX 125 MG CAP.SPRINK PO SCH ×3 (08:34→20:53)
[2018-03-24] MEDS: SENNOSIDES 8.6 MG TABLET PO SCH ×2 (08:34→20:53)
[2018-03-24] MEDS: TAMSULOSIN 0.4 MG CAP.ER.24H. PO SCH ×2 (08:34→20:53)
[2018-03-24] MEDS: SERTRALINE 50 MG TABLET. PO SCH (08:34)
[2018-03-24] MEDS: ASPIRIN 81 MG TAB.CHEW PO SCH (08:34)
[2018-03-24] MEDS: IV NORMAL SALINE 1,000ML 1,000 ML IV SCH ×2 (08:35→15:26)
[2018-03-24] MEDS: ACETAMINOPHEN 500 MG TABLET PO SCH ×3 (08:39→20:53)
[2018-03-24] MEDS: LACTOBACILLUS RHAMNOSUS GG 1 CAPSULE. PO SCH ×2 (08:39→20:53)
[2018-03-24] MEDS: INSULIN GLARGINE 300 UNITS/3 ML INSULN.PEN. SQ SCH ×2 (08:59→20:55)
[2018-03-24] MEDS: NYSTATIN TOPICAL POWDER 15GM BOTTLE. TP SCH ×2 (09:25→20:53)
[2018-03-24 10:43] VITALS: BP 135/71
--- NOTE | 2018-03-24 11:40 | PN ---
DATE: 03/21/2018 SUBJECTIVE: An 88-year-old male in with sepsis, E. coli urinary tract infection. He is much more alert today. He still has marked confusion and disorientation. He does have a history of Alzheimer's disease and obviously severe dementia. His white count has dropped down to 10 from 18. His hemoglobin is 9.9 and 30. He is more alert and somewhat talking a little bit. OBJECTIVE: VITAL SIGNS: Blood pressure 135/70, respiratory rate 18, pulse 85 and afebrile. GENERAL: The patient is alert, disoriented. LUNGS: Diminished, but clear. CARDIOVASCULAR: Stable. ABDOMEN: Soft, nontender. EXTREMITIES: No clubbing, edema. NEUROLOGIC: Intact and as noted. LABORATORY DATA: His white count shows marked improvement. His electrolytes look good. His creatinine has come down from 2.4 down to 1.5. ASSESSMENT: Sepsis, E. coli urinary tract infection, hyperglycemia, dementia of Alzheimer type, anemia of chronic disease, change in mental status, acute encephalopathy secondary to sepsis, dehydration, renal tubular stasis. PLAN: Continue with IV antibiotic therapy, fluids, and hopefully ready for discharge here soon. ELSIE MANCINI MD DR: IVAN/treasure JOB#: [id number] / [id number]
[2018-03-24 14:45] VITALS: BP 125/56
[2018-03-24 19:35] VITALS: BP 153/77
--- NOTE | 2018-03-24 20:19 | PDOC ---
Exam Note: Pradeep Note: Please also refer to the separate dictated note~for this date of service dictated separately.~Patient seen individually. Discussed the patient with Nursing staff reviewed the chart.~Reviewed interim history and current functioning. Reviewed vital signs,~Labs/ Radiology~and current medications noted below. Continue current treatment with the changes noted in the dictated addendum note Assessment: Vital Signs: Vital Signs Date Time Temp Pulse Resp B/P (MAP) Pulse Ox O2 Delivery O2 Flow Rate FiO2 03/24/18 14:45 98.3 69 18 125/56 (79) 96 Nasal Cannula 2.0 I&O Intake and Output 03/24/18 07:01 Intake Total 1200 ml Balance 1200 ml Intake Oral 1200 ml # Voids 10 Labs: Laboratory Tests Test 03/23/18 21:07 03/24/18 05:57 03/24/18 07:40 03/24/18 11:23 Glucose (Fingerstick) 116 mg/dL (70-99) H 141 mg/dL (70-99) H 156 mg/dL (70-99) H White Blood Count 10.9 x10^3/uL (4.0-11.0) Red Blood Count 3.19 x10^6/uL (4.30-5.70) L Hemoglobin 9.9 g/dL (13.0-17.5) L Hematocrit 30.1 % (39.0-53.0) L Mean Corpuscular Volume 95 fL (79-100) Mean Corpuscular Hemoglobin 31 pg (25-35) Mean Corpuscular Hemoglobin Concent 33 g/dL (31-37) Red Cell Distribution Width 15.3 % (11.5-14.5) H Platelet Count 306 x10^3/uL (140-400) Neutrophils (%) (Auto) 69 % (31-73) Lymphocytes (%) (Auto) 21 % (24-48) L Monocytes (%) (Auto) 8 % (0-9) Eosinophils (%) (Auto) 2 % (0-3) Basophils (%) (Auto) 0 % (0-3) Neutrophils # (Auto) 7.5 x10^3uL (1.8-7.7) Lymphocytes # (Auto) 2.3 x10^3/uL (1.0-4.8) Monocytes # (Auto) 0.9 x10^3/uL (0.0-1.1) Eosinophils # (Auto) 0.3 x10^3/uL (0.0-0.7) Basophils # (Auto) 0.0 x10^3/uL (0.0-0.2) Sodium Level 144 mmol/L (136-145) Potassium Level 4.0 mmol/L (3.5-5.1) Chloride Level 109 mmol/L (98-107) H Carbon Dioxide Level 25 mmol/L (21-32) Anion Gap 10 (6-14) Blood Urea Nitrogen 33 mg/dL (8-26) H Creatinine 1.5 mg/dL (0.7-1.3) H Estimated GFR (Cockcroft-Gault) 44.2 Glucose Level 117 mg/dL (70-99) H Calcium Level 8.0 mg/dL (8.5-10.1) L Test 03/24/18 13:46 03/24/18 16:40 03/24/18 19:34 Glucose (Fingerstick) 160 mg/dL (70-99) H 90 mg/dL (70-99) 107 mg/dL (70-99) H Current Medications: Meds: Current Medications Sodium Chloride 1,000 ml @ 1,000 mls/hr 1X ONCE IV Last administered on 03/21at 20:33; Start 03/21/18 at 20:00; Stop 03/21/18 at 20:59; Status DC Ceftriaxone Sodium 1 gm/ Sodium Chloride 50 ml @ 100 mls/hr 1X ONCE IV Last administered on 03/21/18at 21:20; Start 03/21/18 at 21:15; Stop 03/21/18 at 21 :30; Status DC Ceftriaxone Sodium (Rocephin) 1 gm STK-MED ONCE IV ; Start 03/21/18 at 21:15; Stop 03/21/18 at 21:17; Status DC Sodium Chloride 50 ml @ As Directed STK-MED ONCE .ROUTE ; Start 03/21/18 at 21: 16; Stop 03/21/18 at 21:17; Status DC Ondansetron HCl (Zofran) 4 mg PRN Q4HRS PRN IV NAUSEA/VOMITING; Start at 21:30; Stop 03/22/18 at 21:29; Status DC Acetaminophen (Tylenol) 650 mg PRN Q4HRS PRN PO FEVER; Start 03/21/18 at 21:30 ; Stop 03/22/18 at 21:29; Status DC Insulin Human Lispro (HumaLOG) 0-5 UNITS TIDWMEALS SQ Last administered on at 12:20; Start 03/22/18 at 08:00 Dextrose 12.5 gm PRN Q15MIN PRN IV SEE COMMENTS; Start 03/21/18 at 21:30 Ceftriaxone Sodium (Rocephin) 1 gm ONCE ONCE IVP ; Start 03/21/18 at 21:30; Stop 03/21/18 at 21:31; Status DC Sodium Chloride 1,000 ml @ 100 mls/hr Q10H IV Last administered on 03/22/18at 01:12; Start 03/21/18 at 22:45; Stop 03/22/18 at 08:44; Status DC Sodium Chloride 1,000 ml @ 1,000 mls/hr 1X ONCE IV Last administered on 03/21at 23:49; Start 03/21/18 at 23:45; Stop 03/22/18 at 00:44; Status DC Sodium Chloride 500 ml @ 0 mls/hr 1X ONCE IV Last administered on 03/22/18at 00:36; Start 03/21/18 at 23:45; Stop 03/21/18 at 23:46; Status DC Vitamin D (Vitamin D3) 50,000 unit QSU PO Last administered on 03/22/18at 18:18 ; Start 03/22/18 at 16:00 Albuterol/ Ipratropium (Duoneb) 3 ml TID NEB Last administered on 03/24/18at 09: 40; Start 03/22/18 at 14:00 Magnesium Hydroxide (Milk Of Magnesia) 2,400 mg PRN QHS PRN PO CONSTIPATION; Start 03/22/18 at 09:45 Multi-Ingredient Ointment (Analgesic [place]) 1 valery PRN QID PRN TP MUSCLE PAIN; Start 03/22/18 at 09:45 Sodium Biphosphate/ Sodium Phosphate (Fleet Adult) 133 ml PRN DAILY PRN RC CONSTIPATION; Start 03/22/18 at 09:45 Nystatin (Nystop) 1 valery BID TP Last administered on 03/24/18at 09:25; Start at 21:00 Olanzapine (ZyPREXA ZYDIS) 5 mg QHS PO Last administered on 03/23/18 21:46; Start 03/22/18 at 21:00 Sertraline HCl (Zoloft) 75 mg DAILY PO Last administered on 03/24/18 08:34; Start 03/22/18 at 10:30 Tamsulosin HCl (Flomax) 0.4 mg BID PO Last administered on 03/24/18 08:34; Start 03/22/18 at 10:30 Acetaminophen (Tylenol) 500 mg TID PO Last administered on 03/24/18 13:53; Start 03/22/18 at 14:00 Aspirin (Children'S Aspirin) 81 mg DAILYWBKFT PO Last administered on 03/24/18 08:34; Start 03/22/18 at 10:00 Bisacodyl (Dulcolax Supp) 10 mg PRN DAILY PRN CO CONSTIPATION; Start 03/22/18 at 10:00 Divalproex Sodium (Depakote Sprinkles) 125 mg TID PO Last administered on 13:53; Start 03/22/18 at 14:00 Glucagon (Glucagen Kit) 1 mg PRN 1X PRN IM HYPOGLYCEMIA; Start 03/22/18 at 10: 00 Insulin Human Lispro (HumaLOG) 5 units DAILYWBKFT SQ Last administered on 03/23at 08:41; Start 03/22/18 at 12:00 Insulin Human Lispro (HumaLOG) 8 units BIDACLD SQ Last administered on at 12:19; Start 03/22/18 at 12:00 Insulin Glargine (Lantus) 10 units QHS SQ Last administered on 03/22/18at 21:50 ; Start 03/22/18 at 21:00 Insulin Glargine (Lantus) 15 units DAILY SQ Last administered on 03/23/18at 08: 41; Start 03/23/18 at 09:00 Levothyroxine Sodium (Synthroid) 125 mcg DAILY06 PO Last administered on 06:01; Start 03/23/18 at 06:00 Al Hydroxide/Mg Hydroxide (Mylanta Plus Xs) 30 ml PRN AFTMEALHC PRN PO DYSPEPSIA; Start 03/22/18 at 10:30 Sennosides (Senna) 8.6 mg BID PO Last administered on 03/24/18at 08:34; Start at 21:00 Levofloxacin/ Dextrose 150 ml @ 150 mls/hr Q48H IV Last administered on at 09:25; Start 03/22/18 at 10:00 Ceftriaxone Sodium 1 gm/ Sodium Chloride 50 ml @ 100 mls/hr Q24H IV Last administered on 03/23/18at 21:36; Start 03/22/18 at 21:00 Sodium Chloride 1,000 ml @ 100 mls/hr Q10H IV Last administered on 03/24/18at 15 :26; Start 03/22/18 at 13:45 Lactobacillus Rhamnosus (Culturelle) 1 cap BID PO Last administered on at 08:39; Start 03/24/18 at 09:00 Active Scripts Active Duoneb 0.5-3(2.5) Mg/3 Ml (Albuterol/Ipratropium) 3 Ml Ampul.neb 3 Ml NEB TID Reported Glucagon Emergency Kit (Glucagon,Human Recombinant) 1 Mg Kit 1 Mg IM PRN Rulox Suspension (Mag Hydrox/Al Hydrox/Simeth) 355 Ml Oral.susp 30 Ml PO PRN AFTMEALHC PRN Enema (Na Phos,M-B/Na Phos,Di-Ba) 133 Ml Enema 133 Ml RC PRN DAILY PRN Bisacodyl 10 Mg Supp.rect 10 Mg RC PRN DAILY PRN Acetaminophen 500 Mg Tablet 500 Mg PO TID Novolog Flexpen (Insulin Aspart) 100 Unit/1 Ml Insuln.pen 5 Unit SQ DAILYWBKFT Depakote Sprinkle (Divalproex Sodium) 125 Mg Cap.sprink 125 Mg PO TID Aspirin 81 Mg Tab.chew 81 Mg PO DAILY Senna Lax (Sennosides) 8.6 Mg Tablet 8.6 Mg PO BID Zoloft (Sertraline Hcl) 50 Mg Tablet 75 Mg PO DAILY Olanzapine Odt (Olanzapine) 5 Mg Tab.rapdis 5 Mg PO QHS Nystop (Nystatin) 60 Gm Powder 1 Valery TP BID Apply to groin Analgesic [place] (Methyl Salicylate/Menthol) 28 Gm Oint...g. 1 Gm TP PRN QID PRN Milk Of Magnesia (Magnesium Hydroxide) 400 Mg/5 Ml Oral.susp 2,400 Mg PO PRN QHS PRN Novolog Flexpen (Insulin Aspart) 100 Unit/1 Ml Insuln.pen 8 Unit SQ BIDACLD Levemir Flextouch (Insulin Detemir) 100 Unit/1 Ml Insuln.pen 10 Unit SQ QHS Levemir Flextouch (Insulin Detemir) 100 Unit/1 Ml Insuln.pen 15 Unit SQ DAILY D3-50 (Cholecalciferol (Vitamin D3)) 50,000 Unit Capsule 50,000 Unit PO QSU Levothyroxine Sodium 125 Mcg Tablet 125 Mg PO DAILY@0600 Flomax (Tamsulosin Hcl) 0.4 Mg Cap.er.24h 1 Cap PO BID I have reviewed the current psychotropics carefully including drug interactions. Risk benefit ratio favors no change other than as noted in my dictated progress note. Diagnosis: Problems: (1) Dementia in Alzheimer's disease with delusions (2) Dementia, vascular, with depression (3) Renal insufficiency (4) Impulse control disorder (5) UTI (urinary tract infection) (6) Altered mental status LISBET PADILLA MD Mar 24, 2018 20:19
[2018-03-25] MEDS: IPRATRPIUM/ALBUTEROL 0.5/2.5MG 3 ML NEBU. NEB SCH ×3 (05:37→20:27)
[2018-03-25] MEDS: IV NORMAL SALINE 1,000ML 1,000 ML IV SCH ×2 (05:49→13:39)
[2018-03-25 06:20] VITALS: BP 136/70
[2018-03-25] MEDS: INSULIN LISPRO 300 UNITS/3 ML INSULN.PEN. SQ SCH ×6 (07:46→16:56)
[2018-03-25] MEDS: INSULIN GLARGINE 300 UNITS/3 ML INSULN.PEN. SQ SCH ×2 (07:47→21:19)
[2018-03-25] MEDS: LACTOBACILLUS RHAMNOSUS GG 1 CAPSULE. PO SCH ×2 (07:52→21:02)
[2018-03-25] MEDS: SERTRALINE 50 MG TABLET. PO SCH (07:52)
[2018-03-25] MEDS: ACETAMINOPHEN 500 MG TABLET PO SCH ×3 (07:52→21:02)
[2018-03-25] MEDS: LEVOTHYROXINE 125 MCG TABLET PO SCH (07:52)
[2018-03-25] MEDS: SENNOSIDES 8.6 MG TABLET PO SCH ×2 (07:52→21:02)
[2018-03-25] MEDS: ASPIRIN 81 MG TAB.CHEW PO SCH (07:52)
[2018-03-25] MEDS: TAMSULOSIN 0.4 MG CAP.ER.24H. PO SCH ×2 (07:52→21:02)
[2018-03-25] MEDS: DIVALPROEX 125 MG CAP.SPRINK PO SCH ×3 (07:52→21:02)
[2018-03-25] MEDS: NYSTATIN TOPICAL POWDER 15GM BOTTLE. TP SCH ×2 (08:27→21:00)
[2018-03-25 10:45] VITALS: BP 125/65
[2018-03-25 14:49] VITALS: BP 115/69
--- NOTE | 2018-03-25 18:49 | PDOC ---
Exam Note: Pradeep Note: Please also refer to the separate dictated note~for this date of service dictated separately.~Patient seen individually. Discussed the patient with Nursing staff reviewed the chart.~Reviewed interim history and current functioning. Reviewed vital signs,~Labs/ Radiology~and current medications noted below. Continue current treatment with the changes noted in the dictated addendum note Assessment: Vital Signs: Vital Signs Date Time Temp Pulse Resp B/P (MAP) Pulse Ox O2 Delivery O2 Flow Rate FiO2 03/25/18 14:49 97.6 75 20 115/69 (84) 96 Nasal Cannula 1.0 I&O Intake and Output 03/25/18 07:01 Intake Total 1642.31 ml Balance 1642.31 ml Intake Oral 340 ml IV Total 1302.31 ml # Voids 4 Labs: Laboratory Tests Test 03/24/18 19:34 03/25/18 07:32 03/25/18 11:17 03/25/18 16:25 Glucose (Fingerstick) 107 mg/dL (70-99) H 135 mg/dL (70-99) H 126 mg/dL (70-99) H 118 mg/dL (70-99) H Current Medications: Meds: Current Medications Sodium Chloride 1,000 ml @ 1,000 mls/hr 1X ONCE IV Last administered on 03/21at 20:33; Start 03/21/18 at 20:00; Stop 03/21/18 at 20:59; Status DC Ceftriaxone Sodium 1 gm/ Sodium Chloride 50 ml @ 100 mls/hr 1X ONCE IV Last administered on 03/21/18at 21:20; Start 03/21/18 at 21:15; Stop 03/21/18 at 21 :30; Status DC Ceftriaxone Sodium (Rocephin) 1 gm STK-MED ONCE IV ; Start 03/21/18 at 21:15; Stop 03/21/18 at 21:17; Status DC Sodium Chloride 50 ml @ As Directed STK-MED ONCE .ROUTE ; Start 03/21/18 at 21: 16; Stop 03/21/18 at 21:17; Status DC Ondansetron HCl (Zofran) 4 mg PRN Q4HRS PRN IV NAUSEA/VOMITING; Start at 21:30; Stop 03/22/18 at 21:29; Status DC Acetaminophen (Tylenol) 650 mg PRN Q4HRS PRN PO FEVER; Start 03/21/18 at 21:30 ; Stop 03/22/18 at 21:29; Status DC Insulin Human Lispro (HumaLOG) 0-5 UNITS TIDWMEALS SQ Last administered on at 12:20; Start 03/22/18 at 08:00 Dextrose 12.5 gm PRN Q15MIN PRN IV SEE COMMENTS; Start 03/21/18 at 21:30 Ceftriaxone Sodium (Rocephin) 1 gm ONCE ONCE IVP ; Start 03/21/18 at 21:30; Stop 03/21/18 at 21:31; Status DC Sodium Chloride 1,000 ml @ 100 mls/hr Q10H IV Last administered on 03/22/18at 01:12; Start 03/21/18 at 22:45; Stop 03/22/18 at 08:44; Status DC Sodium Chloride 1,000 ml @ 1,000 mls/hr 1X ONCE IV Last administered on 03/21at 23:49; Start 03/21/18 at 23:45; Stop 03/22/18 at 00:44; Status DC Sodium Chloride 500 ml @ 0 mls/hr 1X ONCE IV Last administered on 03/22/18at 00:36; Start 03/21/18 at 23:45; Stop 03/21/18 at 23:46; Status DC Vitamin D (Vitamin D3) 50,000 unit QSU PO Last administered on 03/22/18at 18:18 ; Start 03/22/18 at 16:00 Albuterol/ Ipratropium (Duoneb) 3 ml TID NEB Last administered on 03/25/18at 09: 30; Start 03/22/18 at 14:00 Magnesium Hydroxide (Milk Of Magnesia) 2,400 mg PRN QHS PRN PO CONSTIPATION; Start 03/22/18 at 09:45 Multi-Ingredient Ointment (Analgesic Keystone) 1 valery PRN QID PRN TP MUSCLE PAIN; Start 03/22/18 at 09:45 Sodium Biphosphate/ Sodium Phosphate (Fleet Adult) 133 ml PRN DAILY PRN RC CONSTIPATION; Start 03/22/18 at 09:45 Nystatin (Nystop) 1 valery BID TP Last administered on 03/25/18at 08:27; Start at 21:00 Olanzapine (ZyPREXA ZYDIS) 5 mg QHS PO Last administered on 03/24/18 20:53; Start 03/22/18 at 21:00 Sertraline HCl (Zoloft) 75 mg DAILY PO Last administered on 03/25/18 07:52; Start 03/22/18 at 10:30 Tamsulosin HCl (Flomax) 0.4 mg BID PO Last administered on 03/25/18 07:52; Start 03/22/18 at 10:30 Acetaminophen (Tylenol) 500 mg TID PO Last administered on 03/25/18 13:38; Start 03/22/18 at 14:00 Aspirin (Children'S Aspirin) 81 mg DAILYWBKFT PO Last administered on 03/25/18 07:52; Start 03/22/18 at 10:00 Bisacodyl (Dulcolax Supp) 10 mg PRN DAILY PRN TX CONSTIPATION; Start 03/22/18 at 10:00 Divalproex Sodium (Depakote Sprinkles) 125 mg TID PO Last administered on 13:38; Start 03/22/18 at 14:00 Glucagon (Glucagen Kit) 1 mg PRN 1X PRN IM HYPOGLYCEMIA; Start 03/22/18 at 10: 00 Insulin Human Lispro (HumaLOG) 5 units DAILYWBKFT SQ Last administered on 03/23at 08:41; Start 03/22/18 at 12:00 Insulin Human Lispro (HumaLOG) 8 units BIDACLD SQ Last administered on at 12:19; Start 03/22/18 at 12:00 Insulin Glargine (Lantus) 10 units QHS SQ Last administered on 03/22/18at 21:50 ; Start 03/22/18 at 21:00 Insulin Glargine (Lantus) 15 units DAILY SQ Last administered on 03/23/18at 08: 41; Start 03/23/18 at 09:00 Levothyroxine Sodium (Synthroid) 125 mcg DAILY06 PO Last administered on 07:52; Start 03/23/18 at 06:00 Al Hydroxide/Mg Hydroxide (Mylanta Plus Xs) 30 ml PRN AFTMEALHC PRN PO DYSPEPSIA; Start 03/22/18 at 10:30 Sennosides (Senna) 8.6 mg BID PO Last administered on 03/25/18 07:52; Start at 21:00 Levofloxacin/ Dextrose 150 ml @ 150 mls/hr Q48H IV Last administered on 09:25; Start 03/22/18 at 10:00 Ceftriaxone Sodium 1 gm/ Sodium Chloride 50 ml @ 100 mls/hr Q24H IV Last administered on 03/24/18 20:53; Start 03/22/18 at 21:00 Sodium Chloride 1,000 ml @ 100 mls/hr Q10H IV Last administered on 03/25/18 13 :39; Start 03/22/18 at 13:45 Lactobacillus Rhamnosus (Culturelle) 1 cap BID PO Last administered on 07:52; Start 03/24/18 at 09:00 Active Scripts Active Duoneb 0.5-3(2.5) Mg/3 Ml (Albuterol/Ipratropium) 3 Ml Ampul.neb 3 Ml NEB TID Reported Glucagon Emergency Kit (Glucagon,Human Recombinant) 1 Mg Kit 1 Mg IM PRN Rulox Suspension (Mag Hydrox/Al Hydrox/Simeth) 355 Ml Oral.susp 30 Ml PO PRN AFTMEALHC PRN Enema (Na Phos,M-B/Na Phos,Di-Ba) 133 Ml Enema 133 Ml RC PRN DAILY PRN Bisacodyl 10 Mg Supp.rect 10 Mg RC PRN DAILY PRN Acetaminophen 500 Mg Tablet 500 Mg PO TID Novolog Flexpen (Insulin Aspart) 100 Unit/1 Ml Insuln.pen 5 Unit SQ DAILYWBKFT Depakote Sprinkle (Divalproex Sodium) 125 Mg Cap.sprink 125 Mg PO TID Aspirin 81 Mg Tab.chew 81 Mg PO DAILY Senna Lax (Sennosides) 8.6 Mg Tablet 8.6 Mg PO BID Zoloft (Sertraline Hcl) 50 Mg Tablet 75 Mg PO DAILY Olanzapine Odt (Olanzapine) 5 Mg Tab.rapdis 5 Mg PO QHS Nystop (Nystatin) 60 Gm Powder 1 Valery TP BID Apply to groin Analgesic Keystone (Methyl Salicylate/Menthol) 28 Gm Oint...g. 1 Gm TP PRN QID PRN Milk Of Magnesia (Magnesium Hydroxide) 400 Mg/5 Ml Oral.susp 2,400 Mg PO PRN QHS PRN Novolog Flexpen (Insulin Aspart) 100 Unit/1 Ml Insuln.pen 8 Unit SQ BIDACLD Levemir Flextouch (Insulin Detemir) 100 Unit/1 Ml Insuln.pen 10 Unit SQ QHS Levemir Flextouch (Insulin Detemir) 100 Unit/1 Ml Insuln.pen 15 Unit SQ DAILY D3-50 (Cholecalciferol (Vitamin D3)) 50,000 Unit Capsule 50,000 Unit PO QSU Levothyroxine Sodium 125 Mcg Tablet 125 Mg PO DAILY@0600 Flomax (Tamsulosin Hcl) 0.4 Mg Cap.er.24h 1 Cap PO BID I have reviewed the current psychotropics carefully including drug interactions. Risk benefit ratio favors no change other than as noted in my dictated progress note. 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
[2018-03-25 19:11] VITALS: BP 155/66
[2018-03-25 23:40] VITALS: BP 158/81
--- NOTE | 2018-03-26 00:57 | CONS ---
DATE OF CONSULTATION: 03/24/2018 PSYCHIATRIC CONSULTATION This late entry 03/24/2018 covers elements not covered in my initial note. IDENTIFYING DATA: The patient is an 88-year-old male seen in bed 122, 1 [facility] for psychiatric consult requested by Dr. Bender because "while changing patient's brief, the patient stated just wrap the sheet around my neck and hang me." The patient was seen individually, discussed with nursing staff, reviewed the chart. I met with him evening of 03/24/2018. HISTORY OF PRESENT ILLNESS: The patient has a history of dementia, Alzheimer's vascular type. He has been residing at [facility] and more recently was unable to answer questions or talk. He has become more confused and lethargic, brought to the ER with too numerous to count white cells in his urine. As a result of this, he was admitted for possible sepsis and change in mental status. As noted while the nursing staff was changing him, he had voiced the above statement, but since then he has not talked anything further about this. He has not made any attempt to hurt himself either. He has had some sleep and appetite changes. No clear symptoms of bipolar disorder. PAST PSYCHIATRIC HISTORY: Positive for major neurocognitive disorder, Alzheimer, vascular with delusion, depression. PAST MEDICAL HISTORY: Urinary tract infection with sepsis, cardiac disorder, hypercholesterolemia, BPH, severe arthritis, hypothyroidism, diabetes mellitus, melanoma of the skin. His tetanus, influenza and pneumococcal vaccinations are up-to-date. PAST PSYCHIATRIC HISTORY: As above. DRUG ALLERGIES: SULFA, TRIMETHOPRIM. FAMILY HISTORY: Breast cancer in his mother. SOCIAL HISTORY: The patient resides at [facility] in [place], [place]. No alcohol or drug abuse, physical, sexual or elder abuse history is noted. He is not known to be a perpetrator. CURRENT PSYCHOTROPICS: Depakote Sprinkles 125 mg 3 times a day, Zyprexa 5 mg p.o. at bedtime, Zoloft 75 mg a day. MENTAL STATUS EXAMINATION: The patient was seen individually evening of 03/24/2018. He is oriented to himself, somewhat withdrawn, lying in bed. He did not respond directly when I questioned about suicidal ideation. He does appear somewhat depressed. Insight, judgment, recent and remote memory, attention, concentration, fund of knowledge poor, consistent with his diagnosis. IMPRESSION: Major neurocognitive disorder, Alzheimer, vascular with delusion, depression, behavioral disturbance; anxiety disorder, unspecified; impulse control disorder, unspecified; urinary tract infection, sepsis. Rest unchanged as above. PLAN: From a psychiatric standpoint, I would not make any changes just yet. I do feel as the UTI and sepsis are treated cognitively, he would show improvement and if he still has some depressive symptoms persisting, the Zoloft could be increased or we could augment it with Abilify. Dr. Bender, thank you for the opportunity to participate in your patient's care. We will follow with you. MAN Kwabena PADILLA MD DR: AMY/nts JOB#: [id number] / [id number]
[2018-03-26] MEDS: IV NORMAL SALINE 1,000ML 1,000 ML IV SCH ×2 (02:02→07:45)
--- NOTE | 2018-03-26 02:46 | PN ---
DATE: 03/25/2018 SUBJECTIVE: The patient is an 88-year-old male who is in with sepsis. The patient is resting fairly comfortably, trying to get him placed in a nursing facility. Otherwise, the patient is little bit more active than he has been, but still very lethargic, overall. OBJECTIVE: VITAL SIGNS: Blood pressure 150/80, respiratory rate 16, pulse 77, temperature 98.6. GENERAL: The patient is arousable, alert, but confused, disoriented. LUNGS: Diminished, clear. CARDIOVASCULAR: Stable. ABDOMEN: Soft, nontender. The patient continues to show good progress. LABORATORY DATA: White count continues to fall down, overall. We will continue to monitor his blood sugars. IMPRESSION: Sepsis, Escherichia coli, possible Proteus mirabilis as well. PLAN: The patient to continue with IV antibiotic therapy. Continue to wait for culture and sensitivity reports before discharging him on oral antibiotics. ELSIE MANCINI MD DR: IVAN/treasure JOB#: [id number] / [id number]
[2018-03-26] MEDS: IPRATRPIUM/ALBUTEROL 0.5/2.5MG 3 ML NEBU. NEB SCH ×2 (05:11→10:34)
[2018-03-26 05:18] VITALS: BP 153/77
[2018-03-26] MEDS: LEVOTHYROXINE 125 MCG TABLET PO SCH (06:20)
[2018-03-26] MEDS: SENNOSIDES 8.6 MG TABLET PO SCH (07:44)
[2018-03-26] MEDS: ACETAMINOPHEN 500 MG TABLET PO SCH (07:44)
[2018-03-26] MEDS: ASPIRIN 81 MG TAB.CHEW PO SCH (07:44)
[2018-03-26] MEDS: LACTOBACILLUS RHAMNOSUS GG 1 CAPSULE. PO SCH (07:44)
[2018-03-26] MEDS: DIVALPROEX 125 MG CAP.SPRINK PO SCH (07:44)
[2018-03-26] MEDS: TAMSULOSIN 0.4 MG CAP.ER.24H. PO SCH (07:44)
[2018-03-26] MEDS: SERTRALINE 50 MG TABLET. PO SCH (07:44)
[2018-03-26] MEDS: NYSTATIN TOPICAL POWDER 15GM BOTTLE. TP SCH (07:46)
[2018-03-26] MEDS: INSULIN LISPRO 300 UNITS/3 ML INSULN.PEN. SQ SCH ×4 (08:00→11:56)
[2018-03-26] MEDS: INSULIN GLARGINE 300 UNITS/3 ML INSULN.PEN. SQ SCH (09:00)
[2018-03-26 09:37] LABS: ALBUMIN 1.6 g/dL (3.4-5.0); ALBUMIN/GLOBULIN RATIO 0.3 (1.0-1.7); CALCIUM 7.9 mg/dL (8.5-10.1); CREATININE 1.3 mg/dL (0.7-1.3); GFR 52.1; POTASSIUM 4.2 mmol/L (3.5-5.1); TOTAL BILIRUBIN 0.1 mg/dL (0.2-1.0); TOTAL PROTEIN 6.7 g/dL (6.4-8.2)
[2018-03-26 10:59] VITALS: BP 128/69
[2018-03-26 11:55] LABS: BASO # 0.1 x10^3/uL (0.0-0.2); BASO % 1 % (0-3); EOS # 0.5 x10^3/uL (0.0-0.7); EOS % 5 % (0-3); HEMATOCRIT 28.9 % (39.0-53.0); HEMOGLOBIN 9.6 g/dL (13.0-17.5); LYMPH # 1.5 x10^3/uL (1.0-4.8); LYMPH % 15 % (24-48); MEAN CORPUSCULAR HEMOGLOBIN 31 pg (25-35); MEAN CORPUSCULAR HGB CONC 33 g/dL (31-37); MEAN CORPUSCULAR VOLUME 94 fL (79-100); MONO # 0.8 x10^3/uL (0.0-1.1); MONO % 8 % (0-9); NEUT # 7.1 x10^3uL (1.8-7.7); NEUT % 71 % (31-73); PLATELET COUNT 305 x10^3/uL (140-400); RED BLOOD COUNT 3.08 x10^6/uL (4.30-5.70); RED CELL DISTRIBUTION WIDTH 15.3 % (11.5-14.5)
[2018-03-26 13:23] LABS: % EOS 7 % (0-5); % LYMPHS 20 % (24-48); % MONOS 5 % (0-10); % SEGS 61 % (35-66); HYPOCHROMIA SLIGHT; PLATELET CLUMP PRESENT; PLT ESTIMATE ADEQUATE (ADEQUATE)
--- NOTE | 2018-03-26 18:54 | PN ---
DATE: SUBJECTIVE: An 88-year-old male in with sepsis, urinary tract infection, possible E. Coli, possible Proteus. White count has come down nicely without any complication. The patient is very sedate, but that is the way that he has been for some time with severe Alzheimer dementia type and the patient otherwise is barely responsive. The patient's family wants him taken out to [facility] for [facility] assistance as he is not able to take care of himself. He is pretty much bedridden. OBJECTIVE: VITAL SIGNS: Otherwise, blood pressure 150/70, respiratory rate 14, pulse 70, afebrile. GENERAL: The patient is alert, but non cognizant. LUNGS: Diminished, but clear. CARDIOVASCULAR: Stable. ABDOMEN: Soft. Go ahead and continue to monitor the patient. Continue on oral antibiotics, awaiting culture sensitivity reports. IMPRESSION: Sepsis, Escherichia coli versus Proteus. ELSIE MANCINI MD DR: IVAN/treasure JOB#: [id number] / [id number]
--- NOTE | 2018-03-26 21:38 | PN ---
DATE: 03/25/2018 PSYCHIATRIC PROGRESS NOTE SUBJECTIVE: The patient was seen individually on the evening of 03/25/2018. I discussed the patient with the nursing staff, reviewed the chart. This note covers elements not covered in my initial note of 03/25/2018. Overall, the patient remains somewhat withdrawn, but he has not been suicidal per nursing report, not voiced anything suggestive of this. REVIEW OF SYSTEMS: Ambulation impaired. He is lying in bed in the ICU. MENTAL STATUS EXAM: He is not very verbal. Insight, judgment, recent and remote memory, attention, concentration, fund of knowledge poor, consistent with his diagnosis. IMPRESSION: Major neurocognitive disorder, Alzheimer, vascular with delusion, depression, behavioral disturbance, major depressive disorder. Rest unchanged. Urinary tract infection, sepsis. PLAN: No change from a psychiatric standpoint from initial note. MAN Kwabena PADILLA MD DR: AMY/treasure JOB#: [id number] / [id number]
== END 2018-03-26 13:55 | DRG 871 ==
LOC: ER 19:44 → 1 SOUTH 21:39 → ICU 03-25 18:03
PROVIDERS: ADMIT Family Medicine; ATTEND Family Medicine
DX: A41.51 Sepsis due to Escherichia coli [E. coli] (principal); G93.41 Metabolic encephalopathy; N17.0 Acute kidney failure with tubular necrosis; N39.0 Urinary tract infection, site not specified; R47.01 Aphasia; D63.8 Anemia in other chronic diseases classified elsewhere; E03.9 Hypothyroidism, unspecified; E11.22 Type 2 diabetes mellitus with diabetic chronic kidney disease; E11.65 Type 2 diabetes mellitus with hyperglycemia; E78.00 Pure hypercholesterolemia, unspecified; E86.0 Dehydration; F01.50 Vascular dementia, unspecified severity, without behavioral disturbance, psychotic disturbance, mood disturbance, and anxiety; F02.80 Dementia in other diseases classified elsewhere, unspecified severity, without behavioral disturbance, psychotic disturbance, mood disturbance, and anxiety; F32.9 Major depressive disorder, single episode, unspecified; F41.9 Anxiety disorder, unspecified; F63.9 Impulse disorder, unspecified; G30.9 Alzheimer's disease, unspecified; I51.9 Heart disease, unspecified; N18.9 Chronic kidney disease, unspecified; N40.0 Benign prostatic hyperplasia without lower urinary tract symptoms; R65.20 Severe sepsis without septic shock; Z80.3 Family history of malignant neoplasm of breast; Z85.820 Personal history of malignant melanoma of skin; Z99.3 Dependence on wheelchair; M19.90 Unspecified osteoarthritis, unspecified site
CPT/HCPCS: 36415; 51701; 70450; 71045; 80048; 80053; 80164; 81001; 82140; 82553; 82947; 83605; 83735; 83880; 84484; 85007; 85025; 85610; 85730; 87040; 87086; 87186; 87641; 93005; 94640; 96361; 96365; J0696; J1815; J1956; J7040; J7620; 92610; 99285-25; J7030

== ENCOUNTER 2018-03-30 12:25 | Inpatient (IN) | payer MEDICARE ==
[~2018-03-30] VITALS: Ht 152.4 cm; Wt 83.2 kg
[~2018-03-30 12:25] MED LIST changes: +ACET500T68 PO; +BISA10SU2 RC; +GLUC1KIT IM; +MAG355OR30 PO; +NA P133E6 RC
[2018-03-30 13:21] LABS: BASO # 0.1 x10^3/uL (0.0-0.2); BASO % 1 % (0-3); EOS # 0.7 x10^3/uL (0.0-0.7); EOS % 7 % (0-3); HEMATOCRIT 30.6 % (39.0-53.0); HEMOGLOBIN 10.1 g/dL (13.0-17.5); LYMPH # 1.9 x10^3/uL (1.0-4.8); LYMPH % 19 % (24-48); MEAN CORPUSCULAR HEMOGLOBIN 31 pg (25-35); MEAN CORPUSCULAR HGB CONC 33 g/dL (31-37); MEAN CORPUSCULAR VOLUME 94 fL (79-100); MONO # 0.8 x10^3/uL (0.0-1.1); MONO % 8 % (0-9); NEUT # 6.4 x10^3uL (1.8-7.7); NEUT % 65 % (31-73); PLATELET COUNT 297 x10^3/uL (140-400); RED BLOOD COUNT 3.26 x10^6/uL (4.30-5.70); RED CELL DISTRIBUTION WIDTH 15.7 % (11.5-14.5); WHITE BLOOD COUNT 9.9 x10^3/uL (4.0-11.0)
--- NOTE | 2018-03-30 13:55 | PHYS DOC ---
Past History Past Medical History: Dementia, UTI Past Surgical History: No Surgical History Alcohol Use: None Drug Use: None Adult General Chief Complaint Chief Complaint: BLOOD IN URINE HPI HPI Patient is a 88 year old male with history of dementia and recent hospitalization with urosepsis brought in from care home by EMS because of bloody urine. Patient was discharged 5 days ago after treatment of urosepsis with improvement of his condition at this morning had blood in his urine with decrease of responsiveness. Patient had episode of aphasia and unable to give history. Patient stated he is acting more confused than his usual. Review of Systems Review of Systems Unable to obtain Current Medications Current Medications Current Medications Medications (Trade) Dose Ordered Sig/Smita Start Time Stop Time Status Last Admin Dose Admin Sodium Chloride 1,000 ml @ 1,000 mls/hr 1X ONCE 03/30/18 14:00 03/30/18 14:59 UNV Allergies Allergies Allergies Coded Allergies Type Severity Reaction Last Updated Verified sulfamethoxazole Allergy Intermediate 03/25/18 Yes trimethoprim Allergy Intermediate 03/25/18 Yes Physical Exam Physical Exam Constitutional: No acute distress, non-toxic appearance patient's follows commands but has episodes of aphasia HENT: Normocephalic, atraumatic Eyes: PERRLA, EOMI, conjunctiva normal, no discharge. [] Neck: Normal range of motion, no tenderness, supple, no stridor. [] Cardiovascular:Heart rate regular rhythm, no murmur [] Lungs & Thorax: Bilateral breath sounds clear to auscultation [] Abdomen: Bowel sounds normal, soft, no tenderness, no masses, no pulsatile masses. [] Skin: Warm, dry, no erythema, no rash. [] Back: No tenderness, no CVA tenderness. [] Extremities: No tenderness, no cyanosis, no clubbing, ROM intact, no edema. [] Neurologic: Alert and and awake Current Patient Data Vital Signs Vital Signs Date Time Temp Pulse Resp B/P (MAP) Pulse Ox O2 Delivery O2 Flow Rate FiO2 03/30/18 12:35 97.6 70 16 94 Room Air Lab Results Laboratory Tests Test 03/30/18 13:00 03/30/18 13:20 White Blood Count 9.9 x10^3/uL (4.0-11.0) Red Blood Count 3.26 x10^6/uL (4.30-5.70) L Hemoglobin 10.1 g/dL (13.0-17.5) L Hematocrit 30.6 % (39.0-53.0) L Mean Corpuscular Volume 94 fL (79-100) Mean Corpuscular Hemoglobin 31 pg (25-35) Mean Corpuscular Hemoglobin Concent 33 g/dL (31-37) Red Cell Distribution Width 15.7 % (11.5-14.5) H Platelet Count 297 x10^3/uL (140-400) Neutrophils (%) (Auto) 65 % (31-73) Lymphocytes (%) (Auto) 19 % (24-48) L Monocytes (%) (Auto) 8 % (0-9) Eosinophils (%) (Auto) 7 % (0-3) H Basophils (%) (Auto) 1 % (0-3) Neutrophils # (Auto) 6.4 x10^3uL (1.8-7.7) Lymphocytes # (Auto) 1.9 x10^3/uL (1.0-4.8) Monocytes # (Auto) 0.8 x10^3/uL (0.0-1.1) Eosinophils # (Auto) 0.7 x10^3/uL (0.0-0.7) Basophils # (Auto) 0.1 x10^3/uL (0.0-0.2) Platelet Estimate Pending Prothrombin Time 11.3 SEC (9.4-11.4) Prothrombin Time INR 1.1 (0.9-1.1) PTT 30 SEC (23-33) EKG EKG [] Radiology/Procedures Radiology/Procedures [] Course & Med Decision Making Course & Med Decision Making Pertinent Labs reviewed. (See chart for details) Evaluation of patient in ER showed 88-year-old male patient who is wheelchair- bound at rehabilitation brought in by EMS for bloody urine after level of consciousness. Patient did not have fever, hypotension, tachycardia, leukocytosis, elevation of lactic acid. UA showed more than 40 WBC and RBC in urine. Plan to admit patient with diagnosis of UTI and decrease of level of consciousness. Dr. Bender accepted admission at 1414. Dragon Disclaimer Dragon Disclaimer This electronic medical record was generated, in whole or in part, using a voice recognition dictation system. Departure Departure: Impression: Primary Impression: Hematuria Additional Impressions: Dementia, vascular, with depression Renal insufficiency Urinary tract infection Disposition: 09 ADMITTED INPATIENT (at 1415) Admitting Physician: Mauro Bender (except for the admission at 1414) Condition: IMPROVED Referrals: MAURO BENDER MD (PCP) Problem Qualifiers MARGARETTE THAPA MD Mar 30, 2018 13:55
[2018-03-30] MEDS ORDERED: IV NORMAL SALINE 1,000ML 1,000 ML IV ONE (14:00)
[2018-03-30 14:04] LABS: ALBUMIN 1.9 g/dL (3.4-5.0); ALBUMIN/GLOBULIN RATIO 0.3 (1.0-1.7); CALCIUM 8.2 mg/dL (8.5-10.1); CREATININE 1.9 mg/dL (0.7-1.3); GFR 33.6; POTASSIUM 4.4 mmol/L (3.5-5.1); TOTAL BILIRUBIN 0.2 mg/dL (0.2-1.0); TOTAL PROTEIN 7.4 g/dL (6.4-8.2)
[2018-03-30 14:08] LABS: VAL ACID 18 mcg/mL (50-100)
[2018-03-30 14:18] LABS: BILIRUBIN,URINE NEG (NEG); CLARITY,URINE BLOODY; COLOR,URINE BROWN; GLUCOSE,URINE NEG (NEG); NITRITE,URINE NEG (NEG); RBC,URINE >40 /HPF (0-2); UROBILINOGEN,URINE 0.2 mg/dL (0.2 mg/dL)
[2018-03-30 14:19] LABS: AMORPHOUS SEDIMENT,UR PRESENT /HPF; BACTERIA,URINE FEW /HPF (0-FEW); SQUAMOUS EPITHELIAL CELL,UR OCC /LPF; WBC,URINE 20-40 /HPF (0-4)
[2018-03-30 15:13] VITALS: BP 154/78
[2018-03-30] MEDS ORDERED: LEVO500T59 PO (15:53)
[2018-03-30 15:58] LABS: % BASOS 4 % (0-3); % EOS 5 % (0-5); % LYMPHS 23 % (24-48); % MONOS 4 % (0-10); % MYELOS 1 % (0-0); % SEGS 63 % (35-66)
[2018-03-30 16:19] LABS: PLT ESTIMATE ADEQUATE (ADEQUATE)
[2018-03-30 17:09] LABS: PLATELET CLUMP PRESENT
[2018-03-30 17:31] LABS: TARGET CELLS OCC
[2018-03-30] MEDS ORDERED: METHYL SALICYLATE/MENTHOL TOPICAL OINTMENT 29GM TUBE. TP PRN (18:30)
[2018-03-30] MEDS ORDERED: MAGNESIUM HYDROXIDE 2,400 MG/30 ML ORAL.SUSP. PO PRN (18:30)
[2018-03-30] MEDS ORDERED: PIP/TAZO PER PHARMACY MC PRN (18:30)
[2018-03-30] MEDS ORDERED: SODIUM PHOSPHATES 19/7GM 133 ML ENEMA. RC PRN (18:30)
[2018-03-30] MEDS ORDERED: MAG HYDROX/AL HYDROX/SIMETH 30 ML ORAL.SUSP PO PRN (19:15)
[2018-03-30] MEDS ORDERED: BISACODYL 10 MG SUPP.RECT PR PRN (19:15)
[2018-03-30] MEDS ORDERED: GLUCAGON,HUMAN RECOMBINANT 1 MG KIT. IM PRN (19:15)
[2018-03-30 19:59] VITALS: BP 120/68
[2018-03-30] MEDS ORDERED: GENTAMICIN SULFATE IV SCH (20:00)
[2018-03-30] MEDS ORDERED: NORMAL SALINE IV SCH (20:00)
[2018-03-30] MEDS: GENTAMICIN PER PHARMACY MC PRN (20:12)
[2018-03-30] MEDS: NORMAL SALINE IV SCH (20:15)
[2018-03-30] MEDS: GENTAMICIN SULFATE IV SCH (20:15)
[2018-03-30] MEDS: IPRATRPIUM/ALBUTEROL 0.5/2.5MG 3 ML NEBU. NEB SCH (20:29)
[2018-03-30] MEDS: ACETAMINOPHEN 500 MG TABLET PO SCH (22:03)
[2018-03-30] MEDS: SENNOSIDES 8.6 MG TABLET PO SCH (22:03)
[2018-03-30] MEDS: TAMSULOSIN 0.4 MG CAP.ER.24H. PO SCH (22:03)
[2018-03-30] MEDS: NYSTATIN TOPICAL POWDER 15GM BOTTLE. TP SCH (22:03)
[2018-03-30] MEDS: DIVALPROEX 125 MG CAP.SPRINK PO SCH (22:03)
[2018-03-30] MEDS: INSULIN GLARGINE 300 UNITS/3 ML INSULN.PEN. SQ SCH (22:05)
[2018-03-30 23:02] VITALS: BP 125/81
[2018-03-31] MEDS: PIPERACILLIN/TAZOBACTAM 3.375 GM in IV NORMAL SALINE 50ML 50 ML IV SCH ×4 (00:27→17:22)
[2018-03-31] MEDS: IPRATRPIUM/ALBUTEROL 0.5/2.5MG 3 ML NEBU. NEB SCH ×3 (05:10→20:28)
[2018-03-31] MEDS: LEVOTHYROXINE 125 MCG TABLET PO SCH (05:48)
[2018-03-31] MEDS ORDERED: GENTAMICIN RANDOM LEVEL. MC ONE (06:00)
[2018-03-31 06:30] VITALS: BP 129/71
[2018-03-31] MEDS ORDERED: ASPIRIN 81 MG TAB.CHEW PO SCH (08:00)
[2018-03-31] MEDS ORDERED: INSULIN LISPRO 300 UNITS/3 ML INSULN.PEN. SQ SCH ×2 (08:00→11:30)
[2018-03-31] MEDS: DIVALPROEX 125 MG CAP.SPRINK PO SCH ×3 (08:02→21:44)
[2018-03-31] MEDS: SENNOSIDES 8.6 MG TABLET PO SCH ×2 (08:02→21:44)
[2018-03-31] MEDS: ACETAMINOPHEN 500 MG TABLET PO SCH ×3 (08:02→21:44)
[2018-03-31] MEDS: TAMSULOSIN 0.4 MG CAP.ER.24H. PO SCH ×2 (08:02→21:44)
[2018-03-31] MEDS: INSULIN GLARGINE 300 UNITS/3 ML INSULN.PEN. SQ SCH ×2 (08:02→21:47)
[2018-03-31] MEDS: NYSTATIN TOPICAL POWDER 15GM BOTTLE. TP SCH ×2 (08:03→21:00)
[2018-03-31] MEDS: SERTRALINE 50 MG TABLET. PO SCH (08:07)
[2018-03-31] MEDS ORDERED: LEVOFLOXACIN 500 MG PO SCH (09:00)
[2018-03-31 10:09] VITALS: BP 90/51
[2018-03-31] MEDS ORDERED: DEXTROSE 50% 25 GM / 50ML DISP.SYRIN. IV PRN (10:15)
[2018-03-31] MEDS: INSULIN LISPRO 300 UNITS/3 ML INSULN.PEN. SQ SCH ×2 (11:44→16:51)
[2018-03-31 12:55] VITALS: BP 96/56
[2018-03-31] MEDS: GENTAMICIN PER PHARMACY MC PRN (14:15)
[2018-03-31 18:55] VITALS: BP 119/66
--- NOTE | 2018-03-31 19:12 | HP ---
ADMIT DATE: 03/30/2018 HISTORY OF PRESENT ILLNESS: An 88-year-old male with severe dementia, Alzheimer type, came in through the Emergency Room from the halfway as the patient was passing large blood clots in his urine. The patient apparently has been on antibiotics for infection, but apparently did not do much good. As a result of this, the patient came in through the Emergency Room as noted passing large clots and was admitted for IV antibiotic therapy since he has failed outside oral medication. He has decreased responsiveness and more confused than usual and so he needed inpatient, he has failed outpatient therapy. PAST MEDICAL HISTORY: Dementia, Alzheimer type, hypercholesterolemia, hypertension, GERD, renal disease, BPH, prostate problems, incontinence, arthritis, hypothyroidism, severe depression and impulse control, cancer of the skin with melanoma, tetanus, influenza and pneumococcal all up-to-date. FAMILY HISTORY: Positive for breast cancer. ALLERGIES: ____ , TRIMETHOPRIM. SOCIAL HISTORY: No smoking, alcohol or drug use. Lives out at [facility]. MEDICATIONS: Reviewed. See that was in the home medication list. REVIEW OF SYSTEMS: The patient is not able to give any type of history as he is basically unresponsive. PHYSICAL EXAMINATION: VITAL SIGNS: The patient's blood pressure is that of 90/51, respiration 18, pulse 75, afebrile. HEENT: The patient's head was atraumatic, normocephalic. Mouth and throat: Dry mucous membranes. Poor dentition. NECK: Supple. LUNGS: Diminished throughout, poor movement of air. CARDIOVASCULAR: Regular sinus rhythm, S1, S2. ABDOMEN: Soft, nontender, no rebounding or guarding. Positive bowel sounds, no hepatosplenomegaly. EXTREMITIES: No clubbing, cyanosis or edema. NEUROLOGIC: The patient is arousable, but markedly diminished consciousness. LABORATORY DATA: The patient otherwise, white count 9, hemoglobin and hematocrit 10 and 30. Chemistries basically within normal limits except for his creatinine of 1.9. Otherwise, albumin extremely low at 1.9. He is not eating very well obviously. He has greater than 40 of red blood cells and 20-40 white blood cells in his urine. The patient otherwise impression therefore urosepsis, organism unspecified. His ____ culture is pending and we will continue on IV antibiotic therapy for now since he has failed outpatient therapy, depression, Alzheimer's type. Decreased mental consciousness, dehydration and severe protein malnutrition. ELSIE MANCINI MD DR: IVAN/treasure JOB#: [id number] / [id number]
[2018-03-31] MEDS: LACTOBACILLUS RHAMNOSUS GG 1 CAPSULE. PO SCH (21:44)
[2018-04-01 00:32] VITALS: BP 137/68
[2018-04-01] MEDS: PIPERACILLIN/TAZOBACTAM 3.375 GM in IV NORMAL SALINE 50ML 50 ML IV SCH ×4 (00:44→18:14)
[2018-04-01] MEDS: IPRATRPIUM/ALBUTEROL 0.5/2.5MG 3 ML NEBU. NEB SCH ×3 (05:15→20:11)
[2018-04-01 06:00] VITALS: BP 109/62
[2018-04-01] MEDS: LEVOTHYROXINE 125 MCG TABLET PO SCH (06:13)
[2018-04-01] MEDS: INSULIN LISPRO 300 UNITS/3 ML INSULN.PEN. SQ SCH ×3 (07:47→16:55)
[2018-04-01] MEDS: INSULIN GLARGINE 300 UNITS/3 ML INSULN.PEN. SQ SCH ×2 (09:00→21:00)
[2018-04-01] MEDS: SERTRALINE 50 MG TABLET. PO SCH (09:04)
[2018-04-01] MEDS: TAMSULOSIN 0.4 MG CAP.ER.24H. PO SCH ×2 (09:04→20:16)
[2018-04-01] MEDS: LACTOBACILLUS RHAMNOSUS GG 1 CAPSULE. PO SCH ×2 (09:04→20:16)
[2018-04-01] MEDS: DIVALPROEX 125 MG CAP.SPRINK PO SCH ×3 (09:04→20:16)
[2018-04-01] MEDS: SENNOSIDES 8.6 MG TABLET PO SCH ×2 (09:04→20:16)
[2018-04-01] MEDS: ACETAMINOPHEN 500 MG TABLET PO SCH ×3 (09:05→20:16)
[2018-04-01] MEDS: NYSTATIN TOPICAL POWDER 15GM BOTTLE. TP SCH ×2 (09:10→20:19)
[2018-04-01 10:46] VITALS: BP 116/63
[2018-04-01 15:35] VITALS: BP 127/69
--- NOTE | 2018-04-01 18:53 | PDOC ---
Exam Note: Pradeep Note: Please also refer to the separate dictated note~for this date of service dictated separately.~Patient seen individually. Discussed the patient with Nursing staff reviewed the chart.~Reviewed interim history and current functioning. Reviewed vital signs,~Labs/ Radiology~and current medications noted below. Continue current treatment with the changes noted in the dictated addendum note Assessment: Vital Signs: Vital Signs Date Time Temp Pulse Resp B/P (MAP) Pulse Ox O2 Delivery O2 Flow Rate FiO2 04/01/18 15:35 97.5 81 20 127/69 (88) 93 Room Air I&O Intake and Output 04/01/18 07:01 Intake Total 650 ml Balance 650 ml Intake Oral 600 ml IV Total 50 ml # Voids 4 Labs: Laboratory Tests Test 03/31/18 21:44 04/01/18 07:36 04/01/18 11:49 04/01/18 16:39 Glucose (Fingerstick) 178 mg/dL (70-99) H 117 mg/dL (70-99) H 155 mg/dL (70-99) H 129 mg/dL (70-99) H Current Medications: Meds: Current Medications Sodium Chloride 1,000 ml @ 1,000 mls/hr 1X ONCE IV Last administered on at 14:00; Start 03/30/18 at 14:00; Stop 03/30/18 at 14:59; Status DC Ceftriaxone Sodium 1 gm/ Sodium Chloride 50 ml @ 100 mls/hr 1X ONCE IV ; Start 03/30/18 at 15:10; Stop 03/30/18 at 15:39; Status DC Ceftriaxone Sodium 1 gm/ Sodium Chloride 50 ml @ 100 mls/hr 1X ONCE IV Last administered on 03/30/18at 16:34; Start 03/30/18 at 17:00; Stop 03/30/18 at 17:29; Status DC Vitamin D (Vitamin D3) 50,000 unit QSU PO ; Start 04/05/18 at 16:00 Albuterol/ Ipratropium (Duoneb) 3 ml TID NEB Last administered on 04/01/18at 09: 45; Start 03/30/18 at 21:00 Magnesium Hydroxide (Milk Of Magnesia) 2,400 mg PRN QHS PRN PO CONSTIPATION; Start 03/30/18 at 18:30 Multi-Ingredient Ointment (Analgesic [place]) 1 valery PRN QID PRN TP MUSCLE PAIN; Start 03/30/18 at 18:30 Sodium Biphosphate/ Sodium Phosphate (Fleet Adult) 133 ml PRN DAILY PRN RC CONSTIPATION; Start 03/30/18 at 18:30 Nystatin (Nystop) 1 valery BID TP Last administered on 04/01/18at 09:10; Start at 21:00 Olanzapine (ZyPREXA ZYDIS) 5 mg QHS PO Last administered on 03/31/18at 21:44; Start 03/30/18 at 21:00 Sertraline HCl (Zoloft) 75 mg DAILY PO Last administered on 04/01/18at 09:04; Start 03/31/18 at 09:00 Tamsulosin HCl (Flomax) 0.4 mg BID PO Last administered on 04/01/18at 09:04; Start 03/30/18 at 21:00 Acetaminophen (Tylenol) 500 mg TID PO Last administered on 04/01/18at 09:05; Start 03/30/18 at 21:00 Aspirin (Children'S Aspirin) 81 mg DAILYWBKFT PO ; Start 03/31/18 at 08:00; Stop 03/31/18 at 10:14; Status DC Bisacodyl (Dulcolax Supp) 10 mg PRN DAILY PRN MD CONSTIPATION; Start 03/30/18 at 19:15 Divalproex Sodium (Depakote Sprinkles) 125 mg TID PO Last administered on at 09:04; Start 03/30/18 at 21:00 Glucagon (Glucagen Kit) 1 mg PRN 1X PRN IM HYPOGLYCEMIA; Start 03/30/18 at 19:15 Insulin Human Lispro (HumaLOG) 5 units DAILYWBKFT SQ ; Start 03/31/18 at 08:00; Stop 03/31/18 at 10:14; Status DC Insulin Human Lispro (HumaLOG) 8 units BIDACLD SQ ; Start 03/31/18 at 11:30; Stop 03/31/18 at 11:30; Status DC Insulin Glargine (Lantus) 10 units QHS SQ Last administered on 03/31/18at 21:47; Start 03/30/18 at 21:00 Insulin Glargine (Lantus) 15 units DAILY SQ ; Start 03/31/18 at 09:00 Non-Formulary Medication (Levofloxacin (Levaquin)) 500 mg DAILY PO ; Start at 09:00; Stop 03/31/18 at 09:00; Status DC Levothyroxine Sodium (Synthroid) 125 mcg DAILY06 PO Last administered on at 06:13; Start 03/31/18 at 06:00 Al Hydroxide/Mg Hydroxide (Mylanta Plus Xs) 30 ml PRN AFTMEALHC PRN PO DYSPEPSIA; Start 03/30/18 at 19:15 Sennosides (Senna) 8.6 mg BID PO Last administered on 04/01/18at 09:04; Start 03/30/18 at 21:00 Piperacillin Sod/ Tazobactam Sod (Zosyn Per Pharmacy) 1 each PRN DAILY PRN MC SEE COMMENTS; Start 03/30/18 at 18:30 Gentamicin Sulfate 1 each PRN DAILY PRN MC SEE COMMENTS Last administered on 03/31/18at 14:15; Start 03/30/18 at 18:30 Gentamicin Sulfate 420 mg/ Sodium Chloride 110.5 ml @ 110.5 mls/ hr Q24H IV ; Start 03/30/18 at 20:00; Stop 03/30/18 at 20:03; Status DC Gentamicin Sulfate 1 each 1X ONCE MC Last administered on 03/31/18at 05:48; Start 03/31/18 at 06:00; Stop 03/31/18 at 06:01; Status DC Piperacillin Sod/ Tazobactam Sod 3.375 gm/Sodium Chloride 50 ml @ 100 mls/hr Q6HRS IV Last administered on 04/01/18at 18:14; Start 03/31/18 at 00:00 Gentamicin Sulfate 420 mg/ Sodium Chloride 110.5 ml @ 110.5 mls/ hr Q48H IV Last administered on 03/30/18at 20:15; Start 03/30/18 at 20:15 Insulin Human Lispro (HumaLOG) 0-5 UNITS TIDWMEALS SQ ; Start 03/31/18 at 12:00 Dextrose 12.5 gm PRN Q15MIN PRN IV SEE COMMENTS; Start 03/31/18 at 10:15 Lactobacillus Rhamnosus (Culturelle) 1 cap BID PO Last administered on at 09:04; Start 03/31/18 at 21:00 Active Scripts Active Duoneb 0.5-3(2.5) Mg/3 Ml (Albuterol/Ipratropium) 3 Ml Ampul.neb 3 Ml NEB TID Reported Levaquin (Levofloxacin) 500 Mg Tablet 500 Mg PO DAILY Glucagon Emergency Kit (Glucagon,Human Recombinant) 1 Mg Kit 1 Mg IM PRN Rulox Suspension (Mag Hydrox/Al Hydrox/Simeth) 355 Ml Oral.susp 30 Ml PO PRN AFTMEALHC PRN Enema (Na Phos,M-B/Na Phos,Di-Ba) 133 Ml Enema 133 Ml RC PRN DAILY PRN Bisacodyl 10 Mg Supp.rect 10 Mg RC PRN DAILY PRN Acetaminophen 500 Mg Tablet 500 Mg PO TID Novolog Flexpen (Insulin Aspart) 100 Unit/1 Ml Insuln.pen 5 Unit SQ DAILYWBKFT Depakote Sprinkle (Divalproex Sodium) 125 Mg Cap.sprink 125 Mg PO TID Aspirin 81 Mg Tab.chew 81 Mg PO DAILY Senna Lax (Sennosides) 8.6 Mg Tablet 8.6 Mg PO BID Zoloft (Sertraline Hcl) 50 Mg Tablet 75 Mg PO DAILY Olanzapine Odt (Olanzapine) 5 Mg Tab.rapdis 5 Mg PO QHS Nystop (Nystatin) 60 Gm Powder 1 Valery TP BID Apply to groin Analgesic [place] (Methyl Salicylate/Menthol) 28 Gm Oint...g. 1 Gm TP PRN QID PRN Milk Of Magnesia (Magnesium Hydroxide) 400 Mg/5 Ml Oral.susp 2,400 Mg PO PRN QHS PRN Novolog Flexpen (Insulin Aspart) 100 Unit/1 Ml Insuln.pen 8 Unit SQ BIDACLD Levemir Flextouch (Insulin Detemir) 100 Unit/1 Ml Insuln.pen 10 Unit SQ QHS Levemir Flextouch (Insulin Detemir) 100 Unit/1 Ml Insuln.pen 15 Unit SQ DAILY D3-50 (Cholecalciferol (Vitamin D3)) 50,000 Unit Capsule 50,000 Unit PO QSU Levothyroxine Sodium 125 Mcg Tablet 125 Mg PO DAILY@0600 Flomax (Tamsulosin Hcl) 0.4 Mg Cap.er.24h 1 Cap PO BID I have reviewed the current psychotropics carefully including drug interactions. Risk benefit ratio favors no change other than as noted in my dictated progress note. 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
[2018-04-01] MEDS: NORMAL SALINE IV SCH (20:16)
[2018-04-01] MEDS: GENTAMICIN SULFATE IV SCH (20:16)
[2018-04-01 20:18] VITALS: BP 118/67
--- NOTE | 2018-04-01 23:55 | CONS ---
DATE OF CONSULTATION: 04/01/2018 PSYCHIATRIC CONSULTATION This note covers elements not covered in my initial note 04/01/2018. IDENTIFYING DATA: The patient is an 88-year-old male seen in bed [address], [address] [place] [address] for a psychiatric consult requested by Dr. Bender on account of "possible over sedation. The patient is not waking for ADLs. Questioning meds or disease progression." The patient seen individually evening of 04/01/2018. Discussed with nursing staff, reviewed the chart. CHIEF COMPLAINT: "I am okay." The patient is quite sedated. HISTORY OF PRESENT ILLNESS: The patient has a history of dementia, Alzheimer's vascular type. He has been residing at [facility]. He was readmitted to [address] [place] [address] on account of passing large amounts of clots and was admitted for IV antibiotic therapy for his UTI since he has failed outpatient interventions. While on the unit, he has been noted to be quite sedated, withdrawn. CURRENT PSYCHOTROPICS: Include Zyprexa 5 mg at bedtime, Depakote Sprinkles 125 mg 3 times a day, Zoloft 75 mg daily. PAST PSYCHIATRIC HISTORY: Positive for dementia, Alzheimer's vascular with delusion, depression, behavioral disturbance. PAST MEDICAL HISTORY: Positive for his UTI, hypercholesterolemia, GERD, hypertension, right renal disease, BPH, incontinence, arthritis, hypothyroidism, impulse control problems, skin melanoma. His tetanus, influenza and pneumococcal vaccinations are all up to date. FAMILY HISTORY: Positive for breast cancer. ALLERGIES: SULFAMETHOXAZOLE, TRIMETHOPRIM. MENTAL STATUS EXAMINATION: The patient was seen individually evening of 04/01/2018. He is oriented to himself, not very verbal, somewhat sedated. Insight, judgment, recent and remote memory, attention, concentration, fund of knowledge poor, consistent with his diagnosis. IMPRESSION: Major neurocognitive disorder, Alzheimer vascular with delusion, depression, behavioral disturbance; anxiety disorder, unspecified; psychotic disorder, unspecified. PLAN: From a psychiatric standpoint, the patient is somewhat sedated. Both Depakote and Zyprexa could sedate him. On a trial basis, we will go ahead and stop the Zyprexa 5 mg p.o. at bedtime. Monitor for progress and then decide on the Depakote. Dr. Bender, thank you for the opportunity to participate in your patient's care. We will follow with you. MAN Kwabena PADILLA MD DR: Mick JOB#: [id number] / [id number]
--- NOTE | 2018-04-02 00:02 | PN ---
DATE: SUBJECTIVE: The patient in with sepsis. The patient is doing somewhat better, a little bit more alert. The family has asked for Dr. Mistry to see the patient. In any case, he continues to receive IV antibiotic therapy. OBJECTIVE: LUNGS: Diminished, but clear. CARDIOVASCULAR: Regular sinus rhythm. ABDOMEN: Soft, nontender. IMPRESSION: Urosepsis, organism to be identified. IV antibiotic therapy. Continue for that. Severe depression, dementia, Alzheimer type, severe protein malnutrition. Continue with plan above and hopefully ready for discharge back to the intermediate soon. ELSIE MANCINI MD DR: IVAN/treasure JOB#: [id number] / [id number]
[2018-04-02] MEDS: PIPERACILLIN/TAZOBACTAM 3.375 GM in IV NORMAL SALINE 50ML 50 ML IV SCH ×3 (00:05→11:57)
[2018-04-02 05:02] VITALS: BP 120/77
[2018-04-02] MEDS: IPRATRPIUM/ALBUTEROL 0.5/2.5MG 3 ML NEBU. NEB SCH ×2 (05:03→09:14)
[2018-04-02] MEDS: LEVOTHYROXINE 125 MCG TABLET PO SCH (05:41)
[2018-04-02 06:25] LABS: BASO # 0.1 x10^3/uL (0.0-0.2); BASO % 1 % (0-3); EOS # 0.8 x10^3/uL (0.0-0.7); EOS % 6 % (0-3); HEMOGLOBIN 9.5 g/dL (13.0-17.5); LYMPH # 2.3 x10^3/uL (1.0-4.8); LYMPH % 19 % (24-48); MEAN CORPUSCULAR HEMOGLOBIN 32 pg (25-35); MEAN CORPUSCULAR HGB CONC 34 g/dL (31-37); MEAN CORPUSCULAR VOLUME 93 fL (79-100); MONO # 0.7 x10^3/uL (0.0-1.1); MONO % 6 % (0-9); NEUT # 8.1 x10^3uL (1.8-7.7); NEUT % 68 % (31-73); PLATELET COUNT 329 x10^3/uL (140-400); RED CELL DISTRIBUTION WIDTH 15.2 % (11.5-14.5); WHITE BLOOD COUNT 11.9 x10^3/uL (4.0-11.0)
[2018-04-02 06:43] LABS: CALCIUM 8.3 mg/dL (8.5-10.1); CREATININE 2.1 mg/dL (0.7-1.3); POTASSIUM 4.2 mmol/L (3.5-5.1)
[2018-04-02] MEDS: INSULIN LISPRO 300 UNITS/3 ML INSULN.PEN. SQ SCH ×2 (08:00→11:55)
[2018-04-02] MEDS: INSULIN GLARGINE 300 UNITS/3 ML INSULN.PEN. SQ SCH (09:00)
[2018-04-02] MEDS ORDERED: CEFT1VIA13 IJ (09:32)
[2018-04-02] MEDS ORDERED: INSU100I11 SQ (09:32)
[2018-04-02] MEDS ORDERED: LACT1CAP19 PO (09:32)
[2018-04-02] MEDS: ACETAMINOPHEN 500 MG TABLET PO SCH ×2 (10:23→14:47)
[2018-04-02] MEDS: SENNOSIDES 8.6 MG TABLET PO SCH (10:23)
[2018-04-02] MEDS: TAMSULOSIN 0.4 MG CAP.ER.24H. PO SCH (10:23)
[2018-04-02] MEDS: DIVALPROEX 125 MG CAP.SPRINK PO SCH ×2 (10:25→14:47)
[2018-04-02] MEDS: NYSTATIN TOPICAL POWDER 15GM BOTTLE. TP SCH (10:25)
[2018-04-02] MEDS: LACTOBACILLUS RHAMNOSUS GG 1 CAPSULE. PO SCH (10:25)
[2018-04-02] MEDS: SERTRALINE 50 MG TABLET. PO SCH (10:25)
--- NOTE | 2018-04-02 12:20 | DS ---
DATE OF DISCHARGE: 04/02/2018 HOSPITAL COURSE: An 88-year-old white male came in with urosepsis. The patient is resting fairly comfortably. E. coli was isolated out of his urine and due to final reports from last admission, we found that those reports were reported several days after he was discharged home or back to the [facility] out at the [place]. We adjusted his antibiotics. He made excellent progress since he had failed outpatient therapy and once on IV antibiotic therapy appropriate, concentration and he made excellent progress during the rest of his hospitalization. MEDICATIONS: See MRAD. ACTIVITY: Decreased activity. DIET: Regular diet. We will continue on Rocephin IM for at least another week and then repeat the cultures there. IMPRESSION: Urosepsis with Escherichia coli, encephalopathy secondary to infection, dementia, Alzheimer type, severe protein malnutrition. He should be on a protein supplement diet. Make further evaluation on him as indicated as an outpatient. ELSIE MANCINI MD DR: IVAN/nts JOB#: [id number] / [id number]
--- NOTE | 2018-04-02 14:10 | PDOC ---
Exam Note: Pradeep Note: Please also refer to the separate dictated note~for this date of service dictated separately.~Patient seen individually. Discussed the patient with Nursing staff reviewed the chart.~Reviewed interim history and current functioning. Reviewed vital signs,~Labs/ Radiology~and current medications noted below. Continue current treatment with the changes noted in the dictated addendum note Assessment: Vital Signs: Vital Signs Date Time Temp Pulse Resp B/P (MAP) Pulse Ox O2 Delivery O2 Flow Rate FiO2 04/02/18 09:15 95 Room Air 04/02/18 05:02 97.8 71 20 120/77 (91) I&O Intake and Output 04/02/18 07:01 Intake Total 1498 ml Balance 1498 ml Intake Oral 940 ml IV Total 558 ml # Voids 11 # Bowel Movements 4 Labs: Laboratory Tests Test 04/01/18 16:39 04/01/18 20:58 04/02/18 06:09 04/02/18 07:20 Glucose (Fingerstick) 129 mg/dL (70-99) H 142 mg/dL (70-99) H 116 mg/dL (70-99) H White Blood Count 11.9 x10^3/uL (4.0-11.0) H Red Blood Count 3.00 x10^6/uL (4.30-5.70) L Hemoglobin 9.5 g/dL (13.0-17.5) L Hematocrit 28.0 % (39.0-53.0) L Mean Corpuscular Volume 93 fL (79-100) Mean Corpuscular Hemoglobin 32 pg (25-35) Mean Corpuscular Hemoglobin Concent 34 g/dL (31-37) Red Cell Distribution Width 15.2 % (11.5-14.5) H Platelet Count 329 x10^3/uL (140-400) Neutrophils (%) (Auto) 68 % (31-73) Lymphocytes (%) (Auto) 19 % (24-48) L Monocytes (%) (Auto) 6 % (0-9) Eosinophils (%) (Auto) 6 % (0-3) H Basophils (%) (Auto) 1 % (0-3) Neutrophils # (Auto) 8.1 x10^3uL (1.8-7.7) H Lymphocytes # (Auto) 2.3 x10^3/uL (1.0-4.8) Monocytes # (Auto) 0.7 x10^3/uL (0.0-1.1) Eosinophils # (Auto) 0.8 x10^3/uL (0.0-0.7) H Basophils # (Auto) 0.1 x10^3/uL (0.0-0.2) Sodium Level 145 mmol/L (136-145) Potassium Level 4.2 mmol/L (3.5-5.1) Chloride Level 108 mmol/L (98-107) H Carbon Dioxide Level 28 mmol/L (21-32) Anion Gap 9 (6-14) Blood Urea Nitrogen 32 mg/dL (8-26) H Creatinine 2.1 mg/dL (0.7-1.3) H Estimated GFR (Cockcroft-Gault) 30.0 Glucose Level 118 mg/dL (70-99) H Calcium Level 8.3 mg/dL (8.5-10.1) L Test 04/02/18 11:49 Glucose (Fingerstick) 136 mg/dL (70-99) H Current Medications: Meds: Current Medications Sodium Chloride 1,000 ml @ 1,000 mls/hr 1X ONCE IV Last administered on at 14:00; Start 03/30/18 at 14:00; Stop 03/30/18 at 14:59; Status DC Ceftriaxone Sodium 1 gm/ Sodium Chloride 50 ml @ 100 mls/hr 1X ONCE IV ; Start 03/30/18 at 15:10; Stop 03/30/18 at 15:39; Status DC Ceftriaxone Sodium 1 gm/ Sodium Chloride 50 ml @ 100 mls/hr 1X ONCE IV Last administered on 03/30/18at 16:34; Start 03/30/18 at 17:00; Stop 03/30/18 at 17:29; Status DC Vitamin D (Vitamin D3) 50,000 unit QSU PO ; Start 04/05/18 at 16:00 Albuterol/ Ipratropium (Duoneb) 3 ml TID NEB Last administered on 04/02/18at 09: 14; Start 03/30/18 at 21:00 Magnesium Hydroxide (Milk Of Magnesia) 2,400 mg PRN QHS PRN PO CONSTIPATION; Start 03/30/18 at 18:30 Multi-Ingredient Ointment (Analgesic [place]) 1 valery PRN QID PRN TP MUSCLE PAIN; Start 03/30/18 at 18:30 Sodium Biphosphate/ Sodium Phosphate (Fleet Adult) 133 ml PRN DAILY PRN RC CONSTIPATION; Start 03/30/18 at 18:30 Nystatin (Nystop) 1 valery BID TP Last administered on 04/02/18at 10:25; Start 03/30 at 21:00 Olanzapine (ZyPREXA ZYDIS) 5 mg QHS PO Last administered on 03/31/18at 21:44; Start 03/30/18 at 21:00; Stop 04/01/18 at 18:53; Status DC Sertraline HCl (Zoloft) 75 mg DAILY PO Last administered on 04/02/18at 10:25; Start 03/31/18 at 09:00 Tamsulosin HCl (Flomax) 0.4 mg BID PO Last administered on 04/02/18at 10:23; Start 03/30/18 at 21:00 Acetaminophen (Tylenol) 500 mg TID PO Last administered on 04/02/18at 10:23; Start 03/30/18 at 21:00 Aspirin (Children'S Aspirin) 81 mg DAILYWBKFT PO ; Start 03/31/18 at 08:00; Stop 03/31/18 at 10:14; Status DC Bisacodyl (Dulcolax Supp) 10 mg PRN DAILY PRN [place] CONSTIPATION; Start 03/30/18 at 19:15 Divalproex Sodium (Depakote Sprinkles) 125 mg TID PO Last administered on at 10:25; Start 03/30/18 at 21:00 Glucagon (Glucagen Kit) 1 mg PRN 1X PRN IM HYPOGLYCEMIA; Start 03/30/18 at 19:15 Insulin Human Lispro (HumaLOG) 5 units DAILYWBKFT SQ ; Start 03/31/18 at 08:00; Stop 03/31/18 at 10:14; Status DC Insulin Human Lispro (HumaLOG) 8 units BIDACLD SQ ; Start 03/31/18 at 11:30; Stop 03/31/18 at 11:30; Status DC Insulin Glargine (Lantus) 10 units QHS SQ Last administered on 03/31/18at 21:47; Start 03/30/18 at 21:00 Insulin Glargine (Lantus) 15 units DAILY SQ ; Start 03/31/18 at 09:00 Non-Formulary Medication (Levofloxacin (Levaquin)) 500 mg DAILY PO ; Start at 09:00; Stop 03/31/18 at 09:00; Status DC Levothyroxine Sodium (Synthroid) 125 mcg DAILY06 PO Last administered on at 05:41; Start 03/31/18 at 06:00 Al Hydroxide/Mg Hydroxide (Mylanta Plus Xs) 30 ml PRN AFTMEALHC PRN PO DYSPEPSIA; Start 03/30/18 at 19:15 Sennosides (Senna) 8.6 mg BID PO Last administered on 04/02/18at 10:23; Start at 21:00 Piperacillin Sod/ Tazobactam Sod (Zosyn Per Pharmacy) 1 each PRN DAILY PRN MC SEE COMMENTS; Start 03/30/18 at 18:30 Gentamicin Sulfate 1 each PRN DAILY PRN MC SEE COMMENTS Last administered on 03/31/18at 14:15; Start 03/30/18 at 18:30 Gentamicin Sulfate 420 mg/ Sodium Chloride 110.5 ml @ 110.5 mls/ hr Q24H IV ; Start 03/30/18 at 20:00; Stop 03/30/18 at 20:03; Status DC Gentamicin Sulfate 1 each 1X ONCE MC Last administered on 03/31/18at 05:48; Start 03/31/18 at 06:00; Stop 03/31/18 at 06:01; Status DC Piperacillin Sod/ Tazobactam Sod 3.375 gm/Sodium Chloride 50 ml @ 100 mls/hr Q6HRS IV Last administered on 04/02/18at 05:41; Start 03/31/18 at 00:00 Gentamicin Sulfate 420 mg/ Sodium Chloride 110.5 ml @ 110.5 mls/ hr Q48H IV Last administered on 04/01/18at 20:16; Start 03/30/18 at 20:15 Insulin Human Lispro (HumaLOG) 0-5 UNITS TIDWMEALS SQ ; Start 03/31/18 at 12:00 Dextrose 12.5 gm PRN Q15MIN PRN IV SEE COMMENTS; Start 03/31/18 at 10:15 Lactobacillus Rhamnosus (Culturelle) 1 cap BID PO Last administered on at 10:25; Start 03/31/18 at 21:00 Active Scripts Active Ceftriaxone (Ceftriaxone Sodium) 1 Gm Vial 1 Gm IJ DAILY 7 Days Humalog (Insulin Lispro) 100 Unit/1 Ml Insuln.pen 0 Units SQ TIDWMEALS 90 Days Culturelle (Lactobacillus Rhamnosus Gg) 1 Each Cap.sprink 1 Cap PO BID 10 Days Duoneb 0.5-3(2.5) Mg/3 Ml (Albuterol/Ipratropium) 3 Ml Ampul.neb 3 Ml NEB TID Reported Glucagon Emergency Kit (Glucagon,Human Recombinant) 1 Mg Kit 1 Mg IM PRN Rulox Suspension (Mag Hydrox/Al Hydrox/Simeth) 355 Ml Oral.susp 30 Ml PO PRN AFTMEALHC PRN Enema (Na Phos,M-B/Na Phos,Di-Ba) 133 Ml Enema 133 Ml RC PRN DAILY PRN Bisacodyl 10 Mg Supp.rect 10 Mg RC PRN DAILY PRN Acetaminophen 500 Mg Tablet 500 Mg PO TID Depakote Sprinkle (Divalproex Sodium) 125 Mg Cap.sprink 125 Mg PO TID Senna Lax (Sennosides) 8.6 Mg Tablet 8.6 Mg PO BID Zoloft (Sertraline Hcl) 50 Mg Tablet 75 Mg PO DAILY Olanzapine Odt (Olanzapine) 5 Mg Tab.rapdis 5 Mg PO QHS Nystop (Nystatin) 60 Gm Powder 1 Valery TP BID Apply to groin Analgesic [place] (Methyl Salicylate/Menthol) 28 Gm Oint...g. 1 Gm TP PRN QID PRN Milk Of Magnesia (Magnesium Hydroxide) 400 Mg/5 Ml Oral.susp 2,400 Mg PO PRN QHS PRN Levemir Flextouch (Insulin Detemir) 100 Unit/1 Ml Insuln.pen 10 Unit SQ QHS Levemir Flextouch (Insulin Detemir) 100 Unit/1 Ml Insuln.pen 15 Unit SQ DAILY D3-50 (Cholecalciferol (Vitamin D3)) 50,000 Unit Capsule 50,000 Unit PO QSU Levothyroxine Sodium 125 Mcg Tablet 125 Mg PO DAILY@0600 Flomax (Tamsulosin Hcl) 0.4 Mg Cap.er.24h 1 Cap PO BID I have reviewed the current psychotropics carefully including drug interactions. Risk benefit ratio favors no change other than as noted in my dictated progress note. Diagnosis: Problems: (1) UTI (urinary tract infection) (2) Impulse control disorder (3) Dementia in Alzheimer's disease with delusions (4) Dementia, vascular, with depression (5) Generalized weakness LISBET PADILLA MD Apr 02, 2018 14:10
--- NOTE | 2018-04-02 23:35 | PN ---
DATE: 04/02/2018 PSYCHIATRIC PROGRESS NOTE This note covers elements not covered in my initial note of 04/02/2018. SUBJECTIVE: The patient was seen individually afternoon of 04/02/2018. Per nursing report, the patient has been much more awake and alert since 5 mg at bedtime Zyprexa was discontinued. He has not been aggressive. Plan is for him to return to [facility] today. He is still on the Depakote Sprinkles 125 mg t.i.d. and seems to be tolerating this well. REVIEW OF SYSTEMS: Positive for some tiredness. He was watching the movie "True Grit" on his television set in his room and had a pleasant smile about him. Certainly, very confused. No CV, , pulmonary, eye system symptoms on review. Reliability poor. MENTAL STATUS EXAM: Oriented to himself. Insight, judgment, recent and remote memory, attention, concentration, fund of knowledge poor, consistent with his diagnosis. IMPRESSION: Major neurocognitive disorder, Alzheimer, vascular with delusion, depression, behavioral disturbance. Rest unchanged. PLAN: Continue Depakote Sprinkles 125 t.i.d., keep off the Zyprexa. Rest, no change from initial note. I would be happy to follow him at the long term post-discharge. MAN Kwabena PADILLA MD DR: AMY/treasure JOB#: [id number] / [id number]
[2018-04-05] MEDS ORDERED: CHOLECALCIFEROL (VITAMIN D3) 50,000 UNIT CAPSULE PO SCH (16:00)
== END 2018-04-02 15:45 | disposition short-term general hospital (02) | DRG 871 ==
LOC: ER 12:25 → 1 SOUTH 14:16
PROVIDERS: ADMIT Family Medicine; ATTEND Family Medicine
DX: A41.9 Sepsis, unspecified organism (principal); E43 Unspecified severe protein-calorie malnutrition; N39.0 Urinary tract infection, site not specified; F01.51 Vascular dementia, unspecified severity, with behavioral disturbance; F02.81 Dementia in other diseases classified elsewhere, unspecified severity, with behavioral disturbance; R47.01 Aphasia; G93.49 Other encephalopathy; E03.9 Hypothyroidism, unspecified; E78.00 Pure hypercholesterolemia, unspecified; F32.9 Major depressive disorder, single episode, unspecified; F41.9 Anxiety disorder, unspecified; F63.9 Impulse disorder, unspecified; G30.9 Alzheimer's disease, unspecified; I10 Essential (primary) hypertension; K21.9 Gastro-esophageal reflux disease without esophagitis; N28.9 Disorder of kidney and ureter, unspecified; N40.0 Benign prostatic hyperplasia without lower urinary tract symptoms; R31.0 Gross hematuria; Z79.899 Other long term (current) drug therapy; Z80.3 Family history of malignant neoplasm of breast; Z85.820 Personal history of malignant melanoma of skin; M19.90 Unspecified osteoarthritis, unspecified site
CPT/HCPCS: 36415; 80048; 80053; 80164; 80170; 81001; 82947; 83605; 85007; 85025; 85610; 85730; 87040; 87086; 94640; 94760; 96360; J0696; J1580; J1815; J2543; J7620; P9612; 99285-25; J7030

== ENCOUNTER 2018-06-25 01:33 | Inpatient (IN) | payer MEDICARE, OTHER ==
[~2018-06-25] VITALS: Ht 175.3 cm; Wt 67.4 kg
[~2018-06-25 01:33] MED LIST changes: +CEFT1VIA13 IJ; +INSU100I11 SQ; +LACT1CAP19 PO; +LEVO500T59 PO; +TRAZ-120 PO; -TRAZ-85 PO
--- NOTE | 2018-06-25 01:51 | ED.ADGEN ---
Past History Past Medical History: Anxiety, Arthritis, Constipation, Dementia, Depression, Diabetes, Hypertension, UTI, Vascular Disease, Other Past Surgical History: No Surgical History Alcohol Use: None Drug Use: None Adult General Chief Complaint Chief Complaint .. grunts with exam... HPI HPI Patient is a 88 year old male who presents with above hx and complaints of fall. Pt. a resident of [facility]. Pt. has history of vascular dementia, anxiety disorder, constipation, hypertension, impulse disorder, insomnia, diabetes, dysarthria, deconditioning, hypo thyroid and behavior disorder. Patient found facedown next age bed by a long-term staff. No recent changes in meds. Patient normally follows with Dr. Multani at long-term. Dr. Ken has been his primary out pt. Pt. has also follow with Dr Bender in the past. Pt a Pt has been admitted in August for behavioral disorder, and two admission for UT and C dif. Pt. advised he can get antibiotics but no CPR, Shocks, Intubations, Renal dialysis. Review of Systems Review of Systems Patient not responsive to questions Family History Family History Not currently available Current Medications Current Medications Current Medications Medications (Trade) Dose Ordered Sig/Smita Start Time Stop Time Status Last Admin Dose Admin Diphtheria/ Tetanus/Acell Pertussis (Boostrix) 0.5 ml ONCE ONCE 06/25/18 02:30 06/25/18 03:09 DC Lactated Ringer's 1,000 ml @ 100 mls/hr Q10H 06/25/18 02:25 06/25/18 12:24 06/25/18 02:40 100 MLS/HR See nursing for long-term meds Allergies Allergies Allergies Coded Allergies Type Severity Reaction Last Updated Verified sulfamethoxazole Allergy Intermediate 03/25/18 Yes trimethoprim Allergy Intermediate 03/25/18 Yes Physical Exam Physical Exam Constitutional: no acute distress, non-toxic appearance. [] HENT: Normocephalic,abrasion to nose and eyebrow, bilateral external ears normal , oropharynx moist, no oral exudates, nose normal. [] Eyes: PERRLA, EOMI, conjunctiva normal, no discharge. [] Neck: Normal range of motion, no tenderness, supple, no stridor. [] Cardiovascular:Tachycardia Heart rate regular rhythm, no murmur []PMI to the left Lungs & Thorax: Bilateral breath sounds equal apex scattered wheezes on auscultation [] Abdomen: Bowel sounds normal, soft, no tenderness, no masses, no pulsatile masses. [] Skin: Warm, dry, no erythema, no rash. [] Poor turgor Back: No tenderness, no CVA tenderness. [] Extremities: More ext. with noxious stimuli. Arthritic changes. Boots on both lower ex.t. Neurologic: Response to noxious stimuli, moves extremities to noxious stimuli, Psychologic: Affect flat, mood normal. [] Current Patient Data Vital Signs Vital Signs Date Time Temp Pulse Resp B/P (MAP) Pulse Ox O2 Delivery O2 Flow Rate FiO2 06/25/18 02:45 100 16 91/67 (75) 97 Room Air 06/25/18 01:33 97.1 Lab Results Laboratory Tests Test 06/25/18 01:58 06/25/18 02:08 06/25/18 02:15 Glucose (Fingerstick) 256 mg/dL (70-99) H White Blood Count 24.1 x10^3/uL (4.0-11.0) H Red Blood Count 4.15 x10^6/uL (4.30-5.70) L Hemoglobin 13.0 g/dL (13.0-17.5) Hematocrit 40.1 % (39.0-53.0) Mean Corpuscular Volume 97 fL (79-100) Mean Corpuscular Hemoglobin 31 pg (25-35) Mean Corpuscular Hemoglobin Concent 32 g/dL (31-37) Red Cell Distribution Width 15.6 % (11.5-14.5) H Platelet Count 377 x10^3/uL (140-400) Neutrophils (%) (Auto) 93 % (31-73) H Lymphocytes (%) (Auto) 2 % (24-48) L Monocytes (%) (Auto) 4 % (0-9) Eosinophils (%) (Auto) 0 % (0-3) Basophils (%) (Auto) 1 % (0-3) Neutrophils # (Auto) 22.3 x10^3uL (1.8-7.7) H Lymphocytes # (Auto) 0.5 x10^3/uL (1.0-4.8) L Monocytes # (Auto) 0.9 x10^3/uL (0.0-1.1) Eosinophils # (Auto) 0.1 x10^3/uL (0.0-0.7) Basophils # (Auto) 0.3 x10^3/uL (0.0-0.2) H Segmented Neutrophils % 86 % (35-66) H Band Neutrophils % 6 % (0-9) Lymphocytes % 4 % (24-48) L Monocytes % 3 % (0-10) Eosinophils % 1 % (0-5) Platelet Estimate Adequate (ADEQUATE) Erythrocyte Sedimentation Rate 101 (0-15) H Prothrombin Time 11.3 SEC (9.4-11.4) Prothrombin Time INR 1.1 (0.9-1.1) PTT 23 SEC (23-33) D-Dimer (Jessica) > 19.00 mg/L (0.00-0.50) H Sodium Level 147 mmol/L (136-145) H Potassium Level 5.4 mmol/L (3.5-5.1) H Chloride Level 110 mmol/L (98-107) H Carbon Dioxide Level 19 mmol/L (21-32) L Anion Gap 18 (6-14) H Blood Urea Nitrogen 217 mg/dL (8-26) H Creatinine 6.6 mg/dL (0.7-1.3) H Estimated GFR (Cockcroft-Gault) 8.0 Glucose Level 285 mg/dL (70-99) H Calcium Level 9.6 mg/dL (8.5-10.1) Magnesium Level 3.4 mg/dL (1.8-2.4) H Total Bilirubin 0.3 mg/dL (0.2-1.0) Direct Bilirubin 0.1 mg/dL (0.0-0.2) Aspartate Amino Transferase (AST) 62 U/L (15-37) H Alanine Aminotransferase (ALT) 58 U/L (16-63) Alkaline Phosphatase 213 U/L (46-116) H Creatine Kinase 239 U/L (39-308) Troponin I Quantitative < 0.017 ng/mL (0-0.055) TN-Kmt-Z-Type Natriuretic Peptide 2012 pg/mL (0-449) H Total Protein 9.9 g/dL (6.4-8.2) H Albumin 2.4 g/dL (3.4-5.0) L Lipase 366 U/L (73-393) Urine Collection Type Unknown Urine Color Brown Urine Clarity Cloudy Urine pH 6.0 Urine Specific Cooks 1.015 Urine Protein 100 mg/dl (NEG-TRACE) Urine Glucose (UA) 100 mg/dL (NEG) Urine Ketones (Stick) Neg mg/dL (NEG) Urine Blood Large (NEG) Urine Nitrite Neg (NEG) Urine Bilirubin Neg (NEG) Urine Urobilinogen Dipstick 0.2 mg/dL (0.2 mg/dL) Urine Leukocyte Esterase Large (NEG) Urine RBC >40 /HPF (0-2) Urine WBC >40 /HPF (0-4) Urine Squamous Epithelial Cells Occ /LPF Urine Bacteria Many /HPF (0-FEW) Urine Opiates Screen Neg (NEG) Urine Methadone Screen Neg (NEG) Urine Barbiturates Neg (NEG) Urine Phencyclidine Screen Neg (NEG) Urine Amphetamine/Methamphetamine Neg (NEG) Urine Benzodiazepines Screen Neg (NEG) Urine Cocaine Screen Neg (NEG) Urine Cannabinoids Screen Neg (NEG) Urine Ethyl Alcohol Neg (NEG) EKG EKG My interpretation EKG shows a sinus tachycardia heart beats per minute. Does have a left axis deviation and nonspecific contour abnormalities anterior septal region. No findings acute STEMI of contralateral changes.[] Radiology/Procedures Radiology/Procedures My interpretation of []CT of head and face show no obvious new fracture or dislocation. Does have a dens fracture from 2017. Atrophy . No shift, mass, edema, or bleed. Course & Med Decision Making Course & Med Decision Making Pertinent Labs and Imaging studies reviewed. (See chart for details) Discussed presentation, testing and tx. plan with Pt. . She advised he is to be DNR, No CPR, No shocks, No intubations, No dialysis. May have antibiotics. Focus of care is to be comfort care. [] Final Impression Final Impression 1. Hx. Fall 2. Hx. Vascular Dementia 3. Hx. Anxiety Disorder 4. Hx HTN 5. Impulse Disorder 6. Osteoarthritis 7. Aphasia, Dysarthria, Anarthria 8. Generalized deconditioning[] 9. Diabetes 285 10. UTI 11. Leukocytosis 24.1 12. Hypernatremia and Hyperkalemia 147/5.4 13. Elevated Magnesium 3.4 14. Acute on Chronic Renal Failure Bun 217/6.6 Creat. 15. CHF- BNP 2011 16. Den s Fx.- (lst. noted 2017) Tito Disclaimer Tito Disclaimer This electronic medical record was generated, in whole or in part, using a voice recognition dictation system. Discharge Summary Visit Information Final Diagnosis Problems Medical Problems: (1) Fall Status: Acute Brief Hospital Course Allergies Allergies Coded Allergies Type Severity Reaction Last Updated Verified sulfamethoxazole Allergy Intermediate 03/25/18 Yes trimethoprim Allergy Intermediate 03/25/18 Yes Vital Signs Vital Signs Date Time Temp Pulse Resp B/P (MAP) Pulse Ox O2 Delivery O2 Flow Rate FiO2 06/25/18 02:45 100 16 91/67 (75) 97 Room Air 06/25/18 01:33 97.1 Lab Results Laboratory Tests Test 06/25/18 01:58 06/25/18 02:08 06/25/18 02:15 Glucose (Fingerstick) 256 mg/dL (70-99) White Blood Count 24.1 x10^3/uL (4.0-11.0) Red Blood Count 4.15 x10^6/uL (4.30-5.70) Hemoglobin 13.0 g/dL (13.0-17.5) Hematocrit 40.1 % (39.0-53.0) Mean Corpuscular Volume 97 fL (79-100) Mean Corpuscular Hemoglobin 31 pg (25-35) Mean Corpuscular Hemoglobin Concent 32 g/dL (31-37) Red Cell Distribution Width 15.6 % (11.5-14.5) Platelet Count 377 x10^3/uL (140-400) Neutrophils (%) (Auto) 93 % (31-73) Lymphocytes (%) (Auto) 2 % (24-48) Monocytes (%) (Auto) 4 % (0-9) Eosinophils (%) (Auto) 0 % (0-3) Basophils (%) (Auto) 1 % (0-3) Neutrophils # (Auto) 22.3 x10^3uL (1.8-7.7) Lymphocytes # (Auto) 0.5 x10^3/uL (1.0-4.8) Monocytes # (Auto) 0.9 x10^3/uL (0.0-1.1) Eosinophils # (Auto) 0.1 x10^3/uL (0.0-0.7) Basophils # (Auto) 0.3 x10^3/uL (0.0-0.2) Segmented Neutrophils % 86 % (35-66) Band Neutrophils % 6 % (0-9) Lymphocytes % 4 % (24-48) Monocytes % 3 % (0-10) Eosinophils % 1 % (0-5) Platelet Estimate Adequate (ADEQUATE) Erythrocyte Sedimentation Rate 101 (0-15) Prothrombin Time 11.3 SEC (9.4-11.4) Prothromb Time International Ratio 1.1 (0.9-1.1) Activated Partial Thromboplast Time 23 SEC (23-33) D-Dimer (Jessica) > 19.00 mg/L (0.00-0.50) Sodium Level 147 mmol/L (136-145) Potassium Level 5.4 mmol/L (3.5-5.1) Chloride Level 110 mmol/L (98-107) Carbon Dioxide Level 19 mmol/L (21-32) Anion Gap 18 (6-14) Blood Urea Nitrogen 217 mg/dL (8-26) Creatinine 6.6 mg/dL (0.7-1.3) Estimated GFR (Cockcroft-Gault) 8.0 Glucose Level 285 mg/dL (70-99) Calcium Level 9.6 mg/dL (8.5-10.1) Magnesium Level 3.4 mg/dL (1.8-2.4) Total Bilirubin 0.3 mg/dL (0.2-1.0) Direct Bilirubin 0.1 mg/dL (0.0-0.2) Aspartate Amino Transf (AST/SGOT) 62 U/L (15-37) Alanine Aminotransferase (ALT/SGPT) 58 U/L (16-63) Alkaline Phosphatase 213 U/L (46-116) Creatine Kinase 239 U/L (39-308) Troponin I Quantitative < 0.017 ng/mL (0-0.055) AA-Gax-O-Type Natriuretic Peptide 2012 pg/mL (0-449) Total Protein 9.9 g/dL (6.4-8.2) Albumin 2.4 g/dL (3.4-5.0) Lipase 366 U/L (73-393) Urine Collection Type Unknown Urine Color Brown Urine Clarity Cloudy Urine pH 6.0 Urine Specific Cooks 1.015 Urine Protein 100 mg/dl (NEG-TRACE) Urine Glucose (UA) 100 mg/dL (NEG) Urine Ketones (Stick) Neg mg/dL (NEG) Urine Blood Large (NEG) Urine Nitrite Neg (NEG) Urine Bilirubin Neg (NEG) Urine Urobilinogen Dipstick 0.2 mg/dL (0.2 mg/dL) Urine Leukocyte Esterase Large (NEG) Urine RBC >40 /HPF (0-2) Urine WBC >40 /HPF (0-4) Urine Squamous Epithelial Cells Occ /LPF Urine Bacteria Many /HPF (0-FEW) Urine Opiates Screen Neg (NEG) Urine Methadone Screen Neg (NEG) Urine Barbiturates Neg (NEG) Urine Phencyclidine Screen Neg (NEG) Urine Amphetamine/Methamphetamine Neg (NEG) Urine Benzodiazepines Screen Neg (NEG) Urine Cocaine Screen Neg (NEG) Urine Cannabinoids Screen Neg (NEG) Urine Ethyl Alcohol Neg (NEG) Brief Hospital Course Mr. Moise is a 88 old male who presented with hx fall. Leukocytosis, Acute on chronic renal falilure, UTI. Pt. DNR- except for antibiotics. Admitted to Dr. Dyer. Discharge Information Condition at Discharge: Improved Dischare Medications Current Medications Lactated Ringer's 1,000 ml @ 100 mls/hr Q10H IV Last administered on 06/25/18at 02:40; Admin Dose 100 MLS/HR; Start 06/25/18 at 02:25; Stop 06/25/18 at 12:24 Diphtheria/ Tetanus/Acell Pertussis (Boostrix) 0.5 ml ONCE ONCE VAX IM ; Start 06/25/18 at 02:30; Stop 06/25/18 at 03:09; Status DC Active Scripts Active Ceftriaxone (Ceftriaxone Sodium) 1 Gm Vial 1 Gm IJ DAILY 7 Days Humalog (Insulin Lispro) 100 Unit/1 Ml Insuln.pen 0 Units SQ TIDWMEALS 90 Days Culturelle (Lactobacillus Rhamnosus Gg) 1 Each Cap.sprink 1 Cap PO BID 10 Days Duoneb 0.5-3(2.5) Mg/3 Ml (Albuterol/Ipratropium) 3 Ml Ampul.neb 3 Ml NEB TID Reported Glucagon Emergency Kit (Glucagon,Human Recombinant) 1 Mg Kit 1 Mg IM PRN Rulox Suspension (Mag Hydrox/Al Hydrox/Simeth) 355 Ml Oral.susp 30 Ml PO PRN AFTMEALHC PRN Enema (Na Phos,M-B/Na Phos,Di-Ba) 133 Ml Enema 133 Ml RC PRN DAILY PRN Bisacodyl 10 Mg Supp.rect 10 Mg RC PRN DAILY PRN Acetaminophen 500 Mg Tablet 500 Mg PO TID Depakote Sprinkle (Divalproex Sodium) 125 Mg Cap.sprink 125 Mg PO TID Senna Lax (Sennosides) 8.6 Mg Tablet 8.6 Mg PO BID Zoloft (Sertraline Hcl) 50 Mg Tablet 75 Mg PO DAILY Olanzapine Odt (Olanzapine) 5 Mg Tab.rapdis 5 Mg PO QHS Nystop (Nystatin) 60 Gm Powder 1 Valery TP BID Apply to groin Analgesic Hemet (Methyl Salicylate/Menthol) 28 Gm Oint...g. 1 Gm TP PRN QID PRN Milk Of Magnesia (Magnesium Hydroxide) 400 Mg/5 Ml Oral.susp 2,400 Mg PO PRN QHS PRN Levemir Flextouch (Insulin Detemir) 100 Unit/1 Ml Insuln.pen 10 Unit SQ QHS Levemir Flextouch (Insulin Detemir) 100 Unit/1 Ml Insuln.pen 15 Unit SQ DAILY D3-50 (Cholecalciferol (Vitamin D3)) 50,000 Unit Capsule 50,000 Unit PO QSU Levothyroxine Sodium 125 Mcg Tablet 125 Mg PO DAILY@0600 Flomax (Tamsulosin Hcl) 0.4 Mg Cap.er.24h 1 Cap PO BID Dragon Disclaimer This chart was dictated in whole or in part using Voice Recognition software in a busy, high-work load, and often noisy Emergency Department environment. It may contain unintended and wholly unrecognized errors or omissions. INDIA HOGAN MD Jun 25, 2018 01:51
[2018-06-25] MEDS ORDERED: IV RINGERS SOLUTION,LACTATED 1,000 ML IV SCH ×3 (02:25→03:30)
[2018-06-25] MEDS ORDERED: DIPHTH,PERTUSS(ACELL),TET TOX 0.5 ML DISP.SYRIN. VAX IM ONE (02:30)
[2018-06-25 02:44] LABS: BASO # 0.3 x10^3/uL (0.0-0.2); BASO % 1 % (0-3); EOS # 0.1 x10^3/uL (0.0-0.7); EOS % 0 % (0-3); HEMATOCRIT 40.1 % (39.0-53.0); LYMPH # 0.5 x10^3/uL (1.0-4.8); LYMPH % 2 % (24-48); MEAN CORPUSCULAR HEMOGLOBIN 31 pg (25-35); MEAN CORPUSCULAR HGB CONC 32 g/dL (31-37); MEAN CORPUSCULAR VOLUME 97 fL (79-100); MONO # 0.9 x10^3/uL (0.0-1.1); MONO % 4 % (0-9); NEUT # 22.3 x10^3uL (1.8-7.7); NEUT % 93 % (31-73); PLATELET COUNT 377 x10^3/uL (140-400); RED BLOOD COUNT 4.15 x10^6/uL (4.30-5.70); RED CELL DISTRIBUTION WIDTH 15.6 % (11.5-14.5); WHITE BLOOD COUNT 24.1 x10^3/uL (4.0-11.0)
[2018-06-25 02:48] LABS: BARBITURATES NEG (NEG); BENZODIAZEPINES NEG (NEG); CANNABINOIDS NEG (NEG); COCAINE NEG (NEG); METHADONE NEG (NEG); OPIATES NEG (NEG); PHENCYCLIDINE NEG (NEG)
[2018-06-25 02:49] LABS: BACTERIA,URINE MANY /HPF (0-FEW); BILIRUBIN,URINE NEG (NEG); CLARITY,URINE CLOUDY; COLOR,URINE BROWN; GLUCOSE,URINE 100 mg/dL (NEG); NITRITE,URINE NEG (NEG); RBC,URINE >40 /HPF (0-2); UROBILINOGEN,URINE 0.2 mg/dL (0.2 mg/dL); WBC,URINE >40 /HPF (0-4)
[2018-06-25 02:50] LABS: SQUAMOUS EPITHELIAL CELL,UR OCC /LPF
[2018-06-25 02:51] LABS: AMPHETAMINE/METHAMPHETAMINE NEG (NEG)
[2018-06-25 02:58] LABS: ALBUMIN 2.4 g/dL (3.4-5.0); CALCIUM 9.6 mg/dL (8.5-10.1); CREATININE 6.6 mg/dL (0.7-1.3); DIRECT BILIRUBIN 0.1 mg/dL (0.0-0.2); MAGNESIUM 3.4 mg/dL (1.8-2.4); POTASSIUM 5.4 mmol/L (3.5-5.1); TOTAL BILIRUBIN 0.3 mg/dL (0.2-1.0); TOTAL PROTEIN 9.9 g/dL (6.4-8.2)
[2018-06-25 03:24] LABS: % BANDS 6 % (0-9); % EOS 1 % (0-5); % LYMPHS 4 % (24-48); % MONOS 3 % (0-10); % SEGS 86 % (35-66); PLT ESTIMATE ADEQUATE (ADEQUATE)
[2018-06-25] MEDS ORDERED: ONDANSETRON PF 4 MG/2 ML VIAL. IV PRN (03:30)
[2018-06-25 03:37] LABS: SEDIMENTATION RATE 101 (0-15)
[2018-06-25] MEDS ORDERED: IV NORMAL SALINE 1,000ML 1,000 ML IV ONE (03:45)
[2018-06-25] MEDS ORDERED: FUROSEMIDE 40 MG/4 ML VIAL IVP ONE (03:45)
[2018-06-25] MEDS ORDERED: cefTRIAXone SODIUM 1 GM VIAL ONE (04:00)
[2018-06-25] MEDS ORDERED: IV NORMAL SALINE 50ML 50 ML ONE (04:00)
--- NOTE | 2018-06-25 04:17 | RAD ---
CT Head W/O Contrast: History: Fall today. Hx odontoid fx in 2017, head injury with bruising to central forehead x 3 weeks ago. Comparison: June 07, 2016 Axial images were obtained without contrast. There is moderate diffuse atrophy. There is no mass effect, extraaxial fluid collections or gross bleed. Mild ventriculomegaly is seen previously and felt to be secondary to atrophy. Moderate, diffuse periventricular and subcortical white matter hypoattenuation is seen. There is no focal loss of baldwin-white matter distinction to suggest acute ischemia, i.e. stroke. Impression: No acute findings. End impression CT C-Spine without contrast: Clinical History: Fall today. Hx odontoid fx in 2017, head injury with bruising to central forehead x 3 weeks ago. Technique: Axial helical images of the cervical spine were obtained without contrast, axial coronal and sagittal reconstruction was performed. Findings: The fracture of the dens is again seen. There is mild loss of the normal cervical lordosis seen grossly. There is no loss vertebral stature or prevertebral soft tissue swelling. There is diffuse circumferential disc osteophytic ridges resulting in effacement of CSF around the cord at multiple levels and there is pannus posterior to the dens causing narrowing at the cortical medullary junction. There is mild degenerative anterolisthesis of C2 on C3 and C3 on C4. The C1-C2 relationship is normal. The visualized osseous structures appear normal. Impression: 1. Fracture of the base the dens seen previously. 2. Marked degenerative changes of the cervical spine with multilevel central and neuroforaminal stenosis. Clinical correlation suggested. PQRS Compliance Statement: One or more of the following individualized dose reduction techniques were utilized for this examination: 1. Automated exposure control 2. Adjustment of the mA and/or kV according to patient size 3. Use of iterative reconstruction technique Electronically signed by: Abdoulaye David III, MD (06/25/2018 4:14 AM) [facility]
--- NOTE | 2018-06-25 04:30 | RAD ---
CT maxillofacial without contrast History: Pain status post fall Axial helical images of the face were obtained without contrast. Axial, sagittal and coronal reconstruction was performed. The nasal septum is moderately deviated to the right. The ostiomeatal complexes are narrow but patent. The paranasal sinuses are clear. The visualized osseous structures appear intact. The orbits appear normal. Impression: No acute findings. PQRS Compliance Statement: One or more of the following individualized dose reduction techniques were utilized for this examination: 1. Automated exposure control 2. Adjustment of the mA and/or kV according to patient size 3. Use of iterative reconstruction technique Electronically signed by: Abdoulaye David III, MD (06/25/2018 4:27 AM) [facility]
--- NOTE | 2018-06-25 04:32 | RAD ---
PORTABLE CHEST 1V Clinical History: Fall today. Patient non communicative, unable to follow breathing instructions Technique: AP view of the chest was obtained at 06/25/2018 2:25 AM. Comparison: March 21, 2018. Findings: The cardiomediastinal silhouette is normal. The pulmonary vasculature is normal. There is patchy opacity in the left lung base. Impression: Left basal infiltrate likely discoid atelectasis. Electronically signed by: Abdoulaye David III, MD (06/25/2018 4:29 AM) [facility]
[2018-06-25 05:58] VITALS: BP 110/74
--- NOTE | 2018-06-25 07:13 | NUR ---
PT admitted from ER status post fall at [facility] around midnight. PT recently placed on hospice, DNR. PT has been nonverbal for 2 weeks per . PT had a fall without injury also on 05/25/18. PT transported via EMS, transported to bed safely. PT assessed while in room. Information obtained from . Wounds noted and photographed.
[2018-06-25] MEDS ORDERED: IPRATRPIUM/ALBUTEROL 0.5/2.5MG 3 ML NEBU. NEB SCH (08:00)
[2018-06-25] MEDS ORDERED: PIP/TAZO PER PHARMACY MC PRN (09:15)
[2018-06-25] MEDS ORDERED: SODIUM PHOSPHATES 19/7GM 133 ML ENEMA. RC PRN (09:15)
[2018-06-25] MEDS ORDERED: METHYL SALICYLATE/MENTHOL TOPICAL OINTMENT 29GM TUBE. TP PRN (09:15)
[2018-06-25] MEDS ORDERED: MAGNESIUM HYDROXIDE 2,400 MG/30 ML ORAL.SUSP. PO PRN (09:15)
[2018-06-25] MEDS: IPRATRPIUM/ALBUTEROL 0.5/2.5MG 3 ML NEBU. NEB SCH ×2 (09:51→21:00)
[2018-06-25] MEDS ORDERED: IPRATRPIUM/ALBUTEROL 0.5/2.5MG 3 ML NEBU. ONE (10:31)
--- NOTE | 2018-06-25 10:35 | NUR ---
Dr. Bender here at this time, spoke with Bob in regards to patients current condition. Patients states to do IVF and ABT to see if this will help patient. Patient remains non responsive and NPO at this time. Will continue to reposition q2h and complete oral care throughout day.
[2018-06-25] MEDS ORDERED: GLUCAGON,HUMAN RECOMBINANT 1 MG KIT. IM PRN (10:45)
[2018-06-25] MEDS ORDERED: BISACODYL 10 MG SUPP.RECT PR PRN (10:45)
[2018-06-25] MEDS: DIVALPROEX 125 MG CAP.SPRINK PO SCH ×2 (10:53→21:00)
[2018-06-25] MEDS: SERTRALINE 25 MG TABLET. PO SCH (10:53)
[2018-06-25] MEDS: LEVOTHYROXINE 125 MCG TABLET PO SCH (10:53)
[2018-06-25] MEDS: ACETAMINOPHEN 500 MG TABLET PO SCH ×2 (10:54→21:00)
[2018-06-25] MEDS ORDERED: MAG HYDROX/AL HYDROX/SIMETH 30 ML ORAL.SUSP PO PRN (11:00)
[2018-06-25] MEDS ORDERED: DOXYCYCLINE HYCLATE 100 MG in IV DEXTROSE 5% 100 ML IV SCH (11:00)
[2018-06-25 11:39] VITALS: BP 97/65
[2018-06-25] MEDS: INSULIN LISPRO 300 UNITS/3 ML INSULN.PEN. SQ SCH ×2 (11:49→17:00)
[2018-06-25] MEDS ORDERED: INSULIN LISPRO 300 UNITS/3 ML INSULN.PEN. SQ SCH (12:00)
[2018-06-25 12:48] LABS: CALCIUM 8.4 mg/dL (8.5-10.1); GFR 8.3
--- NOTE | 2018-06-25 13:20 | HP ---
ADMIT DATE: 06/25/2018 HISTORY OF PRESENT ILLNESS: An 88-year-old gentleman came in from [facility]. Apparently, he has been declining. The patient apparently has been having problems with vascular dementia, anxiety disorder, seems to be becoming increasingly more weakened and his creatinine is up over 6. Obviously, he is in renal failure, maybe from a dehydration or just plain renal failure that needs to be determined. The patient notes the patient is a DNR nor renal dialysis. The patient otherwise is resting fairly comfortably, would be admitted for numerous medical issues as indicated. Blood pressure 85/60, respiratory rate 20, pulse 120, afebrile. The patient is alert, arousable, seems to track a little bit with his eyes, otherwise basically unresponsive there. The patient is resting comfortably. Continue with IV fluids and IV antibiotic therapy. Apparently, he has been falling and x-rays show that he has a contusion to his nose. White count was over 24,000. Sed rates over 101. Lactic acid elevated. D-dimer was ____. PAST MEDICAL HISTORY: Severe Alzheimer dementia type, GERD, renal failure, prostate problems, incontinence, diabetes, depression, skin melanoma. IMMUNIZATIONS: Up-to-date. The patient with C. diff in the past. ALLERGIES: SULFA TRIMETHOPRIM. MEDICATIONS: Have been reviewed in the reconciliation, however, the patient is not able swallow, so those are being held. FAMILY HISTORY: Unremarkable. SOCIAL HISTORY: The patient has no history of smoking or drug use. The patient continued to be monitored carefully. We will go ahead and continue to monitor the patient for and make further evaluation on him as indicated. REVIEW OF SYSTEMS: The patient is not able to give any type of any history. The patient is arousable, but that is about it. PHYSICAL EXAMINATION: VITAL SIGNS: Blood pressure 85/62, respiratory rate 20, pulse 120, afebrile. GENERAL: The patient is arousable. LUNGS: Otherwise lungs diminished throughout, poor movement of air. CARDIOVASCULAR: Regular rate and rhythm. ABDOMEN: Soft, scaphoid. Decreased bowel sounds. EXTREMITIES: No clubbing, cyanosis, or edema. NEUROLOGIC: The patient basically unresponsive to verbal command. ASSESSMENT AND PLAN: The patient otherwise will be monitored carefully, make further evaluation on him as indicated. Otherwise, he is a no code. We will give him fluids. He appears to be dehydrated with sepsis. Family does not want any aggressive therapy outside of some fluids perhaps and some antibiotic, but nothing more than that to, help him relief for comfort. Otherwise, the patient continued to be monitored here in the hospital, keep him as comfortable as possible. Discussed with his and she agrees with the course of therapy. ELSIE MANCINI MD DR: IVAN/treasure JOB#: [id number] / [id number]
[2018-06-25 13:40] LABS: CREATININE 6.4 mg/dL (0.7-1.3)
[2018-06-25 14:07] LABS: POTASSIUM 4.9 mmol/L (3.5-5.1)
[2018-06-25 15:27] VITALS: BP 103/70
--- NOTE | 2018-06-25 17:17 | EKG ---
[address] [address] Test Date: 2018-06-25 Test Time: 02:32:28 Pat Name: GUCCI FONTANEZ Department: Room: 124 A Gender: M Intelligence Operations: JELANI : 1930 Requested By: INDIA HOGAN Order Number: [id number] Reading MD: Alvin Morillo MD Measurements Intervals [place] Rate: 100 P: 59 MN: 160 QRS: -67 QRSD: 112 T: 59 QT: 368 QTc: 478 Interpretive Statements SINUS RHYTHM RBBB LAD CONSIDER INFERIOR INFARCT Electronically Signed On 06-29-2018 15:48:00 CDT by Alvin Morillo MD
--- NOTE | 2018-06-25 18:07 | NUR ---
Rosaura notified nurse to come into room, stated that she received a phone call from [facility] and was concerned about what to do and how aggressive to be. stated that she would like to just continue IVF and stop antibiotics at this time. Heel protectors remain and continuing to reposition q2h due to pressure ulcer. Patient appears comfortable and not in any pain or discomfort. Pt is more alert and responded to nurse when patient asked if he was okay, able to nod head up and down. aware of pressure ulcer to bottom and stated that this started occuring after having two episodes of cdiff and that it looked much worse, stated that she would like to have wound care consulted while here. Dr. Bender notified of wifes request.
[2018-06-25 19:53] VITALS: BP 94/61
[2018-06-25] MEDS: TAMSULOSIN 0.4 MG CAP.ER.24H. PO SCH (21:00)
[2018-06-25] MEDS ORDERED: INSULIN GLARGINE 300 UNITS/3 ML INSULN.PEN. SQ SCH (21:00)
[2018-06-25] MEDS: SENNOSIDES 8.6 MG TABLET PO SCH (21:00)
[2018-06-25] MEDS: NYSTATIN TOPICAL POWDER 15GM BOTTLE. TP SCH (21:12)
[2018-06-25 22:30] VITALS: BP 107/71
[2018-06-26 04:56] VITALS: BP 92/58
[2018-06-26] MEDS: LEVOTHYROXINE 125 MCG TABLET PO SCH (06:00)
[2018-06-26 06:41] LABS: BASO # 0.1 x10^3/uL (0.0-0.2); BASO % 0 % (0-3); EOS # 0.2 x10^3/uL (0.0-0.7); EOS % 1 % (0-3); HEMATOCRIT 33.1 % (39.0-53.0); HEMOGLOBIN 10.7 g/dL (13.0-17.5); LYMPH # 0.7 x10^3/uL (1.0-4.8); LYMPH % 5 % (24-48); MEAN CORPUSCULAR HEMOGLOBIN 32 pg (25-35); MEAN CORPUSCULAR HGB CONC 33 g/dL (31-37); MEAN CORPUSCULAR VOLUME 97 fL (79-100); MONO # 0.7 x10^3/uL (0.0-1.1); MONO % 5 % (0-9); NEUT # 13.1 x10^3uL (1.8-7.7); NEUT % 89 % (31-73); PLATELET COUNT 274 x10^3/uL (140-400); RED CELL DISTRIBUTION WIDTH 15.7 % (11.5-14.5); WHITE BLOOD COUNT 14.7 x10^3/uL (4.0-11.0)
[2018-06-26 06:51] LABS: CALCIUM 8.2 mg/dL (8.5-10.1); CREATININE 5.7 mg/dL (0.7-1.3); GFR 9.5; POTASSIUM 4.8 mmol/L (3.5-5.1)
[2018-06-26] MEDS: INSULIN LISPRO 300 UNITS/3 ML INSULN.PEN. SQ SCH ×2 (08:00→12:00)
[2018-06-26] MEDS: SENNOSIDES 8.6 MG TABLET PO SCH (08:21)
[2018-06-26] MEDS: TAMSULOSIN 0.4 MG CAP.ER.24H. PO SCH (08:21)
[2018-06-26] MEDS: SERTRALINE 25 MG TABLET. PO SCH (08:21)
[2018-06-26] MEDS: ACETAMINOPHEN 500 MG TABLET PO SCH ×2 (08:21→13:44)
[2018-06-26] MEDS: DIVALPROEX 125 MG CAP.SPRINK PO SCH ×2 (08:21→13:44)
[2018-06-26] MEDS ORDERED: INSULIN GLARGINE 300 UNITS/3 ML INSULN.PEN. SQ SCH (09:00)
[2018-06-26] MEDS: NYSTATIN TOPICAL POWDER 15GM BOTTLE. TP SCH (09:00)
[2018-06-26] MEDS: MORPHINE SULFATE 4 MG/ML DISP.SYRIN. IV PRN ×2 (10:59→15:28)
[2018-06-26 11:57] VITALS: BP 91/60
[2018-06-26] MEDS ORDERED: HALO2ORA PO (15:38)
[2018-06-26] MEDS ORDERED: ACET500T68 PO (15:38)
[2018-06-26] MEDS ORDERED: LORA2ORA2 PO (15:38)
[2018-06-26] MEDS ORDERED: HYOS0.1278 SL (15:38)
--- NOTE | 2018-06-26 16:19 | NUR ---
Discharge Note: GUCCI FONTANEZ [address] Discharge instructions and discharge home medications reviewed with Other facility and a copy given. All questions have been answered and understanding verbalized. The following instructions and handouts were given: medications, labs, wound care, activity, diet, and plan of care. Discontinued lines and drains: peripheral IVs discontinued with no complications. Patient discharged to [facility] with [facility] via EMS.
[2018-06-28] MEDS ORDERED: CHOLECALCIFEROL (VITAMIN D3) 50,000 UNIT CAPSULE PO SCH (16:00)
== END 2018-06-26 15:55 | disposition hospice, inpatient (51) | DRG 871 ==
LOC: ER 01:33 → 1 SOUTH 03:00
PROVIDERS: ADMIT Internal Medicine; ATTEND Family Medicine
DX: A41.9 Sepsis, unspecified organism (principal); N17.0 Acute kidney failure with tubular necrosis; N18.5 Chronic kidney disease, stage 5; F41.9 Anxiety disorder, unspecified; M19.90 Unspecified osteoarthritis, unspecified site; F32.9 Major depressive disorder, single episode, unspecified; I10 Essential (primary) hypertension; F01.50 Vascular dementia, unspecified severity, without behavioral disturbance, psychotic disturbance, mood disturbance, and anxiety; E11.9 Type 2 diabetes mellitus without complications; F02.80 Dementia in other diseases classified elsewhere, unspecified severity, without behavioral disturbance, psychotic disturbance, mood disturbance, and anxiety; G30.9 Alzheimer's disease, unspecified; G47.00 Insomnia, unspecified; E03.9 Hypothyroidism, unspecified; Z88.2 Allergy status to sulfonamides; Z66 Do not resuscitate; E86.0 Dehydration; F91.9 Conduct disorder, unspecified; Z85.820 Personal history of malignant melanoma of skin; K21.9 Gastro-esophageal reflux disease without esophagitis
CPT/HCPCS: 36415; 70450; 70486; 71045; 72125; 80048; 80076; 80307; 81001; 82550; 82947; 83605; 83690; 83735; 83880; 84443; 84484; 85007; 85025; 85379; 85610; 85651; 85730; 87040; 87086; 87641; 93005; 94640; 96361; 96365; 96375; J0696; J1815; J1940; J2270; J3490; J7120; J7620; P9612; 99285-25; J7030